=== PATIENT | male | born 1945 | race African-American/Black ===

== ENCOUNTER 2016-05-20 20:05 | Emergency (ER) | payer OTHER, MEDICARE ==
[~2016-05-20] VITALS: Ht 190.5 cm; Wt 57.0 kg
[~2016-05-20 20:05] MED LIST: AMMO12LO TOPICAL; ASCO500T PO; ASPI-110 PO; BACI500O2 TOPICAL; CARV25TA PO; D31000CA PO; ERYTOIN10 RIGHT EYE; FERR325T PO; GNP150TA PO; HYDR1CRE15 TOPICAL; METO5TAB3 PO; POTA-163 PO; PRAV40TA2 PO; SILD1POW4 PO; WARF-23 PO
[2016-05-20 20:07] VITALS: RESP 16
[2016-05-20 20:12] VITALS: BP 136/91; PULSE 80; RESP 18; O2SAT 99
--- NOTE | 2016-05-20 20:38 | PD ---
HPI Chief Complaint: Fall Time Seen by Provider: 20:15 Travel History International Travel<30 days: No Contact w/Intl Traveler<30days: No Traveled to known affect area: No History of Present Illness HPI Patient is a 70-year-old male who arrives via EMS for evaluation of back pain and leg pain after fall at home. Patient states that he is in place with a walker, he reports using a walker when he fell. He is not forthcoming with information and appears bothered by the interview. He states that all of his information is in the computer. He denied any shortness of breath or chest pain or dizziness prior to the fall. PFSH Past Medical History Hx Anticoagulant Therapy: Yes Arthritis: Yes Asthma: Yes Atrial Fibrillation: Yes Blood Disorders: No Depression: Yes Heart Rhythm Problems: No Cancer: No High Cholesterol: Yes Chest Pain: Yes Congestive Heart Failure: Yes COPD: No Cerebrovascular Accident: Yes (x3 tia) Coronary Artery Disease: Yes Diabetes: No Diminished Hearing: No Endocrine: No Gastrointestinal Disorders: Yes GERD: Yes Genitourinary: No Headaches: No Hepatitis: Yes (B) Hypertension: Yes (`) Immune Disorder: No Implanted Vascular Access Dvce: Yes Musculoskeletal: Yes Neurologic: No Psychiatric: Yes (PTSD) Reproductive: No Respiratory: Yes Migraines: No Myocardial Infarction: Yes (EARLY 80S) Pneumonia: Yes Radiation Therapy: No Seizures: No Sleep Apnea: No Ulcer: Yes (MIGHT HAVE HAD ON MORE THAN 10YEARS AGO, WAS IN [place]) Past Surgical History AICD: No Arteriovenous Shunt: No Cardiac Surgery: No Coronary Artery Bypass Graft: No Ear Surgery: No Endocrine Surgery: No Eye Surgery: No Genitourinary Surgery: Yes (vasectomy) Insulin Pump: No Oral Surgery: No Pacemaker: No Thoracic Surgery: No Other Surgery: Yes (L FEM POP BYPASS WITH REDO AT CHECK-UP, VASECTOMY) Social History Alcohol Use: No Tobacco Use: Yes Substance Use: No Allergies-Medications (Allergen,Severity, Reaction): Coded Allergies: Codeine (Verified Allergy, Severe, RASH, 06/11/14) Mirtazapine (Verified Allergy, Severe, 06/11/14) hallucinations Reported Meds & Prescriptions Reported Meds & Active Scripts Active Reported Warfarin 5 Mg Tab 5 Mg PO FRI, Warfarin 5 Mg Tab 7.5 Mg PO MO,E,WED,FRI Sildenafil Citrate (Sildenafil Citrate (Bulk)) 1 Pow Pow 50 Mg PO DIRECTED Gnp Acid Control 150 Maxi (Ranitidine HCl) 150 Mg Tab 150 Mg PO DAILY Pravastatin 40 Mg Tab 40 Mg PO DAILY Potassium Chloride ER (Potassium Chloride) 20 Meq Tab 20 Meq PO MO,FRI,FRI Metolazone 5 Mg Tab 5 Mg PO DAILY Hydrocortisone Maximum St (Hydrocortisone (Topical)) 1 % Cre TOPICAL BID Ferrous Sulfate 325 Mg Tab 324 Mg PO DAILY D3 (Cholecalciferol) 1,000 Unit Cap 1,000 Units PO DAILY Aspirin 81 (Aspirin) 81 Mg Tabdr 81 Mg PO DAILY Erythromycin Opth Oint 5 Mg/Gm Oint 1 Applic RIGHT EYE BID Carvedilol 25 Mg Tab 12.5 Mg PO BID Bacitracin Topical 500 Unit/Gm Oint 1 Applic TOPICAL DAILY Ascorbic Acid 500 Mg Tab 500 Mg PO BID Ammonium Lactate (Lactic Acid (Ammonium Lactate)) 12% Lotn 1 Applic TOPICAL BID Review of Systems Except as stated in HPI: all other systems reviewed are Neg Eyes: No: Visual changes HENT: No: Headaches, Neck Pain Cardiovascular: No: Chest Pain or Discomfort Respiratory: No: Shortness of Breath Gastrointestinal: No: Nausea, Abdominal Pain Musculoskeletal: Positive: Myalgias, Edema Neurologic: No: Weakness, Dizziness, Syncope, Focal Abnormalities Physical Exam Narrative GENERAL: Well-appearing, well-nourished, judgment. Resting comfortably in no acute distress. SKIN: Warm and dry. Superficial Abrasions noted to shins. HEAD: Atraumatic. Normocephalic. EYES: Pupils equal and round. No scleral icterus. No injection or drainage. ENT: No nasal bleeding or discharge. Mucous membranes pink and moist. NECK: Trachea midline. No JVD. Spinal tenderness noted in the cervical region CARDIOVASCULAR: Regular rate and rhythm. No murmur appreciated. RESPIRATORY: No accessory muscle use. Clear to auscultation. Breath sounds equal bilaterally. GASTROINTESTINAL: Abdomen soft, non-tender, nondistended. Hepatic and splenic margins not palpable. MUSCULOSKELETAL: No obvious deformities. No clubbing. No cyanosis. Mild edema noted in bilateral lower extremities. NEUROLOGICAL: Awake and alert. No obvious cranial nerve deficits. Motor grossly within normal limits. Normal speech. PSYCHIATRIC: Appropriate mood and affect; insight and judgment normal. Data Data Last Documented VS Vital Signs Date Time Temp Pulse Resp B/P Pulse Ox O2 Delivery O2 Flow Rate FiO2 05/20/16 22:00 97.2 05/20/16 20:12 80 18 136/[address] Brain W/O Iv Contrast(Rout) (05/20/16 ) Prothrombin Time / Inr (Pt) (05/20/16 20:21) Spine, Lumbar - Ltd (Ap & Lat) (05/20/16 ) Labs Laboratory Tests Test 05/20/16 20:29 Prothrombin Time 11.3 SEC Prothromb Time International 1.0 RATIO Ratio MDM Medical Decision Making Medical Screen Exam Complete: Yes Emergency Medical Condition: Yes Interpretation(s) Laboratory Tests Test 05/20/16 20:29 Prothrombin Time 11.3 SEC Prothromb Time International 1.0 RATIO Ratio Last Impressions Lumbar Spine X-Ray 05/20/16 0000 Signed Impressions: Service Date/Time: Friday, May 20, 2016 20:40 - CONCLUSION: 1. No acute fracture or malalignment. 2. Diffuse degenerative disc changes. 3. Osteopenia and moderate to severe scoliosis. Tristan Beaver MD Head CT 05/20/16 0000 Signed Impressions: Service Date/Time: Friday, May 20, 2016 20:55 - CONCLUSION: Stable appearance with no acute hemorrhage or mass effect. Tristan Beaver MD Vital Signs Date Time Temp Pulse Resp B/P Pulse Ox O2 Delivery O2 Flow Rate FiO2 05/20/16 20:12 80 18 136/91 99 Room Air 05/20/16 20:07 16 Differential Diagnosis Fracture versus sprain versus strain versus contusion versus hemorrhage versus other Narrative Course Patient is a 70-year-old male who presented to emergency department for evaluation after a fall that he sustained at home. Patient was bothered with the interview and being questioned about the fall. Patient is neurologically intact at this time. Patient is no longer taking Coumadin, according to medical records he does not want to be on it and stopped taking the medication. Patient had a physical therapy evaluation prior to his last discharge, at that time his balance was noted to be fair. Patient is supposed to be using a walker when he ambulates. CT of the brain is negative for acute abnormality. X -ray of the lumbar spine shows no acute fracture or malalignment, he does have degenerative changes. Patient had no other complaints on arrival other than musculoskeletal complaints. He denied any chest pain, shortness of breath, weakness, dizziness. Patient will be discharged home, he is encouraged to change positions slowly and only ambulate with his walker. Patient is stable for discharge Diagnosis Primary Impression: Fall Qualified Code: W19.XXXA - Fall, initial encounter Additional Impression: Back pain Qualified Code: M54.5 - Acute low back pain without sciatica, unspecified back pain laterality Referrals: Primary Care Physician 1 day Patient Instructions: Acute Low Back Pain (ED), Fall Prevention for Older Adults (ED), General Instructions Additional Instructions: Follow-up with your primary doctor at the [facility] Change positions slowly, always ambulate with your walker Return to emergency department for any new or worsening symptoms Med/Other Pt SpecificInfo: No Change to Meds Disposition: 01 DISCHARGE HOME Condition: Stable Diane Mayer May 20, 2016 20:38
[2016-05-20 20:54] LABS: PROTHROMBIN TIME - PATIENT 11.3 SEC (9.8-11.6)
--- NOTE | 2016-05-20 21:05 | RADRPT ---
EXAM DATE/TIME: 05/20/2016 20:55 [facility] COMPARISON: CT BRAIN W/O CONTRAST, June 02, 2014, 16:29. INDICATIONS : Fall today, cephalgia. RADIATION DOSE: 39.54 CTDIvol (mGy) MEDICAL HISTORY : Hepatitis B. Hypertension. SURGICAL HISTORY : None. ENCOUNTER: Initial ACUITY: 1 day PAIN SCALE: 5/10 LOCATION: Bilateral head TECHNIQUE: Multiple contiguous axial images were obtained of the head. Using automated exposure control and adj ustment of the mA and/or kV according to patient size, radiation dose was kept as low as reasonably a chievable to obtain optimal diagnostic quality images. FINDINGS: CEREBRUM: Diffuse moderate to severe atrophic changes are again noted with sulcal and ventricular prominence. T here is a stable area of encephalomalacia in the right frontal lobe. Periventricular white matter shalonda encies are again noted consistent with chronic small vessel ischemic change. There is mild streak and motion artifact. No evidence of midline shift, mass lesion, hemorrhage or acute infarction. No extr a-axial fluid collections are seen. POSTERIOR FOSSA: The cerebellum and brainstem are intact. The 4th ventricle is midline. The cerebellopontine angle i s unremarkable. EXTRACRANIAL: The visualized portion of the orbits is intact. SKULL: The calvaria is intact. No evidence of skull fracture. CONCLUSION: Stable appearance with no acute hemorrhage or mass effect. Tristan Beaver MD on May 20, 2016 at 21:03 Board Certified Radiologist. This report was verified electronically.
--- NOTE | 2016-05-20 21:08 | RADRPT ---
EXAM DATE/TIME: 05/20/2016 20:40 [facility] COMPARISON: No previous studies available for comparison. INDICATIONS : Lower back pain after fall. MEDICAL HISTORY : None. SURGICAL HISTORY : Stent. ENCOUNTER: Initial ACUITY: 1 day PAIN SCORE: 10/10 LOCATION: Bilateral Lower back. FINDINGS: AP and lateral views of the lumbar spine were obtained and demonstrate a moderate to severe rotatory scoliosis of lumbar spine with the apex to the right at approximately the L2 level. Diffuse degenerat kindra changes are noted with disc space narrowing and hypertrophic change. There is straightening of th e normal lumbar lordosis. There is diffuse osteopenia with no acute fracture or malalignment. The pat ient is status post abdominal aortic aneurysm repair with stent graft in place. The sacrum appears in tact. CONCLUSION: 1. No acute fracture or malalignment. 2. Diffuse degenerative disc changes. 3. Osteopenia and moderate to severe scoliosis. Tristan Beaver MD on May 20, 2016 at 21:06 Board Certified Radiologist. This report was verified electronically.
[2016-05-20 22:00] VITALS: TEMP 97.2
== END 2016-05-20 22:25 | disposition home or self-care (01) ==
LOC: NEPE 20:05
DX: M54.5 Low back pain (principal); I48.91 Unspecified atrial fibrillation; W19.XXXA Unspecified fall, initial encounter; Y92.009 Unspecified place in unspecified non-institutional (private) residence as the place of occurrence of the external cause
CPT/HCPCS: 70450; 72100; 85610

== ENCOUNTER 2016-06-03 09:17 | Emergency (ER) | payer OTHER, MEDICARE ==
[~2016-06-03] VITALS: Ht 190.5 cm; Wt 66.0 kg
[2016-06-03 09:20] VITALS: BP 102/65; PULSE 78; RESP 20; TEMP 97.3; O2SAT 96
--- NOTE | 2016-06-03 11:02 | PD ---
HPI Chief Complaint: Fall Time Seen by Provider: 11:01 Travel History International Travel<30 days: No Contact w/Intl Traveler<30days: No Traveled to known affect area: No History of Present Illness HPI 70-year-old male with history of CAD, COPD, hypertension, diabetes, presents to emergency department following a fall. Patient states that he had walked towards his front door this morning on his porch when a big wind came and "caught him." He is uncertain of the when pulled down or if he tripped on the way down but he struck his head. He states there was loss of consciousness. Patient is on Coumadin. Reports mild head pain, right hip, and right knee pain. Denies any chest pain or tightness. States he is chronically short of breath and is on 2 L nasal cannula at home. He has no focal deficits or weakness at this time. Has been nauseous. No other symptoms to report. PFSH Past Medical History Hx Anticoagulant Therapy: Yes Arthritis: Yes Asthma: Yes Atrial Fibrillation: Yes Blood Disorders: No Depression: Yes Heart Rhythm Problems: No Cancer: No Cardiovascular Problems: Yes (COPD) High Cholesterol: Yes Chest Pain: Yes Congestive Heart Failure: Yes COPD: No Cerebrovascular Accident: Yes (x3 tia) Coronary Artery Disease: Yes Diabetes: Yes Diminished Hearing: No Endocrine: No Gastrointestinal Disorders: Yes GERD: Yes Genitourinary: No Headaches: No Hepatitis: Yes (B) Hypertension: Yes (`) Immune Disorder: No Implanted Vascular Access Dvce: Yes Musculoskeletal: Yes Neurologic: No Psychiatric: Yes (PTSD) Reproductive: No Respiratory: Yes Migraines: No Myocardial Infarction: Yes (EARLY 80S) Pneumonia: Yes Radiation Therapy: No Seizures: No Sleep Apnea: No Ulcer: Yes (MIGHT HAVE HAD ON MORE THAN 10YEARS AGO, WAS IN [place]) Past Surgical History AICD: No Arteriovenous Shunt: No Cardiac Surgery: No Coronary Artery Bypass Graft: No Ear Surgery: No Endocrine Surgery: No Eye Surgery: No Genitourinary Surgery: Yes (vasectomy) Insulin Pump: No Oral Surgery: No Pacemaker: No Thoracic Surgery: No Other Surgery: Yes (L FEM POP BYPASS WITH REDO AT CHECK-UP, VASECTOMY) Social History Alcohol Use: No Tobacco Use: Yes Substance Use: No Allergies-Medications (Allergen,Severity, Reaction): Coded Allergies: Adhesives (Verified Allergy, Severe, Rash, 06/03/16) Codeine (Verified Allergy, Severe, RASH, 06/03/16) Mirtazapine (Verified Allergy, Severe, 06/03/16) hallucinations Reported Meds & Prescriptions Reported Meds & Active Scripts Active Reported Warfarin 5 Mg Tab 5 Mg PO FRI, Warfarin 5 Mg Tab 7.5 Mg PO ,FRI,FRI,FRI Sildenafil Citrate (Sildenafil Citrate (Bulk)) 1 Pow Pow 50 Mg PO DIRECTED Gnp Acid Control 150 Maxi (Ranitidine HCl) 150 Mg Tab 150 Mg PO DAILY Pravastatin 40 Mg Tab 40 Mg PO DAILY Potassium Chloride ER (Potassium Chloride) 20 Meq Tab 20 Meq PO ,FRI,FRI Metolazone 5 Mg Tab 5 Mg PO DAILY Hydrocortisone Maximum St (Hydrocortisone (Topical)) 1 % Cre TOPICAL BID Ferrous Sulfate 325 Mg Tab 324 Mg PO DAILY D3 (Cholecalciferol) 1,000 Unit Cap 1,000 Units PO DAILY Aspirin 81 (Aspirin) 81 Mg Tabdr 81 Mg PO DAILY Erythromycin Opth Oint 5 Mg/Gm Oint 1 Applic RIGHT EYE BID Carvedilol 25 Mg Tab 12.5 Mg PO BID Bacitracin Topical 500 Unit/Gm Oint 1 Applic TOPICAL DAILY Ascorbic Acid 500 Mg Tab 500 Mg PO BID Ammonium Lactate (Lactic Acid (Ammonium Lactate)) 12% Lotn 1 Applic TOPICAL BID Review of Systems Except as stated in HPI: all other systems reviewed are Neg Physical Exam Narrative GENERAL: Thin elderly male patient, sitting in a wheelchair, in no acute distress. Patient has been wheeling himself around the room, taking supply from the drawers. SKIN: Warm and dry. Small abrasion on the left frontal scalp. HEAD: Normocephalic. EYES: Pupils equal and round. No scleral icterus. No injection or drainage. ENT: No nasal bleeding or discharge. Mucous membranes pink and moist. NECK: Trachea midline. No JVD. No cervical spine tenderness to palpation. No limitations of range of motion of the cervical spine. CARDIOVASCULAR: Regular rate and rhythm. No murmur appreciated. RESPIRATORY: No accessory muscle use. Clear to auscultation. Breath sounds equal bilaterally. GASTROINTESTINAL: Abdomen soft, non-tender, nondistended. Hepatic and splenic margins not palpable. MUSCULOSKELETAL: No obvious deformities. No clubbing. No cyanosis. No edema. Tenderness elicited palpation of the right anterior lateral hip. No obvious deformity. No shortening or rotation of the lower extremity. NEUROLOGICAL: Awake and alert. No obvious cranial nerve deficits. Motor grossly within normal limits. Normal speech. Data Data Last Documented VS Vital Signs Date Time Temp Pulse Resp B/P Pulse Ox O2 Delivery O2 Flow Rate FiO2 06/03/16 09:20 97.3 78 20 102/65 96 Room Air Orders Complete Blood Count With Diff (06/03/16 10:59) Basic Metabolic Panel (Bmp) (06/03/16 10:59) Coag Profile (06/03/16 10:59) Electrocardiogram (06/03/16 ) Ct Brain W/O Iv Contrast(Rout) (06/03/16 ) Hip, Uni(Ap&Lat) W Ap Pelvis (06/03/16 11:14) Knee, Complete (4vws) (06/03/16 11:14) Labs Laboratory Tests Test 06/03/16 06/03/16 12:25 12:28 White Blood Count 7.3 TH/MM3 Red Blood Count 4.38 MIL/MM3 Hemoglobin 13.0 GM/DL Hematocrit 39.7 % Mean Corpuscular Volume 90.6 FL Mean Corpuscular Hemoglobin 29.8 PG Mean Corpuscular Hemoglobin 32.9 % Concent Red Cell Distribution Width 13.6 % Platelet Count 244 TH/MM3 Mean Platelet Volume 6.6 FL Neutrophils (%) (Auto) 62.1 % Lymphocytes (%) (Auto) 18.2 % Monocytes (%) (Auto) 17.1 % Eosinophils (%) (Auto) 1.5 % Basophils (%) (Auto) 1.1 % Neutrophils # (Auto) 4.5 TH/MM3 Lymphocytes # (Auto) 1.3 TH/MM3 Monocytes # (Auto) 1.3 TH/MM3 Eosinophils # (Auto) 0.1 TH/MM3 Basophils # (Auto) 0.1 TH/MM3 CBC Comment DIFF FINAL Differential Comment Sodium Level 138 MEQ/L Potassium Level 4.2 MEQ/L Chloride Level 100 MEQ/L Carbon Dioxide Level 32.1 MEQ/L Anion Gap 6 MEQ/L Blood Urea Nitrogen 46 MG/DL Creatinine 1.99 MG/DL Estimat Glomerular Filtration 40 ML/MIN Rate Random Glucose 87 MG/DL Calcium Level 9.1 MG/DL Prothrombin Time 11.4 SEC Prothromb Time International 1.0 RATIO Ratio Activated Partial 27.5 SEC Thromboplast Time MDM Medical Decision Making Medical Screen Exam Complete: Yes Emergency Medical Condition: Yes Medical Record Reviewed: Yes Differential Diagnosis Minor head injury versus intracranial hemorrhage versus scalp contusion versus fracture versus sprain versus dislocation Narrative Course 70-year-old male presents to emergency department by [facility] for evaluation following a fall. Patient appears overall well and without distress. Workup is initiated in triage. Once a medical bed becomes available , patient will be transferred to that pod and care assumed by that provider. Imaging studies are all without acute bony abnormality. No intracranial abnormality identified on CT imaging. CBC and BMP are without acute concern and consistent with most recent lab work. Patient does have renal insufficiency. Patient wants to go home. He is argumentative and triage and states that he is tired of waiting. After review of the images and lab work, there is no acute reason for admission. I discussed the patient my attending physician, patient will be discharged at this time Diagnosis Primary Impression: Minor head injury Qualified Code: S00.90XA - Minor head injury, initial encounter Additional Impressions: Right hip pain Right knee pain Qualified Code: M25.561 - Acute pain of right knee Referrals: Primary Care Physician Patient Instructions: General Instructions, Head Injury (ED), Hip Pain (ED) Additional Instructions: Ice and/or warm moist heat may help to alleviate symptoms Follow-up with a primary care provider Return immediately with any acute worsening of symptoms Med/Other Pt SpecificInfo: No Change to Meds Disposition: 01 DISCHARGE HOME Condition: Stable [facility] garcia PURVI Jun 03, 2016 11:02
--- NOTE | 2016-06-03 11:52 | RADRPT ---
EXAM DATE/TIME: 06/03/2016 11:33 [facility] COMPARISON: SPINE LUMBAR LTD (AP & LAT), May 20, 2016, 20:40. INDICATIONS : Right hip pain, fall. MEDICAL HISTORY : None. SURGICAL HISTORY : None. ENCOUNTER: Initial ACUITY: 2 days PAIN SCORE: 6/10 LOCATION: Right hip FINDINGS: The osseous structures of the pelvis are intact. There are advanced degenerative changes in the lumba r spine. The right femoral head is well situated within the acetabular fossa. No acute fracture the r ight hip is seen. The exam demonstrates an aortic endograft with the lateral limb extending down into the left iliac ci rculation. CONCLUSION: 1. The bony structures of the pelvis are intact. 2. No acute right hip fracture identified. Murtaza Drummond MD on June 03, 2016 at 11:48 Board Certified Radiologist. This report was verified electronically.
--- NOTE | 2016-06-03 11:52 | RADRPT ---
EXAM DATE/TIME: 06/03/2016 11:37 [facility] COMPARISON: HIP RIGHT (AP&LAT 2/3VWS) W AP PELVIS, June 03, 2016, 11:33. INDICATIONS : Right knee pain, fall. MEDICAL HISTORY : None. SURGICAL HISTORY : None. ENCOUNTER: Initial ACUITY: 2 days PAIN SCORE: 6/10 LOCATION: Right lateral knee FINDINGS: Four view examination of the right knee demonstrates no evidence of fracture or dislocation. Bony mi neralization is normal. The articular surfaces are intact. The suprapatellar soft tissues have a no rmal configuration. There is atherosclerotic calcification in the distal superficial femoral artery. CONCLUSION: 1. No acute fracture of the right knee identified. Murtaza Drummond MD on June 03, 2016 at 11:50 Board Certified Radiologist. This report was verified electronically.
--- NOTE | 2016-06-03 11:56 | RADRPT ---
EXAM DATE/TIME: 06/03/2016 11:36 [facility] COMPARISON: CT BRAIN W/O CONTRAST, May 20, 2016, 20:55. INDICATIONS : Trauma; fall. RADIATION DOSE: 56.35 CTDIvol (mGy) MEDICAL HISTORY : Hypertension. Cardiovascular disease Chronic obstructive pulmonary disease.Diabetic. SURGICAL HISTORY : None. ENCOUNTER: Initial ACUITY: 1 day PAIN SCALE: 5/10 LOCATION: cranial TECHNIQUE: Multiple contiguous axial images were obtained of the head. Using automated exposure control and adj ustment of the mA and/or kV according to patient size, radiation dose was kept as low as reasonably a chievable to obtain optimal diagnostic quality images. FINDINGS: CEREBRUM: The ventricles are normal for age. No evidence of midline shift, mass lesion, hemorrhage or acute in farction. No extra-axial fluid collections are seen. POSTERIOR FOSSA: The cerebellum and brainstem are intact. The 4th ventricle is midline. The cerebellopontine angle i s unremarkable. EXTRACRANIAL: The visualized portion of the orbits is intact. SKULL: The calvaria is intact. No evidence of skull fracture. CONCLUSION: 1. No acute intracranial abnormality. Murtaza Drummond MD on June 03, 2016 at 11:54 Board Certified Radiologist. This report was verified electronically.
[2016-06-03 12:41] LABS: AUTOMATED NEUTROPHIL # 4.5 TH/MM3 (1.8-7.7); BASOPHIL # 0.1 TH/MM3 (0-0.2); BASOPHIL % 1.1 % (0.0-2.0); EOSINOPHIL # 0.1 TH/MM3 (0-0.4); EOSINOPHIL % 1.5 % (0.0-4.0); HEMATOCRIT 39.7 % (39.0-51.0); HEMO FLAGS DIFF FINAL; LYMPH % 18.2 % (9.0-44.0); LYMPHOCYTE # 1.3 TH/MM3 (1.0-4.8); MEAN CELL VOLUME 90.6 FL (80.0-100.0); MEAN CORPUSCULAR HEMOGLOBIN 29.8 PG (27.0-34.0); MEAN CORPUSCULAR HGB CONC 32.9 % (32.0-36.0); MONO % 17.1 % (0.0-8.0); NEUT % 62.1 % (16.0-70.0); PLATELET COUNT 244 TH/MM3 (150-450); RED BLOOD COUNT 4.38 MIL/MM3 (4.50-5.90); RED CELL DISTRIBUTION WIDTH 13.6 % (11.6-17.2); WHITE BLOOD COUNT 7.3 TH/MM3 (4.0-11.0)
[2016-06-03 12:52] LABS: APTT (PATIENT) 27.5 SEC (24.3-30.1); PROTHROMBIN TIME - PATIENT 11.4 SEC (9.8-11.6)
[2016-06-03 13:00] LABS: BICARBONATE 32.1 MEQ/L (21.0-32.0); POTASSIUM 4.2 MEQ/L (3.5-5.1)
--- NOTE | 2016-06-04 17:58 | EKG ---
Date Performed: 06/03/2016 Time Performed: 12:23:15 PTAGE: 70 years EKG: Normal Sinus rhythm Lateral ST depression. Baseline artifact. Likely no significant change when compared to previous tra cing. ABNORMAL ECG PREVIOUS TRACING : 05/02/2016 15.06 DOCTOR: Ann Rios Interpretating Date/Time 06/04/2016 17:56:29
== END 2016-06-03 14:05 | disposition home or self-care (01) ==
LOC: NETRI 09:17
DX: S00.90XA Unspecified superficial injury of unspecified part of head, initial encounter (principal); M25.561 Pain in right knee; M25.551 Pain in right hip; R94.31 Abnormal electrocardiogram [ECG] [EKG]; J44.9 Chronic obstructive pulmonary disease, unspecified; I10 Essential (primary) hypertension; E11.9 Type 2 diabetes mellitus without complications; J45.909 Unspecified asthma, uncomplicated; I48.91 Unspecified atrial fibrillation; E78.00 Pure hypercholesterolemia, unspecified; I25.10 Atherosclerotic heart disease of native coronary artery without angina pectoris; Z79.01 Long term (current) use of anticoagulants; Z72.0 Tobacco use; W18.30XA Fall on same level, unspecified, initial encounter; Y92.007 Garden or yard of unspecified non-institutional (private) residence as the place of occurrence of the external cause; Y99.8 Other external cause status
CPT/HCPCS: 70450; 73502; 73564; 80048; 85025; 85610; 85730; 93005

== ENCOUNTER 2016-06-06 15:33 | Emergency (ER) | payer OTHER, MEDICARE ==
[~2016-06-06] VITALS: Ht 190.5 cm; Wt 66.5 kg
[2016-06-06 15:40] VITALS: BP 102/65; PULSE 79; RESP 14; TEMP 97.5; O2SAT 97
--- NOTE | 2016-06-06 17:13 | PD ---
HPI Chief Complaint: Fall Time Seen by Provider: 17:13 Travel History International Travel<30 days: No Contact w/Intl Traveler<30days: No Traveled to known affect area: No History of Present Illness HPI 70-year-old male came here because of his right index knuckle swelling and pain after a fall a few days ago. Patient has been extremely rude the staff from the moment he came in threatening to report them. He was seen in the emergency room on the day he fell and multiple CAT scans and x-rays were done which were within normal limit. [facility] Past Medical History Narrative Medical List of his past medical history as reviewed from the nursing note Hx Anticoagulant Therapy: Yes Arthritis: Yes Asthma: Yes Atrial Fibrillation: Yes Blood Disorders: No Depression: Yes Heart Rhythm Problems: No Cancer: No Cardiovascular Problems: Yes High Cholesterol: Yes Chest Pain: Yes Congestive Heart Failure: Yes COPD: No Cerebrovascular Accident: Yes (x3 tia) Coronary Artery Disease: Yes Diabetes: Yes Diminished Hearing: No Endocrine: No Gastrointestinal Disorders: Yes GERD: Yes Genitourinary: No Headaches: No Hepatitis: Yes (B) Hypertension: Yes (`) Immune Disorder: No Implanted Vascular Access Dvce: Yes Musculoskeletal: Yes Neurologic: No Psychiatric: Yes (PTSD) Reproductive: No Respiratory: Yes Migraines: No Myocardial Infarction: Yes (EARLY 80S) Pneumonia: Yes Radiation Therapy: No Seizures: No Sleep Apnea: No Ulcer: Yes (MIGHT HAVE HAD ON MORE THAN 10YEARS AGO, WAS IN [place]) Past Surgical History AICD: No Arteriovenous Shunt: No Cardiac Surgery: No Coronary Artery Bypass Graft: No Ear Surgery: No Endocrine Surgery: No Eye Surgery: No Genitourinary Surgery: Yes (vasectomy) Insulin Pump: No Oral Surgery: No Pacemaker: No Thoracic Surgery: No Other Surgery: Yes (L FEM POP BYPASS WITH REDO AT CHECK-UP, VASECTOMY) Social History Alcohol Use: No Tobacco Use: Yes Substance Use: No Allergies-Medications (Allergen,Severity, Reaction): Coded Allergies: Adhesives (Verified Allergy, Severe, Rash, 06/06/16) Codeine (Verified Allergy, Severe, RASH, 06/06/16) Mirtazapine (Verified Allergy, Severe, 06/06/16) hallucinations Comments List of his allergies reviewed from the nursing note. Reported Meds & Prescriptions Reported Meds & Active Scripts Active Reported Warfarin 5 Mg Tab 5 Mg PO LIANA CORONA Warfarin 5 Mg Tab 7.5 Mg PO ,FRI,FRI,FRI Sildenafil Citrate (Sildenafil Citrate (Bulk)) 1 Pow Pow 50 Mg PO DIRECTED Gnp Acid Control 150 Maxi (Ranitidine HCl) 150 Mg Tab 150 Mg PO DAILY Pravastatin 40 Mg Tab 40 Mg PO DAILY Potassium Chloride ER (Potassium Chloride) 20 Meq Tab 20 Meq PO ,FRI,FRI Metolazone 5 Mg Tab 5 Mg PO DAILY Hydrocortisone Maximum St (Hydrocortisone (Topical)) 1 % Cre TOPICAL BID Ferrous Sulfate 325 Mg Tab 324 Mg PO DAILY D3 (Cholecalciferol) 1,000 Unit Cap 1,000 Units PO DAILY Aspirin 81 (Aspirin) 81 Mg Tabdr 81 Mg PO DAILY Erythromycin Opth Oint 5 Mg/Gm Oint 1 Applic RIGHT EYE BID Carvedilol 25 Mg Tab 12.5 Mg PO BID Bacitracin Topical 500 Unit/Gm Oint 1 Applic TOPICAL DAILY Ascorbic Acid 500 Mg Tab 500 Mg PO BID Ammonium Lactate (Lactic Acid (Ammonium Lactate)) 12% Lotn 1 Applic TOPICAL BID Narrative Medication List of his home medications reviewed from the nursing note. Incidentally patient told me that he does not take warfarin anymore because when he was taking it he had noticed that rats were coming out of his body was decided to be off warfarin. Review of Systems Except as stated in HPI: all other systems reviewed are Neg Physical Exam Narrative GENERAL: Awake, alert, no obvious distress SKIN: Warm and dry. HEAD: Atraumatic. Normocephalic. EYES: Pupils equal and round. No scleral icterus. No injection or drainage. ENT: No nasal bleeding or discharge. Mucous membranes pink and moist. NECK: Trachea midline. No JVD. CARDIOVASCULAR: Regular rate and rhythm. No murmur appreciated. RESPIRATORY: No accessory muscle use. Clear to auscultation. Breath sounds equal bilaterally. GASTROINTESTINAL: Abdomen soft, non-tender, nondistended. Hepatic and splenic margins not palpable. MUSCULOSKELETAL: No obvious deformities. No clubbing. No cyanosis. No edema. Right knuckle of the index finger at the MCP joint is swollen but good range of motion. No redness or point tenderness. NEUROLOGICAL: Awake and alert. No obvious cranial nerve deficits. Motor grossly within normal limits. Normal speech. PSYCHIATRIC: Appropriate mood and affect; insight and judgment normal. Data Data Last Documented VS Vital Signs Date Time Temp Pulse Resp B/P Pulse Ox O2 Delivery O2 Flow Rate FiO2 06/06/16 18:49 88 18 107/50 97 06/06/16 17:45 Room Air 06/06/16 15:40 97.5 Orders Hand, Complete ([id number]) (06/06/16 ) MDM Medical Decision Making Medical Screen Exam Complete: Yes Emergency Medical Condition: Yes Medical Record Reviewed: Yes Differential Diagnosis Fracture, contusion Narrative Course 6:50 PM x-ray was within normal limit. I'll discharge the patient home. Procedures EKG Prior to Arrival: No Diagnosis Primary Impression: Hand contusion Qualified Code: S60.221A - Contusion of right hand, initial encounter Referrals: Primary Care Physician Additional Instructions: Please follow-up with your primary care physician. Disposition: 01 DISCHARGE HOME Condition: Stable Derek Finley MD Jun 06, 2016 17:13
--- NOTE | 2016-06-06 18:21 | RADRPT ---
EXAM DATE/TIME: 06/06/2016 17:51 [place] COMPARISON: No previous studies available for comparison. INDICATIONS : Right hand pain, unknown injury. MEDICAL HISTORY : Right hand nerve damage. SURGICAL HISTORY : None. ENCOUNTER: Initial ACUITY: 1 day PAIN SCORE: Non-responsive. LOCATION: Right hand. FINDINGS: There is mild fusiform deformity of the proximal aspect of the right fifth metacarpal which likely re flects remote injury. There is no evidence of acute fracture or dislocation. Mineralization is normal . Mild arthritic changes are present. CONCLUSION: No acute bony findings Job Friedman MD on June 06, 2016 at 18:18 Board Certified Radiologist. This report was verified electronically.
[2016-06-06 18:49] VITALS: BP 107/50
== END 2016-06-06 21:45 | disposition home or self-care (01) ==
LOC: NEPC 15:33
DX: S60.221D Contusion of right hand, subsequent encounter (principal); W19.XXXD Unspecified fall, subsequent encounter; I48.91 Unspecified atrial fibrillation; E78.00 Pure hypercholesterolemia, unspecified; I50.9 Heart failure, unspecified; E11.9 Type 2 diabetes mellitus without complications; I10 Essential (primary) hypertension; I25.2 Old myocardial infarction; F43.10 Post-traumatic stress disorder, unspecified; Z72.0 Tobacco use
CPT/HCPCS: 73130; 99284

== ENCOUNTER 2016-08-06 20:32 | Inpatient (IN) | payer OTHER, MEDICARE ==
[~2016-08-06] VITALS: Ht 190.5 cm; Wt 77.0 kg
[2016-08-06 20:55] VITALS: BP 141/101; PULSE 106; RESP 20; TEMP 98.2; O2SAT 95
[2016-08-06] MEDS ORDERED: SODIUM CHLOR 0.9% 1000 ML INJ 1,000 ML IV SCH (21:28)
[2016-08-06] MEDS ORDERED: ceFAZolin 2 GM PREMIX 50 ML IV ONE (21:30)
[2016-08-06] MEDS ORDERED: ONDANSETRON HCL 4 MG/2 ML VIAL IVP ONE (21:30)
[2016-08-06 21:39] VITALS: O2SAT 96
--- NOTE | 2016-08-06 21:48 | PD ---
HPI Chief Complaint: Fall Time Seen by Provider: 21:28 Travel History International Travel<30 days: No Contact w/Intl Traveler<30days: No Traveled to known affect area: No History of Present Illness HPI The patient is a 70 year old male who presents to the [facility] emergency department with a history of being brought in by ambulance services in full C- spine immobilization on a backboard after his sister went to check on him and found that he was on the floor. The patient reportedly fell 3-1/2 days ago. He reports that he has been scooting around on his back, however he was unable to stand up. The patient reports having a headache, neck pain, and back pain related to the fall. He denies having any numbness or tingling to his extremities. The patient does have a history of chronic back pain with degenerative changes. The patient reports that he was told that he needed surgery, however he refused as he was concerned about the possible side effect of paralysis. The patient normally uses a diaper due to urinary incontinence. The patient reports that he has not been able to change this for the last 3-1/2 days. He reports having nausea but no vomiting. He reports having increase shortness of breath compared to baseline. He does have a prior history of congestive heart failure and COPD. He reports that he has been on 2 L nasal cannula when necessary. The patient reports that he is followed through the [facility] for his primary care. The patient denies any recent fevers, cough, congestion, neck pain, chest pain, abdominal pain, vomiting, diarrhea, urinary symptoms, or new neurologic symptoms. Tetanus is reportedly up to date. [facility] Past Medical History Narrative Medical The patient's past medical history is significant for being anticoagulated on Coumadin up until 5 weeks ago when he discontinued it. He reports that he discontinued it as he was developing a rash. He reports that he was placed on it related to peripheral arterial disease. The patient's other past medical history is significant for congestive heart failure, hypertension, hyperlipidemia, coronary artery disease, history of acid reflux, peripheral arterial disease, COPD, atrial fibrillation, hepatitis B, posttraumatic stress disorder. Hx Anticoagulant Therapy: Yes Arthritis: Yes Asthma: Yes Atrial Fibrillation: Yes Blood Disorders: No Anxiety: Yes Depression: Yes Heart Rhythm Problems: No Cancer: No Cardiovascular Problems: Yes High Cholesterol: Yes Chest Pain: Yes Congestive Heart Failure: Yes COPD: No Cerebrovascular Accident: Yes (x3 tia) Coronary Artery Disease: Yes Diabetes: Yes Patient Takes Glucophage: No Diminished Hearing: No Endocrine: No Gastrointestinal Disorders: Yes GERD: Yes Genitourinary: No Headaches: No Hepatitis: Yes (B) Heparin Induced Thrombocytopen: No Hypertension: Yes (`) Immune Disorder: No Implanted Vascular Access Dvce: No Musculoskeletal: Yes Neurologic: No Psychiatric: Yes (PTSD) Reproductive: No Respiratory: Yes Migraines: No Myocardial Infarction: Yes (EARLY 80S) Pneumonia: Yes Radiation Therapy: No Seizures: No Sleep Apnea: No Ulcer: Yes (MIGHT HAVE HAD ON MORE THAN 10YEARS AGO, WAS IN [place]) Tetanus Vaccination: < 5 Years Influenza Vaccination: Yes Past Surgical History Narrative Surgical The patient's past surgical history is significant for left femoral popliteal bypass with redo, right carotid endarterectomy, abdominal aortic aneurysm repair , vasectomy, facial scar reconstructive surgery. AICD: No Arteriovenous Shunt: No Cardiac Surgery: No Coronary Artery Bypass Graft: No Ear Surgery: No Endocrine Surgery: No Eye Surgery: No Genitourinary Surgery: Yes (vasectomy) Insulin Pump: No Neurologic Surgery: No Oral Surgery: No Pacemaker: No Thoracic Surgery: No Other Surgery: Yes (L FEM POP BYPASS WITH REDO AT CHECK-UP, VASECTOMY) Social History Alcohol Use: No Tobacco Use: Yes (1-1/2 cigarettes per day) Substance Use: No Allergies-Medications (Allergen,Severity, Reaction): Coded Allergies: Adhesives (Verified Allergy, Severe, Rash, 08/06/16) Codeine (Verified Allergy, Severe, RASH, 08/06/16) Mirtazapine (Verified Allergy, Severe, 08/06/16) hallucinations Reported Meds & Prescriptions Reported Meds & Active Scripts Active Reported Sildenafil Citrate (Sildenafil Citrate (Bulk)) 1 Pow Pow 50 Mg PO DIRECTED Gnp Acid Control 150 Maxi (Ranitidine HCl) 150 Mg Tab 150 Mg PO DAILY Pravastatin 40 Mg Tab 40 Mg PO DAILY Potassium Chloride ER (Potassium Chloride) 20 Meq Tab 20 Meq PO MO,WED,FRI Metolazone 5 Mg Tab 5 Mg PO DAILY Ferrous Sulfate 325 Mg Tab 324 Mg PO DAILY D3 (Cholecalciferol) 1,000 Unit Cap 1,000 Units PO DAILY Aspirin 81 (Aspirin) 81 Mg Tabdr 81 Mg PO DAILY Erythromycin Opth Oint 5 Mg/Gm Oint 1 Applic RIGHT EYE BID Carvedilol 25 Mg Tab 12.5 Mg PO BID Ascorbic Acid 500 Mg Tab 500 Mg PO BID Review of Systems Except as stated in HPI: all other systems reviewed are Neg General / Constitutional: No: Fever Eyes: No: Visual changes HENT: No: Headaches Cardiovascular: Positive: Dyspnea on exertion, No: Chest Pain or Discomfort Respiratory: Positive: Shortness of Breath, No: Cough Gastrointestinal: Positive: Nausea, No: Vomiting, Diarrhea, Abdominal Pain, Changes in Bowel Habits, Indigestion, Loss of Appetite Genitourinary: No: Dysuria Musculoskeletal: Positive: Arthralgias, Pain Skin: No Rash Neurologic: No: Weakness Psychiatric: No: Depression Endocrine: No: Polydipsia Hematologic/Lymphatic: No: Easy Bruising Physical Exam Narrative General: The patient is a well-developed, cachectic appearing male, disheveled appearing on arrival, in no acute distress. The patient is brought in on a back board in full c-spine immobilization by emergency services. Head and Neck exam: Head is normocephalic atraumatic. No facial bone tenderness or increased facial bone mobility noted on palpation. Eyes: EOMI, pupils are equal round and reactive to light. Nose: Midline septum with pink mucous membranes Mouth: Dentition unremarkable. Tacky mucus membranes. Posterior oropharynx is not erythematous. No tonsillar hypertrophy. Uvula midline. Airway patent. Neck: The patient is immobilized in a cervical collar. No tracheal deviation. The trachea appears midline. Cardiovascular: Sinus tachycardia in the low 100s without murmurs, gallops, or rubs. No pulse deficit to the extremities and simultaneous auscultation and palpation of his radial artery. Lungs: Clear to auscultation bilaterally. No wheezes, rhonchi, or rales. No chest wall tenderness to palpation. No erythema or ecchymosis noted. No crepitus , step off, or flail segment noted. Abdomen: Soft, without tenderness to palpation in all 4 quadrants of the abdomen. No guarding, rebound, or rigidity. Normal bowel sounds are audible. No tenderness on palpation of McBurney's point. Extremities: No clubbing, cyanosis, or edema. 2+ pulses in bilateral upper extremities. He has venous stasis changes of bilateral lower extremities, 1+ pulses in bilateral lower extremities. No extremity tenderness or deformity noted on palpation or passive/ active range of motion, except an area of interest, the right hip, the patient reports having some discomfort in the right groin. The patient also reports having some pain in the left proximal humerus at the shoulder. There is no deformity or crepitus on palpation. The patient has discomfort with internal and external rotation of the right hip. The patient is able to flex his right hip to approximately 30 without pain. Back: The patient was log rolled off the backboard. No spinous process tenderness to palpation. The patient is noted to have abrasions and skin tears on his back and on his coccygeal, sacral area. This will be further documented by the nursing staff. The patient has no step-off or crepitus on palpation of the spinous processes. Genital exam: The patient had an old diaper brief in place. The patient was noted to have excoriation to the scrotum with tenderness and erythema noted. Neurologic Exam: Cranial nerves 2-12 were intact on exam. Strength is 5/5 in all 4 extremities. No sensory deficits noted. Skin Exam: No rash noted. Intact skin that is warm and dry. Data Data Last Documented VS Vital Signs Date Time Temp Pulse Resp B/P Pulse Ox O2 Delivery O2 Flow Rate FiO2 08/06/16 21:39 96 Nasal Cannula 2 08/06/16 21:06 106 08/06/16 20:55 98.2 20 141/101 Orders Electrocardiogram (08/06/16 21:28) Complete Blood Count With Diff (08/06/16 21:28) Comprehensive Metabolic Panel (08/06/16 21:28) Creatine Kinase (Cpk) (08/06/16 21:28) Ckmb (Isoenzyme) Profile (08/06/16 21:28) Troponin I (08/06/16 21:28) B-Type Natriuretic Peptide (08/06/16 21:28) Prothrombin Time / Inr (Pt) (08/06/16 21:28) Act Partial Throm Time (Ptt) (08/06/16 21:28) Lipase (08/06/16 21:28) Urinalysis - C+S If Indicated (08/06/16 21:28) Magnesium (Mg) (08/06/16 21:28) Chest, Single Ap (08/06/16 21:28) Ct Brain W/O Iv Contrast(Rout) (08/06/16 21:28) Iv Access Insert/Monitor (08/06/16 21:28) Ecg Monitoring (08/06/16 21:28) Oximetry (08/06/16 21:28) Ct Cerv Spine W/O Contrast (08/06/16 21:28) Ct Thor Spine W/O Contrast (08/06/16 21:28) Ct Lumb Spine W/O Contrast (08/06/16 21:28) Cefazolin 2 Gm Premix (Ancef 2 Gm Premix (08/06/16 21:30) Ondansetron Inj (Zofran Inj) (08/06/16 21:30) Sodium Chlor 0.9% 1000 Ml Inj (Ns 1000 M (08/06/16 21:28) Hip, Uni(Ap&Lat) W Ap Pelvis (08/06/16 21:28) Shoulder, Complete (>2vws) (08/06/16 21:28) Ice/Cold Pack (08/06/16 21:28) Collar [place] (08/06/16 ) CKMB (08/06/16 20:50) CKMB% (08/06/16 20:50) Urine Culture (08/06/16 22:54) Sodium Chlor 0.9% 1000 Ml Inj (Ns 1000 M (08/06/16 23:45) Admit Order (Ed Use Only) (08/06/16 23:44) Labs Laboratory Tests Test 08/06/16 08/06/16 20:50 22:54 White Blood Count 18.6 TH/MM3 Red Blood Count 4.66 MIL/MM3 Hemoglobin 13.5 GM/DL Hematocrit 40.8 % Mean Corpuscular Volume 87.6 FL Mean Corpuscular Hemoglobin 29.0 PG Mean Corpuscular Hemoglobin 33.2 % Concent Red Cell Distribution Width 12.9 % Platelet Count 246 TH/MM3 Mean Platelet Volume 7.4 FL Neutrophils (%) (Auto) 86.1 % Lymphocytes (%) (Auto) 2.9 % Monocytes (%) (Auto) 10.7 % Eosinophils (%) (Auto) 0.0 % Basophils (%) (Auto) 0.3 % Neutrophils # (Auto) 16.0 TH/MM3 Lymphocytes # (Auto) 0.5 TH/MM3 Monocytes # (Auto) 2.0 TH/MM3 Eosinophils # (Auto) 0.0 TH/MM3 Basophils # (Auto) 0.1 TH/MM3 CBC Comment DIFF FINAL Differential Comment Prothrombin Time 12.0 SEC Prothromb Time International 1.1 RATIO Ratio Activated Partial 27.3 SEC Thromboplast Time Sodium Level 143 MEQ/L Potassium Level 4.2 MEQ/L Chloride Level 105 MEQ/L Carbon Dioxide Level 23.6 MEQ/L Anion Gap 14 MEQ/L Blood Urea Nitrogen 48 MG/DL Creatinine 2.59 MG/DL Estimat Glomerular Filtration 30 ML/MIN Rate Random Glucose 122 MG/DL Calcium Level 9.0 MG/DL Magnesium Level 2.0 MG/DL Total Bilirubin 1.4 MG/DL Aspartate Amino Transf 292 U/L (AST/SGOT) Alanine Aminotransferase 64 U/L (ALT/SGPT) Alkaline Phosphatase 64 U/L Total Creatine Kinase 4260 U/L Creatine Kinase MB 23.4 NG/ML Creatine Kinase MB % 0.5 % Troponin I 0.83 NG/ML B-Type Natriuretic Peptide 253 PG/ML Total Protein 6.3 GM/DL Albumin 2.5 GM/DL Lipase 56 U/L Urine Color YELLOW Urine Turbidity HAZY Urine pH 5.5 Urine Specific [place] 1.019 Urine Protein 30 mg/dL Urine Glucose (UA) NEG mg/dL Urine Ketones NEG mg/dL Urine Occult Blood SMALL Urine Nitrite NEG Urine Bilirubin NEG Urine Urobilinogen 2.0 MG/DL Urine Leukocyte Esterase NEG Urine RBC 1 /hpf Urine WBC 4 /hpf Urine Squamous Epithelial 3 /hpf Cells Urine Renal Epithelial Cells 5 /hpf Urine Bacteria OCC /hpf Urine Hyaline Casts 6 /lpf Urine Mucus FEW /lpf Microscopic Urinalysis Comment CATH-CULTURE IND MDM Medical Decision Making Medical Screen Exam Complete: Yes Emergency Medical Condition: Yes Medical Record Reviewed: Yes Interpretation(s) Last Impressions Thoracic Spine CT 08/06/162127 Signed Impressions: Service Date/Time: Saturday, August 06, 2016 22:21 - CONCLUSION: 1. No acute fracture or subluxation of the thoracic spine. 2. Degenerative changes and scoliosis of the thoracolumbar spine. Harrison Méndez MD Shoulder X-Ray 08/06/[id number] Signed Impressions: Service Date/Time: Saturday, August 06, 2016 21:57 - CONCLUSION: No acute disease. Harrison Méndez MD Lumbar Spine CT 08/06/162127 Signed Impressions: Service Date/Time: Saturday, August 06, 2016 22:21 - CONCLUSION: 1. No acute fracture of the lumbar spine. 2. Severe spinal stenosis and bilateral foraminal narrowing at L4-L5. 3. Severe bilateral foraminal narrowing at L5-S1. 4. Severe left neural foraminal narrowing at L2-L3. 5. Degenerative changes and scoliosis of the lumbar spine. 6. Severe degenerative disc disease at all levels within the lumbar spine. Harrison Méndez MD Hip and Pelvis X-Ray 08/06/162127 Signed Impressions: Service Date/Time: Saturday, August 06, 2016 22:04 - CONCLUSION: No acute disease. Harrison Méndez MD Head CT 08/06/162127 Signed Impressions: Service Date/Time: Saturday, August 06, 2016 22:16 - CONCLUSION: 1. Moderate periventricular and subcortical white matter small-vessel ischemic changes bilaterally. 2. Diffuse cerebral atrophy. 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 4. No acute infarct, acute hemorrhage, mass effect or extra-axial fluid collections. Harrison Méndez MD Chest X-Ray 08/06/162127 Signed Impressions: Service Date/Time: Saturday, August 06, 2016 22:09 - CONCLUSION: 1. No acute cardiopulmonary disease. 2. Degenerative changes and scoliosis of the lumbar spine. Harrison Méndez MD Cervical Spine CT 08/06/162127 Signed Impressions: Service Date/Time: Saturday, August 06, 2016 22:16 - CONCLUSION: 1. No acute fracture or prevertebral soft-tissue swelling. 2. Cervical spondylosis from C3 through C6 with mild bilateral foraminal narrowing at these levels. 3. Reversal of the normal cervical lordosis. 4. Mild scoliosis of the cervical spine. 5. Biapical emphysematous changes. Harrison Méndez MD Differential Diagnosis Intracranial trauma, versus cervical spine trauma, versus thoracic trauma, versus T-spine trauma, versus lumbar spinal injury, versus rhabdomyolysis, versus dehydration, versus acute coronary syndrome, versus pneumothorax, versus rib fractures Narrative Course During the course of the patients emergency department visit, the patients history, examination, and differential diagnosis were reviewed with the patient. The patient had IV access obtained and blood work sent for analysis. The patient's placed on a dimmer board operator with oximetry and blood pressure monitoring. CT scan of the head, C-spine, T-spine, L-spine was ordered. A chest x-ray was ordered, pelvic x-ray was ordered including a right hip, left shoulder x-ray was ordered. The patient's EKG done on arrival shows a sinus rhythm heart rate of 91, no acute ST segment elevation is noted, some depression is noted in lead 2. There is a wavy baseline related to artifact The patient was provided Ancef 2 g IV, normal saline 1 L IV fluid bolus. The patient reports that his tetanus is up-to-date. The patients laboratory studies were reviewed and remarkable for rhabdomyolysis with a CPK of 4260, MB percent 0.5, troponin I 0.83, however the patient denies having any chest pain I suspect that this is related to the patient's acute on chronic renal failure. The patient has a BUN of 48, creatinine 2.59 which compared to previously was 46 and 1.99 respectively. The patient has a total bilirubin of 1.4, AST 292, ALT 64, alkaline phosphatase 64. Lipase is 56. The patient's white count of 16.6, hemoglobin 13.5, platelets 246 with 86.1 neutrophils, 10.7 monocytes. Due to the patient's rhabdomyolysis the patient was given a second liter of normal saline IV fluids. Radiology studies were reviewed and remarkable for imaging that showed no acute evidence of fracture, however degenerative disc disease is noted with severe spinal stenosis of the lumbar spine. The patients results were discussed with the patient, including the plan of care. I explained that further testing and/ or monitoring is indicated based on the patients history, examination, and/ or laboratory findings. Therefore, I recommended admission for additional evaluation. The patient expressed understanding and was agreeable with this plan. The patient was admitted to the hospital in stable condition and sent to a bed under the care of the [facility]. Physician Communication Physician Communication The patient's case is discussed with Dr. Vences who did agree to admit the patient for further evaluation and treatment at this time. Diagnosis Primary Impression: Fall Qualified Code: W19.XXXA - Fall, initial encounter Additional Impressions: Rhabdomyolysis Qualified Code: M62.82 - Non-traumatic rhabdomyolysis Acute on chronic renal failure Spinal stenosis Qualified Code: M48.06 - Spinal stenosis of lumbar region Admitting Information Admitting Physician Requests: Admit Shruthi Barrera MD Aug 06, 2016 21:48
[2016-08-06 22:10] LABS: BASOPHIL # 0.1 TH/MM3 (0-0.2); BASOPHIL % 0.3 % (0.0-2.0); HEMATOCRIT 40.8 % (39.0-51.0); HEMO FLAGS DIFF FINAL; LYMPH % 2.9 % (9.0-44.0); LYMPHOCYTE # 0.5 TH/MM3 (1.0-4.8); MEAN CELL VOLUME 87.6 FL (80.0-100.0); MEAN CORPUSCULAR HGB CONC 33.2 % (32.0-36.0); MONO % 10.7 % (0.0-8.0); NEUT % 86.1 % (16.0-70.0); PLATELET COUNT 246 TH/MM3 (150-450); RED BLOOD COUNT 4.66 MIL/MM3 (4.50-5.90); RED CELL DISTRIBUTION WIDTH 12.9 % (11.6-17.2); WHITE BLOOD COUNT 18.6 TH/MM3 (4.0-11.0)
[2016-08-06 22:28] LABS: ANION GAP 14 MEQ/L (5-15); AST (GOT) 292 U/L (15-37); BICARBONATE 23.6 MEQ/L (21.0-32.0); BLOOD UREA NITROGEN 48 MG/DL (7-18); CHLORIDE 105 MEQ/L (98-107); GLOMERULAR FILTRATION RATE 30 ML/MIN (>89); POTASSIUM 4.2 MEQ/L (3.5-5.1); SODIUM (NA) 143 MEQ/L (136-145)
--- NOTE | 2016-08-06 22:28 | RADRPT ---
EXAM DATE/TIME: 08/06/2016 22:16 [facility] COMPARISON: CT BRAIN W/O CONTRAST, June 03, 2016, 11:36. INDICATIONS : Frequent falls. RADIATION DOSE: 41.07 CTDIvol (mGy) MEDICAL HISTORY : Cardiovascular disease. Cerebrovascular disease. Hypertension. Diabetes GERD SURGICAL HISTORY : Abdominal aortic aneurysm repair. Stents ENCOUNTER: Initial ACUITY: 1 day PAIN SCALE: 5/10 LOCATION: Cranial TECHNIQUE: Multiple contiguous axial images were obtained of the head. Using automated exposure control and adj ustment of the mA and/or kV according to patient size, radiation dose was kept as low as reasonably a chievable to obtain optimal diagnostic quality images. FINDINGS: Diffuse cerebral atrophy is again noted. Moderate periventricular and subcortical white matter small -vessel ischemic changes are noted bilaterally. 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 There is no acute hemorrhage, acute infarct, mass effect or extra-axial fluid collections. The bone windows are unremarkable. CONCLUSION: 1. Moderate periventricular and subcortical white matter small-vessel ischemic changes bilaterally. 2. Diffuse cerebral atrophy. 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 4. No acute infarct, acute hemorrhage, mass effect or extra-axial fluid collections. Harrison Méndez MD on August 06, 2016 at 22:23 Board Certified Radiologist. This report was verified electronically.
--- NOTE | 2016-08-06 22:28 | RADRPT ---
EXAM DATE/TIME: 08/06/2016 21:57 [facility] COMPARISON: No previous studies available for comparison. INDICATIONS : Left shoulder pain after falling tonight. MEDICAL HISTORY : Hypertension. Cardiovascular disease Chronic obstructive pulmonary disease. Diabetic. SURGICAL HISTORY : None. ENCOUNTER: Initial ACUITY: 1 day PAIN SCORE: 10/10 LOCATION: Left shoulder. FINDINGS: Multiple view examination of the left shoulder demonstrates no evidence of fracture or dislocation. The glenohumeral and acromioclavicular joints are maintained. There is normal range of motion betwee n internal and external rotation. Bony mineralization is normal. CONCLUSION: No acute disease. Harrison Méndez MD on August 06, 2016 at 22:26 Board Certified Radiologist. This report was verified electronically.
--- NOTE | 2016-08-06 22:29 | RADRPT ---
EXAM DATE/TIME: 08/06/2016 22:09 [facility] COMPARISON: CHEST SINGLE AP, May 02, 2016, 2:51. INDICATIONS : Chest pain after falling tonight. MEDICAL HISTORY : Hypertension. Cardiovascular disease Chronic obstructive pulmonary disease. Diabetic. SURGICAL HISTORY : None. ENCOUNTER: Initial ACUITY: 1 day PAIN SCORE: 2/10 LOCATION: Bilateral chest FINDINGS: No acute cardiopulmonary disease. No pneumothorax is noted. The heart and mediastinal structures ar e normal. The pulmonary vascular pattern is normal. Degenerative changes and scoliosis of the thora columbar spine are noted. Aortic stent graft is noted. CONCLUSION: 1. No acute cardiopulmonary disease. 2. Degenerative changes and scoliosis of the lumbar spine. Harrison Méndez MD on August 06, 2016 at 22:24 Board Certified Radiologist. This report was verified electronically.
--- NOTE | 2016-08-06 22:31 | RADRPT ---
EXAM DATE/TIME: 08/06/2016 22:04 [facility] COMPARISON: HIP RIGHT (AP&LAT 2/3VWS) W AP PELVIS, June 03, 2016, 11:33. INDICATIONS : Right hip pain after falling tonight. MEDICAL HISTORY : Hypertension. Cardiovascular disease Chronic obstructive pulmonary disease. Diabetic. SURGICAL HISTORY : None. ENCOUNTER: Initial ACUITY: 1 day PAIN SCORE: 10/10 LOCATION: Right hip. FINDINGS: Examination of the right hip was performed with AP Pelvis. The primary and secondary trabecular ramses kurt of the femoral neck is intact. The hip joint is of normal width without significant sclerosis or bony hypertrophy. The acetabulum is grossly intact. CONCLUSION: No acute disease. Harrison Méndez MD on August 06, 2016 at 22:28 Board Certified Radiologist. This report was verified electronically.
--- NOTE | 2016-08-06 22:40 | RADRPT ---
EXAM DATE/TIME: 08/06/2016 22:16 [facility] COMPARISON: CT CERVICAL SPINE W/O CONTRAST, June 02, 2014, 16:29. INDICATIONS : Frequent falls. RADIATION DOSE: 13.83 CTDIvol (mGy) MEDICAL HISTORY : Cardiovascular disease. Cerebrovascular disease. Hypertension. Diabetes. GERD SURGICAL HISTORY : Abdominal aortic aneurysm repair. Stents ENCOUNTER: Initial ACUITY: 1 day PAIN SCALE: 5/10 LOCATION: neck TECHNIQUE: Volumetric scanning of the cervical spine was performed. Multiplanar reconstructions in the sagittal, coronal and oblique axial planes were performed. Using automated exposure control and adjustment o f the mA and/or kV according to patient size, radiation dose was kept as low as reasonably achievable to obtain optimal diagnostic quality images. FINDINGS: There is reversal of the normal cervical lordosis. Cervical spondylosis is noted from C3 through C6. Significant disc space narrowing is noted at C3-C4, C4-C5 and C5-C6 as well as anterior and posteri or osteophytic spurring at these levels. Mild bilateral foraminal narrowing is noted at C3-C4, C4-C5 and C5-C6. There is no acute fracture or prevertebral soft-tissue swelling. The bony relationship and alignment between C1 and C2 is well maintained. Mild scoliosis of the cervical spine is noted. Apical emphysematous changes are noted bilaterally. CONCLUSION: 1. No acute fracture or prevertebral soft-tissue swelling. 2. Cervical spondylosis from C3 through C6 with mild bilateral foraminal narrowing at these levels. 3. Reversal of the normal cervical lordosis. 4. Mild scoliosis of the cervical spine. 5. Biapical emphysematous changes. Harrison Méndez MD on August 06, 2016 at 22:30 Board Certified Radiologist. This report was verified electronically.
[2016-08-06 22:42] LABS: ALKALINE PHOSPHATASE 64 U/L (45-117); ALT (GPT) 64 U/L (12-78); CREATINE KINASE 4260 U/L (39-308); TOTAL BILIRUBIN ADULT 1.4 MG/DL (0.2-1.0)
[2016-08-06 22:52] LABS: APTT (PATIENT) 27.3 SEC (24.3-30.1); INTERNATIONAL NORMALIZED RATIO 1.1 RATIO
--- NOTE | 2016-08-06 22:56 | RADRPT ---
EXAM DATE/TIME: 08/06/2016 22:21 [facility] COMPARISON: No previous studies available for comparison. INDICATIONS : Frequent falls. RADIATION DOSE: 25.78 CTDIvol (mGy) ; Combined studies - Thoracic Spine/Lumbar Spine MEDICAL HISTORY : Cardiovascular disease. Cerebrovascular disease. Hypertension. Diabetes. GERD SURGICAL HISTORY : Abdominal aortic aneurysm repair. Stents ENCOUNTER: Initial ACUITY: 1 day PAIN SCALE: 5/10 LOCATION: Thoracic TECHNIQUE: Volumetric scanning of the thoracic spine was performed. Multiplanar reconstructions in the sagittal , coronal and oblique axial planes were performed. Using automated exposure control and adjustment o f the mA and/or kV according to patient size, radiation dose was kept as low as reasonably achievable to obtain optimal diagnostic quality images. FINDINGS: Degenerative changes and scoliosis of the thoracolumbar spine are noted. There is no acute compressi on fracture or subluxation of the thoracic spine. There is no bony spinal canal compromise. CONCLUSION: 1. No acute fracture or subluxation of the thoracic spine. 2. Degenerative changes and scoliosis of the thoracolumbar spine. Harrison Méndez MD on August 06, 2016 at 22:43 Board Certified Radiologist. This report was verified electronically.
[2016-08-06 22:58] LABS: CKMB 23.4 NG/ML (0.5-3.6)
--- NOTE | 2016-08-06 22:59 | RADRPT ---
EXAM DATE/TIME: 08/06/2016 22:21 [facility] COMPARISON: No previous studies available for comparison. INDICATIONS : Frequent falls. RADIATION DOSE: 25.78 CTDIvol (mGy) ; Combined studies - Thoracic Spine/Lumbar Spine MEDICAL HISTORY : Cardiovascular disease. Cerebrovascular disease. Hypertension. Diabetes GERD SURGICAL HISTORY : Abdominal aortic aneurysm repair. Stents ENCOUNTER: Initial ACUITY: 1 day PAIN SCALE: 10/10 LOCATION: Lumbar TECHNIQUE: Volumetric scanning of the lumbar spine was performed. Multiplanar reconstructions in the sagittal, coronal and oblique axial planes were performed. Using automated exposure control and adjustment of the mA and/or kV according to patient size, radiation dose was kept as low as reasonably achievable t o obtain optimal diagnostic quality images. FINDINGS: Degenerative changes and scoliosis of the lumbar spine are noted. Vacuum disc phenomenon is noted at L1-L2, L2-L3, L4-L5 and L5-S1. Severe degenerative disc disease is noted at all levels within the l umbar spine. There is no acute compression fracture of the lumbar spine. Multilevel spinal stenoses are noted. Most severe changes are noted at L4-L5 with severe circumferential spinal stenosis and b ilateral foraminal narrowing at this level secondary to diffuse disc osteophyte complex, facet joint hypertrophy and ligamentous laxity. Severe bilateral foraminal narrowing is noted at L5-S1. Severe left neural foraminal narrowing is noted at L2-L3. CONCLUSION: 1. No acute fracture of the lumbar spine. 2. Severe spinal stenosis and bilateral foraminal narrowing at L4-L5. 3. Severe bilateral foraminal narrowing at L5-S1. 4. Severe left neural foraminal narrowing at L2-L3. 5. Degenerative changes and scoliosis of the lumbar spine. 6. Severe degenerative disc disease at all levels within the lumbar spine. Harrison Méndez MD on August 06, 2016 at 22:48 Board Certified Radiologist. This report was verified electronically.
[2016-08-06 23:32] LABS: BACTERIA, URINE OCC /hpf; BLOOD, URINE SMALL (NEG); COMMENT (UR) CATH-CULTURE IND; CULTURE IF INDICATED CATH CULTURE IND; GLUCOSE,URINE NEG (NEG); HYALINE CAST, URINE 6 /lpf (RARE); KETONE, URINE NEG (NEG); MUCUS URINE FEW /lpf (OCC); NITRITE,URINE NEG (NEG); PH, URINE 5.5 (5.0-8.5); RENAL EPITHELIAL CELLS 5 /hpf; SQUAMOUS EPITHELIAL CELL URINE 3 /hpf (0-5); URINE COLOR YELLOW (YELLW/STRAW)
[2016-08-06] MEDS ORDERED: SODIUM CHLOR 0.9% 1000 ML INJ 1,000 ML IV ONE (23:45)
[2016-08-07] VITALS (13 sets, daily range): BP systolic 82–162; BP diastolic 56–90; PULSE 74–107; RESP 11–27; TEMP 97.5–98.6; O2SAT 95–99
[2016-08-07] MEDS ORDERED: SODIUM CHLORIDE 0.9% FLUSH 10 ML FLUSH IV FLUSH PRN
--- NOTE | 2016-08-07 01:42 | HHI.HP ---
[facility] Admission Diagnosis Rhabdomyolysis, acute on chronic renal failure Diagnoses: Chief Complaint: fall at home, weakness Travel History International Travel<30 Days: No Contact w/Intl Traveler <30 Da: No Traveled to Known Affected Are: No History of Present Illness 70 y/o male with a history of spinal stenosis, CAD and HTN was brought in by EMS after suffering a fall 3 days ago and was unable to get up. Patient states he was using his walker as he was going out the door, and the breaks did not work and he fell landing on his back, right hip and left shoulder. He describes his pain as sharp pain that is worse with movement with associated nausea, but no vomiting. Denies any LOC. He was unable to get up because of the pain and weakness for 3 days until his sister's grandson found him. Denies any chest pain, fever, chills, dysuria or constipation. He does have sob but nothing that is new. PCP: [facility] Review of Systems Constitutional: COMPLAINS OF: Weight loss, DENIES: Fever, Chills, Dizziness Respiratory: COMPLAINS OF: Shortness of breath, DENIES: Cough, Sputum production Cardiovascular: DENIES: Chest pain, Lower Extremity Edema Gastrointestinal: DENIES: Black stools, Bloody stools, Constipation, Diarrhea, Nausea, Vomiting Genitourinary: DENIES: Hematuria, Dysuria Musculoskeletal: COMPLAINS OF: Joint pain (RT hip and left shoulder), Back pain , DENIES: Neck pain Integumentary: DENIES: Rash Hematologic/lymphatic: DENIES: Lymphadenopathy Immunologic/allergic: DENIES: Urticaria Neurologic: COMPLAINS OF: Localized weakness, DENIES: Headache Past Family Social History Past Medical History CAD HTN Past Surgical History Vascular surgery to bilateral lower extremities Vasectomy Reported Medications Reported Meds & Active Scripts Active Reported Sildenafil Citrate (Sildenafil Citrate (Bulk)) 1 Pow Pow 50 Mg PO DIRECTED Gnp Acid Control 150 Maxi (Ranitidine HCl) 150 Mg Tab 150 Mg PO DAILY Pravastatin 40 Mg Tab 40 Mg PO DAILY Potassium Chloride ER (Potassium Chloride) 20 Meq Tab 20 Meq PO MO,WED,FRI Metolazone 5 Mg Tab 5 Mg PO DAILY Ferrous Sulfate 325 Mg Tab 324 Mg PO DAILY D3 (Cholecalciferol) 1,000 Unit Cap 1,000 Units PO DAILY Aspirin 81 (Aspirin) 81 Mg Tabdr 81 Mg PO DAILY Erythromycin Opth Oint 5 Mg/Gm Oint 1 Applic RIGHT EYE BID Carvedilol 25 Mg Tab 12.5 Mg PO BID Ascorbic Acid 500 Mg Tab 500 Mg PO BID Allergies: Coded Allergies: Adhesives (Verified Allergy, Severe, Rash, 08/06/16) Codeine (Verified Allergy, Severe, RASH, 08/06/16) Mirtazapine (Verified Allergy, Severe, 08/06/16) hallucinations Active Ordered Medications Current Medications Medications (Trade) Dose Ordered Sig/Zo Route Start Time Stop Time Status Last Admin (NS 1000 ml Inj) 1,000 ml @ 150 mls/hr [id number] IV 08/06/16 23:53 (NS Flush) 2 ml UNSCH PRN IV FLUSH 08/07/16 00:00 (NS Flush) 2 ml BID IV FLUSH 08/07/16 09:00 (Narcan Inj) 0.4 mg UNSCH PRN IV 08/07/16 00:00 Family History Mom: bob Dad: lung cancer Social History Tobacco use: 2-3 cigarettes a day for 50 years Alcohol use: denies Physical Exam Vital Signs Vital Signs Date Time Temp Pulse Resp B/P Pulse Ox O2 Delivery O2 Flow Rate FiO2 08/07/16 00:27 107 16 153/87 97 Nasal Cannula 3 08/06/16 21:39 96 Nasal Cannula 2 08/06/16 21:06 106 08/06/16 20:55 98.2 106 20 141/101 95 Physical Exam GENERAL: This is a thin, unkept patient, in no apparent distress. SKIN: No rashes, ecchymoses or lesions. Dry and scaly. Sacral and mid back wounds. HEAD: Atraumatic. Normocephalic. No temporal or scalp tenderness. EYES: Pupils equal round and reactive. Extraocular motions intact. No scleral icterus. No injection or drainage. ENT: Nose without bleeding, purulent drainage or septal hematoma. Throat without erythema, tonsillar hypertrophy or exudate. Uvula midline. Airway patent. NECK: Trachea midline. No JVD or lymphadenopathy. Supple, nontender, no meningeal signs. CARDIOVASCULAR: Regular rate and rhythm without murmurs, gallops, or rubs. RESPIRATORY: Clear to auscultation. Breath sounds equal bilaterally. No wheezes , rales, or rhonchi. GASTROINTESTINAL: Abdomen soft, non-tender, nondistended. No hepato-splenomegaly , or palpable masses. No guarding. MUSCULOSKELETAL: Extremities without clubbing, cyanosis, or edema. No joint tenderness, effusion, or edema noted. No calf tenderness. NEUROLOGICAL: Awake and alert. Motor and sensory grossly within normal limits. Five out of 5 muscle strength in all muscle groups. Normal speech. Laboratory Laboratory Tests Test 08/06/16 08/06/16 20:50 22:54 White Blood Count 18.6 Red Blood Count 4.66 Hemoglobin 13.5 Hematocrit 40.8 Mean Corpuscular Volume 87.6 Mean Corpuscular Hemoglobin 29.0 Mean Corpuscular Hemoglobin 33.2 Concent Red Cell Distribution Width 12.9 Platelet Count 246 Mean Platelet Volume 7.4 Neutrophils (%) (Auto) 86.1 Lymphocytes (%) (Auto) 2.9 Monocytes (%) (Auto) 10.7 Eosinophils (%) (Auto) 0.0 Basophils (%) (Auto) 0.3 Neutrophils # (Auto) 16.0 Lymphocytes # (Auto) 0.5 Monocytes # (Auto) 2.0 Eosinophils # (Auto) 0.0 Basophils # (Auto) 0.1 CBC Comment DIFF FINAL Differential Comment Prothrombin Time 12.0 Prothromb Time International 1.1 Ratio Activated Partial 27.3 Thromboplast Time Sodium Level 143 Potassium Level 4.2 Chloride Level 105 Carbon Dioxide Level 23.6 Anion Gap 14 Blood Urea Nitrogen 48 Creatinine 2.59 Estimat Glomerular Filtration 30 Rate Random Glucose 122 Calcium Level 9.0 Magnesium Level 2.0 Total Bilirubin 1.4 Aspartate Amino Transf 292 (AST/SGOT) Alanine Aminotransferase 64 (ALT/SGPT) Alkaline Phosphatase 64 Total Creatine Kinase 4260 Creatine Kinase MB 23.4 Creatine Kinase MB % 0.5 Troponin I 0.83 B-Type Natriuretic Peptide 253 Total Protein 6.3 Albumin 2.5 Lipase 56 Urine Color YELLOW Urine Turbidity HAZY Urine pH 5.5 Urine Specific [place] 1.019 Urine Protein 30 Urine Glucose (UA) NEG Urine Ketones NEG Urine Occult Blood SMALL Urine Nitrite NEG Urine Bilirubin NEG Urine Urobilinogen 2.0 Urine Leukocyte Esterase NEG Urine RBC 1 Urine WBC 4 Urine Squamous Epithelial 3 Cells Urine Renal Epithelial Cells 5 Urine Bacteria OCC Urine Hyaline Casts 6 Urine Mucus FEW Microscopic Urinalysis Comment CATH-CULTURE IND Date/Time Procedure Status Source Growth 08/06/16 22:54 Urine Culture Received Urine Catheterized Urine Pending Result Diagram: [id number]/06/[id number] Imaging Last Impressions Thoracic Spine CT 08/06/162127 Signed Impressions: Service Date/Time: Saturday, August 06, 2016 22:21 - CONCLUSION: 1. No acute fracture or subluxation of the thoracic spine. 2. Degenerative changes and scoliosis of the thoracolumbar spine. Harrison Méndez MD Shoulder X-Ray 08/06/162127 Signed Impressions: Service Date/Time: Saturday, August 06, 2016 21:57 - CONCLUSION: No acute disease. Harrison Méndez MD Lumbar Spine CT 08/06/162127 Signed Impressions: Service Date/Time: Saturday, August 06, 2016 22:21 - CONCLUSION: 1. No acute fracture of the lumbar spine. 2. Severe spinal stenosis and bilateral foraminal narrowing at L4-L5. 3. Severe bilateral foraminal narrowing at L5-S1. 4. Severe left neural foraminal narrowing at L2-L3. 5. Degenerative changes and scoliosis of the lumbar spine. 6. Severe degenerative disc disease at all levels within the lumbar spine. Harrison Méndez MD Hip and Pelvis X-Ray 08/06/162127 Signed Impressions: Service Date/Time: Saturday, August 06, 2016 22:04 - CONCLUSION: No acute disease. Harrison Méndez MD Head CT 08/06/162127 Signed Impressions: Service Date/Time: Saturday, August 06, 2016 22:16 - CONCLUSION: 1. Moderate periventricular and subcortical white matter small-vessel ischemic changes bilaterally. 2. Diffuse cerebral atrophy. 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 4. No acute infarct, acute hemorrhage, mass effect or extra-axial fluid collections. Harrison Méndez MD Chest X-Ray 08/06/162127 Signed Impressions: Service Date/Time: Saturday, August 06, 2016 22:09 - CONCLUSION: 1. No acute cardiopulmonary disease. 2. Degenerative changes and scoliosis of the lumbar spine. Harrison Méndez MD Cervical Spine CT 08/06/163 Signed Impressions: Service Date/Time: Saturday, August 06, 2016 22:16 - CONCLUSION: 1. No acute fracture or prevertebral soft-tissue swelling. 2. Cervical spondylosis from C3 through C6 with mild bilateral foraminal narrowing at these levels. 3. Reversal of the normal cervical lordosis. 4. Mild scoliosis of the cervical spine. 5. Biapical emphysematous changes. Harrison Méndez MD Assessment and Plan Problem List: (1) Rhabdomyolysis ICD Code: M62.82 Status: Acute (2) Acute on chronic renal failure ICD Code: N17.9 Status: Acute (3) Back pain ICD Code: M54.9 Status: Acute (4) Decubitus ulcers ICD Code: L89.90 Status: Acute (5) Leukocytosis ICD Code: D72.829 Status: Acute Assessment and Plan 70 y/o male with a history of spinal stenosis, CAD and HTN was brought in by EMS after suffering a fall 3 days ago and was unable to get up. Rhabdomyolysis, acute Labs: CPK 4260 -Supportive IVF NS @125ml/hr -Repeat CPK in AM Acute on chronic renal failure, likely due to dehydration Labs: creatine 2.5, baseline 2.14 -Cont IVF -CMP in AM, and trend Back pain/hip pain Images: Lumbar CT shows No acute fracture of the lumbar spine. 2. Severe spinal stenosis and bilateral foraminal narrowing at L4-L5. Severe bilateral foraminal narrowing at L5-S1. Severe left neural foraminal narrowing at L2-L3. Hip xray unremarkable. Cervical spine shows No acute fracture or prevertebral soft-tissue swelling. Cervical spondylosis from C3 through C6 with mild bilateral foraminal narrowing at these levels. -PT eval and treat -Will order pain meds when needed Decubitus ulcers to sacrum, and mid back -Consult wound care for recommendations. Leukocytosis, possibly stress related Labs: wbc 18.6, neutrophils 86 %, UA negative Images: chest xray unremarkable -Trend CBC DVT prophylaxis: SCDs Written by PURVI Yap acting as scribe for Dr. Vences on 08/07/16 at 0125 All or portions of this note were transcribed by scribe [PURVI Yap]. I , Dr. Shawn Vences personally performed the history, physical exam, and medical decision making; and confirmed the accuracy of the information in the transcribed note. Authenticated by Dr. Shawn Vences on 08/07/16 at 05:43. Discussed Condition With Patient, RN, and ED physician Physician Certification 2 Midnight Certification Type: Admission for Inpatient Services Order for Inpatient Services The services are ordered in accordance with Medicare regulations or non- Medicare payer requirements, as applicable. In the case of services not specified as inpatient-only, they are appropriately provided as inpatient services in accordance with the 2-midnight benchmark. Estimated LOS (days): 3 days is the estimated time the patient will need to remain in the hospital, assuming treatment plan goals are met and no additional complications. Post-Hospital Plan: Not yet determined Problem Qualifiers (1) Back pain: Alysha Noguera Aug 07, 2016 01:42 Shawn Vences MD Aug 07, 2016 05:44
[2016-08-07] MEDS: SODIUM CHLOR 0.9% 1000 ML INJ 1,000 ML IV SCH ×3 (03:45→19:53)
[2016-08-07 04:45] LABS: BASOPHIL # 0.1 TH/MM3 (0-0.2); BASOPHIL % 0.5 % (0.0-2.0); HEMATOCRIT 36.9 % (39.0-51.0); HEMO FLAGS DIFF FINAL; LYMPH % 5.1 % (9.0-44.0); LYMPHOCYTE # 0.8 TH/MM3 (1.0-4.8); MEAN CELL VOLUME 87.9 FL (80.0-100.0); MEAN CORPUSCULAR HEMOGLOBIN 29.4 PG (27.0-34.0); MEAN CORPUSCULAR HGB CONC 33.4 % (32.0-36.0); MONO % 10.8 % (0.0-8.0); NEUT % 83.6 % (16.0-70.0); PLATELET COUNT 210 TH/MM3 (150-450); RED CELL DISTRIBUTION WIDTH 13.3 % (11.6-17.2); WHITE BLOOD COUNT 16.7 TH/MM3 (4.0-11.0)
[2016-08-07 05:27] LABS: ALKALINE PHOSPHATASE 59 U/L (45-117); ALT (GPT) 52 U/L (12-78); ANION GAP 8 MEQ/L (5-15); AST (GOT) 224 U/L (15-37); BICARBONATE 27.2 MEQ/L (21.0-32.0); BLOOD UREA NITROGEN 51 MG/DL (7-18); CHLORIDE 110 MEQ/L (98-107); CREATINE KINASE 2918 U/L (39-308); GLOMERULAR FILTRATION RATE 35 ML/MIN (>89); POTASSIUM 4.4 MEQ/L (3.5-5.1); SODIUM (NA) 145 MEQ/L (136-145); TOTAL BILIRUBIN ADULT 0.5 MG/DL (0.2-1.0)
[2016-08-07 05:42] LABS: CKMB 17.8 NG/ML (0.5-3.6)
[2016-08-07] MEDS ORDERED: CHLORHEXIDINE GLUCONATE 2 % 1 PACK (2 CLOTHS)(extra cloths) TOPICAL PRN (06:15)
[2016-08-07] MEDS: SODIUM CHLORIDE 0.9% FLUSH 10 ML FLUSH IV FLUSH SCH ×2 (09:06→21:00)
[2016-08-07] MEDS: CARVEDILOL 12.5 MG TAB PO SCH ×2 (09:07→21:04)
[2016-08-07] MEDS: FERROUS SULFATE 325 MG (65 MG ELEMENTAL IRON) TAB PO SCH (09:07)
[2016-08-07] MEDS: ASPIRIN EC 81 MG TABEC PO SCH (09:07)
[2016-08-07] MEDS: FAMOTIDINE 20 MG TAB PO SCH ×2 (09:08→21:04)
[2016-08-07] MEDS: PRAVASTATIN SOD 40 MG TAB PO SCH (09:08)
[2016-08-07] MEDS: CHOLECALCIFEROL (VIT D3) 1000 UNIT TAB PO SCH (09:09)
--- NOTE | 2016-08-07 18:38 | HHI.PR ---
Addendum to Inpatient Note Addendum Reason: Additional Documentation Additional Information Patient denies cp/sob. denies fevers, chills, no nausea, vomiting. Patient is AAOX3 sitting in bed eating. Lungs are clear. Abdomen is soft, non tender. Patient has Miguel due to rhabdomyolisis which is improving, creatinine is slightly decreased as well as CK. Severe spinal stenosis and bilateral foraminal at L4-L5. Will consult neurosurgery. Quentin Smith MD Aug 07, 2016 18:37
[2016-08-07 20:05] LABS: CKMB 25.9 NG/ML (0.5-3.6)
--- NOTE | 2016-08-07 20:35 | EKG ---
Date Performed: 08/06/2016 Time Performed: 22:51:12 PTAGE: 70 years EKG: Sinus rhythm DIFFUSE T WAVE CHANGES ABNORMAL ECG PREVIOUS TRACING : 06/03/2016 12.23 Compared to prior tracing no significant change DOCTOR: Kareem Aldridge Interpretating Date/Time 08/07/2016 20:34:46
[2016-08-07] MEDS ORDERED: NALOXONE HCL 0.4 MG/ML AMP IV PRN ×2 (23:30)
[2016-08-07] MEDS ORDERED: traMADol HCL 50 MG TAB PO PRN ×2 (23:30)
[2016-08-08] VITALS (8 sets, daily range): BP systolic 119–141; BP diastolic 58–83; PULSE 69–88; RESP 12–14; TEMP 97.9–98.6; O2SAT 94–98
[2016-08-08] MEDS: ACETAMINOPHEN 325 MG TAB PO PRN ×2 (00:38→11:11)
[2016-08-08] MEDS: SODIUM CHLOR 0.9% 1000 ML INJ 1,000 ML IV SCH ×4 (00:38→22:33)
[2016-08-08 02:24] LABS: CKMB 20.7 NG/ML (0.5-3.6)
[2016-08-08] MEDS: CHLORHEXIDINE GLUCONATE 2 % 1 PACK (2 CLOTHS)(taper/protocol) TOPICAL SCH (04:00)
--- NOTE | 2016-08-08 08:58 | PD.CONS ---
(Luis Hedrick MD) HPI Consult Requested By Primary Care Physician [facility] (Luis Hedrick MD) Service NRS Consult Requested By Dr. Jones Reason for Consult severe lumbar stenosis, leg weakness History of Present Illness Mr. Ulloa is a 70 y/o male with a history of chronic lumbar pain. He reports of progressive low back and lower extremity pain and weakness. Recently he reports his legs became much weaker and he was having difficulty walking. He has had several falls. He reports lumbar pain radiating down his lower extremity all the way to the feet with associated paresthesias. A CT lumbar spine severe degenerative with severe stenosis at L4 5, no acute fractures. Neurosurgical evaluation was requested. (Nasrin Astorga) Review of Systems Constitutional: COMPLAINS OF: Fatigue Musculoskeletal: COMPLAINS OF: Back pain Neurologic: COMPLAINS OF: Abnormal gait, Localized weakness, Paresthesias (Nasrin Astorga) Past Family Social History Allergies: Coded Allergies: Adhesives (Verified Allergy, Severe, Rash, 08/06/16) Codeine (Verified Allergy, Severe, RASH, 08/06/16) Mirtazapine (Verified Allergy, Severe, 08/06/16) hallucinations Past Medical History Hypertension Coronary Artery Disease Past Surgical History Vasectomy Reported Medications reviewed in EMR Active Ordered Medications Current Medications Medications (Trade) Dose Ordered Sig/Zo Route PRN Reason Start Time Stop Time Status Last Admin Dose Admin Sodium Chloride (NS 1000 ml Inj) 1,000 ml @ 150 mls/hr Q6H40M IV 08/06/16 23:53 08/08/16 09:13 Sodium Chloride (NS Flush) 2 ml UNSCH PRN IV FLUSH FLUSH AFTER USING IV ACCESS 08/07/16 00:00 Sodium Chloride (NS Flush) 2 ml BID IV FLUSH 08/07/16 09:00 08/08/16 09:00 Naloxone HCl (Narcan Inj) 0.4 mg UNSCH PRN IV SEE LABEL COMMENTS 08/07/16 00:00 Aspirin (Ecotrin Ec) 81 mg DAILY PO 08/07/16 09:00 08/08/16 09:06 Carvedilol (Coreg) 12.5 mg BID PO 08/07/16 09:00 08/08/16 09:06 Ferrous Sulfate (Ferrous Sulfate) 325 mg DAILY PO 08/07/16 09:00 08/08/16 09:06 Pravastatin Sodium (Pravachol) 40 mg DAILY PO 08/07/16 09:00 08/08/16 09:06 Famotidine (Pepcid) 10 mg BID PO 08/07/16 09:00 08/08/16 09:06 Cholecalciferol (Vitamin D3) 1,000 units DAILY PO 08/07/16 09:00 08/08/16 09:06 Miscellaneous Information Patient in critical care unit? Ass... [id number] 08/07/16 06:15 Chlorhexidine Gluconate (Chlorhexidine 2% Cloth) 3 pack DAILY@04 TOPICAL 08/08/16 04:00 08/12/16 04:01 08/08/16 04:00 Chlorhexidine Gluconate (Chlorhexidine 2% Cloth) 3 pack UNSCH PRN TOPICAL HYGIENIC CARE 08/07/16 06:15 08/12/16 06:06 Acetaminophen (Tylenol) 650 mg Q6H PRN PO PAIN SCALE 1 TO 2 08/07/16 23:30 08/08/16 11:11 Tramadol HCl (Ultram) 50 mg Q4H PRN PO PAIN SCALE 3 TO 5 08/07/16 23:30 Tramadol HCl (Ultram) 100 mg Q4H PRN PO PAIN SCALE 6 TO 10 08/07/16 23:30 Naloxone HCl (Narcan Inj) 0.4 mg UNSCH PRN IV SEE LABEL COMMENTS 08/07/16 23:30 Family History reports father had lung cancer Social History smokes 2-3 cigarettes a day for the past 50 years, denies etoh or illicit drug use (Nasrin Astorga) Physical Exam Vital Signs Vital Signs Date Time Temp Pulse Resp B/P Pulse Ox O2 Delivery O2 Flow Rate FiO2 08/08/16 04:00 84 08/08/16 04:00 97.9 84 12 141/83 97 08/08/16 03:05 15 08/08/16 00:00 80 08/08/16 00:00 98.3 80 12 119/74 98 08/07/16 22:00 87 08/07/16 20:00 80 08/07/16 20:00 98.2 80 27 109/61 98 08/07/16 19:34 98 Nasal Cannula 2.00 08/07/16 18:00 76 08/07/16 16:00 79 08/07/16 16:00 98.6 79 11 105/56 99 08/07/16 14:00 80 08/07/16 12:00 97.5 74 20 82/65 97 08/07/16 12:00 74 08/07/16 10:00 79 Laboratory Laboratory Tests Test 08/07/16 08/08/16 19:00 00:55 Total Creatine Kinase 2304 1954 Creatine Kinase MB 25.9 20.7 Creatine Kinase MB % 1.1 1.1 Troponin I 0.71 0.70 Date/Time Procedure Status Source Growth 08/06/16 22:54 Urine Culture - Preliminary Resulted Urine Catheterized Urine NO GROWTH IN 24 HOURS. (Luis Hedrick MD) Result Diagram: 08/07/16 0419 08/07/169 Imaging Last Impressions Thoracic Spine CT 08/06/162127 Signed Impressions: Service Date/Time: Saturday, August 06, 2016 22:21 - CONCLUSION: 1. No acute fracture or subluxation of the thoracic spine. 2. Degenerative changes and scoliosis of the thoracolumbar spine. Harrison Méndez MD Shoulder X-Ray 08/06/162127 Signed Impressions: Service Date/Time: Saturday, August 06, 2016 21:57 - CONCLUSION: No acute disease. Harrison Méndez MD Lumbar Spine CT 08/06/162127 Signed Impressions: Service Date/Time: Saturday, August 06, 2016 22:21 - CONCLUSION: 1. No acute fracture of the lumbar spine. 2. Severe spinal stenosis and bilateral foraminal narrowing at L4-L5. 3. Severe bilateral foraminal narrowing at L5-S1. 4. Severe left neural foraminal narrowing at L2-L3. 5. Degenerative changes and scoliosis of the lumbar spine. 6. Severe degenerative disc disease at all levels within the lumbar spine. Harrison Méndez MD Hip and Pelvis X-Ray 08/06/162127 Signed Impressions: Service Date/Time: Saturday, August 06, 2016 22:04 - CONCLUSION: No acute disease. Harrison Méndez MD Head CT 08/06/162127 Signed Impressions: Service Date/Time: Saturday, August 06, 2016 22:16 - CONCLUSION: 1. Moderate periventricular and subcortical white matter small-vessel ischemic changes bilaterally. 2. Diffuse cerebral atrophy. 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 4. No acute infarct, acute hemorrhage, mass effect or extra-axial fluid collections. Harrison Méndez MD Chest X-Ray 08/06/162127 Signed Impressions: Service Date/Time: Saturday, August 06, 2016 22:09 - CONCLUSION: 1. No acute cardiopulmonary disease. 2. Degenerative changes and scoliosis of the lumbar spine. Harrison Méndez MD Cervical Spine CT 08/06/162127 Signed Impressions: Service Date/Time: Saturday, August 06, 2016 22:16 - CONCLUSION: 1. No acute fracture or prevertebral soft-tissue swelling. 2. Cervical spondylosis from C3 through C6 with mild bilateral foraminal narrowing at these levels. 3. Reversal of the normal cervical lordosis. 4. Mild scoliosis of the cervical spine. 5. Biapical emphysematous changes. Harrison Méndez MD (Nasrin Astorga) Attending Statement I have reviewed her clinical and further studies. neuro checks in a serial fashion. The patient is chronically debilitated,with severe atrophy on both lower extremities. I recommend an MRI of the lumbar spine for further evaluation. Respiratory. pulmonary toilette, nasotracheal suction, and breathing treatments with nebulizers. PT and OT eval Nutrition. NPO Rhabdomiolysis. IV hydration Monitor myoglobin and renal function Renal. monitor closely urine output, BUN and creatinine Endocrine. Monitor serial Acu checks and SSI for tight control ID monitor for signs of infection Protonix for stress ulcer prophylaxis [place] hose and SCD's for DVT prophylaxis The exam, history, and the medical decision-making described in the above note were completed with the assistance of the mid-level provider. I reviewed and agree with the findings presented. I attest that I had a [id number] encounter with the patient on the same day, and personally performed and documented my assessment and findings in the medical record. (Luis Hedrick MD) Luis Hedrick MD Aug 08, 2016 08:58 Nasrin Astorga Aug 08, 2016 17:19
[2016-08-08] MEDS: SODIUM CHLORIDE 0.9% FLUSH 10 ML FLUSH IV FLUSH SCH ×2 (09:00→20:50)
[2016-08-08] MEDS: CARVEDILOL 12.5 MG TAB PO SCH ×2 (09:06→20:50)
[2016-08-08] MEDS: ASPIRIN EC 81 MG TABEC PO SCH (09:06)
[2016-08-08] MEDS: CHOLECALCIFEROL (VIT D3) 1000 UNIT TAB PO SCH (09:06)
[2016-08-08] MEDS: FAMOTIDINE 20 MG TAB PO SCH ×2 (09:06→20:50)
[2016-08-08] MEDS: PRAVASTATIN SOD 40 MG TAB PO SCH (09:06)
[2016-08-08] MEDS: FERROUS SULFATE 325 MG (65 MG ELEMENTAL IRON) TAB PO SCH (09:06)
--- NOTE | 2016-08-08 13:27 | EKG ---
Date Performed: 08/07/2016 Time Performed: 19:28:10 PTAGE: 70 years EKG: Sinus rhythm WITH SINUS ARRHYTHMIA ST DEVIATION AND MODERATE T-WAVE ABNORMALITY, CONSIDER LATERAL ISCHEMIA ST DEV IATION AND MODERATE T-WAVE ABNORMALITY, CONSIDER INFERIOR ISCHEMIA ABNORMAL ECG PREVIOUS TRACING : 08/06/2016 22.51 Compared to prior tracing no significant change DOCTOR: Ronaldo Zarate Interpretating Date/Time 08/08/2016 13:27:26
--- NOTE | 2016-08-08 15:17 | HHI.PR ---
Subjective Remarks Follow-up for rhabdomyolysis No overnight events. Complaining of left shoulder pain which is new, chronic lower back pain. No chest pain at any point, mild shortness of breath which is chronic and at baseline. No fever or chills. No myalgia. Objective Vitals Vital Signs Date Time Temp Pulse Resp B/P Pulse Ox O2 Delivery O2 Flow Rate FiO2 08/08/16 10:00 84 08/08/16 08:00 86 08/08/16 04:00 84 08/08/16 04:00 97.9 84 12 141/83 97 08/08/16 03:05 15 08/08/16 00:00 80 08/08/16 00:00 98.3 80 12 119/74 98 08/07/16 22:00 87 08/07/16 20:00 80 08/07/16 20:00 98.2 80 27 109/61 98 08/07/16 19:34 98 Nasal Cannula 2.00 08/07/16 18:00 76 08/07/16 16:00 79 08/07/16 16:00 98.6 79 11 105/56 99 I/O 08/07/16 08/07/16 08/07/16 08/08/16 08/08/16 08/08/16 07:00 15:00 23:00 07:00 15:00 23:00 Intake Total 1601 ml 1487 ml 1387 ml Output Total 300 ml 350 ml 520 ml Balance 1301 ml 1137 ml 867 ml Intake Oral 780 ml 480 ml 240 ml IV Total 821 ml 1007 ml 1147 ml Output Urine Total 300 ml 350 ml 520 ml # Voids 1 # Bowel Movements 1 2 0 0 Result Diagram: 08/07/16 0419 08/07/16 0419 Objective Remarks Not in distress, well-nourished, looks stated age PERRL, pink conjunctiva without injection, anicteric Nose without bleeding, airway patent, oropharynx clear Supple neck, no masses or thyromegaly, trachea midline Normal rate and regular rhythm, no murmurs gallops or rubs appreciated. Clear to auscultation and symmetric bilaterally, normal respiratory effort. Normal bowel sounds, soft, non-tender, nondistended, no guarding. Extremities without clubbing, cyanosis, or edema. No rash of generalized distribution. Skin is warm and dry. Mild left shoulder pain, active range of motion is impaired because of pain to passive range of motion is full AAO x3, no cranial nerve deficits, moves all 4 extremities, no focal neurologic deficits Normal mood, appropriate affect A/P Problem List: (1) Rhabdomyolysis ICD Code: M62.82 Status: Acute (2) Acute on chronic renal failure ICD Code: N17.9 Status: Acute (3) Back pain ICD Code: M54.9 Status: Acute (4) Decubitus ulcers ICD Code: L89.90 Status: Acute (5) Leukocytosis ICD Code: D72.829 Status: Acute Assessment and Plan 70 y/o male with a history of spinal stenosis, CAD and HTN was brought in by EMS after suffering a fall 3 days ago and was unable to get up. Rhabdomyolysis, acute -CK improving, continue IVF, increased rate. Repeat CK in the morning. Acute on chronic renal failure, likely due to dehydration and rhabdomyolysis. A little bit better, recheck tomorrow, continue IVF, check ultrasound of the kidneys. Left shoulder pain-new onset, check x-ray, continue pain control. Doubt fracture. Patient had a fall. Back pain/hip pain - Lumbar CT shows No acute fracture of the lumbar spine. 2. Severe spinal stenosis and bilateral foraminal narrowing at L4-L5. Severe bilateral foraminal narrowing at L5-S1. Severe left neural foraminal narrowing at L2-L3. Hip xray unremarkable. Cervical spine shows No acute fracture or prevertebral soft-tissue swelling. Cervical spondylosis from C3 through C6 with mild bilateral foraminal narrowing at these levels. Neurosurgery consulted. Continue tramadol Decubitus ulcers to sacrum, and mid back -Consult wound care for recommendations. Leukocytosis, possibly stress related- urinalysis negative, afebrile. , Chest x-ray negative. Recheck CBC DVT prophylaxis: SCDs Problem Qualifiers (1) Rhabdomyolysis: Qualified Code: M62.82 - Non-traumatic rhabdomyolysis (2) Back pain: Amanda Reveles MD Aug 08, 2016 15:17
--- NOTE | 2016-08-08 17:38 | RADRPT ---
EXAM DATE/TIME: 08/08/2016 17:02 [facility] COMPARISON: US KIDNEY/RENAL/BLADDER, May 02, 2016, 14:43. INDICATIONS : Increased BUN/Creatinine. MEDICAL HISTORY : Hypercholesterolemia. Gastroesophageal reflux disease. Myocardial infarction. CVA. CHF. CAD. Hyperten jerardo. A-fib. Pneumonia. Ulcer. UTI. Arthritis. Hepatitis B. SURGICAL HISTORY : Vasectomy. Left lower extremity surgery, x5. ENCOUNTER: Subsequent ACUITY: 1 day PAIN SCORE: 8/10 LOCATION: Bilateral flank MEASUREMENTS: RIGHT KIDNEY: 9.2 x 4.9 x 3.5 cm LEFT KIDNEY: 8.0 x 4.2 x 5.5 cm FINDINGS: RIGHT KIDNEY: Mild diffuse cortical hyperechogenicity. No evidence of hydronephrosis. No evidence of mass or calcul i. Small amount of free fluid in the right upper quadrant. LEFT KIDNEY: Mild diffuse cortical hyperechogenicity. No evidence of hydronephrosis. No evidence of mass or calcul i. Small left pleural effusion. BLADDER: Bladder is mildly distended. Zar[place] catheter not visualized. CONCLUSION: 1. Mildly echogenic and small kidneys suggesting medical renal disease. No evidence of hydronephrosis . 2. Mildly distended urinary bladder. Zarco catheter not visualized. 3. Small amount of ascites and small left pleural effusion. Gildardo Elias MD on August 08, 2016 at 17:34 Board Certified Radiologist. This report was verified electronically.
[2016-08-09] VITALS (7 sets, daily range): BP systolic 133–152; BP diastolic 53–89; PULSE 68–79; RESP 11–20; TEMP 97.7–98.8; O2SAT 97–99
[2016-08-09] MEDS: CHLORHEXIDINE GLUCONATE 2 % 1 PACK (2 CLOTHS)(taper/protocol) TOPICAL SCH ×2 (04:00→20:34)
[2016-08-09] MEDS: SODIUM CHLOR 0.9% 1000 ML INJ 1,000 ML IV SCH ×2 (05:09→21:52)
[2016-08-09 05:31] LABS: AUTOMATED NEUTROPHIL # 5.6 TH/MM3 (1.8-7.7); BASOPHIL # 0.1 TH/MM3 (0-0.2); BASOPHIL % 0.6 % (0.0-2.0); EOSINOPHIL # 0.2 TH/MM3 (0-0.4); EOSINOPHIL % 2.1 % (0.0-4.0); HEMO FLAGS DIFF FINAL; LYMPH % 14.2 % (9.0-44.0); LYMPHOCYTE # 1.2 TH/MM3 (1.0-4.8); MEAN CELL VOLUME 88.6 FL (80.0-100.0); MEAN CORPUSCULAR HEMOGLOBIN 29.4 PG (27.0-34.0); MEAN CORPUSCULAR HGB CONC 33.2 % (32.0-36.0); MONO % 15.2 % (0.0-8.0); NEUT % 67.9 % (16.0-70.0); PLATELET COUNT 214 TH/MM3 (150-450); RED BLOOD COUNT 3.95 MIL/MM3 (4.50-5.90); RED CELL DISTRIBUTION WIDTH 13.3 % (11.6-17.2); WHITE BLOOD COUNT 8.2 TH/MM3 (4.0-11.0)
[2016-08-09 05:39] LABS: BICARBONATE 27.9 MEQ/L (21.0-32.0); POTASSIUM 4.6 MEQ/L (3.5-5.1)
[2016-08-09 06:08] LABS: CKMB 5.8 NG/ML (0.5-3.6)
[2016-08-09] MEDS: CARVEDILOL 12.5 MG TAB PO SCH ×2 (08:10→20:33)
[2016-08-09] MEDS: FAMOTIDINE 20 MG TAB PO SCH ×2 (08:10→20:34)
[2016-08-09] MEDS: FERROUS SULFATE 325 MG (65 MG ELEMENTAL IRON) TAB PO SCH (08:10)
[2016-08-09] MEDS: PRAVASTATIN SOD 40 MG TAB PO SCH (08:10)
[2016-08-09] MEDS: ASPIRIN EC 81 MG TABEC PO SCH (08:10)
[2016-08-09] MEDS: CHOLECALCIFEROL (VIT D3) 1000 UNIT TAB PO SCH (08:10)
[2016-08-09] MEDS: SODIUM CHLORIDE 0.9% FLUSH 10 ML FLUSH IV FLUSH SCH ×2 (08:11→20:33)
--- NOTE | 2016-08-09 14:08 | HHI.PR ---
Subjective Remarks f/u rhabdomyolysis still denying chest pain, no SOB, complains of back pain, not controlled, agreed to go to rehab, no fever. Objective Vitals Vital Signs Date Time Temp Pulse Resp B/P Pulse Ox O2 Delivery O2 Flow Rate FiO2 08/09/16 08:00 97.7 68 16 136/82 99 08/09/16 08:00 68 08/09/16 07:12 10 08/09/16 04:00 98.0 69 11 142/76 98 08/09/16 04:00 69 08/09/16 00:00 79 08/09/16 00:00 98.7 79 20 152/89 99 08/08/16 23:15 8 08/08/16 20:00 98.4 69 13 119/58 94 08/08/16 20:00 69 08/08/16 16:00 70 08/08/16 16:00 98.6 88 14 125/79 97 08/08/16 14:00 72 I/O 08/08/16 08/08/16 08/08/16 08/09/16 08/09/16 08/09/16 07:00 15:00 23:00 07:00 15:00 23:00 Intake Total 1387 ml 1530 ml 864 ml 1589 ml Output Total 520 ml 600 ml 905 ml 600 ml Balance 867 ml 930 ml -41 ml 989 ml Intake Oral 240 ml 480 ml 240 ml 480 ml IV Total 1147 ml 1050 ml 624 ml 1109 ml Output Urine Total 520 ml 600 ml 905 ml 600 ml # Bowel Movements 0 0 0 0 Result Diagram: 08/09/1642608/09/16426 Objective Remarks Not in distress, well-nourished, looks stated age PERRL, pink conjunctiva without injection, anicteric Nose without bleeding, airway patent, oropharynx clear Supple neck, no masses or thyromegaly, trachea midline Normal rate and regular rhythm, no murmurs gallops or rubs appreciated. Decreased breath sounds on the left. Normal bowel sounds, soft, non-tender, nondistended, no guarding. Extremities without clubbing, cyanosis, or edema. No rash of generalized distribution. Skin is warm and dry. Mild left shoulder pain, active range of motion is impaired because of pain to passive range of motion is full AAO x3, no cranial nerve deficits, moves all 4 extremities, no focal neurologic deficits Normal mood, appropriate affect A/P Problem List: (1) Rhabdomyolysis ICD Code: M62.82 Status: Acute (2) Acute on chronic renal failure ICD Code: N17.9 Status: Acute (3) Back pain ICD Code: M54.9 Status: Acute (4) Decubitus ulcers ICD Code: L89.90 Status: Acute (5) Leukocytosis ICD Code: D72.829 Status: Acute Assessment and Plan 70 y/o male with a history of spinal stenosis, CAD and HTN was brought in by EMS after suffering a fall 3 days ago and was unable to get up. Rhabdomyolysis, acute -CK improving, almost normal, continue IVF, decreased to 100 cc per hour. Repeat CK in the morning. Acute on chronic renal failure, likely due to dehydration and rhabdomyolysis-, better 2.28 down to 1.42, ultrasound of the kidneys revealed medical renal disease. Also showed left pleural effusion and mild ascites. No hydronephrosis , mildly distended bladder. Left shoulder pain-new onset, x-ray previously done did not show any fracture. Continue pain control. Troponin elevation-0.7, remained flat, EKG reviewed showed possible inferior and lateral ischemia, consult cardiology, continue aspirin, check lipid panel, continue Coreg Back pain/hip pain - Lumbar CT shows No acute fracture of the lumbar spine. 2. Severe spinal stenosis and bilateral foraminal narrowing at L4-L5. Severe bilateral foraminal narrowing at L5-S1. Severe left neural foraminal narrowing at L2-L3. Hip xray unremarkable. Cervical spine shows No acute fracture or prevertebral soft-tissue swelling. Cervical spondylosis from C3 through C6 with mild bilateral foraminal narrowing at these levels. Neurosurgery following, follow-up MRI. Patient chronically debilitated, continue tramadol, start [place]. Decubitus ulcers to sacrum, and mid back -Consult wound care for recommendations. Leukocytosis, possibly stress related- urinalysis negative, afebrile. , Chest x-ray negative. Resolved. DVT prophylaxis: SCDs Discharge Planning Consult case management, transfer to [facility], will need rehabilitation. Problem Qualifiers (1) Rhabdomyolysis: Qualified Code: M62.82 - Non-traumatic rhabdomyolysis (2) Back pain: Amanda Reveles MD Aug 09, 2016 14:07
[2016-08-09] MEDS ORDERED: HYDROmorphone HCL PF 1 MG/ML VIAL IV PUSH ONE (14:15)
--- NOTE | 2016-08-09 15:33 | HHI.NSPN ---
History Chief Complaint: severe low back pain and leg weakness. Interval History Mr. Ulloa is a 70 y/o male with a history of chronic lumbar pain. He reports of progressive low back and lower extremity pain and weakness. Recently he reports his legs became much weaker and he was having difficulty walking. He has had several falls. He reports lumbar pain radiating down his lower extremity all the way to the feet with associated paresthesias. A CT lumbar spine severe degenerative with severe stenosis at L4 5, no acute fractures. Neurosurgical evaluation was requested. 08/09/16: Pt awake and alert. Complains of severe low back pain. He went for a MRI of the lumbar spine but was too painful to lay down. He states when he is laying down he doesn't have pain in his legs. Review of Systems General: Negative for: fever, chills, insomnia Respiratory: Negative for: shortness of breath, cough, sputum Cardiovascular: Negative for: chest pain Gastrointestinal: Negative for: nausea, vomitting, diarrhea, constipation Exam Results Vital Signs Date Time Temp Pulse Resp B/P Pulse Ox O2 Delivery O2 Flow Rate FiO2 08/09/16 12:00 98.0 69 18 133/53 99 08/07/16 19:34 Nasal Cannula 2.00 Intake and Output 08/08/16 08/08/16 08/09/16 08:00 16:00 00:00 Intake Total 1387 ml 1530 ml 864 ml Output Total 520 ml 600 ml 905 ml Balance 867 ml 930 ml -41 ml Physical Examination Resp: CTA bilaterally Heart: NSR no murmurs Abd: Soft positive bs Skin: No cyanosis or erythema Muscle: Moves LEs distally with good strength 4+/5. Right iliopsoas is 3/5 left is 1/5, left knee extension is 1/5, 3+/5 Neuro: Pt awake and alert. Follows commands well. Speech clear and appropriate. Lab, Micro, Other Results Last Impressions Renal Ultrasound 08/08/16 0000 Signed Impressions: Service Date/Time: July 17:02 - CONCLUSION: 1. Mildly echogenic and small kidneys suggesting medical renal disease. No evidence of hydronephrosis. 2. Mildly distended urinary bladder. Zarco catheter not visualized. 3. Small amount of ascites and small left pleural effusion. Gildardo Elias MD Thoracic Spine CT 08/06/162127 Signed Impressions: Service Date/Time: Saturday, August 06, 2016 22:21 - CONCLUSION: 1. No acute fracture or subluxation of the thoracic spine. 2. Degenerative changes and scoliosis of the thoracolumbar spine. Harrison Méndez MD Shoulder X-Ray 08/06/162127 Signed Impressions: Service Date/Time: Saturday, August 06, 2016 21:57 - CONCLUSION: No acute disease. Harrison Méndez MD Lumbar Spine CT 08/06/162127 Signed Impressions: Service Date/Time: Saturday, August 06, 2016 22:21 - CONCLUSION: 1. No acute fracture of the lumbar spine. 2. Severe spinal stenosis and bilateral foraminal narrowing at L4-L5. 3. Severe bilateral foraminal narrowing at L5-S1. 4. Severe left neural foraminal narrowing at L2-L3. 5. Degenerative changes and scoliosis of the lumbar spine. 6. Severe degenerative disc disease at all levels within the lumbar spine. Harrison Méndez MD Hip and Pelvis X-Ray 08/06/162127 Signed Impressions: Service Date/Time: Saturday, August 06, 2016 22:04 - CONCLUSION: No acute disease. Harrison Méndez MD Head CT 08/06/162127 Signed Impressions: Service Date/Time: Saturday, August 06, 2016 22:16 - CONCLUSION: 1. Moderate periventricular and subcortical white matter small-vessel ischemic changes bilaterally. 2. Diffuse cerebral atrophy. 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 4. No acute infarct, acute hemorrhage, mass effect or extra-axial fluid collections. Harrison Méndez MD Chest X-Ray 08/06/162127 Signed Impressions: Service Date/Time: Saturday, August 06, 2016 22:09 - CONCLUSION: 1. No acute cardiopulmonary disease. 2. Degenerative changes and scoliosis of the lumbar spine. Harrison Méndez MD Cervical Spine CT 08/06/162127 Signed Impressions: Service Date/Time: Saturday, August 06, 2016 22:16 - CONCLUSION: 1. No acute fracture or prevertebral soft-tissue swelling. 2. Cervical spondylosis from C3 through C6 with mild bilateral foraminal narrowing at these levels. 3. Reversal of the normal cervical lordosis. 4. Mild scoliosis of the cervical spine. 5. Biapical emphysematous changes. Harrison Méndez MD Laboratory Tests Test 08/09/16 04:27 White Blood Count 8.2 TH/MM3 Red Blood Count 3.95 MIL/MM3 Hemoglobin 11.6 GM/DL Hematocrit 35.0 % Mean Corpuscular Volume 88.6 FL Mean Corpuscular Hemoglobin 29.4 PG Mean Corpuscular Hemoglobin 33.2 % Concent Red Cell Distribution Width 13.3 % Platelet Count 214 TH/MM3 Mean Platelet Volume 7.5 FL Neutrophils (%) (Auto) 67.9 % Lymphocytes (%) (Auto) 14.2 % Monocytes (%) (Auto) 15.2 % Eosinophils (%) (Auto) 2.1 % Basophils (%) (Auto) 0.6 % Neutrophils # (Auto) 5.6 TH/MM3 Lymphocytes # (Auto) 1.2 TH/MM3 Monocytes # (Auto) 1.2 TH/MM3 Eosinophils # (Auto) 0.2 TH/MM3 Basophils # (Auto) 0.1 TH/MM3 CBC Comment DIFF FINAL Differential Comment Sodium Level 146 MEQ/L Potassium Level 4.6 MEQ/L Chloride Level 113 MEQ/L Carbon Dioxide Level 27.9 MEQ/L Anion Gap 5 MEQ/L Blood Urea Nitrogen 31 MG/DL Creatinine 1.42 MG/DL Estimat Glomerular Filtration 60 ML/MIN Rate Random Glucose 95 MG/DL Calcium Level 8.2 MG/DL Total Creatine Kinase 715 U/L Creatine Kinase MB 5.8 NG/ML Creatine Kinase MB % 0.8 % 08/08/16 08/08/16 08/09/16 15:00 23:00 07:00 Intake Total 1530 ml 864 ml 1589 ml Output Total 600 ml 905 ml 600 ml Balance 930 ml -41 ml 989 ml Intake Oral 480 ml 240 ml 480 ml IV Total 1050 ml 624 ml 1109 ml Output Urine Total 600 ml 905 ml 600 ml # Bowel Movements 0 0 0 Medical Decision Making Impression and Plan A: 70 y/o M with intractable low back pain and weakness in his LEs. Lumbar CT shows No acute fracture of the lumbar spine. 2. Severe spinal stenosis and bilateral foraminal narrowing at L4-L5. Severe bilateral foraminal narrowing at L5-S1. Severe left neural foraminal narrowing at L2-L3. Hip xray unremarkable. Cervical spine shows No acute fracture or prevertebral soft-tissue swelling. Cervical spondylosis from C3 through C6 with mild bilateral foraminal narrowing at these levels. MRI of lumbar spine has been ordered but was unable to be done secondary to pts pain. P: Adjustments of pain medication made by hospitalist for MRI. We will review once available. Continue with PT Dr. Hedrick returns Friday. Tahir Sierra Aug 09, 2016 15:33
--- NOTE | 2016-08-09 16:28 | MB ---
cc: NOMI MELENDEZ DO DATE OF CONSULTATION: August 09, 2016 REASON FOR CONSULTATION Elevation of troponins, EKG changes. HISTORY PRESENT ILLNESS Conor Ulloa is a pleasant 70-year-old male who originally presented to [facility] Emergency Room on August 06, 2016 due to a fall. He was at his sister's house and was using his walker. While using it he noticed that the breaks were not working very well, he fell backwards a landed on his back, right hip and left shoulder. Pain was sharp in nature and was worse with movement. He denies chest pain or shortness of breath with the event. He was unable to get up because of the pain and weakness and laid there for 3 days until a sister's grandson found him. On arrival to the emergency room he was found to be in acute kidney injury and rhabdomyolysis with CK level of 4,260. He also had mild elevation of his troponins at 0.83 which is decreased to 0.7. In seeing him today he states that he has no chest pain or shortness of breath. PAST MEDICAL HISTORY 1. Coronary artery disease. 2. Peripheral artery disease. 3. Hypertension. 4. Questionable history of congestive heart failure. 5. Hyperlipidemia 6. Gastroesophageal reflux disease 7. Paroxysmal atrial fibrillation. 8. Chronic obstructive pulmonary disease. 9. Hepatitis B 10. Posttraumatic stress disorder. PAST SURGICAL HISTORY 1. Per the patient bilateral lower extremity vascular surgery with a believe left fem-pop bypass with redo. 2. Vasectomy. ALLERGIES ADHESIVES CODEINE MIRTAZAPINE MEDICATIONS 1. Coreg 12.5 mg b.i.d. 2. Ranitidine 150 mg daily 3. Pravastatin 40 mg daily 4. Iron 325 mg daily 5. Aspirin 81 mg daily 6. 50 mg as directed. 7. Potassium 20 mEq Friday, Friday and Friday. 8. Metolazone 5 mg daily 9. Erythromycin ointment right eye b.i.d. FAMILY HISTORY Father had lung cancer. Denies premature coronary artery disease as or sudden cardiac within the family. SOCIAL HISTORY Previously smoked two to three cigarettes a day for 50 years. Denies alcohol or drug abuse. REVIEW OF SYSTEMS 14-systems were reviewed including osteopathic pertinent positives and negatives above otherwise negative. PHYSICAL EXAMINATION VITAL SIGNS: Temperature 98.0, heart rate 69, blood pressure 133/53, respirations 18, pulse ox 99% on 2 liters. IN GENERAL: The patient appears well. No acute distress, alert awake and oriented x3. Extraocular muscles intact. Mucous membranes moist. NECK: Neck is supple. No JVD at 45 degrees. No carotid bruits heard bilaterally. Carotid upstroke is brisk in nature. HEART: The heart is regular rate and rhythm. Positive first and second heart sounds with a 1/6 holosystolic murmur noted at the apex. LUNGS: The lungs have decreased breath sounds at bilateral bases but no overt wheezes, rales or rhonchi. ABDOMEN: The abdomen is he soft, nontender, nondistended. No organomegaly noted. EXTREMITIES: Show no clubbing, cyanosis or edema. Distal extremities show chronic changes due to peripheral artery disease with skin sloughing. NEUROLOGICALLY: No focal deficits. SKIN: Skin is warm, dry and intact. LABORATORY FINDINGS Hemoglobin 11.6, hematocrit 35.0, platelets 214. Potassium 4.6, BUN 31, creatinine 1.42, CK 4260 decreasing to 715. Troponin 0.83 decreasing to 0.70. RADIOLOGIC: Electrocardiogram (August 07, 2016 at 1928) sinus rhythm at 78 beats per minute, ST-T wave changes inferior laterally in comparison to the patient's previous electrocardiograms overall the patient has had ST-T wave changes inferior laterally for sometime, although most recent EKG shows the T-waves laterally maybe a little more symmetrical than previous. IMPRESSION 1. N-STEMI type 2 most likely due to rhabdomyolysis. 2. Rhabdomyolysis due to laying on the ground for 3 days after a fall. 3. Fall which appeared mechanical in nature. 4. EKG changes with ST and T-wave changes inferior laterally which are similar to EKG is going back to 2013. 5. Peripheral artery disease with a history of left fem-pop bypass with a redo left fem pop bypass. 6. Noncompliance with medications. 7. Hypertension 8. Coronary artery disease by a history. 9. Acute kidney injury on chronic kidney disease. RECOMMENDATIONS 1. Mr. Ulloa appears to had an N-STEMI most likely a type 2 due to rhabdomyolysis. Troponins have decreased without a typical rise and fall as well as he had creatinine kinase is over 4000. 2. There is a concern for a EKG changes and although T-waves are somewhat more symmetrical then is most recent EKG he does have a history of similar EKG's going back to [address]-T wave changes inferior laterally with symmetrical proportion of the T-wave. 3. Will plan on getting an echocardiogram to look at his overall left ventricular function, cardiac structure and possible valvopathies. 4. As father as far as further ischemic workup this will be discussed with Mr. Ulloa for consideration of a pharmacologic nuclear stress test due to the EKG changes an elevation of troponin. 10. If he does not want further ischemic workup and we will continue with medical management. 11. The patient previously on Coumadin for atrial fibrillation and peripheral vascular fem-pop bypass but has since stopped this on his. We continue on aspirin from that standpoint. Thank you for allowing me to see Conor Martinez if there are any questions please do not hesitate to call. Nomi Melendez DO KADENP/ /2:35 PM /3:36 PM
--- NOTE | 2016-08-09 18:52 | RADRPT ---
EXAM DATE/TIME: 08/09/2016 17:20 [place] COMPARISON: CT LUMBAR SPINE W/O CONTRAST, August 06, 2016, 22:21. INDICATIONS : Pain. MEDICAL HISTORY : Hypertension. Hepatitis B. CAD. A-fib. SURGICAL HISTORY : Abdominal aorta stent. Vasectomy. Lower extremity vascular sx. ENCOUNTER: Subsequent ACUITY: One day PAIN SCORE: 5/10 LOCATION: Lower back. TECHNIQUE: Multiplanar multisequence MRI of the lumbar spine was performed without contrast. FINDINGS: The patient's aortic stent graft results in metallic artifact along the anterior aspect of the thorac ic spine. Diffuse degenerative changes and scoliosis of the lumbar spine are noted. Severe degenera tive disc space narrowing is noted at all levels within the lumbar spine. There is no acute compress ion fracture or spondylolisthesis of the lumbar spine. Severe circumferential spinal stenosis and bi lateral foraminal narrowing is noted at L4-5. Severe left neural foraminal narrowing is noted at L2- 3 and L3-4. Severe bilateral foraminal narrowing is noted at L5-S1. CONCLUSION: 1. Severe spinal stenosis and bilateral foraminal narrowing at L4-5. 2. Severe bilateral foraminal narrowing at L5-S1 and severe left neural foraminal narrowing at L2-3 a nd L3-4. 3. Degenerative changes and scoliosis of the lumbar spine. 4. No acute compression fracture or spondylolisthesis of the lumbar spine. Harrison Méndez MD on August 09, 2016 at 18:33 Board Certified Radiologist. This report was verified electronically.
--- NOTE | 2016-08-09 19:01 | EC ---
Study Study Date:08/09/2016 STUDY CONCLUSIONS SUMMARY - Procedure narrative: Image quality was poor. The study was technically limited due to poor acoustic window availability. Echo is extremely limited due to chest formation leading to limited windows. - Left ventricle: The cavity size was normal. In limited views, the systolic function was probably normal. The estimated ejection fraction was in the range of 55% to 60%. - Mitral valve: Mild regurgitation. - Tricuspid valve: Mild regurgitation. - Pulmonary arteries: PA peak pressure: 63mm Hg (S). If LV function is below 40, please consider prescribing an ACEI or ARB or document rationale for non-use. PROCEDURE DATA STUDY STATUS: Elective. Procedure: Transthoracic echocardiography. Image quality was poor. The study was technically limited due to poor acoustic window availability. Scanning was performed from the apical and subcostal acoustic windows. Study completion: The patient tolerated the procedure well. Transthoracic echocardiography. M-mode, complete 2D, complete spectral Doppler, and color Doppler. Height: Height: 75in. Weight: Weight: 179.6lb. Body mass index: BMI: 22.5kg/m^2. Body surface area: BSA: 2.1m^2. Patient status: Inpatient. CARDIAC ANATOMY LEFT VENTRICLE: The cavity size was normal. In limited views, the systolic function was probably normal. The estimated ejection fraction was in the range of 55% to 60%. AORTIC VALVE: The valve appears to be grossly normal. Doppler: There was no stenosis. No significant regurgitation. Valve area: 2.17cm^2 (Vmax). Indexed valve area: 1.03cm^2/m^2 (Vmax). MITRAL VALVE: The valve appears to be grossly normal. Doppler: There was no evidence for stenosis. Mild regurgitation. PULMONIC VALVE: Not well visualized. TRICUSPID VALVE: The valve appears to be grossly normal. Doppler: There was no evidence for stenosis. Mild regurgitation. PERICARDIUM: There was no pericardial effusion. Patient weight: 179.6lb _Ejection fraction:_ 65-75% _Fractional shortening:_ 32% up to 5Kg 5-11.5Kg 11.6-22.9Kg 23-45Kg 45-57Kg Aortic Root 7-13 <17 13-22 17-27 17-27 LA diam 6-13 <23 24-38 33-47 37-40 RVID 10-17 7-15 7-15 7-18 8-17 LVIDd 12-22 <32 24-38 33-47 37-40 LVPW 2-4 3-6 5-7 6-8 7-8 IVS 2-4 3-6 5-7 6-8 7-8 BASIC MEASUREMENTS ADULT NORMAL Left ventricle LV internal dimension, ED, chordal *41.3 mm 43-52 level, PLAX LV internal dimension, ES, chordal 32.6 mm 23-38 level, PLAX Fractional shortening, chordal level, *21 % >29 PLAX LV posterior wall thickness, ED 8.79 mm IVS/LVPW ratio, ED 1.05 <1.3 Ventricular septum Septal thickness, ED 9.25 mm Aortic valve Leaflet separation 19 mm 15-26 Right ventricle RV internal dimension, ED, PLAX 21.4 mm 19-38 BASIC MEASUREMENTS ADULT NORMAL Aortic valve Leaflet separation 19 mm 15-26 Aorta Root diameter, ED 26 mm 20-37 Left atrium Anterior-posterior dimension, ES *48 mm 19-40 Anterior-posterior dimension index, ES *2.29 cm/m^2 <2.2 LA/aortic root ratio 1.85 DOPPLER MEASUREMENTS ADULT NORMAL Main pulmonary artery Pressure, S *63 mm Hg =30 Pressure, ED 18 mm Hg Aortic valve Peak velocity, S 84.2 cm/s Valve area, Vmax 2.17 cm^2 Valve area index, Vmax 1.03 cm^2/m^2 Mitral valve Peak E-wave velocity 55.8 cm/s Peak A-wave velocity 37.5 cm/s Deceleration time 197 ms 150-230 Peak E/A ratio 1.5 Maximal regurgitant velocity 357 cm/s Tricuspid valve Regurgitant peak velocity 334 cm/s Peak RV-RA gradient, S 45 mm Hg Maximal regurgitant velocity 334 cm/s Systemic veins Estimated CVP 10 mm Hg Right ventricle RV pressure, S *66 mm Hg <30 Pulmonic valve Peak velocity, S 88.2 cm/s Regurgitant velocity, ED 141 cm/s LEGEND: Mean values are shown as u=mean value. Asterisk (*) richardson values outside specified normal range. Prepared and signed by Nomi Bird [id number]
[2016-08-09] MEDS: ACETAMINOPHEN/HYDROcodone 325 MG/10 MG TAB PO PRN (20:33)
[2016-08-10] VITALS (7 sets, daily range): BP systolic 105–136; BP diastolic 68–83; PULSE 59–80; RESP 17–20; TEMP 96.6–99.2; O2SAT 94–98
[2016-08-10] MEDS: SODIUM CHLOR 0.9% 1000 ML INJ 1,000 ML IV SCH (05:33)
[2016-08-10] MEDS: ACETAMINOPHEN/HYDROcodone 325 MG/10 MG TAB PO PRN ×3 (05:33→20:36)
[2016-08-10 06:21] LABS: BICARBONATE 28.6 MEQ/L (21.0-32.0); HDL CHOLESTEROL 33.8 MG/DL (40.0-60.0); POTASSIUM 4.7 MEQ/L (3.5-5.1)
[2016-08-10] MEDS: PRAVASTATIN SOD 40 MG TAB PO SCH (09:00)
[2016-08-10] MEDS: SODIUM CHLORIDE 0.9% FLUSH 10 ML FLUSH IV FLUSH SCH ×2 (09:00→20:26)
[2016-08-10] MEDS: CHOLECALCIFEROL (VIT D3) 1000 UNIT TAB PO SCH (10:09)
[2016-08-10] MEDS: FAMOTIDINE 20 MG TAB PO SCH ×2 (10:11→20:26)
[2016-08-10] MEDS: CARVEDILOL 12.5 MG TAB PO SCH ×2 (10:11→20:26)
[2016-08-10] MEDS: FERROUS SULFATE 325 MG (65 MG ELEMENTAL IRON) TAB PO SCH (10:11)
[2016-08-10] MEDS: ASPIRIN EC 81 MG TABEC PO SCH (10:11)
--- NOTE | 2016-08-10 10:34 | PD.CARD.PN ---
Subjective Subjective Remarks No chest pain, no shortness of breath Only back pain which is chronic Objective Medications Current Medications Medications (Trade) Dose Ordered Sig/Zo Route Start Time Stop Time Status Last Admin (NS 1000 ml Inj) 1,000 ml @ 100 mls/hr Q10H IV 08/06/16 23:53 08/10/16 05:33 (NS Flush) 2 ml UNSCH PRN IV FLUSH 08/07/16 00:00 (NS Flush) 2 ml BID IV FLUSH 08/07/16 09:00 08/10/16 09:00 (Ecotrin Ec) 81 mg DAILY PO 08/07/16 09:00 08/10/16 10:11 (Coreg) 12.5 mg BID PO 08/07/16 09:00 08/10/16 10:11 (Ferrous Sulfate) 325 mg DAILY PO 08/07/16 09:00 08/10/16 10:11 (Pravachol) 40 mg DAILY PO 08/07/16 09:00 08/10/16 09:00 (Pepcid) 10 mg BID PO 08/07/16 09:00 08/10/16 10:11 (Vitamin D3) 1,000 units DAILY PO 08/07/16 09:00 08/10/16 10:09 Miscellaneous Information Patient in critical care unit? Ass... [id number] XX 08/07/16 06:15 (Chlorhexidine 2% Cloth) 3 pack DAILY@04 TOPICAL 08/08/16 04:00 08/12/16 04:01 08/09/16 04:00 (Chlorhexidine 2% Cloth) 3 pack UNSCH PRN TOPICAL 08/07/16 06:15 08/12/16 06:06 (Tylenol) 650 mg Q6H PRN PO 08/07/16 23:30 08/08/16 11:11 (Narcan Inj) 0.4 mg UNSCH PRN IV 08/07/16 23:30 (Ultram) 100 mg Q4H PRN PO 08/09/16 15:30 ([place] 10-325 Mg) 1 tab Q6H PRN PO 08/09/16 14:15 08/10/16 10:11 Vital Signs / I&O Vital Signs Date Time Temp Pulse Resp B/P Pulse Ox O2 Delivery O2 Flow Rate FiO2 08/10/16 08:00 97.1 59 18 110/70 97 08/10/16 04:00 97.5 68 20 136/83 97 08/10/16 00:00 97.8 63 18 118/82 98 08/09/16 21:00 78 08/09/16 20:00 97.9 77 20 135/89 97 08/09/16 16:00 71 08/09/16 16:00 98.8 71 19 136/84 98 08/09/16 15:40 18 08/09/16 12:00 98.0 69 18 133/53 99 08/09/16 12:00 72 I/O 08/09/16 08/09/16 08/09/16 08/10/16 08/10/16 08/10/16 07:00 15:00 23:00 07:00 15:00 23:00 Intake Total 1589 ml 1219 ml 120 ml 563 ml 120 ml Output Total 600 ml 790 ml 300 ml 700 ml Balance 989 ml 429 ml -180 ml 563 ml -580 ml Intake Oral 480 ml 400 ml 120 ml 120 ml IV Total 1109 ml 819 ml 0 ml 563 ml Output Urine Total 600 ml 790 ml 300 ml 700 ml # Bowel Movements 0 0 0 Physical Exam GENERAL: NAD, AAOx3 SKIN: Warm and dry. HEAD: Atraumatic. Normocephalic. EYES: Pupils equal and round. No scleral icterus. No injection or drainage. ENT: No nasal bleeding or discharge. Mucous membranes pink and moist. NECK: Trachea midline. No JVD. CARDIOVASCULAR: Regular rate and rhythm. RESPIRATORY: No accessory muscle use. Decreased breath sounds bilaterally GASTROINTESTINAL: Abdomen soft, non-tender, nondistended. Hepatic and splenic margins not palpable. MUSCULOSKELETAL: Chronic changes of PAD NEUROLOGICAL: Awake and alert. No obvious cranial nerve deficits. Motor grossly within normal limits. Laboratory Laboratory Tests Test 08/10/16 04:58 Sodium Level 143 MEQ/L Potassium Level 4.7 MEQ/L Chloride Level 109 MEQ/L Carbon Dioxide Level 28.6 MEQ/L Anion Gap 5 MEQ/L Blood Urea Nitrogen 25 MG/DL Creatinine 1.26 MG/DL Estimat Glomerular Filtration 69 ML/MIN Rate Random Glucose 107 MG/DL Calcium Level 8.7 MG/DL Triglycerides Level 106 MG/DL Cholesterol Level 113 MG/DL LDL Cholesterol 58 MG/DL HDL Cholesterol 33.8 MG/DL Cholesterol/HDL Ratio 3.34 RATIO Assessment and Plan Problem List: (1) Rhabdomyolysis (2) Troponin level elevated (3) Back pain (4) Spinal stenosis (5) Fall (6) Atrial fibrillation (7) Heart failure (8) PAD (peripheral artery disease) Assessment and Plan 1) Elevation of troponin most likely Type 2 due to Rhabdomyolysis 2) EKG has had T wave changes going back to 2012, no significant change 3) EF probably 55-60%, technically difficult echo 4) Discussed with Karen Laila, will continue with medical management, at this time does not want further ischemic evaluation for elevated trop/EKG changes 5) ASA/Statin/BB 6) Stopped Coumadin on his own accord for his PAF and PAD, should continue on ASA 81mg daily Problem Qualifiers (1) Rhabdomyolysis: Qualified Code: M62.82 - Non-traumatic rhabdomyolysis (2) Back pain: (3) Spinal stenosis: Qualified Code: M48.06 - Spinal stenosis of lumbar region (4) Fall: Qualified Code: W19.XXXA - Fall, initial encounter Nomi Brid DO Aug 10, 2016 10:34
--- NOTE | 2016-08-10 11:33 | HHI.PR ---
Subjective Remarks Follow-up for rhabdomyolysis and troponin elevation Still complaining of back pain, no nausea or vomiting. No shortness of breath. Denies any chest pain. Objective Vitals Vital Signs Date Time Temp Pulse Resp B/P Pulse Ox O2 Delivery O2 Flow Rate FiO2 08/10/16 08:00 97.1 59 18 110/70 97 08/10/16 04:00 97.5 68 20 136/83 97 08/10/16 00:00 97.8 63 18 118/82 98 08/09/16 21:00 78 08/09/16 20:00 97.9 77 20 135/89 97 08/09/16 16:00 71 08/09/16 16:00 98.8 71 19 136/84 98 08/09/16 15:40 18 08/09/16 12:00 98.0 69 18 133/53 99 08/09/16 12:00 72 I/O 08/09/16 08/09/16 08/09/16 08/10/16 08/10/16 08/10/16 07:00 15:00 23:00 07:00 15:00 23:00 Intake Total 1589 ml 1219 ml 120 ml 563 ml 120 ml Output Total 600 ml 790 ml 300 ml 700 ml Balance 989 ml 429 ml -180 ml 563 ml -580 ml Intake Oral 480 ml 400 ml 120 ml 120 ml IV Total 1109 ml 819 ml 0 ml 563 ml Output Urine Total 600 ml 790 ml 300 ml 700 ml # Bowel Movements 0 0 0 Result Diagram: 08/09/16 0427 08/10/16 0458 Imaging Last Impressions Lumbar Spine MRI 08/09/16 0000 Signed Impressions: Service Date/Time: Tuesday, August 09, 2016 17:20 - CONCLUSION: 1. Severe spinal stenosis and bilateral foraminal narrowing at L4-5. 2. Severe bilateral foraminal narrowing at L5-S1 and severe left neural foraminal narrowing at L2- 3 and L3-4. 3. Degenerative changes and scoliosis of the lumbar spine. 4. No acute compression fracture or spondylolisthesis of the lumbar spine. Harrison Méndez MD Renal Ultrasound 08/08/16 0000 Signed Impressions: Service Date/Time: July 17:02 - CONCLUSION: 1. Mildly echogenic and small kidneys suggesting medical renal disease. No evidence of hydronephrosis. 2. Mildly distended urinary bladder. [place] catheter not visualized. 3. Small amount of ascites and small left pleural effusion. Gildardo Elias MD Thoracic Spine CT 08/06/162127 Signed Impressions: Service Date/Time: Saturday, August 06, 2016 22:21 - CONCLUSION: 1. No acute fracture or subluxation of the thoracic spine. 2. Degenerative changes and scoliosis of the thoracolumbar spine. Harrison Méndez MD Shoulder X-Ray [id number]/06/[id number] Signed Impressions: Service Date/Time: Saturday, August 06, 2016 21:57 - CONCLUSION: No acute disease. Harrison Méndez MD Lumbar Spine CT 08/06/162127 Signed Impressions: Service Date/Time: Saturday, August 06, 2016 22:21 - CONCLUSION: 1. No acute fracture of the lumbar spine. 2. Severe spinal stenosis and bilateral foraminal narrowing at L4-L5. 3. Severe bilateral foraminal narrowing at L5-S1. 4. Severe left neural foraminal narrowing at L2-L3. 5. Degenerative changes and scoliosis of the lumbar spine. 6. Severe degenerative disc disease at all levels within the lumbar spine. Harrison Méndez MD Hip and Pelvis X-Ray 08/06/162127 Signed Impressions: Service Date/Time: Saturday, August 06, 2016 22:04 - CONCLUSION: No acute disease. Harrison Méndez MD Head CT [id number]/06/162127 Signed Impressions: Service Date/Time: Saturday, August 06, 2016 22:16 - CONCLUSION: 1. Moderate periventricular and subcortical white matter small-vessel ischemic changes bilaterally. 2. Diffuse cerebral atrophy. 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 4. No acute infarct, acute hemorrhage, mass effect or extra-axial fluid collections. Harrison Méndez MD Chest X-Ray 08/06/162127 Signed Impressions: Service Date/Time: Saturday, August 06, 2016 22:09 - CONCLUSION: 1. No acute cardiopulmonary disease. 2. Degenerative changes and scoliosis of the lumbar spine. Harrison Méndez MD Cervical Spine CT [id number]/06/162127 Signed Impressions: Service Date/Time: Saturday, August 06, 2016 22:16 - CONCLUSION: 1. No acute fracture or prevertebral soft-tissue swelling. 2. Cervical spondylosis from C3 through C6 with mild bilateral foraminal narrowing at these levels. 3. Reversal of the normal cervical lordosis. 4. Mild scoliosis of the cervical spine. 5. Biapical emphysematous changes. Harrison Méndez MD Objective Remarks Not in distress, well-nourished, looks stated age PERRL, pink conjunctiva without injection, anicteric Nose without bleeding, airway patent, oropharynx clear Supple neck, no masses or thyromegaly, trachea midline Normal rate and regular rhythm, no murmurs gallops or rubs appreciated. Decreased breath sounds on the left. Normal bowel sounds, soft, non-tender, nondistended, no guarding. Extremities without clubbing, cyanosis, or edema. No rash of generalized distribution. Skin is warm and dry. Mild left shoulder pain, active range of motion is impaired because of pain to passive range of motion is full AAO x3, no cranial nerve deficits, moves all 4 extremities, no focal neurologic deficits Normal mood, appropriate affect A/P Problem List: (1) Rhabdomyolysis ICD Code: M62.82 Status: Acute (2) Acute on chronic renal failure ICD Code: N17.9 Status: Acute (3) Back pain ICD Code: M54.9 Status: Acute (4) Decubitus ulcers ICD Code: L89.90 Status: Acute (5) Leukocytosis ICD Code: D72.829 Status: Acute Assessment and Plan 70 y/o male with a history of spinal stenosis, CAD and HTN was brought in by EMS after suffering a fall 3 days ago and was unable to get up. Rhabdomyolysis, acute -CK improving, almost normal, stop IVF, repeat BMP and CK tomorrow. Almost resolved. Acute on chronic renal failure, likely due to dehydration and rhabdomyolysis-, creatinine now at 1.2, ultrasound of the kidneys revealed medical renal disease. Also showed left pleural effusion and mild ascites. No hydronephrosis , mildly distended bladder. Stop IVF today. Recheck BMP tomorrow. Left shoulder pain-new onset, x-ray previously done did not show any fracture. Continue pain control. Troponin elevation-0.7, remained flat, EKG reviewed showed possible inferior and lateral ischemia, cardiology consulted, LDL normal, continue aspirin and Coreg. Likely secondary to rhabdomyolysis. Echocardiogram showed an ejection fraction of 55-60%. Ischemic workup per cardiology. Back pain secondary to severe spinal stenosis- Lumbar CT shows No acute fracture of the lumbar spine. 2. Severe spinal stenosis and bilateral foraminal narrowing at L4-L5. Severe bilateral foraminal narrowing at L5-S1. Severe left neural foraminal narrowing at L2-L3. Hip xray unremarkable. Cervical spine shows No acute fracture or prevertebral soft-tissue swelling. Cervical spondylosis from C3 through C6 with mild bilateral foraminal narrowing at these levels. Neurosurgery consulted, MRI showed severe spinal stenosis and bilateral foraminal narrowing L4 to L5. There is also diffuse foraminal narrowing L2 to L4. No acute compression. Patient chronically debilitated, continue tramadol and [place]. Awaiting further input from neurosurgery. Decubitus ulcers to sacrum, and mid back -Consult wound care for recommendations. Leukocytosis, possibly stress related- urinalysis negative, afebrile. , Chest x-ray negative. Resolved. DVT prophylaxis: SCDs Discharge Planning Case management consulted, referral is made, discharge to SNF once cleared by neurosurgery and cardiology. Problem Qualifiers (1) Rhabdomyolysis: Qualified Code: M62.82 - Non-traumatic rhabdomyolysis (2) Back pain: Amanda Reveles MD Aug 10, 2016 11:33
--- NOTE | 2016-08-10 11:39 | HHI.NSPN ---
History Chief Complaint: severe low back pain and leg weakness. Interval History Mr. Ulloa is a 70 y/o male with a history of chronic lumbar pain. He reports of progressive low back and lower extremity pain and weakness. Recently he reports his legs became much weaker and he was having difficulty walking. He has had several falls. He reports lumbar pain radiating down his lower extremity all the way to the feet with associated paresthesias. A CT lumbar spine severe degenerative with severe stenosis at L4 5, no acute fractures. Neurosurgical evaluation was requested. 08/09/16: Pt awake and alert. Complains of severe low back pain. He went for a MRI of the lumbar spine but was too painful to lay down. He states when he is laying down he doesn't have pain in his legs. 08/10/16: Pt awake and alert. States low back pain better. Pt has weakness in left leg stable. MRI revealed scoliosis with severe spinal stenosis and foraminal stenosis at L4/L5, severe bilateral foraminal narrowing at L5/S1 and severe left neural foraminal narrowing at L2/L3 and L3/L4. Review of Systems General: Negative for: fever, chills, insomnia Respiratory: Negative for: shortness of breath, cough, sputum Cardiovascular: Negative for: chest pain Gastrointestinal: Negative for: nausea, vomitting, diarrhea, constipation Exam Results Vital Signs Date Time Temp Pulse Resp B/P Pulse Ox O2 Delivery O2 Flow Rate FiO2 08/10/16 08:00 97.1 59 18 110/70 97 08/07/16 19:34 Nasal Cannula 2.00 Intake and Output 08/09/16 08/09/16 08/10/16 08:00 16:00 00:00 Intake Total 1589 ml 1219 ml 120 ml Output Total 600 ml 790 ml 300 ml Balance 989 ml 429 ml -180 ml Physical Examination Resp: CTA bilaterally Heart: NSR no murmurs Abd: Soft positive bs Skin: No cyanosis or erythema Muscle: Moves LEs distally with good strength 4+/5. Right iliopsoas is 4/5 left is 1/5, left knee extension is 1/5, 3+/5 Neuro: Pt awake and alert. Follows commands well. Speech clear and appropriate. Lab, Micro, Other Results Laboratory Tests Test 08/10/16 04:58 Sodium Level 143 MEQ/L Potassium Level 4.7 MEQ/L Chloride Level 109 MEQ/L Carbon Dioxide Level 28.6 MEQ/L Anion Gap 5 MEQ/L Blood Urea Nitrogen 25 MG/DL Creatinine 1.26 MG/DL Estimat Glomerular Filtration 69 ML/MIN Rate Random Glucose 107 MG/DL Calcium Level 8.7 MG/DL Triglycerides Level 106 MG/DL Cholesterol Level 113 MG/DL LDL Cholesterol 58 MG/DL HDL Cholesterol 33.8 MG/DL Cholesterol/HDL Ratio 3.34 RATIO 08/09/16 08/09/16 08/10/16 15:00 23:00 07:00 Intake Total 1219 ml 120 ml 563 ml Output Total 790 ml 300 ml Balance 429 ml -180 ml 563 ml Intake Oral 400 ml 120 ml IV Total 819 ml 0 ml 563 ml Output Urine Total 790 ml 300 ml # Bowel Movements 0 Medical Decision Making Impression and Plan A: 70 y/o M with intractable low back pain and weakness in his LEs. Lumbar CT and MRI shows No acute fracture of the lumbar spine. 2. Severe spinal stenosis and bilateral foraminal narrowing at L4-L5. Severe bilateral foraminal narrowing at L5-S1. Severe left neural foraminal narrowing at L2-L3. Hip xray unremarkable. Cervical spine shows No acute fracture or prevertebral soft- tissue swelling. Cervical spondylosis from C3 through C6 with mild bilateral foraminal narrowing at these levels. P: Continue with pain control Continue with current care. PT Dr. Hedrick returns Friday. Tahir Sierra Aug 10, 2016 11:39
[2016-08-11] MEDS: ACETAMINOPHEN/HYDROcodone 325 MG/10 MG TAB PO PRN ×4 (02:50→21:31)
[2016-08-11] MEDS: CHLORHEXIDINE GLUCONATE 2 % 1 PACK (2 CLOTHS)(taper/protocol) TOPICAL SCH (03:08)
[2016-08-11 04:16] VITALS: BP 139/88; PULSE 84; RESP 17; TEMP 97.8; O2SAT 96
[2016-08-11 05:45] LABS: BICARBONATE 28.1 MEQ/L (21.0-32.0); POTASSIUM 4.6 MEQ/L (3.5-5.1)
[2016-08-11 06:59] LABS: CKMB 2.1 NG/ML (0.5-3.6)
[2016-08-11 08:00] VITALS: BP 123/76; PULSE 79; RESP 18; TEMP 97.7; O2SAT 97
[2016-08-11] MEDS: SODIUM CHLORIDE 0.9% FLUSH 10 ML FLUSH IV FLUSH SCH ×2 (09:00→19:59)
--- NOTE | 2016-08-11 09:15 | HHI.NSPN ---
History Chief Complaint: severe low back pain and leg weakness. Interval History Mr. Ulloa is a 70 y/o male with a history of chronic lumbar pain. He reports of progressive low back and lower extremity pain and weakness. Recently he reports his legs became much weaker and he was having difficulty walking. He has had several falls. He reports lumbar pain radiating down his lower extremity all the way to the feet with associated paresthesias. A CT lumbar spine severe degenerative with severe stenosis at L4 5, no acute fractures. Neurosurgical evaluation was requested. 08/09/16: Pt awake and alert. Complains of severe low back pain. He went for a MRI of the lumbar spine but was too painful to lay down. He states when he is laying down he doesn't have pain in his legs. 08/10/16: Pt awake and alert. States low back pain better. Pt has weakness in left leg stable. MRI revealed scoliosis with severe spinal stenosis and foraminal stenosis at L4/L5, severe bilateral foraminal narrowing at L5/S1 and severe left neural foraminal narrowing at L2/L3 and L3/L4. 08/11/16: Pt awake and alert. Complains of severe low back pain. Weakness in left iliopsoas persists. Review of Systems General: Negative for: fever, chills, insomnia Respiratory: Negative for: shortness of breath, cough, sputum Cardiovascular: Negative for: chest pain Gastrointestinal: Negative for: nausea, vomitting, diarrhea, constipation Exam Results Vital Signs Date Time Temp Pulse Resp B/P Pulse Ox O2 Delivery O2 Flow Rate FiO2 08/11/16 08:00 97.7 79 18 123/76 97 08/07/16 19:34 Nasal Cannula 2.00 Intake and Output 08/10/16 08/10/16 08/11/16 08:00 16:00 00:00 Intake Total 683 ml 480 ml Output Total 700 ml 500 ml Balance -17 ml -20 ml Physical Examination Resp: CTA bilaterally Heart: NSR no murmurs Abd: Soft positive bs Skin: No cyanosis or erythema. He has wounds on bilateral LEs with bandages in place. Muscle: Moves LEs distally with good strength 4+/5. Right iliopsoas is 4/5 left is 1/5, left knee extension is 1/5, right 3+/5 Neuro: Pt awake and alert. Follows commands well. Speech clear and appropriate. Sensation mildly decreased in LEs to light touch. Lab, Micro, Other Results Last Impressions Lumbar Spine MRI 08/09/16 0000 Signed Impressions: Service Date/Time: Tuesday, August 09, 2016 17:20 - CONCLUSION: 1. Severe spinal stenosis and bilateral foraminal narrowing at L4-5. 2. Severe bilateral foraminal narrowing at L5-S1 and severe left neural foraminal narrowing at L2- 3 and L3-4. 3. Degenerative changes and scoliosis of the lumbar spine. 4. No acute compression fracture or spondylolisthesis of the lumbar spine. Harrison Mnédez MD Renal Ultrasound 08/08/16 0000 Signed Impressions: Service Date/Time: July 17:02 - CONCLUSION: 1. Mildly echogenic and small kidneys suggesting medical renal disease. No evidence of hydronephrosis. 2. Mildly distended urinary bladder. Zarco catheter not visualized. 3. Small amount of ascites and small left pleural effusion. Gildardo Elias MD Thoracic Spine CT [id number]/06/[id number] Signed Impressions: Service Date/Time: Saturday, August 06, 2016 22:21 - CONCLUSION: 1. No acute fracture or subluxation of the thoracic spine. 2. Degenerative changes and scoliosis of the thoracolumbar spine. Harrison Méndez MD Shoulder X-Ray [id number] Signed Impressions: Service Date/Time: Saturday, August 06, 2016 21:57 - CONCLUSION: No acute disease. Harrison Méndez MD Lumbar Spine CT [id number]/[id number] Signed Impressions: Service Date/Time: Saturday, August 06, 2016 22:21 - CONCLUSION: 1. No acute fracture of the lumbar spine. 2. Severe spinal stenosis and bilateral foraminal narrowing at L4-L5. 3. Severe bilateral foraminal narrowing at L5-S1. 4. Severe left neural foraminal narrowing at L2-L3. 5. Degenerative changes and scoliosis of the lumbar spine. 6. Severe degenerative disc disease at all levels within the lumbar spine. Harrison Méndez MD Hip and Pelvis X-Ray [id number]/[id number] Signed Impressions: Service Date/Time: Saturday, August 06, 2016 22:04 - CONCLUSION: No acute disease. Harrison Méndez MD Head CT [id number]/[id number] Signed Impressions: Service Date/Time: Saturday, August 06, 2016 22:16 - CONCLUSION: 1. Moderate periventricular and subcortical white matter small-vessel ischemic changes bilaterally. 2. Diffuse cerebral atrophy. 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 4. No acute infarct, acute hemorrhage, mass effect or extra-axial fluid collections. Harrison Méndez MD Chest X-Ray [id number]/06/[id number] Signed Impressions: Service Date/Time: Saturday, August 06, 2016 22:09 - CONCLUSION: 1. No acute cardiopulmonary disease. 2. Degenerative changes and scoliosis of the lumbar spine. Harrison Méndez MD Cervical Spine CT [id number] Signed Impressions: Service Date/Time: Saturday, August 06, 2016 22:16 - CONCLUSION: 1. No acute fracture or prevertebral soft-tissue swelling. 2. Cervical spondylosis from C3 through C6 with mild bilateral foraminal narrowing at these levels. 3. Reversal of the normal cervical lordosis. 4. Mild scoliosis of the cervical spine. 5. Biapical emphysematous changes. Harrison Méndez MD Laboratory Tests Test 08/11/16 04:46 Sodium Level 143 MEQ/L Potassium Level 4.6 MEQ/L Chloride Level 109 MEQ/L Carbon Dioxide Level 28.1 MEQ/L Anion Gap 6 MEQ/L Blood Urea Nitrogen 22 MG/DL Creatinine 1.21 MG/DL Estimat Glomerular Filtration 72 ML/MIN Rate Random Glucose 96 MG/DL Calcium Level 8.5 MG/DL Total Creatine Kinase 364 U/L Creatine Kinase MB 2.1 NG/ML Creatine Kinase MB % 0.6 % 08/10/16 08/10/16 08/11/16 15:00 23:00 07:00 Intake Total 120 ml 480 ml 480 ml Output Total 700 ml 500 ml 700 ml Balance -580 ml -20 ml -220 ml Intake Oral 120 ml 480 ml 480 ml Output Urine Total 700 ml 500 ml 700 ml # Bowel Movements 0 Medical Decision Making Impression and Plan A: 70 y/o M with intractable low back pain and weakness in his LEs. Lumbar CT and MRI shows No acute fracture of the lumbar spine. 2. Severe spinal stenosis and bilateral foraminal narrowing at L4-L5. Severe bilateral foraminal narrowing at L5-S1. Severe left neural foraminal narrowing at L2-L3. Hip xray unremarkable. Cervical spine shows No acute fracture or prevertebral soft- tissue swelling. Cervical spondylosis from C3 through C6 with mild bilateral foraminal narrowing at these levels. P: Continue with pain control Continue with current care. PT Dr. Hedrick returns Friday. Tahir Sierra Aug 11, 2016 09:15
[2016-08-11] MEDS: CARVEDILOL 12.5 MG TAB PO SCH ×2 (09:50→19:59)
[2016-08-11] MEDS: FERROUS SULFATE 325 MG (65 MG ELEMENTAL IRON) TAB PO SCH (09:50)
[2016-08-11] MEDS: CHOLECALCIFEROL (VIT D3) 1000 UNIT TAB PO SCH (09:50)
[2016-08-11] MEDS: ASPIRIN EC 81 MG TABEC PO SCH (09:51)
[2016-08-11] MEDS: PRAVASTATIN SOD 40 MG TAB PO SCH (09:51)
[2016-08-11] MEDS: FAMOTIDINE 20 MG TAB PO SCH ×2 (09:51→19:59)
[2016-08-11] MEDS ORDERED: HYDR-3583 PO (10:15)
[2016-08-11 12:00] VITALS: BP 120/71; PULSE 63; RESP 18; TEMP 97.9; O2SAT 93
--- NOTE | 2016-08-11 13:22 | PD.CARD.PN ---
Subjective Subjective Remarks No chest pain, no shortness of breath Continual back pain Objective Medications Current Medications Medications (Trade) Dose Ordered Sig/Zo Route Start Time Stop Time Status Last Admin (NS Flush) 2 ml UNSCH PRN IV FLUSH 08/07/16 00:00 (NS Flush) 2 ml BID IV FLUSH 08/07/16 09:00 08/10/16 20:26 (Ecotrin Ec) 81 mg DAILY PO 08/07/16 09:00 08/11/16 09:51 (Coreg) 12.5 mg BID PO 08/07/16 09:00 08/11/16 09:50 (Ferrous Sulfate) 325 mg DAILY PO 08/07/16 09:00 08/11/16 09:50 (Pravachol) 40 mg DAILY PO 08/07/16 09:00 08/11/16 09:51 (Pepcid) 10 mg BID PO 08/07/16 09:00 08/11/16 09:51 (Vitamin D3) 1,000 units DAILY PO 08/07/16 09:00 08/11/16 09:50 Miscellaneous Information Patient in critical care unit? Ass... [id number] 08/07/16 06:15 (Chlorhexidine 2% Cloth) 3 pack DAILY@04 TOPICAL 08/08/16 04:00 08/12/16 04:01 08/09/16 04:00 (Chlorhexidine 2% Cloth) 3 pack UNSCH PRN TOPICAL 08/07/16 06:15 08/12/16 06:06 (Tylenol) 650 mg Q6H PRN PO 08/07/16 23:30 08/08/16 11:11 (Narcan Inj) 0.4 mg UNSCH PRN IV 08/07/16 23:30 (Ultram) 100 mg Q4H PRN PO 08/09/16 15:30 ([place] 10-325 Mg) 1 tab Q6H PRN PO 08/09/16 14:15 08/11/16 09:51 Vital Signs / I&O Vital Signs Date Time Temp Pulse Resp B/P Pulse Ox O2 Delivery O2 Flow Rate FiO2 08/11/16 12:00 97.9 63 18 120/71 93 08/11/16 08:00 97.7 79 18 123/76 97 08/11/16 04:16 97.8 84 17 139/88 96 08/10/16 23:54 98.0 80 18 122/76 94 08/10/16 20:18 99.2 75 17 131/74 97 08/10/16 16:00 96.6 77 18 108/69 97 I/O 08/10/16 08/10/16 08/10/16 08/11/16 08/11/16 08/11/16 07:00 15:00 23:00 07:00 15:00 23:00 Intake Total 563 ml 120 ml 480 ml 480 ml Output Total 700 ml 500 ml 700 ml 850 ml Balance 563 ml -580 ml -20 ml -220 ml -850 ml Intake Oral 120 ml 480 ml 480 ml IV Total 563 ml Output Urine Total 700 ml 500 ml 700 ml 850 ml # Bowel Movements 0 Physical Exam GENERAL: NAD, AAOx3 SKIN: Warm and dry. HEAD: Atraumatic. Normocephalic. EYES: Pupils equal and round. No scleral icterus. No injection or drainage. ENT: No nasal bleeding or discharge. Mucous membranes pink and moist. NECK: Trachea midline. No JVD. CARDIOVASCULAR: Regular rate and rhythm. RESPIRATORY: No accessory muscle use. Decreased breath sounds bilaterally GASTROINTESTINAL: Abdomen soft, non-tender, nondistended. Hepatic and splenic margins not palpable. MUSCULOSKELETAL: Chronic changes of PAD NEUROLOGICAL: Awake and alert. No obvious cranial nerve deficits. Motor grossly within normal limits. Laboratory Laboratory Tests Test 08/11/16 04:46 Sodium Level 143 MEQ/L Potassium Level 4.6 MEQ/L Chloride Level 109 MEQ/L Carbon Dioxide Level 28.1 MEQ/L Anion Gap 6 MEQ/L Blood Urea Nitrogen 22 MG/DL Creatinine 1.21 MG/DL Estimat Glomerular Filtration 72 ML/MIN Rate Random Glucose 96 MG/DL Calcium Level 8.5 MG/DL Total Creatine Kinase 364 U/L Creatine Kinase MB 2.1 NG/ML Creatine Kinase MB % 0.6 % Assessment and Plan Problem List: (1) Rhabdomyolysis (2) Troponin level elevated (3) Back pain (4) Spinal stenosis (5) Fall (6) Atrial fibrillation (7) Heart failure (8) PAD (peripheral artery disease) Assessment and Plan 1) Elevation of troponin most likely Type 2 due to Rhabdomyolysis 2) EKG has had T wave changes going back to 2012, no significant change 3) EF probably 55-60%, technically difficult echo 4) Discussed with Mr. Ulloa again, he wants to continue with medical management , at this time does not want further ischemic evaluation for elevated trop/EKG changes 5) ASA/Statin/BB 6) Stopped Coumadin on his own accord for his PAF and PAD, should continue on ASA 81mg daily 7) Will see PRN, call with questions Problem Qualifiers (1) Rhabdomyolysis: Qualified Code: M62.82 - Non-traumatic rhabdomyolysis (2) Back pain: (3) Spinal stenosis: Qualified Code: M48.06 - Spinal stenosis of lumbar region (4) Fall: Qualified Code: W19.XXXA - Fall, initial encounter Nomi Bird DO Aug 11, 2016 13:22
--- NOTE | 2016-08-11 15:00 | HHI.PR ---
Subjective Remarks Follow-up for back pain and rhabdomyolysis Patient still complaining of mild shoulder pain. No shortness of breath, no myalgia. Creatinine is stable, patient denies any chest pain or palpitations. 6 beats of nonsustained V. tach. Objective Vitals Vital Signs Date Time Temp Pulse Resp B/P Pulse Ox O2 Delivery O2 Flow Rate FiO2 08/11/16 12:00 97.9 63 18 120/71 93 08/11/16 08:00 97.7 79 18 123/76 97 08/11/16 04:16 97.8 84 17 139/88 96 08/10/16 23:54 98.0 80 18 122/76 94 08/10/16 20:18 99.2 75 17 131/74 97 08/10/16 16:00 96.6 77 18 108/69 97 I/O 08/10/16 08/10/16 08/10/16 08/11/16 08/11/16 08/11/16 07:00 15:00 23:00 07:00 15:00 23:00 Intake Total 563 ml 120 ml 480 ml 480 ml 240 ml Output Total 700 ml 500 ml 700 ml 1250 ml Balance 563 ml -580 ml -20 ml -220 ml -1010 ml Intake Oral 120 ml 480 ml 480 ml 240 ml IV Total 563 ml Output Urine Total 700 ml 500 ml 700 ml 1250 ml # Bowel Movements 0 0 Result Diagram: 08/09/16 0427 08/11/16 0446 Objective Remarks Not in distress, well-nourished, looks stated age PERRL, pink conjunctiva without injection, anicteric Nose without bleeding, airway patent, oropharynx clear Supple neck, no masses or thyromegaly, trachea midline Normal rate and regular rhythm, no murmurs gallops or rubs appreciated. Decreased breath sounds on the left. Normal bowel sounds, soft, non-tender, nondistended, no guarding. Extremities without clubbing, cyanosis, or edema. No rash of generalized distribution. Skin is warm and dry. Mild left shoulder pain, active range of motion is impaired because of pain to passive range of motion is full AAO x3, no cranial nerve deficits, moves all 4 extremities, no focal neurologic deficits Normal mood, appropriate affect A/P Problem List: (1) Rhabdomyolysis ICD Code: M62.82 Status: Acute (2) Acute on chronic renal failure ICD Code: N17.9 Status: Acute (3) Back pain ICD Code: M54.9 Status: Acute (4) Decubitus ulcers ICD Code: L89.90 Status: Acute (5) Leukocytosis ICD Code: D72.829 Status: Acute Assessment and Plan 70 y/o male with a history of spinal stenosis, CAD and HTN was brought in by EMS after suffering a fall 3 days ago and was unable to get up. Rhabdomyolysis, acute -CK almost normal, off IVF, resolved Acute on chronic renal failure, likely due to dehydration and rhabdomyolysis- resolved, ultrasound of the kidneys revealed medical renal disease. Also showed left pleural effusion and mild ascites. No hydronephrosis, mildly distended bladder. Off IVF. Left shoulder pain-new onset, x-ray previously done did not show any fracture. Continue pain control. Troponin elevation-0.7, remained flat, EKG reviewed showed possible inferior and lateral ischemia, cardiology consulted, LDL normal, continue aspirin , statin and Coreg. Likely secondary to rhabdomyolysis. Echocardiogram showed an ejection fraction of 55-60%. Patient had 6 beats of nonsustained V. tach, asymptomatic. No further Ischemic workup per cardiology. Check magnesium Back pain secondary to severe spinal stenosis- Lumbar CT shows No acute fracture of the lumbar spine. 2. Severe spinal stenosis and bilateral foraminal narrowing at L4-L5. Severe bilateral foraminal narrowing at L5-S1. Severe left neural foraminal narrowing at L2-L3. Hip xray unremarkable. Cervical spine shows No acute fracture or prevertebral soft-tissue swelling. Cervical spondylosis from C3 through C6 with mild bilateral foraminal narrowing at these levels. Neurosurgery consulted, MRI showed severe spinal stenosis and bilateral foraminal narrowing L4 to L5. There is also diffuse foraminal narrowing L2 to L4. No acute compression. Patient chronically debilitated, continue tramadol and [place]. Awaiting further input from neurosurgery. Decubitus ulcers to sacrum, and mid back -Consult wound care for recommendations. Leukocytosis, possibly stress related- urinalysis negative, afebrile. , Chest x-ray negative. Resolved. DVT prophylaxis: SCDs Remove Zarco catheter. Discharge Planning Case management consulted, referral is made, discharge to SNF once cleared by neurosurgery, likely tomorrow. Problem Qualifiers (1) Rhabdomyolysis: Qualified Code: M62.82 - Non-traumatic rhabdomyolysis (2) Back pain: Amanda Reveles MD Aug 11, 2016 15:00
[2016-08-11 16:00] VITALS: BP 123/67; PULSE 84; RESP 19; TEMP 97.7; O2SAT 94
[2016-08-11 20:30] VITALS: PULSE 63
[2016-08-11 20:36] VITALS: BP 132/79; PULSE 90; RESP 16; TEMP 98.9; O2SAT 97
[2016-08-12 00:12] VITALS: BP 124/79; PULSE 78; RESP 16; TEMP 97.6; O2SAT 95
[2016-08-12] MEDS: CHLORHEXIDINE GLUCONATE 2 % 1 PACK (2 CLOTHS)(taper/protocol) TOPICAL SCH (04:00)
[2016-08-12 04:10] VITALS: BP 143/86; PULSE 90; RESP 18; TEMP 98.3; O2SAT 96
[2016-08-12] MEDS: ACETAMINOPHEN/HYDROcodone 325 MG/10 MG TAB PO PRN ×3 (06:42→18:15)
[2016-08-12 08:00] VITALS: BP 152/90; PULSE 72; RESP 19; TEMP 97.2; O2SAT 95
[2016-08-12] MEDS: CARVEDILOL 12.5 MG TAB PO SCH ×2 (08:28→20:26)
[2016-08-12] MEDS: CHOLECALCIFEROL (VIT D3) 1000 UNIT TAB PO SCH (08:28)
[2016-08-12] MEDS: PRAVASTATIN SOD 40 MG TAB PO SCH (08:28)
[2016-08-12] MEDS: ASPIRIN EC 81 MG TABEC PO SCH (08:29)
[2016-08-12] MEDS: FAMOTIDINE 20 MG TAB PO SCH ×2 (08:29→20:25)
[2016-08-12] MEDS: FERROUS SULFATE 325 MG (65 MG ELEMENTAL IRON) TAB PO SCH (08:29)
[2016-08-12] MEDS: SODIUM CHLORIDE 0.9% FLUSH 10 ML FLUSH IV FLUSH SCH ×2 (09:00→20:25)
[2016-08-12 12:00] VITALS: BP 143/91; PULSE 63; RESP 19; TEMP 97.7; O2SAT 94
--- NOTE | 2016-08-12 13:30 | HHI.PR ---
Subjective Remarks back pain- work up now also complains of left shulder pain- limited range of motion on exam Objective Vitals Vital Signs Date Time Temp Pulse Resp B/P Pulse Ox O2 Delivery O2 Flow Rate FiO2 08/12/16 12:00 97.7 63 19 143/91 94 08/12/16 08:00 97.2 72 19 152/90 95 08/12/16 04:10 98.3 90 18 143/86 96 08/12/16 00:12 97.6 78 16 124/79 95 08/11/16 20:36 98.9 90 16 132/79 97 08/11/16 20:30 63 08/11/16 16:00 97.7 84 19 123/67 94 I/O 08/11/16 08/11/16 08/11/16 08/12/16 08/12/16 08/12/16 07:00 15:00 23:00 07:00 15:00 23:00 Intake Total 480 ml 240 ml 480 ml 380 ml Output Total 700 ml 1600 ml 1000 ml 1000 ml Balance -220 ml -1360 ml -520 ml -620 ml Intake Oral 480 ml 240 ml 480 ml 380 ml Output Urine Total 700 ml 1600 ml 1000 ml 1000 ml # Bowel Movements 0 Result Diagram: 08/09/16 0427 08/11/16 0446 Imaging Last Impressions Lumbar Spine MRI 08/09/16 0000 Signed Impressions: Service Date/Time: Tuesday, August 09, 2016 17:20 - CONCLUSION: 1. Severe spinal stenosis and bilateral foraminal narrowing at L4-5. 2. Severe bilateral foraminal narrowing at L5-S1 and severe left neural foraminal narrowing at L2- 3 and L3-4. 3. Degenerative changes and scoliosis of the lumbar spine. 4. No acute compression fracture or spondylolisthesis of the lumbar spine. Harrison Méndez MD Renal Ultrasound 08/08/16 0000 Signed Impressions: Service Date/Time: July 17:02 - CONCLUSION: 1. Mildly echogenic and small kidneys suggesting medical renal disease. No evidence of hydronephrosis. 2. Mildly distended urinary bladder. Zarco catheter not visualized. 3. Small amount of ascites and small left pleural effusion. Gildardo Elias MD Thoracic Spine CT 08/06/162127 Signed Impressions: Service Date/Time: Saturday, August 06, 2016 22:21 - CONCLUSION: 1. No acute fracture or subluxation of the thoracic spine. 2. Degenerative changes and scoliosis of the thoracolumbar spine. Harrison Méndez MD Shoulder X-Ray 08/06/162127 Signed Impressions: Service Date/Time: Saturday, August 06, 2016 21:57 - CONCLUSION: No acute disease. Harrison Méndez MD Lumbar Spine CT 08/06/162127 Signed Impressions: Service Date/Time: Saturday, August 06, 2016 22:21 - CONCLUSION: 1. No acute fracture of the lumbar spine. 2. Severe spinal stenosis and bilateral foraminal narrowing at L4-L5. 3. Severe bilateral foraminal narrowing at L5-S1. 4. Severe left neural foraminal narrowing at L2-L3. 5. Degenerative changes and scoliosis of the lumbar spine. 6. Severe degenerative disc disease at all levels within the lumbar spine. Harrison Méndez MD Hip and Pelvis X-Ray 08/06/162127 Signed Impressions: Service Date/Time: Saturday, August 06, 2016 22:04 - CONCLUSION: No acute disease. Harrison Méndez MD Head CT [id number]/06/162127 Signed Impressions: Service Date/Time: Saturday, August 06, 2016 22:16 - CONCLUSION: 1. Moderate periventricular and subcortical white matter small-vessel ischemic changes bilaterally. 2. Diffuse cerebral atrophy. 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 4. No acute infarct, acute hemorrhage, mass effect or extra-axial fluid collections. Harrison Méndez MD Chest X-Ray 08/06/162127 Signed Impressions: Service Date/Time: Saturday, August 06, 2016 22:09 - CONCLUSION: 1. No acute cardiopulmonary disease. 2. Degenerative changes and scoliosis of the lumbar spine. Harrison Méndez MD Cervical Spine CT 08/06/162127 Signed Impressions: Service Date/Time: Saturday, August 06, 2016 22:16 - CONCLUSION: 1. No acute fracture or prevertebral soft-tissue swelling. 2. Cervical spondylosis from C3 through C6 with mild bilateral foraminal narrowing at these levels. 3. Reversal of the normal cervical lordosis. 4. Mild scoliosis of the cervical spine. 5. Biapical emphysematous changes. Harrison Méndez MD Objective Remarks awake and alert anicteric left shoulder- limited range of motion lungs no rales regular rhythm abdomen soft, good bowel sounds condom in place extremities- no edema LE + coccyx wound stage 2 A/P Problem List: (1) Rhabdomyolysis ICD Code: M62.82 Status: Acute (2) Acute on chronic renal failure ICD Code: N17.9 Status: Acute (3) Back pain ICD Code: M54.9 Status: Acute (4) Decubitus ulcers ICD Code: L89.90 Status: Acute (5) Leukocytosis ICD Code: D72.829 Status: Acute Assessment and Plan 70 y/o male with a history of spinal stenosis, CAD and HTN was brought in by EMS after suffering a fall 3 days ago and was unable to get up. Rhabdomyolysis, acute -CK almost normal, off IVF, resolved Acute on chronic renal failure, likely due to dehydration and rhabdomyolysis- resolved, ultrasound of the kidneys revealed medical renal disease. Also showed left pleural effusion and mild ascites. No hydronephrosis, voiding spontaneously Left shoulder pain-new onset, x-ray previously done did not show any fracture. Continue pain control. Troponin elevation-0.7, remained flat, EKG reviewed showed possible inferior and lateral ischemia, cardiology consulted, LDL normal, continue aspirin , statin and Coreg. Likely secondary to rhabdomyolysis. Echocardiogram showed an ejection fraction of 55-60%. Patient had 6 beats of nonsustained V. tach, asymptomatic. No further Ischemic workup per cardiology. Check magnesium Back pain secondary to severe spinal stenosis- Lumbar CT shows No acute fracture of the lumbar spine. 2. Severe spinal stenosis and bilateral foraminal narrowing at L4-L5. Severe bilateral foraminal narrowing at L5-S1. Severe left neural foraminal narrowing at L2-L3. Hip xray unremarkable. Cervical spine shows No acute fracture or prevertebral soft-tissue swelling. Cervical spondylosis from C3 through C6 with mild bilateral foraminal narrowing at these levels. Neurosurgery consulted, MRI showed severe spinal stenosis and bilateral foraminal narrowing L4 to L5. There is also diffuse foraminal narrowing L2 to L4. No acute compression. Patient chronically debilitated, continue tramadol and [place]. - neurosurgery consulted Left shoulder pain- limited ROM -get an MRI Decubitus ulcers to sacrum, and mid back -Consult wound care team Leukocytosis, possibly stress related- urinalysis negative, afebrile. , Chest x-ray negative. Resolved. DVT prophylaxis: SCDs Condom catheter in place CM consulted- needs a rehab Problem Qualifiers (1) Rhabdomyolysis: Qualified Code: M62.82 - Non-traumatic rhabdomyolysis (2) Back pain: Aidee Bird MD Aug 12, 2016 13:30
[2016-08-12 16:00] VITALS: BP 134/82; PULSE 91; RESP 18; TEMP 97.7; O2SAT 96
[2016-08-12 20:00] VITALS: BP 156/83; PULSE 82; RESP 20; TEMP 98.4; O2SAT 92
[2016-08-13] VITALS (9 sets, daily range): BP systolic 91–187; BP diastolic 54–101; PULSE 67–104; RESP 16–21; TEMP 96.8–100.1; O2SAT 93–96
[2016-08-13] MEDS ORDERED: ENALAPRILAT 2.5 MG/2 ML VIAL IV PUSH PRN (06:15)
[2016-08-13] MEDS: ACETAMINOPHEN/HYDROcodone 325 MG/10 MG TAB PO PRN ×2 (06:56→16:06)
--- NOTE | 2016-08-13 08:25 | HHI.PR ---
Subjective Remarks appears comfortable, patient states baseline ambulates with a cane or walker continent of urine and stools back pain when moved and turned also with shoulder pain Objective Vitals Vital Signs Date Time Temp Pulse Resp B/P Pulse Ox O2 Delivery O2 Flow Rate FiO2 08/13/16 05:30 187/97 08/13/16 04:00 96.8 104 20 175/101 94 08/13/16 00:14 98.8 71 21 124/76 93 08/12/16 20:00 98.4 82 20 156/83 92 08/12/16 16:00 97.7 91 18 134/82 96 08/12/16 12:00 97.7 63 19 143/91 94 I/O 08/12/16 08/12/16 08/12/16 08/13/16 08/13/16 08/13/16 07:00 15:00 23:00 07:00 15:00 23:00 Intake Total 380 ml 240 ml 240 ml 120 ml Output Total 1000 ml 600 ml 350 ml Balance -620 ml -360 ml -110 ml 120 ml Intake Oral 380 ml 240 ml 240 ml 120 ml Output Urine Total 1000 ml 600 ml 350 ml # Voids 4 # Bowel Movements 0 0 0 Result Diagram: 08/09/16 0427 08/11/16 0446 Imaging Last Impressions Lumbar Spine MRI 08/09/16 0000 Signed Impressions: Service Date/Time: Tuesday, August 09, 2016 17:20 - CONCLUSION: 1. Severe spinal stenosis and bilateral foraminal narrowing at L4-5. 2. Severe bilateral foraminal narrowing at L5-S1 and severe left neural foraminal narrowing at L2- 3 and L3-4. 3. Degenerative changes and scoliosis of the lumbar spine. 4. No acute compression fracture or spondylolisthesis of the lumbar spine. Harrison Méndez MD Renal Ultrasound 08/08/16 0000 Signed Impressions: Service Date/Time: July 17:02 - CONCLUSION: 1. Mildly echogenic and small kidneys suggesting medical renal disease. No evidence of hydronephrosis. 2. Mildly distended urinary bladder. Zarco catheter not visualized. 3. Small amount of ascites and small left pleural effusion. Gildardo Elias MD Thoracic Spine CT [id number]/06/162127 Signed Impressions: Service Date/Time: Saturday, August 06, 2016 22:21 - CONCLUSION: 1. No acute fracture or subluxation of the thoracic spine. 2. Degenerative changes and scoliosis of the thoracolumbar spine. Harrison Méndez MD Shoulder X-Ray [id number]/06/162127 Signed Impressions: Service Date/Time: Saturday, August 06, 2016 21:57 - CONCLUSION: No acute disease. Harrison Méndez MD Lumbar Spine CT [id number]/06/162127 Signed Impressions: Service Date/Time: Saturday, August 06, 2016 22:21 - CONCLUSION: 1. No acute fracture of the lumbar spine. 2. Severe spinal stenosis and bilateral foraminal narrowing at L4-L5. 3. Severe bilateral foraminal narrowing at L5-S1. 4. Severe left neural foraminal narrowing at L2-L3. 5. Degenerative changes and scoliosis of the lumbar spine. 6. Severe degenerative disc disease at all levels within the lumbar spine. Harrison Méndez MD Hip and Pelvis X-Ray [id number]/06/162127 Signed Impressions: Service Date/Time: Saturday, August 06, 2016 22:04 - CONCLUSION: No acute disease. Harrison Méndez MD Head CT [id number]/06/162127 Signed Impressions: Service Date/Time: Saturday, August 06, 2016 22:16 - CONCLUSION: 1. Moderate periventricular and subcortical white matter small-vessel ischemic changes bilaterally. 2. Diffuse cerebral atrophy. 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 4. No acute infarct, acute hemorrhage, mass effect or extra-axial fluid collections. Harrison Méndez MD Chest X-Ray [id number]/06/162127 Signed Impressions: Service Date/Time: Saturday, August 06, 2016 22:09 - CONCLUSION: 1. No acute cardiopulmonary disease. 2. Degenerative changes and scoliosis of the lumbar spine. Harrison Méndez MD Cervical Spine CT [id number]/06/162127 Signed Impressions: Service Date/Time: Saturday, August 06, 2016 22:16 - CONCLUSION: 1. No acute fracture or prevertebral soft-tissue swelling. 2. Cervical spondylosis from C3 through C6 with mild bilateral foraminal narrowing at these levels. 3. Reversal of the normal cervical lordosis. 4. Mild scoliosis of the cervical spine. 5. Biapical emphysematous changes. Harrison Méndze MD Objective Remarks awake and alert anicteric left shoulder- limited range of motion lungs no rales regular rhythm abdomen soft, good bowel sounds extremities- no edema LE + coccyx wound stage 2, A/P Problem List: (1) Rhabdomyolysis ICD Code: M62.82 Status: Acute (2) Acute on chronic renal failure ICD Code: N17.9 Status: Acute (3) Back pain ICD Code: M54.9 Status: Acute (4) Decubitus ulcers ICD Code: L89.90 Status: Acute (5) Leukocytosis ICD Code: D72.829 Status: Acute Assessment and Plan 70 y/o male with a history of spinal stenosis, CAD and HTN was brought in by EMS after suffering a fall 3 days ago and was unable to get up. Rhabdomyolysis, acute -CK almost normal, off IVF, resolved Acute on chronic renal failure, likely due to dehydration and rhabdomyolysis- resolved, ultrasound of the kidneys revealed medical renal disease. Also showed left pleural effusion and mild ascites. No hydronephrosis, voiding spontaneously willplace condome Left shoulder pain-new onset, x-ray previously done did not show any fracture. Continue pain control. get MRI of shoulder Troponin elevation-0.7, remained flat, EKG reviewed showed possible inferior and lateral ischemia, cardiology consulted, LDL normal, continue aspirin , statin and Coreg. Likely secondary to rhabdomyolysis. Echocardiogram showed an ejection fraction of 55-60%. Patient had 6 beats of nonsustained V. tach, asymptomatic. No further Ischemic workup per cardiology. Some elevated BP readings- Increase coreg.- 25 mg po bid. monitor ADd CCB if needed Back pain secondary to severe spinal stenosis- Lumbar CT shows No acute fracture of the lumbar spine. 2. Severe spinal stenosis and bilateral foraminal narrowing at L4-L5. Severe bilateral foraminal narrowing at L5-S1. Severe left neural foraminal narrowing at L2-L3. Hip xray unremarkable. Cervical spine shows No acute fracture or prevertebral soft-tissue swelling. Cervical spondylosis from C3 through C6 with mild bilateral foraminal narrowing at these levels. Neurosurgery consulted, MRI showed severe spinal stenosis and bilateral foraminal narrowing L4 to L5. There is also diffuse foraminal narrowing L2 to L4. No acute compression. Patient chronically debilitated, continue tramadol and [place]. - neurosurgery - Dr. Floridalma weiss Left shoulder pain- limited ROM -get an MRI- pending Decubitus ulcers to sacrum, and mid back - Wound care team ff- Maxsorb dressing Leukocytosis, possibly stress related- urinalysis negative, afebrile. , Chest x-ray negative. Resolved. DVT prophylaxis: SCDs Condom catheter in place PT daily CM consulted- needs a rehab- Problem Qualifiers (1) Rhabdomyolysis: Qualified Code: M62.82 - Non-traumatic rhabdomyolysis (2) Back pain: Aidee Bird MD Aug 13, 2016 08:25
[2016-08-13] MEDS: CARVEDILOL 12.5 MG TAB PO SCH ×2 (08:34→20:40)
[2016-08-13] MEDS: ASPIRIN EC 81 MG TABEC PO SCH (08:35)
[2016-08-13] MEDS: FAMOTIDINE 20 MG TAB PO SCH ×2 (08:35→20:40)
[2016-08-13] MEDS: CHOLECALCIFEROL (VIT D3) 1000 UNIT TAB PO SCH (08:35)
[2016-08-13] MEDS: PRAVASTATIN SOD 40 MG TAB PO SCH (08:35)
[2016-08-13] MEDS: FERROUS SULFATE 325 MG (65 MG ELEMENTAL IRON) TAB PO SCH (08:35)
[2016-08-13] MEDS: SODIUM CHLORIDE 0.9% FLUSH 10 ML FLUSH IV FLUSH SCH ×2 (08:38→20:40)
[2016-08-13] MEDS ORDERED: cloNIDine HCL 0.1 MG TAB PO PRN (09:45)
--- NOTE | 2016-08-13 23:37 | HHI.PR ---
Addendum to Inpatient Note Addendum Reason: Additional Documentation Additional Information RN called to notify of an asymptomatic nonsustained six beat run of vtach on telemetry; patient with stable vital signs; asymptomatic; no chest pain, shortness of breath, dizziness, palpitations. Will check EKG, CBC, BMP, Mag level, Troponin I, and CK. Will follow results. Lab work was unremarkable except for Troponin I of 0.44. Was 0.7 on 08/08/16. EKG looked better than initial EKGs with no t-wave inversions noted. Still some non-specific ST-T changes in inferior and lateral leads. I have ordered a repeat Troponin I to trend - due at 0724. Further workup per daytime attending physician. Aislinn Recinos Aug 13, 2016 23:37
[2016-08-14] VITALS (7 sets, daily range): BP systolic 102–153; BP diastolic 58–87; PULSE 63–79; RESP 17–20; TEMP 96.7–99.6; O2SAT 93–100
[2016-08-14 01:39] LABS: AUTOMATED NEUTROPHIL # 4.2 TH/MM3 (1.8-7.7); BASOPHIL % 0.7 % (0.0-2.0); EOSINOPHIL # 0.1 TH/MM3 (0-0.4); EOSINOPHIL % 1.8 % (0.0-4.0); HEMATOCRIT 32.7 % (39.0-51.0); HEMO FLAGS DIFF FINAL; LYMPH % 11.8 % (9.0-44.0); LYMPHOCYTE # 0.7 TH/MM3 (1.0-4.8); MEAN CELL VOLUME 86.6 FL (80.0-100.0); MEAN CORPUSCULAR HEMOGLOBIN 29.2 PG (27.0-34.0); MEAN CORPUSCULAR HGB CONC 33.8 % (32.0-36.0); MONO % 19.9 % (0.0-8.0); NEUT % 65.8 % (16.0-70.0); PLATELET COUNT 286 TH/MM3 (150-450); RED BLOOD COUNT 3.78 MIL/MM3 (4.50-5.90); WHITE BLOOD COUNT 6.3 TH/MM3 (4.0-11.0)
[2016-08-14 02:08] LABS: BICARBONATE 31.7 MEQ/L (21.0-32.0); MAGNESIUM 1.6 MG/DL (1.5-2.5); POTASSIUM 4.2 MEQ/L (3.5-5.1)
[2016-08-14] MEDS: ACETAMINOPHEN/HYDROcodone 325 MG/10 MG TAB PO PRN ×3 (05:11→23:38)
--- NOTE | 2016-08-14 09:13 | EKG ---
Date Performed: 08/14/2016 Time Performed: 00:10:00 PTAGE: 70 years EKG: Sinus rhythm Possible septal infarct - age undetermined Inferior/lateral T wave changes are nonspecific Low QRS v oltages in limb leads Abnormal ECG PREVIOUS TRACING : 08/07/2016 19.28 DOCTOR: Tima Jean Interpretating Date/Time 08/14/2016 09:11:30
[2016-08-14] MEDS: PRAVASTATIN SOD 40 MG TAB PO SCH (09:44)
[2016-08-14] MEDS: CHOLECALCIFEROL (VIT D3) 1000 UNIT TAB PO SCH (09:44)
[2016-08-14] MEDS: FERROUS SULFATE 325 MG (65 MG ELEMENTAL IRON) TAB PO SCH (09:44)
[2016-08-14] MEDS: FAMOTIDINE 20 MG TAB PO SCH ×2 (09:45→21:07)
[2016-08-14] MEDS: CARVEDILOL 12.5 MG TAB PO SCH ×2 (09:45→21:07)
[2016-08-14] MEDS: ASPIRIN EC 81 MG TABEC PO SCH (09:45)
[2016-08-14] MEDS: SODIUM CHLORIDE 0.9% FLUSH 10 ML FLUSH IV FLUSH SCH ×2 (09:46→21:06)
--- NOTE | 2016-08-14 11:29 | HHI.PR ---
Subjective Remarks no complains episode of NSVT - asymptomatic- again Objective Vitals Vital Signs Date Time Temp Pulse Resp B/P Pulse Ox O2 Delivery O2 Flow Rate FiO2 08/14/16 08:00 96.7 63 17 131/80 93 08/14/16 04:42 98.9 70 18 153/87 94 08/14/16 00:10 99.6 70 20 102/60 96 08/13/16 20:20 98.8 69 18 117/67 94 08/13/16 19:30 79 08/13/16 16:00 100.1 81 17 112/70 93 08/13/16 15:54 72 08/13/16 12:00 98.4 74 16 91/54 96 I/O 08/13/16 08/13/16 08/13/16 08/14/16 08/14/16 08/14/16 07:00 15:00 23:00 07:00 15:00 23:00 Intake Total 120 ml 620 ml 360 ml Balance 120 ml 620 ml 360 ml Intake Oral 120 ml 620 ml 360 ml # Voids 4 5 3 # Bowel Movements 0 0 Result Diagram: 08/14/16 0124 08/14/16 0124 Imaging Last Impressions Lumbar Spine MRI 08/09/16 0000 Signed Impressions: Service Date/Time: Tuesday, August 09, 2016 17:20 - CONCLUSION: 1. Severe spinal stenosis and bilateral foraminal narrowing at L4-5. 2. Severe bilateral foraminal narrowing at L5-S1 and severe left neural foraminal narrowing at L2- 3 and L3-4. 3. Degenerative changes and scoliosis of the lumbar spine. 4. No acute compression fracture or spondylolisthesis of the lumbar spine. Harrison Méndez MD Renal Ultrasound 08/08/16 0000 Signed Impressions: Service Date/Time: July 17:02 - CONCLUSION: 1. Mildly echogenic and small kidneys suggesting medical renal disease. No evidence of hydronephrosis. 2. Mildly distended urinary bladder. Zarco catheter not visualized. 3. Small amount of ascites and small left pleural effusion. Gildardo Elias MD Thoracic Spine CT [id number]/06/162127 Signed Impressions: Service Date/Time: Saturday, August 06, 2016 22:21 - CONCLUSION: 1. No acute fracture or subluxation of the thoracic spine. 2. Degenerative changes and scoliosis of the thoracolumbar spine. Harrison Méndez MD Shoulder X-Ray [id number]/06/[id number] Signed Impressions: Service Date/Time: Saturday, August 06, 2016 21:57 - CONCLUSION: No acute disease. Harrison Méndez MD Lumbar Spine CT [id number]/06/162127 Signed Impressions: Service Date/Time: Saturday, August 06, 2016 22:21 - CONCLUSION: 1. No acute fracture of the lumbar spine. 2. Severe spinal stenosis and bilateral foraminal narrowing at L4-L5. 3. Severe bilateral foraminal narrowing at L5-S1. 4. Severe left neural foraminal narrowing at L2-L3. 5. Degenerative changes and scoliosis of the lumbar spine. 6. Severe degenerative disc disease at all levels within the lumbar spine. Harrison Méndez MD Hip and Pelvis X-Ray [id number]/06/[id number] Signed Impressions: Service Date/Time: Saturday, August 06, 2016 22:04 - CONCLUSION: No acute disease. Harrison Méndez MD Head CT [id number]/06/162127 Signed Impressions: Service Date/Time: Saturday, August 06, 2016 22:16 - CONCLUSION: 1. Moderate periventricular and subcortical white matter small-vessel ischemic changes bilaterally. 2. Diffuse cerebral atrophy. 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 4. No acute infarct, acute hemorrhage, mass effect or extra-axial fluid collections. Harrison Méndez MD Chest X-Ray [id number]/06/[id number] Signed Impressions: Service Date/Time: Saturday, August 06, 2016 22:09 - CONCLUSION: 1. No acute cardiopulmonary disease. 2. Degenerative changes and scoliosis of the lumbar spine. Harrison Méndez MD Cervical Spine CT [id number] Signed Impressions: Service Date/Time: Saturday, August 06, 2016 22:16 - CONCLUSION: 1. No acute fracture or prevertebral soft-tissue swelling. 2. Cervical spondylosis from C3 through C6 with mild bilateral foraminal narrowing at these levels. 3. Reversal of the normal cervical lordosis. 4. Mild scoliosis of the cervical spine. 5. Biapical emphysematous changes. Harrison Méndez MD Objective Remarks awake and alert anicteric left shoulder- limited range of motion- better on exam today lungs no rales regular rhythm abdomen soft, good bowel sounds extremities- no edema LE + coccyx wound stage 2, A/P Problem List: (1) Rhabdomyolysis ICD Code: M62.82 Status: Acute (2) Acute on chronic renal failure ICD Code: N17.9 Status: Acute (3) Back pain ICD Code: M54.9 Status: Acute (4) Decubitus ulcers ICD Code: L89.90 Status: Acute (5) Leukocytosis ICD Code: D72.829 Status: Acute Assessment and Plan 70 y/o male with a history of spinal stenosis, CAD and HTN was brought in by EMS after suffering a fall 3 days ago and was unable to get up. Rhabdomyolysis, resolved Acute on chronic renal failure, likely due to dehydration and rhabdomyolysis- resolved, ultrasound of the kidneys revealed medical renal disease. Also showed left pleural effusion and mild ascites. No hydronephrosis, voiding spontaneously Left shoulder pain-new onset, x-ray previously done did not show any fracture. Continue pain control. get MRI of shoulder Troponin elevation-0.7, remained flat, EKG reviewed showed possible inferior and lateral ischemia, LDL normal, continue aspirin , statin and Coreg. Likely secondary to rhabdomyolysis. Echocardiogram showed an ejection fraction of 55-60%. seen by Dr. Bird- no ischemic work up on notes Recurrent NSVT - 6 beats of nonsustained V. tach this am patient on BB/ASA. K good. Mg 1.6- replace and recheck Will reconsult Dr. Bird for recommendation Some elevated BP readings- Increase coreg.- 25 mg po bid. monitor ADd CCB if needed Back pain secondary to severe spinal stenosis- Lumbar CT shows No acute fracture of the lumbar spine. 2. Severe spinal stenosis and bilateral foraminal narrowing at L4-L5. Severe bilateral foraminal narrowing at L5-S1. Severe left neural foraminal narrowing at L2-L3. Hip xray unremarkable. Cervical spine shows No acute fracture or prevertebral soft-tissue swelling. Cervical spondylosis from C3 through C6 with mild bilateral foraminal narrowing at these levels. Neurosurgery consulted, MRI showed severe spinal stenosis and bilateral foraminal narrowing L4 to L5. There is also diffuse foraminal narrowing L2 to L4. No acute compression. Patient chronically debilitated, continue tramadol and [place]. - neurosurgery - Dr. Floridalma weiss Left shoulder pain- limited ROM -get an MRI- pending Decubitus ulcers to sacrum, and mid back - Wound care team ff- Maxsorb dressing Leukocytosis, possibly stress related- urinalysis negative, afebrile. , Chest x-ray negative. Resolved. DVT prophylaxis: SCDs Condom catheter in place PT daily CM consulted- needs a rehab- Problem Qualifiers (1) Rhabdomyolysis: Qualified Code: M62.82 - Non-traumatic rhabdomyolysis (2) Back pain: Aidee Bird MD Aug 14, 2016 11:29
[2016-08-14] MEDS: traMADol HCL 50 MG TAB PO PRN ×2 (12:00→16:11)
[2016-08-14] MEDS: MAGNESIUM SULFATE 1 GM PREMIX 100 ML IV SCH ×2 (12:08→13:26)
--- NOTE | 2016-08-14 21:37 | PD.CARD.PN ---
Subjective Subjective Remarks Reconsulted for NSVT No chest pain, no shortness of breath, asymptomatic from a NSVT standpoint Significant back pain Objective Medications Current Medications Medications (Trade) Dose Ordered Sig/Zo Route Start Time Stop Time Status Last Admin (NS Flush) 2 ml UNSCH PRN IV FLUSH 08/07/16 00:00 (NS Flush) 2 ml BID IV FLUSH 08/07/16 09:00 08/14/16 21:06 (Ecotrin Ec) 81 mg DAILY PO 08/07/16 09:00 08/14/16 09:45 (Ferrous Sulfate) 325 mg DAILY PO 08/07/16 09:00 08/14/16 09:44 (Pravachol) 40 mg DAILY PO 08/07/16 09:00 08/14/16 09:44 (Pepcid) 10 mg BID PO 08/07/16 09:00 08/14/16 21:07 (Vitamin D3) 1,000 units DAILY PO 08/07/16 09:00 08/14/16 09:44 Miscellaneous Information Patient in critical care unit? Ass... Q361D XX 08/07/16 06:15 (Tylenol) 650 mg Q6H PRN PO 08/07/16 23:30 08/08/16 11:11 (Narcan Inj) 0.4 mg UNSCH PRN IV 08/07/16 23:30 (Ultram) 100 mg Q4H PRN PO 08/09/16 15:30 08/14/16 16:11 ([place] 10-325 Mg) 1 tab Q6H PRN PO 08/09/16 14:15 08/14/16 12:01 (Coreg) 25 mg BID PO 08/13/16 09:00 08/14/16 21:07 (Catapres) 0.1 mg Q6H PRN PO 08/13/16 09:45 Vital Signs / I&O Vital Signs Date Time Temp Pulse Resp B/P Pulse Ox O2 Delivery O2 Flow Rate FiO2 08/14/16 20:00 96.9 71 20 151/83 94 08/14/16 16:00 97.2 71 17 132/83 96 08/14/16 12:00 97.0 69 17 106/58 100 08/14/16 08:00 96.7 63 17 131/80 93 08/14/16 04:42 98.9 70 18 153/87 94 08/14/16 00:10 99.6 70 20 102/60 96 I/O 08/13/16 08/13/16 08/13/16 08/14/16 08/14/16 08/14/16 07:00 15:00 23:00 07:00 15:00 23:00 Intake Total 120 ml 620 ml 360 ml 960 ml Output Total 1200 ml Balance 120 ml 620 ml 360 ml -240 ml Intake Oral 120 ml 620 ml 360 ml 960 ml Output Urine Total 1200 ml # Voids 4 5 3 3 # Bowel Movements 0 0 Physical Exam GENERAL: NAD, AAOx3 SKIN: Warm and dry. HEAD: Atraumatic. Normocephalic. EYES: Pupils equal and round. No scleral icterus. No injection or drainage. ENT: No nasal bleeding or discharge. Mucous membranes pink and moist. NECK: Trachea midline. No JVD. CARDIOVASCULAR: Regular rate and rhythm. RESPIRATORY: No accessory muscle use. Decreased breath sounds bilaterally GASTROINTESTINAL: Abdomen soft, non-tender, nondistended. Hepatic and splenic margins not palpable. MUSCULOSKELETAL: Chronic changes of PAD NEUROLOGICAL: Awake and alert. No obvious cranial nerve deficits. Motor grossly within normal limits. Laboratory Laboratory Tests Test 08/14/16 08/14/16 01:24 07:25 White Blood Count 6.3 TH/MM3 Red Blood Count 3.78 MIL/MM3 Hemoglobin 11.0 GM/DL Hematocrit 32.7 % Mean Corpuscular Volume 86.6 FL Mean Corpuscular Hemoglobin 29.2 PG Mean Corpuscular Hemoglobin 33.8 % Concent Red Cell Distribution Width 13.0 % Platelet Count 286 TH/MM3 Mean Platelet Volume 7.4 FL Neutrophils (%) (Auto) 65.8 % Lymphocytes (%) (Auto) 11.8 % Monocytes (%) (Auto) 19.9 % Eosinophils (%) (Auto) 1.8 % Basophils (%) (Auto) 0.7 % Neutrophils # (Auto) 4.2 TH/MM3 Lymphocytes # (Auto) 0.7 TH/MM3 Monocytes # (Auto) 1.3 TH/MM3 Eosinophils # (Auto) 0.1 TH/MM3 Basophils # (Auto) 0.0 TH/MM3 CBC Comment DIFF FINAL Differential Comment Sodium Level 141 MEQ/L Potassium Level 4.2 MEQ/L Chloride Level 103 MEQ/L Carbon Dioxide Level 31.7 MEQ/L Anion Gap 6 MEQ/L Blood Urea Nitrogen 25 MG/DL Creatinine 1.30 MG/DL Estimat Glomerular Filtration 66 ML/MIN Rate Random Glucose 106 MG/DL Calcium Level 8.5 MG/DL Magnesium Level 1.6 MG/DL Total Creatine Kinase 128 U/L Troponin I 0.44 NG/ML 0.49 NG/ML Assessment and Plan Problem List: (1) Rhabdomyolysis (2) Troponin level elevated (3) Back pain (4) Spinal stenosis (5) Fall (6) Atrial fibrillation (7) Heart failure (8) PAD (peripheral artery disease) (9) NSVT (nonsustained ventricular tachycardia) Assessment and Plan 1) Asymptomatic NSVT, discussed with him again about ischemic work up, does not want further work up 2) Elevation of troponin most likely Type 2 due to Rhabdomyolysis, current levels non-specific with recent elevation... although probably does have significant CAD with his history/comorbidities 3) EKG has had T wave changes going back to 2012, no significant change 4) EF probably 55-60%, technically difficult echo 5) ASA/Statin/BB, continue medical management 6) Stopped Coumadin on his own accord for his PAF and PAD, should continue on ASA 81mg daily Problem Qualifiers (1) Rhabdomyolysis: Qualified Code: M62.82 - Non-traumatic rhabdomyolysis (2) Back pain: (3) Spinal stenosis: Qualified Code: M48.06 - Spinal stenosis of lumbar region (4) Fall: Qualified Code: W19.XXXA - Fall, initial encounter Nomi Bird DO Aug 14, 2016 21:37
[2016-08-15 00:03] VITALS: BP 131/77; PULSE 68; RESP 16; TEMP 97; O2SAT 94
[2016-08-15 04:19] VITALS: BP 153/80; PULSE 68; RESP 18; TEMP 96.8; O2SAT 97
[2016-08-15 08:00] VITALS: BP 133/73; PULSE 58; RESP 19; TEMP 97.5; O2SAT 94
[2016-08-15] MEDS: FAMOTIDINE 20 MG TAB PO SCH (09:00)
--- NOTE | 2016-08-15 10:18 | HHI.PR ---
Subjective Remarks telemetry sinus- no episodes of arrhythmias overnight patient - feisty- no chest pains or shortness of breath- up out of bed Objective Vitals Vital Signs Date Time Temp Pulse Resp B/P Pulse Ox O2 Delivery O2 Flow Rate FiO2 08/15/16 08:00 97.5 58 19 133/73 94 08/15/16 04:19 96.8 68 18 153/80 97 08/15/16 00:03 97.0 68 16 131/77 94 08/14/16 20:00 96.9 71 20 151/83 94 08/14/16 19:30 79 08/14/16 19:30 63 08/14/16 16:00 97.2 71 17 132/83 96 08/14/16 12:00 97.0 69 17 106/58 100 I/O 08/14/16 08/14/16 08/14/16 08/15/16 08/15/16 08/15/16 07:00 15:00 23:00 07:00 15:00 23:00 Intake Total 360 ml 960 ml 280 ml 480 ml Output Total 1200 ml 400 ml 600 ml Balance 360 ml -240 ml -120 ml -120 ml Intake Oral 360 ml 960 ml 280 ml 480 ml IV Total 0 ml Output Urine Total 1200 ml 400 ml 600 ml # Voids 3 3 # Bowel Movements 0 Result Diagram: 08/14/16 0124 08/14/16 0124 Imaging Last Impressions Lumbar Spine MRI 08/09/16 0000 Signed Impressions: Service Date/Time: Tuesday, August 09, 2016 17:20 - CONCLUSION: 1. Severe spinal stenosis and bilateral foraminal narrowing at L4-5. 2. Severe bilateral foraminal narrowing at L5-S1 and severe left neural foraminal narrowing at L2- 3 and L3-4. 3. Degenerative changes and scoliosis of the lumbar spine. 4. No acute compression fracture or spondylolisthesis of the lumbar spine. Harrison Méndez MD Renal Ultrasound 08/08/16 0000 Signed Impressions: Service Date/Time: July 17:02 - CONCLUSION: 1. Mildly echogenic and small kidneys suggesting medical renal disease. No evidence of hydronephrosis. 2. Mildly distended urinary bladder. [place] catheter not visualized. 3. Small amount of ascites and small left pleural effusion. Gildardo Elias MD Thoracic Spine CT [id number]/06/162127 Signed Impressions: Service Date/Time: Saturday, August 06, 2016 22:21 - CONCLUSION: 1. No acute fracture or subluxation of the thoracic spine. 2. Degenerative changes and scoliosis of the thoracolumbar spine. Harrison Méndez MD Shoulder X-Ray [id number] Signed Impressions: Service Date/Time: Saturday, August 06, 2016 21:57 - CONCLUSION: No acute disease. Harrison Méndez MD Lumbar Spine CT [id number] Signed Impressions: Service Date/Time: Saturday, August 06, 2016 22:21 - CONCLUSION: 1. No acute fracture of the lumbar spine. 2. Severe spinal stenosis and bilateral foraminal narrowing at L4-L5. 3. Severe bilateral foraminal narrowing at L5-S1. 4. Severe left neural foraminal narrowing at L2-L3. 5. Degenerative changes and scoliosis of the lumbar spine. 6. Severe degenerative disc disease at all levels within the lumbar spine. Harrison Méndez MD Hip and Pelvis X-Ray [id number] Signed Impressions: Service Date/Time: Saturday, August 06, 2016 22:04 - CONCLUSION: No acute disease. Harrison Méndez MD Head CT [id number]/162127 Signed Impressions: Service Date/Time: Saturday, August 06, 2016 22:16 - CONCLUSION: 1. Moderate periventricular and subcortical white matter small-vessel ischemic changes bilaterally. 2. Diffuse cerebral atrophy. 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 4. No acute infarct, acute hemorrhage, mass effect or extra-axial fluid collections. Harrison Méndez MD Chest X-Ray [id number] Signed Impressions: Service Date/Time: Saturday, August 06, 2016 22:09 - CONCLUSION: 1. No acute cardiopulmonary disease. 2. Degenerative changes and scoliosis of the lumbar spine. Harrison Méndez MD Cervical Spine CT [id number] Signed Impressions: Service Date/Time: Saturday, August 06, 2016 22:16 - CONCLUSION: 1. No acute fracture or prevertebral soft-tissue swelling. 2. Cervical spondylosis from C3 through C6 with mild bilateral foraminal narrowing at these levels. 3. Reversal of the normal cervical lordosis. 4. Mild scoliosis of the cervical spine. 5. Biapical emphysematous changes. Harrison Méndez MD Objective Remarks awake and alert anicteric left shoulder- good range of motion lungs no rales regular rhythm- rate 69 abdomen soft, good bowel sounds extremities- no edema LE + coccyx wound stage 2, A/P Problem List: (1) Rhabdomyolysis ICD Code: M62.82 Status: Acute (2) Acute on chronic renal failure ICD Code: N17.9 Status: Acute (3) Back pain ICD Code: M54.9 Status: Acute (4) Decubitus ulcers ICD Code: L89.90 Status: Acute (5) Leukocytosis ICD Code: D72.829 Status: Acute Assessment and Plan 70 y/o male with a history of spinal stenosis, CAD and HTN was brought in by EMS after suffering a fall 3 days ago and was unable to get up. Rhabdomyolysis, resolved Acute on chronic renal failure, likely due to dehydration and rhabdomyolysis- resolved, ultrasound of the kidneys revealed medical renal disease. Also showed left pleural effusion and mild ascites. No hydronephrosis, voiding spontaneously Left shoulder pain-new onset, x-ray previously done did not show any fracture. Continue pain control. better range of motion Troponin elevation-0.7, remained flat, EKG reviewed showed possible inferior and lateral ischemia, LDL normal, continue aspirin , statin and Coreg. Likely secondary to rhabdomyolysis. Echocardiogram showed an ejection fraction of 55-60%. seen by Dr. Bird- no ischemic work up on notes Recurrent NSVT - 6 beats of nonsustained V. tach this am patient on BB/ASA. K good. continue current management- OP ff up with cardiology Some elevated BP readings- Increase coreg.- 25 mg po bid. monitor ADd CCB if needed Back pain secondary to severe spinal stenosis- Lumbar CT shows No acute fracture of the lumbar spine. 2. Severe spinal stenosis and bilateral foraminal narrowing at L4-L5. Severe bilateral foraminal narrowing at L5-S1. Severe left neural foraminal narrowing at L2-L3. Hip xray unremarkable. Cervical spine shows No acute fracture or prevertebral soft-tissue swelling. Cervical spondylosis from C3 through C6 with mild bilateral foraminal narrowing at these levels. Neurosurgery consulted, MRI showed severe spinal stenosis and bilateral foraminal narrowing L4 to L5. There is also diffuse foraminal narrowing L2 to L4. No acute compression. Patient chronically debilitated, continue tramadol and [place]. - neurosurgery - Dr. Floridalma weiss Left shoulder pain- improved. PT Decubitus ulcers to sacrum, and mid back - Wound care team ff- Maxsorb dressing Leukocytosis, possibly stress related- urinalysis negative, afebrile. , Chest x-ray negative. Resolved. DVT prophylaxis: SCDs Condom catheter in place PT daily CM consulted- needs a rehab- Problem Qualifiers (1) Rhabdomyolysis: Qualified Code: M62.82 - Non-traumatic rhabdomyolysis (2) Back pain: Aidee Bird MD Aug 15, 2016 10:18
[2016-08-15] MEDS ORDERED: CARV12.5 PO (10:26)
--- NOTE | 2016-08-15 10:32 | HHI.DS ---
Discharge Summary Admission Date Aug 06, 2016 at 23:46 Discharge Date: Aug 15, 2016 Admitting Diagnosis Rhabdomyolysis, acute on chronic renal failure (1) Rhabdomyolysis ICD Code: M62.82 Diagnosis: Principal (2) Acute on chronic renal failure ICD Code: N17.9 Diagnosis: Secondary (3) Back pain ICD Code: M54.9 Diagnosis: Secondary (4) Decubitus ulcers ICD Code: L89.90 Diagnosis: Secondary (5) Leukocytosis ICD Code: D72.829 Diagnosis: Secondary Procedures none Brief History - From Admission 70 y/o male with a history of spinal stenosis, CAD and HTN was brought in by EMS after suffering a fall 3 days ago and was unable to get up. Patient states he was using his walker as he was going out the door, and the breaks did not work and he fell landing on his back, right hip and left shoulder. He describes his pain as sharp pain that is worse with movement with associated nausea, but no vomiting. Denies any LOC. He was unable to get up because of the pain and weakness for 3 days until his sister's grandson found him. Denies any chest pain, fever, chills, dysuria or constipation. He does have sob but nothing that is new. PCP: ROBERT CBC/BMP: 08/14/16 0124 08/14/16 0124 Significant Findings Laboratory Tests Test 08/14/16 08/14/16 01:24 07:25 Red Blood Count 3.78 MIL/MM3 (4.50-5.90) Hemoglobin 11.0 GM/DL (13.0-17.0) Hematocrit 32.7 % (39.0-51.0) Monocytes (%) (Auto) 19.9 % (0.0-8.0) Lymphocytes # (Auto) 0.7 TH/MM3 (1.0-4.8) Monocytes # (Auto) 1.3 TH/MM3 (0-0.9) Blood Urea Nitrogen 25 MG/DL (7-18) Estimat Glomerular Filtration 66 ML/MIN (>89) Rate Troponin I 0.44 NG/ML 0.49 NG/ML (0.02-0.05) (0.02-0.05) PE at Discharge awake and alert anicteric left shoulder- good range of motion lungs no rales regular rhythm- rate 69 abdomen soft, good bowel sounds extremities- no edema LE + coccyx wound stage 2, Pt update on day of discharge awake and alert, in sinus rhythm no pain complains, very feisty no chest pains or shortness of breath, no leg pain or back pain complains aware he is going to a SNF voiding well Hospital Course 70 y/o male with a history of spinal stenosis, CAD and HTN was brought in by EMS after suffering a fall 3 days ago and was unable to get up. Rhabdomyolysis, resolved Acute on chronic renal failure, likely due to dehydration and rhabdomyolysis- resolved, ultrasound of the kidneys revealed medical renal disease. Also showed left pleural effusion and mild ascites. No hydronephrosis, voiding spontaneously Left shoulder pain-new onset, x-ray previously done did not show any fracture. Continue pain control. better range of motion Troponin elevation-0.7, remained flat, EKG reviewed showed possible inferior and lateral ischemia, LDL normal, continue aspirin , statin and Coreg. Likely secondary to rhabdomyolysis. Echocardiogram showed an ejection fraction of 55-60%. seen by Dr. Bird- no ischemic work up on notes Recurrent NSVT - 6 beats of nonsustained V. tach this am patient on BB/ASA. K good. continue current management- OP ff up with cardiology Some elevated BP readings- Increase coreg.- 25 mg po bid. monitor ADd CCB if needed Back pain secondary to severe spinal stenosis- Lumbar CT shows No acute fracture of the lumbar spine. 2. Severe spinal stenosis and bilateral foraminal narrowing at L4-L5. Severe bilateral foraminal narrowing at L5-S1. Severe left neural foraminal narrowing at L2-L3. Hip xray unremarkable. Cervical spine shows No acute fracture or prevertebral soft-tissue swelling. Cervical spondylosis from C3 through C6 with mild bilateral foraminal narrowing at these levels. Neurosurgery consulted, MRI showed severe spinal stenosis and bilateral foraminal narrowing L4 to L5. There is also diffuse foraminal narrowing L2 to L4. No acute compression. Patient chronically debilitated, continue tramadol and [place]. - neurosurgery - Dr. Hedrick ff Left shoulder pain- improved. PT Decubitus ulcers to sacrum, and mid back - Wound care team ff- Maxsorb dressing daily Leukocytosis, possibly stress related- urinalysis negative, afebrile. , Chest x-ray negative. Resolved. DVT prophylaxis: SCDs Pt Condition on Discharge: Stable Discharge Disposition: Discharge to SNF Discharge Time: <= 30 minutes Discharge Instructions DIET: Follow Instructions for: Heart Healthy Diet Speech Therapy-Diet Recommends: Regular Activities you can perform: Weight Bearing as [place] Activities to Avoid: Lifting/Bending, Strenuous Activity Other Activity Instructions: please get daily PT wound care team /staff to check back deubitus wounds daily with dressing change very nice kind gentleman Follow up Referrals: Cardiology - 08/21/16 with PAOLA Neurosurgery - 1 Week with LISA New Orders: BASIC METABOLIC PROF - 08/16/16 MAGNESIUM (MG) - 08/16/16 New Medications: Carvedilol (Coreg) 12.5 Mg Tab 25 MG PO BID ARRHY Days 30 TAB Hydrocodone-Acetaminophen (Hydrocodone-Acetaminophen) 10-325 mg Tab 1 TAB PO Q6H PRN pain 6-10 #10 TAB Continued Medications: Ascorbic Acid (Ascorbic Acid) 500 Mg Tab 500 MG PO BID TAB Aspirin DR (Aspirin 81) 81 Mg Tabdr 81 MG PO DAILY Ref 0 TAB Cholecalciferol (D3) 1,000 Unit Cap 1000 UNITS PO DAILY Erythromycin Opth Oint (Erythromycin Opth Oint) 5 Mg/Gm Oint 1 APPLIC RIGHT EYE BID Infection #1 Ref 0 TUBE Ferrous Sulfate (Ferrous Sulfate) 325 Mg Tab 324 MG PO DAILY Nutritional Supplement #30 Ref 0 TAB Pravastatin (Pravastatin) 40 Mg Tab 40 MG PO DAILY Cholesterol Management #30 Ref 0 TAB Ranitidine HCl (Gnp Acid Control 150 Maxi) 150 Mg Tab 150 MG PO DAILY Sildenafil Citrate (Bulk) (Sildenafil Citrate) 1 Pow Pow 50 MG PO DIRECTED erectile dysfunction Discontinued Medications: Carvedilol (Carvedilol) 25 Mg Tab 12.5 MG PO BID #60 Ref 0 TAB Metolazone (Metolazone) 5 Mg Tab 5 MG PO DAILY #30 Ref 0 TAB Potassium Chloride ER (Potassium Chloride ER) 20 Meq Tab 20 MEQ PO mo,wed,fri Electrolyte Replacement #30 Ref 0 TAB Aidee Bird MD Aug 15, 2016 10:32
[2016-08-15] MEDS: FERROUS SULFATE 325 MG (65 MG ELEMENTAL IRON) TAB PO SCH (10:45)
[2016-08-15] MEDS: ASPIRIN EC 81 MG TABEC PO SCH (10:45)
[2016-08-15] MEDS: CARVEDILOL 12.5 MG TAB PO SCH (10:45)
[2016-08-15] MEDS: PRAVASTATIN SOD 40 MG TAB PO SCH (10:45)
[2016-08-15] MEDS: CHOLECALCIFEROL (VIT D3) 1000 UNIT TAB PO SCH (10:46)
[2016-08-15] MEDS: ACETAMINOPHEN/HYDROcodone 325 MG/10 MG TAB PO PRN ×2 (10:46→15:48)
[2016-08-15] MEDS: SODIUM CHLORIDE 0.9% FLUSH 10 ML FLUSH IV FLUSH SCH (10:46)
--- NOTE | 2016-08-15 11:13 | PD.CARD.PN ---
Subjective Subjective Remarks No chest pain, no shortness of breath 4 beat run of NSVT this morning, asymptomatic Objective Medications Current Medications Medications (Trade) Dose Ordered Sig/Zo Route Start Time Stop Time Status Last Admin (NS Flush) 2 ml UNSCH PRN IV FLUSH 08/07/16 00:00 (NS Flush) 2 ml BID IV FLUSH 08/07/16 09:00 08/15/16 10:46 (Ecotrin Ec) 81 mg DAILY PO 08/07/16 09:00 08/15/16 10:45 (Ferrous Sulfate) 325 mg DAILY PO 08/07/16 09:00 08/15/16 10:45 (Pravachol) 40 mg DAILY PO 08/07/16 09:00 08/15/16 10:45 (Pepcid) 10 mg BID PO 08/07/16 09:00 08/14/16 21:07 (Vitamin D3) 1,000 units DAILY PO 08/07/16 09:00 08/15/16 10:46 Miscellaneous Information Patient in critical care unit? Ass... Q361D XX 08/07/16 06:15 (Tylenol) 650 mg Q6H PRN PO 08/07/16 23:30 08/08/16 11:11 (Narcan Inj) 0.4 mg UNSCH PRN IV 08/07/16 23:30 (Ultram) 100 mg Q4H PRN PO 08/09/16 15:30 08/14/16 16:11 ([place] 10-325 Mg) 1 tab Q6H PRN PO 08/09/16 14:15 08/15/16 10:46 (Coreg) 25 mg BID PO 08/13/16 09:00 08/15/16 10:45 (Catapres) 0.1 mg Q6H PRN PO 08/13/16 09:45 Vital Signs / I&O Vital Signs Date Time Temp Pulse Resp B/P Pulse Ox O2 Delivery O2 Flow Rate FiO2 08/15/16 08:00 97.5 58 19 133/73 94 08/15/16 04:19 96.8 68 18 153/80 97 08/15/16 00:03 97.0 68 16 131/77 94 08/14/16 20:00 96.9 71 20 151/83 94 08/14/16 19:30 79 08/14/16 19:30 63 08/14/16 16:00 97.2 71 17 132/83 96 08/14/16 12:00 97.0 69 17 106/58 100 I/O 08/14/16 08/14/16 08/14/16 08/15/16 08/15/16 08/15/16 07:00 15:00 23:00 07:00 15:00 23:00 Intake Total 360 ml 960 ml 280 ml 480 ml Output Total 1200 ml 400 ml 600 ml Balance 360 ml -240 ml -120 ml -120 ml Intake Oral 360 ml 960 ml 280 ml 480 ml IV Total 0 ml Output Urine Total 1200 ml 400 ml 600 ml # Voids 3 3 # Bowel Movements 0 Physical Exam GENERAL: NAD, AAOx3 SKIN: Warm and dry. HEAD: Atraumatic. Normocephalic. EYES: Pupils equal and round. No scleral icterus. No injection or drainage. ENT: No nasal bleeding or discharge. Mucous membranes pink and moist. NECK: Trachea midline. No JVD. CARDIOVASCULAR: Regular rate and rhythm. RESPIRATORY: No accessory muscle use. Decreased breath sounds bilaterally GASTROINTESTINAL: Abdomen soft, non-tender, nondistended. Hepatic and splenic margins not palpable. MUSCULOSKELETAL: Chronic changes of PAD NEUROLOGICAL: Awake and alert. No obvious cranial nerve deficits. Motor grossly within normal limits. Assessment and Plan Problem List: (1) Rhabdomyolysis (2) Troponin level elevated (3) Back pain (4) Spinal stenosis (5) Fall (6) Atrial fibrillation (7) Heart failure (8) PAD (peripheral artery disease) (9) NSVT (nonsustained ventricular tachycardia) Assessment and Plan 1) Asymptomatic NSVT, discussed with him again about ischemic work up, does not want further work up... NSVT may be due to hypomagnesium 2) Elevation of troponin most likely Type 2 due to Rhabdomyolysis, current levels non-specific with recent elevation... although probably does have significant CAD with his history/comorbidities 3) EKG has had T wave changes going back to 2012, no significant change 4) EF probably 55-60%, technically difficult echo 5) ASA/Statin/BB, continue medical management 6) Stopped Coumadin on his own accord for his PAF and PAD, should continue on ASA 81mg daily 7) Discussed with Dr. Bird, plan discharge to rehab today Problem Qualifiers (1) Rhabdomyolysis: Qualified Code: M62.82 - Non-traumatic rhabdomyolysis (2) Back pain: (3) Spinal stenosis: Qualified Code: M48.06 - Spinal stenosis of lumbar region (4) Fall: Qualified Code: W19.XXXA - Fall, initial encounter Nomi Bird DO Aug 15, 2016 11:13
[2016-08-15 12:00] VITALS: BP 135/78; PULSE 59; RESP 18; TEMP 98.4; O2SAT 95
== END 2016-08-15 16:14 | DRG 558 ==
LOC: NEDAMB 20:32 → NEDA 23:46 → HIMW 08-07 05:10 → N07B 08-09 19:04
PROVIDERS: ADMIT Internal Medicine; ATTEND Internal Medicine
DX: M62.82 Rhabdomyolysis (principal); N17.9 Acute kidney failure, unspecified; I47.2 Ventricular tachycardia; L89.109 Pressure ulcer of unspecified part of back, unspecified stage; L89.159 Pressure ulcer of sacral region, unspecified stage; E86.0 Dehydration; I12.9 Hypertensive chronic kidney disease with stage 1 through stage 4 chronic kidney disease, or unspecified chronic kidney disease; N18.9 Chronic kidney disease, unspecified; R74.8 Abnormal levels of other serum enzymes; D72.829 Elevated white blood cell count, unspecified; M48.06 Spinal stenosis, lumbar region; M25.512 Pain in left shoulder; I25.10 Atherosclerotic heart disease of native coronary artery without angina pectoris; I73.9 Peripheral vascular disease, unspecified; Z86.73 Personal history of transient ischemic attack (TIA), and cerebral infarction without residual deficits; F17.210 Nicotine dependence, cigarettes, uncomplicated; Z79.82 Long term (current) use of aspirin; E78.00 Pure hypercholesterolemia, unspecified; Z91.14 Patient's other noncompliance with medication regimen
CPT/HCPCS: 70450; 71010; 72125; 72128; 72131; 72148; 73030; 73502; 76775; 80048; 80053; 80061; 81001; 82550; 82552; 83690; 83735; 83880; 84484; 85025; 85610; 85730; 87086; 87641; 93005; 93306; 96361; 96365; 96375; J0690; J1170; J2405; J3475; J7030; L0150

== ENCOUNTER 2017-07-18 12:14 | Inpatient (IN) | payer MEDICARE, OTHER ==
[~2017-07-18] VITALS: Ht 188 cm; Wt 67.8 kg
[~2017-07-18 12:14] MED LIST changes: -AMMO12LO TOPICAL; -ASPI-110 PO; +ASPI1TAB57 PO; -BACI500O2 TOPICAL; +CARV12.5 PO; -CARV25TA PO; -D31000CA PO; +HYDR-3583 PO; -HYDR1CRE15 TOPICAL; -METO5TAB3 PO; -POTA-163 PO; -WARF-23 PO; +[UNRECOGNIZED DRUG - CODE] PO
[2017-07-18 12:23] VITALS: BP 121/85; PULSE 74; RESP 18; TEMP 97.5; O2SAT 96
--- NOTE | 2017-07-18 12:58 | PD ---
HPI Chief Complaint: General Weakness Time Seen by Provider: 12:26 Travel History International Travel<30 days: No Contact w/Intl Traveler<30days: No Traveled to known affect area: No History of Present Illness HPI This patient complains of generalized weakness and difficulty walking. He's been bedbound for some time. He is a very difficult historian. His sister called paramedics who brought him in. Severity is moderate. No alleviating factors. No exacerbating factors. He denies fever. He has a black and necrotic left foot with maggots crawling on it. PFSH Past Medical History Hx Anticoagulant Therapy: Yes Arthritis: Yes Asthma: Yes Atrial Fibrillation: Yes Blood Disorders: No Anxiety: Yes Depression: Yes Heart Rhythm Problems: No Cancer: No Cardiovascular Problems: Yes High Cholesterol: Yes Chest Pain: Yes Congestive Heart Failure: Yes COPD: No Cerebrovascular Accident: Yes (x3 tia) Coronary Artery Disease: Yes Diabetes: Yes Diminished Hearing: No Endocrine: No Gastrointestinal Disorders: Yes GERD: Yes Genitourinary: No Headaches: No Hepatitis: Yes (B) Heparin Induced Thrombocytopen: No Hypertension: Yes (`) Immune Disorder: No Implanted Vascular Access Dvce: No Musculoskeletal: Yes Neurologic: No Psychiatric: Yes (PTSD) Reproductive: No Respiratory: Yes Migraines: No Myocardial Infarction: Yes (EARLY 80S) Pneumonia: Yes Radiation Therapy: No Seizures: No Sleep Apnea: No Ulcer: Yes (MIGHT HAVE HAD ON MORE THAN 10YEARS AGO, WAS IN [place]) Influenza Vaccination: No Past Surgical History AICD: No Arteriovenous Shunt: No Cardiac Surgery: No Coronary Artery Bypass Graft: No Ear Surgery: No Endocrine Surgery: No Eye Surgery: No Genitourinary Surgery: Yes (vasectomy) Insulin Pump: No Neurologic Surgery: No Oral Surgery: No Pacemaker: No Thoracic Surgery: No Other Surgery: Yes (L FEM POP BYPASS WITH REDO AT CHECK-UP, VASECTOMY) Social History Alcohol Use: No Tobacco Use: Yes (1-1/2 cigarettes per day) Substance Use: No Allergies-Medications (Allergen,Severity, Reaction): Coded Allergies: adhesive (Unverified Allergy, Severe, Rash, 12/24/16) codeine (Unverified Allergy, Severe, RASH, 12/24/16) mirtazapine (Unverified Allergy, Severe, 12/24/16) hallucinations Reported Meds & Prescriptions Reported Meds & Active Scripts Active Coreg (Carvedilol) 12.5 Mg Tab 25 Mg PO BID 30 Days Hydrocodone-Acetaminophen 10-325 mg Tab 1 Tab PO Q6H PRN Reported Sildenafil Citrate (Sildenafil Citrate (Bulk)) 1 Pow Pow 50 Mg PO DIRECTED Gnp Acid Control 150 Maxi (Ranitidine HCl) 150 Mg Tab 150 Mg PO DAILY Pravastatin 40 Mg Tab 40 Mg PO DAILY Ferrous Sulfate 325 Mg Tab 324 Mg PO DAILY D3 (Cholecalciferol) 1,000 Unit Cap 1,000 Units PO DAILY Aspirin 81 (Aspirin) 81 Mg Tabdr 81 Mg PO DAILY Erythromycin Opth Oint 5 Mg/Gm Oint 1 Applic RIGHT EYE BID Ascorbic Acid 500 Mg Tab 500 Mg PO BID Review of Systems General / Constitutional: No: Fever Eyes: No: Visual changes HENT: No: Headaches Cardiovascular: No: Chest Pain or Discomfort Respiratory: No: Shortness of Breath Gastrointestinal: No: Abdominal Pain Genitourinary: No: Dysuria Musculoskeletal: Positive: Weakness, No: Pain Skin: No Rash Neurologic: Positive: Weakness Psychiatric: No: Depression Endocrine: No: Polydipsia Hematologic/Lymphatic: No: Easy Bruising Physical Exam Narrative GENERAL: Thin cachectic patient in no apparent distress. SKIN: Focused skin assessment reveals no rash and nodules. Skin is Warm and dry. HEAD: Atraumatic. Normocephalic. EYES: Pupils equal and round. No scleral icterus. No injection or drainage. ENT: No nasal bleeding or discharge. Mucous membranes pink and moist. NECK: Trachea midline. No JVD. CARDIOVASCULAR: Regular rate and rhythm. No murmur appreciated. RESPIRATORY: No accessory muscle use. Clear to auscultation. Breath sounds equal bilaterally. GASTROINTESTINAL: Abdomen soft, non-tender, nondistended. Hepatic and splenic margins not palpable. MUSCULOSKELETAL: Very thin, muscular atrophy is diffuse. No obvious deformities. No clubbing. Patient has a blackened and necrotic distal left foot. Pulses are not palpable. Skin is blackened sloughing off the toes. There are maggots crawling on the distal left foot. He has a decubitus, stage II over the lower thoracic spine. Has palpable pedal pulses in the right foot. Has a palpable pulse in the left femoral region. NEUROLOGICAL: Awake and alert. No obvious cranial nerve deficits. Motor exam shows generalized weakness. Normal speech. PSYCHIATRIC: Flat mood and flat affect; insight and judgment reduced . Data Data Last Documented VS Vital Signs Date Time Temp Pulse Resp B/P (MAP) Pulse Ox O2 Delivery O2 Flow Rate FiO2 07/18/17 18:37 99 16 134/80 (98) 95 07/18/17 16:07 Room Air 07/18/17 12:23 97.5 Orders Orders Iv Access Insert/Monitor (07/18/17 12:40) Complete Blood Count With Diff (07/18/17 12:40) Comprehensive Metabolic Panel (07/18/17 12:40) Prothrombin Time / Inr (Pt) (07/18/17 12:40) Act Partial Throm Time (Ptt) (07/18/17 12:40) Electrocardiogram (07/18/17 ) Chest, Single Ap (07/18/17 ) Urinalysis - C+S If Indicated (07/18/17 14:17) Cta Runoff W Iv Contrast W 3d (07/18/17 ) Piperacil-Tazo 3.375 Gm Premix (Zosyn 3. (07/18/17 19:15) Labs Laboratory Tests Test 07/18/17 13:00 White Blood Count 18.0 TH/MM3 Red Blood Count 4.51 MIL/MM3 Hemoglobin 13.4 GM/DL Hematocrit 39.5 % Mean Corpuscular Volume 87.5 FL Mean Corpuscular Hemoglobin 29.7 PG Mean Corpuscular Hemoglobin Concent 34.0 % Red Cell Distribution Width 13.0 % Platelet Count 447 TH/MM3 Mean Platelet Volume 6.5 FL Neutrophils (%) (Auto) 79.1 % Lymphocytes (%) (Auto) 7.3 % Monocytes (%) (Auto) 12.6 % Eosinophils (%) (Auto) 0.3 % Basophils (%) (Auto) 0.7 % Neutrophils # (Auto) 14.2 TH/MM3 Lymphocytes # (Auto) 1.3 TH/MM3 Monocytes # (Auto) 2.3 TH/MM3 Eosinophils # (Auto) 0.1 TH/MM3 Basophils # (Auto) 0.1 TH/MM3 CBC Comment AUTO DIFF Differential Comment AUTO DIFF CONFIRMED Platelet Estimate HIGH Platelet Morphology Comment NORMAL Ovalocytes 1+ Acanthocytes OCC Prothrombin Time 11.4 SEC Prothromb Time International Ratio 1.1 RATIO Activated Partial Thromboplast Time 29.4 SEC Blood Urea Nitrogen 38 MG/DL Creatinine 1.34 MG/DL Random Glucose 123 MG/DL Total Protein 7.1 GM/DL Albumin 2.6 GM/DL Calcium Level 9.0 MG/DL Alkaline Phosphatase 70 U/L Aspartate Amino Transf (AST/SGOT) 56 U/L Alanine Aminotransferase (ALT/SGPT) 17 U/L Total Bilirubin 0.5 MG/DL Sodium Level 137 MEQ/L Potassium Level 4.1 MEQ/L Chloride Level 100 MEQ/L Carbon Dioxide Level 31.6 MEQ/L Anion Gap 5 MEQ/L Estimat Glomerular Filtration Rate 64 ML/MIN MDM Medical Decision Making Medical Screen Exam Complete: Yes Emergency Medical Condition: Yes Medical Record Reviewed: Yes Differential Diagnosis Arterial ischemia, necrotic foot, failure to thrive, malnutrition Narrative Course I have reviewed the patient's electronic medical record. This patient presents with apparent malnutrition and failure to thrive and really has necrotic changes of the left foot IV placed and workup ordered I reviewed the labs. He's had leukocytosis. Zosyn given Awaiting CTA of the aorta with runoff Case checked out tonight physician who will assist with disposition. Patient will require admission and vascular evaluation Bladimir Reis MD Jul 18, 2017 12:58
[2017-07-18 13:26] LABS: BASOPHIL % 0.7 % (0.0-2.0); EOSINOPHIL % 0.3 % (0.0-4.0); HEMATOCRIT 39.5 % (39.0-51.0); HEMOGLOBIN 13.4 GM/DL (13.0-17.0); LYMPH % 7.3 % (9.0-44.0); MEAN CELL VOLUME 87.5 FL (80.0-100.0); MEAN CORPUSCULAR HEMOGLOBIN 29.7 PG (27.0-34.0); MEAN PLATELET VOLUME 6.5 FL (7.0-11.0); MONO % 12.6 % (0.0-8.0); NEUT % 79.1 % (16.0-70.0); PLATELET COUNT 447 TH/MM3 (150-450); RED BLOOD COUNT 4.51 MIL/MM3 (4.50-5.90)
[2017-07-18 13:27] LABS: AUTOMATED NEUTROPHIL # 14.2 TH/MM3 (1.8-7.7); BASOPHIL # 0.1 TH/MM3 (0-0.2); EOSINOPHIL # 0.1 TH/MM3 (0-0.4); LYMPHOCYTE # 1.3 TH/MM3 (1.0-4.8); MONOCYTE # 2.3 TH/MM3 (0-0.9)
--- NOTE | 2017-07-18 13:28 | RADRPT ---
EXAM DATE/TIME: 07/18/2017 12:57 [facility] COMPARISON: CHEST SINGLE AP, August 06, 2016, 22:09. INDICATIONS : Shortness of breath. MEDICAL HISTORY : Hypercholesterolemia. Gastroesophageal reflux disease. Myocardial infarction. CVA. CHF. CAD. Hyperten jerardo. A-fib. Pneumonia. Ulcer. UTI. Arthritis. Hepatitis B. SURGICAL HISTORY : Vasectomy. Left lower extremity surgery, x5. ENCOUNTER: Initial ACUITY: 1 day PAIN SCORE: 0/10 LOCATION: Bilateral chest FINDINGS: 2 portable frontal views of the chest demonstrate the lungs to be symmetrically aerated without evide nce of mass, infiltrate or effusion. The cardiomediastinal contours are unremarkable. Osseous struc tures are intact. CONCLUSION: No acute disease. Giles Garza Jr., MD on July 18, 2017 at 13:26 Board Certified Radiologist. This report was verified electronically.
[2017-07-18 13:43] LABS: INTERNATIONAL NORMALIZED RATIO 1.1 RATIO; PROTHROMBIN TIME - PATIENT 11.4 SEC (9.8-11.6)
[2017-07-18 13:59] LABS: ALBUMIN 2.6 GM/DL (3.4-5.0); ALT (GPT) 17 U/L (12-78); AST (GOT) 56 U/L (15-37); BICARBONATE 31.6 MEQ/L (21.0-32.0); BLOOD UREA NITROGEN 38 MG/DL (7-18); CHLORIDE 100 MEQ/L (98-107); CREATININE 1.34 MG/DL (0.60-1.30); GLOMERULAR FILTRATION RATE 64 ML/MIN (>89); GLUCOSE,RANDOM 123 MG/DL (74-106); SODIUM (NA) 137 MEQ/L (136-145)
[2017-07-18 14:00] LABS: ACANTHOCYTES OCC (NORMAL); OVALOCYTES 1+ (NORMAL)
[2017-07-18 14:01] LABS: ALKALINE PHOSPHATASE 70 U/L (45-117); TOTAL BILIRUBIN ADULT 0.5 MG/DL (0.2-1.0); TOTAL PROTEIN 7.1 GM/DL (6.4-8.2)
[2017-07-18 16:07] VITALS: BP 116/76; PULSE 73; RESP 20; O2SAT 96
[2017-07-18 18:37] VITALS: BP 134/80; PULSE 99; RESP 16; O2SAT 95
[2017-07-18] MEDS ORDERED: PIPERACIL-TAZO 3.375 GM PREMIX 50 ML IV ONE (19:15)
[2017-07-18] MEDS ORDERED: IOHEXOL 350 MG/ML 10 ML VIAL (for RAD DIAG) IVCONTRAST ONE (19:51)
--- NOTE | 2017-07-18 20:51 | RADRPT ---
EXAM DATE/TIME: 07/18/2017 19:45 [facility] COMPARISON: No previous studies available for comparison. INDICATIONS : Necrotic left foot. IV CONTRAST: 100 cc Omnipaque 350 (iohexol) IV RADIATION DOSE: 2.64 CTDIvol (mGy) MEDICAL HISTORY : Cardiovascular disease. Hypertension. Gastroesophageal reflux disease. SURGICAL HISTORY : None. ENCOUNTER: Initial ACUITY: 1 week PAIN SCALE: 5/10 LOCATION: Left foot TECHNIQUE: Volumetric scanning was performed using a multi-row detector CT scanner. The data was post processed with a variety of visualization algorithms including full volume maximum intensity projection, multi -planar sliding thin slab reformation, curved planar reformation, and surface rendering techniques. Using automated exposure control and adjustment of the mA and/or kV according to patient size, radiat ion dose was kept as low as reasonably achievable to obtain optimal diagnostic quality images. DICO M format image data is available electronically for review and comparison. FINDINGS: ABDOMINAL AORTA: Stent is present in the mid abdominal aorta extending into the left iliac artery. No evidence of end oleak. No thrombus within the lumen of mid patella. The proximal limbs of the stent are close to th e origin of the left renal artery, but flow is seen within the left renal artery. The superior margaret n of the aortic aneurysm extends to the level of the right renal artery and the radial artery is drap ed over the aneurysm with intact luminal opacification.. The celiac and SMA is normal in configurati on. RIGHT PELVIS: Absent flow in the right iliac artery. There is a bifemoral graft in place with reconstitution of fl ow in the right body. LEFT PELVIS: Iliac endostent with intact luminal opacification. No filling defect seen at the junction with the b ifemoral graft. RIGHT THIGH: Diffuse atherosclerotic calcification and mild irregular luminal narrowing throughout the superficial and profunda vessels. Flow is intact and the popliteal. LEFT THIGH: Diffuse arteriosclerotic calcification. Flow in the left femoral artery tapers to a threadlike diame ter in the mid thigh and there is no flow in the distal femoral artery or popliteal region. A few th readlike collateral vessels are present. RIGHT LEG: The trifurcation is intact; in vessels with contrast is seen in the calf.. LEFT LEG: Very minimal threadlike flow is seen in small arterial vessels of the calf. CONCLUSION: 1. Patent aortic, left iliac, and bifemoral grafts. 2. Very poor flow to the left lower extremity with tapering of the femoral artery in the mid thigh an d a few threadlike collateral vessels providing some minimal flow into the calf. 3. Moderate severity arteriosclerotic disease with narrowing of the popliteal and calf vessels on the right side, but patent flow. Giles Paetl MD on July 18, 2017 at 20:40 Board Certified Radiologist. This report was verified electronically.
--- NOTE | 2017-07-18 21:21 | HHI.HP ---
[facility] Primary Care Physician Admission Diagnosis Left foot necrosis/severe peripheral vascular disease/sepsis Diagnoses: (1) Sepsis Diagnosis: Principal (2) Gangrene of left foot Diagnosis: Principal (3) PAD (peripheral artery disease) Diagnosis: Principal (4) ANTHONY (acute kidney injury) Diagnosis: Principal (5) Tobacco abuse Diagnosis: Principal Travel History International Travel<30 Days: No Contact w/Intl Traveler <30 Da: No Traveled to Known Affected Are: No History of Present Illness This is a 71-year-old male with a PMH of Anxiety, Depression, HTN, A. fib, CVA, CAD, CHF (Echo w/ EF 55-60%), Severe PAD s/p Left Fem-Pop Bypass and Tobacco Abuse who presented to the ER with complaints of generalized weakness and severe left foot pain. Reports pain is constant, 10/10, sharp, no alleviating factors. Per EMS left foot wound noted to have maggots. Pt cannot tell me how long this has been going on for. Denies fever or chills. On arrival, BP 116/76 , HR 73, O2 sat 96% on RA, Afebrile. WBC 18. Creatinine 1.34, previously 1.30 on 08/14/16. INR 1.1. CXR with no acute findings. CTA with Runoff patent aorta , left iliac and bifemoral grafts, very poor flow to left lower extremity with tapering of femoral artery and threadlike collaterals. Dr. Ledbetter consulted , findings chronic, no emergent intervention required, will see patient in consultation. S/p Zosyn in ER. Review of Systems Except as stated in HPI: all other systems reviewed are Neg ROS: 14 point review of systems otherwise negative. Past Family Social History Past Medical History PMH: Anxiety, Depression, HTN, A. fib, CVA, CAD, CHF (Echo w/ EF 55-60%), Severe PAD s/p Left Fem-Pop Bypass and Tobacco Abuse Past Surgical History PAST SURGICAL HISTORY: Vasectomy, Left Femoropopliteal Bypass Allergies: Coded Allergies: adhesive (Unverified Allergy, Severe, Rash, 12/24/16) codeine (Unverified Allergy, Severe, RASH, 12/24/16) mirtazapine (Unverified Allergy, Severe, 12/24/16) hallucinations Family History PAST FAMILY HISTORY: Reviewed. No h/o DM or CAD Social History PAST SOCIAL HISTORY: Negative for alcohol or drugs. Positive for tobacco. Physical Exam Vital Signs Vital Signs Date Time Temp Pulse Resp B/P (MAP) Pulse Ox O2 Delivery O2 Flow Rate FiO2 07/18/17 18:37 99 16 134/80 (98) 95 07/18/17 16:07 73 20 116/76 (89) 96 Room Air 07/18/17 12:23 97.5 74 18 121/85 (97) 96 Physical Exam PE: GENERAL: Thin, elderly black male in no acute distress. HEENT: PERRLA, EOMI. No scleral icterus or conjunctival pallor. No lid lag or facial droop. CARDIOVASCULAR: Regular rate and rhythm. No obvious murmurs to auscultation. No chest tenderness to palpation. RESPIRATORY: No obvious rhonchi or wheezing. Clear to auscultation. Breath sounds equal bilaterally. GASTROINTESTINAL: Abdomen soft, non-tender, nondistended. BS normal. MUSCULOSKELETAL: Extremities without clubbing, cyanosis, or edema. No obvious deformities. Left foot with significant necrosis, sloughing, +maggots NEUROLOGICAL: Awake, alert and oriented x4. No focal neurologic deficits. Moving both upper and lower extremities spontaneously. Laboratory Laboratory Tests Test 07/18/17 13:00 White Blood Count 18.0 Red Blood Count 4.51 Hemoglobin 13.4 Hematocrit 39.5 Mean Corpuscular Volume 87.5 Mean Corpuscular Hemoglobin 29.7 Mean Corpuscular Hemoglobin Concent 34.0 Red Cell Distribution Width 13.0 Platelet Count 447 Mean Platelet Volume 6.5 Neutrophils (%) (Auto) 79.1 Lymphocytes (%) (Auto) 7.3 Monocytes (%) (Auto) 12.6 Eosinophils (%) (Auto) 0.3 Basophils (%) (Auto) 0.7 Neutrophils # (Auto) 14.2 Lymphocytes # (Auto) 1.3 Monocytes # (Auto) 2.3 Eosinophils # (Auto) 0.1 Basophils # (Auto) 0.1 CBC Comment AUTO DIFF Differential Comment AUTO DIFF CONFIRMED Platelet Estimate HIGH Platelet Morphology Comment NORMAL Ovalocytes 1+ Acanthocytes OCC Prothrombin Time 11.4 Prothromb Time International Ratio 1.1 Activated Partial Thromboplast Time 29.4 Blood Urea Nitrogen 38 Creatinine 1.34 Random Glucose 123 Total Protein 7.1 Albumin 2.6 Calcium Level 9.0 Alkaline Phosphatase 70 Aspartate Amino Transf (AST/SGOT) 56 Alanine Aminotransferase (ALT/SGPT) 17 Total Bilirubin 0.5 Sodium Level 137 Potassium Level 4.1 Chloride Level 100 Carbon Dioxide Level 31.6 Anion Gap 5 Estimat Glomerular Filtration Rate 64 Result Diagram: 07/18/17 1300 07/18/17 1300 Caprin VTE Risk Assessment Caprini VTE Risk Assessment: Mod/High Risk (score >= 2) Caprini Risk Assessment Model Point Value = 1 Point Value = 2 Point Value = 3 Point Value = 5 Age 41-60 Minor surgery BMI > 25 kg/m2 Swollen legs Varicose veins or History of unexplained or recurrent spontaneous Oral contraceptives or hormone replacement Sepsis (< 1 month) Serious lung disease, including pneumonia (< 1 month) Abnormal pulmonary function Acute myocardial infarction Congestive heart failure (< 1 month) History of inflammatory bowel disease Medical patient at bed rest Age 61-74 Arthroscopic surgery Major open surgery (> 45 min) Laparoscopic surgery (> 45 min) Malignancy Confined to bed (> 72 hours) Immobilizing plaster cast Central venous access Age >= 75 History of VTE Family history of VTE Factor V Leiden Prothrombin [id number] Lupus anticoagulant Anticardiolipin antibodies Elevated serum homocysteine Heparin-induced thrombocytopenia Other congenital or acquired thrombophilia Stroke (< 1 month) Elective arthroplasty Hip, pelvis, or leg fracture Acute spinal cord injury (< 1 month) Prophylaxis Regimen Total Risk Factor Score Risk Level Prophylaxis Regimen 0-1 Low Early ambulation 2 Moderate Order ONE of the following: *Sequential Compression Device (SCD) *Heparin 5000 units SQ BID 3-4 Higher Order ONE of the following medications: *Heparin 5000 units SQ TID *Enoxaparin/Lovenox 40 mg SQ daily (WT < 150 kg, CrCl > 30 mL/min) *Enoxaparin/Lovenox 30 mg SQ daily (WT < 150 kg, CrCl > 10-29 mL/min) *Enoxaparin/Lovenox 30 mg SQ BID (WT < 150 kg, CrCl > 30 mL/min) AND/OR *Sequential Compression Device (SCD) 5 or more Highest Order ONE of the following medications: *Heparin 5000 units SQ TID (Preferred with Epidurals) *Enoxaparin/Lovenox 40 mg SQ daily (WT < 150 kg, CrCl > 30 mL/min) *Enoxaparin/Lovenox 30 mg SQ daily (WT < 150 kg, CrCl > 10-29 mL/min) *Enoxaparin/Lovenox 30 mg SQ BID (WT < 150 kg, CrCl > 30 mL/min) AND *Sequential Compression Device (SCD) Assessment and Plan Problem List: (1) Sepsis ICD Code: A41.9 - Sepsis, unspecified organism Status: Acute (2) Gangrene of left foot ICD Code: I96 - Gangrene, not elsewhere classified Status: Acute (3) PAD (peripheral artery disease) ICD Code: I73.9 - Peripheral vascular disease, unspecified Status: Acute (4) ANTHONY (acute kidney injury) ICD Code: N17.9 - Acute kidney failure, unspecified Status: Acute (5) Tobacco abuse ICD Code: Z72.0 - Tobacco use Status: Acute Assessment and Plan A/P: 1. Sepsis: HR 99, and WBC 18, Source-left foot gangrene. S/p Zosyn in ER, continue w/ IV Abx, follow up cultures, IVF for hydration. 2. Left Foot Gangrene: Left foot w/ extensive necrosis/sloughing, +maggots. Will likely require amputation. S/p Zosyn in ER, continue w/ Vanc/Cefepime. Consult Wound Management for further evaluation/intervention. 3. PAD: H/o PAD s/p Left Fem-Pop Bypass, CTA w/ Runoff showing threadlike collateral vessels w/ minimal flow into calf, images reviewed by me. Dr. Ledbetter consulted, no emergent intervention at this time as findings chronic. Heparin sq, resume ASA. 4. ANTHONY: Creatinine 1.34, previously 1.30 on 08/14/16. IVF for hydration, repeat labs in a.m. 5. Tobacco Abuse: Patient counseled on the need to quit. Ativan prn. No NicoDerm to avoid vasoconstriction. 6. DVT Prophylaxis: Heparin sq 7. Social work for d/c planning as needed. 8. Case discussed w/ ER physician at length, labs/records/imaging reviewed by me. Physician Certification 2 Midnight Certification Type: Admission for Inpatient Services Order for Inpatient Services The services are ordered in accordance with Medicare regulations or non- Medicare payer requirements, as applicable. In the case of services not specified as inpatient-only, they are appropriately provided as inpatient services in accordance with the 2-midnight benchmark. Estimated LOS (days): 2 days is the estimated time the patient will need to remain in the hospital, assuming treatment plan goals are met and no additional complications. Post-Hospital Plan: Not yet determined Iris Fitzgerald MD Jul 18, 2017 21:21
--- NOTE | 2017-07-18 21:22 | PD ---
Physical Exam Date Seen by Provider: Jul 18, 2017 Time Seen by Provider: 19:00 Narrative Patient initially seen and evaluated by Dr. Anthony, please see his notes for further details. He has a necrotic left foot, and CTA has been ordered for him. He had leukocytosis and previous physician had started the patient on IV antibiotics after cultures have been drawn. Planning to admit for further treatment of the necrotic left foot. Laboratory Tests Test 07/18/17 13:00 White Blood Count 18.0 TH/MM3 (4.0-11.0) Mean Platelet Volume 6.5 FL (7.0-11.0) Neutrophils (%) (Auto) 79.1 % (16.0-70.0) Lymphocytes (%) (Auto) 7.3 % (9.0-44.0) Monocytes (%) (Auto) 12.6 % (0.0-8.0) Neutrophils # (Auto) 14.2 TH/MM3 (1.8-7.7) Monocytes # (Auto) 2.3 TH/MM3 (0-0.9) Platelet Estimate HIGH (NORMAL) Ovalocytes 1+ (NORMAL) Blood Urea Nitrogen 38 MG/DL (7-18) Creatinine 1.34 MG/DL (0.60-1.30) Random Glucose 123 MG/DL (74-106) Albumin 2.6 GM/DL (3.4-5.0) Aspartate Amino Transf (AST/SGOT) 56 U/L (15-37) Estimat Glomerular Filtration Rate 64 ML/MIN (>89) Last 24 hours Impressions Chest X-Ray 07/18/17 0000 Signed Impressions: Service Date/Time: Tuesday, July 18, 2017 12:57 - CONCLUSION: No acute disease. Giles Garza Jr., MD Aorta w/Runoff CTA 07/18/17 0000 Signed Impressions: Service Date/Time: Tuesday, July 18, 2017 19:45 - CONCLUSION: 1. Patent aortic , left iliac, and bifemoral grafts. 2. Very poor flow to the left lower extremity with tapering of the femoral artery in the mid thigh and a few threadlike collateral vessels providing some minimal flow into the calf. 3. Moderate severity arteriosclerotic disease with narrowing of the popliteal and calf vessels on the right side, but patent flow. Giles Patel MD CTA shows patent aortic left iliac and femoral grafts, but he has very poor flow through collaterals in the left leg especially at the calf level. There is some severe atherosclerotic disease in the right side as well although flow is patent. Case was discussed with Dr. clarke who states that he will see the patient in consultation, but does not recommend heparin at this time considering the chronic nature of the etiology. Case was discussed with Dr. Paulson for admission for further therapy. Data Data Last Documented VS Vital Signs Date Time Temp Pulse Resp B/P (MAP) Pulse Ox O2 Delivery O2 Flow Rate FiO2 07/18/17 18:37 99 16 134/80 (98) 95 07/18/17 16:07 Room Air 07/18/17 12:23 97.5 Orders Orders Iv Access Insert/Monitor (07/18/17 12:40) Complete Blood Count With Diff (07/18/17 12:40) Comprehensive Metabolic Panel (07/18/17 12:40) Prothrombin Time / Inr (Pt) (07/18/17 12:40) Act Partial Throm Time (Ptt) (07/18/17 12:40) Electrocardiogram (07/18/17 ) Chest, Single Ap (07/18/17 ) Urinalysis - C+S If Indicated (07/18/17 14:17) Cta Runoff W Iv Contrast W 3d (07/18/17 ) Piperacil-Tazo 3.375 Gm Premix (Zosyn 3. (07/18/17 19:15) Iohexol 350 Inj (Omnipaque 350 Inj) (07/18/17 19:51) Admit Order (Ed Use Only) (07/18/17 21:14) Labs Laboratory Tests Test 07/18/17 13:00 White Blood Count 18.0 TH/MM3 Red Blood Count 4.51 MIL/MM3 Hemoglobin 13.4 GM/DL Hematocrit 39.5 % Mean Corpuscular Volume 87.5 FL Mean Corpuscular Hemoglobin 29.7 PG Mean Corpuscular Hemoglobin Concent 34.0 % Red Cell Distribution Width 13.0 % Platelet Count 447 TH/MM3 Mean Platelet Volume 6.5 FL Neutrophils (%) (Auto) 79.1 % Lymphocytes (%) (Auto) 7.3 % Monocytes (%) (Auto) 12.6 % Eosinophils (%) (Auto) 0.3 % Basophils (%) (Auto) 0.7 % Neutrophils # (Auto) 14.2 TH/MM3 Lymphocytes # (Auto) 1.3 TH/MM3 Monocytes # (Auto) 2.3 TH/MM3 Eosinophils # (Auto) 0.1 TH/MM3 Basophils # (Auto) 0.1 TH/MM3 CBC Comment AUTO DIFF Differential Comment AUTO DIFF CONFIRMED Platelet Estimate HIGH Platelet Morphology Comment NORMAL Ovalocytes 1+ Acanthocytes OCC Prothrombin Time 11.4 SEC Prothromb Time International Ratio 1.1 RATIO Activated Partial Thromboplast Time 29.4 SEC Blood Urea Nitrogen 38 MG/DL Creatinine 1.34 MG/DL Random Glucose 123 MG/DL Total Protein 7.1 GM/DL Albumin 2.6 GM/DL Calcium Level 9.0 MG/DL Alkaline Phosphatase 70 U/L Aspartate Amino Transf (AST/SGOT) 56 U/L Alanine Aminotransferase (ALT/SGPT) 17 U/L Total Bilirubin 0.5 MG/DL Sodium Level 137 MEQ/L Potassium Level 4.1 MEQ/L Chloride Level 100 MEQ/L Carbon Dioxide Level 31.6 MEQ/L Anion Gap 5 MEQ/L Estimat Glomerular Filtration Rate 64 ML/MIN [facility] Medical Record Reviewed: Yes Supervised Visit with JERONIMO: No Diagnosis Primary Impression: Gangrene of left foot Additional Impression: Sepsis Admitting Information Admitting Physician Requests: Admit Bettina Andrade MD Jul 18, 2017 21:22
[2017-07-18] MEDS ORDERED: MAGNESIUM HYDROXIDE SUSP 30 ML CUP PO PRN (21:30)
[2017-07-18] MEDS ORDERED: BISACODYL 10 MG SUPP RECTAL PRN (21:30)
[2017-07-18] MEDS ORDERED: ACETAMINOPHEN 325 MG TAB PO PRN (21:30)
[2017-07-18] MEDS ORDERED: LACTULOSE SYRUP 20 GM/30 ML CUP PO PRN (21:30)
[2017-07-18] MEDS ORDERED: ONDANSETRON HCL 4 MG/2 ML VIAL IVP PRN (21:30)
[2017-07-18] MEDS ORDERED: SODIUM CHLORIDE 0.9% FLUSH 10 ML FLUSH IV FLUSH PRN (21:30)
[2017-07-18] MEDS: HEPARIN SODIUM - SQ 10,000 UNITS/ML VIAL SQ SCH (22:00)
[2017-07-18] MEDS: SODIUM CHLOR 0.9% 1000 ML INJ 1,000 ML IV SCH (22:57)
[2017-07-18] MEDS: MORPHINE SULFATE 2 MG/ML INJ IV PUSH PRN (23:12)
[2017-07-19] VITALS (7 sets, daily range): BP systolic 92–123; BP diastolic 53–73; PULSE 66–83; RESP 16–20; TEMP 96.4–98.5; O2SAT 95–97
[2017-07-19] MEDS ORDERED: Vancomycin Consult Pharmacy 1 EA OTHER SCH (01:00)
[2017-07-19] MEDS ORDERED: VANCOMYCIN 1,500 MG/NS 500 ML IV ONE ×2 (01:30)
[2017-07-19 05:03] LABS: AUTOMATED NEUTROPHIL # 13.8 TH/MM3 (1.8-7.7); BASOPHIL # 0.1 TH/MM3 (0-0.2); BASOPHIL % 0.7 % (0.0-2.0); EOSINOPHIL # 0.1 TH/MM3 (0-0.4); EOSINOPHIL % 0.6 % (0.0-4.0); HEMATOCRIT 39.5 % (39.0-51.0); HEMOGLOBIN 13.2 GM/DL (13.0-17.0); LYMPH % 11.7 % (9.0-44.0); LYMPHOCYTE # 2.2 TH/MM3 (1.0-4.8); MEAN CELL VOLUME 87.7 FL (80.0-100.0); MEAN CORPUSCULAR HEMOGLOBIN 29.2 PG (27.0-34.0); MEAN CORPUSCULAR HGB CONC 33.3 % (32.0-36.0); MONO % 11.9 % (0.0-8.0); MONOCYTE # 2.2 TH/MM3 (0-0.9); NEUT % 75.1 % (16.0-70.0); PLATELET COUNT 393 TH/MM3 (150-450); RED CELL DISTRIBUTION WIDTH 13.1 % (11.6-17.2); WHITE BLOOD COUNT 18.4 TH/MM3 (4.0-11.0)
[2017-07-19 05:08] LABS: ALBUMIN 2.6 GM/DL (3.4-5.0); ALT (GPT) 17 U/L (12-78); AST (GOT) 59 U/L (15-37); BICARBONATE 27.9 MEQ/L (21.0-32.0); BLOOD UREA NITROGEN 32 MG/DL (7-18); CALCIUM 9.2 MG/DL (8.5-10.1); CHLORIDE 100 MEQ/L (98-107); CREATININE 1.23 MG/DL (0.60-1.30); GLOMERULAR FILTRATION RATE 70 ML/MIN (>89); GLUCOSE,RANDOM 102 MG/DL (74-106); SODIUM (NA) 136 MEQ/L (136-145)
[2017-07-19 05:11] LABS: ALKALINE PHOSPHATASE 70 U/L (45-117); TOTAL BILIRUBIN ADULT 0.7 MG/DL (0.2-1.0); TOTAL PROTEIN 6.8 GM/DL (6.4-8.2)
[2017-07-19] MEDS: MORPHINE SULFATE 2 MG/ML INJ IV PUSH PRN ×3 (05:44→23:43)
[2017-07-19 06:46] LABS: BANDS 1 % (0-6); LYMPHOCYTES 8 % (9-44); MONOCYTES 9 % (0-8); NEUTROPHIL # MANUAL DIFF 15.1 TH/MM3 (1.8-7.7); POLYS (SEG NEUTROPHILS) 81 % (16-70); TOXIC VACUOLATION PRESENT (NONE SEEN)
[2017-07-19 06:47] LABS: ACANTHOCYTES OCC (NORMAL)
--- NOTE | 2017-07-19 08:20 | HHI.PR ---
Subjective Remarks Patient in bed, appears in nad. Says pain is controlled by current meds. No n/v/ d/c. Denies chest pain or sob. No fever ro chills. Objective Vitals Vital Signs Date Time Temp Pulse Resp B/P (MAP) Pulse Ox O2 Delivery O2 Flow Rate FiO2 07/19/17 04:00 96.4 74 18 115/64 (81) 97 07/19/17 00:00 97.1 80 18 101/59 (73) 97 07/18/17 22:57 07/18/17 18:37 99 16 134/80 (98) 95 07/18/17 16:07 73 20 116/76 (89) 96 Room Air 07/18/17 12:23 97.5 74 18 121/85 (97) 96 I/O 07/18/17 07/18/17 07/18/17 07/19/17 07/19/17 07/19/17 06:59 14:59 22:59 06:59 14:59 22:59 Intake Total 50 ml 1412 ml Balance 50 ml 1412 ml Intake Oral 580 ml IV Total 50 ml 832 ml # Voids 5 # Bowel Movements 2 Result Diagram: 07/19/17 0405 07/19/17 0405 Imaging Last Impressions Chest X-Ray 07/18/17 0000 Signed Impressions: Service Date/Time: Tuesday, July 18, 2017 12:57 - CONCLUSION: No acute disease. Giles Garza Jr., MD Aorta w/Runoff CTA 07/18/17 0000 Signed Impressions: Service Date/Time: Tuesday, July 18, 2017 19:45 - CONCLUSION: 1. Patent aortic , left iliac, and bifemoral grafts. 2. Very poor flow to the left lower extremity with tapering of the femoral artery in the mid thigh and a few threadlike collateral vessels providing some minimal flow into the calf. 3. Moderate severity arteriosclerotic disease with narrowing of the popliteal and calf vessels on the right side, but patent flow. Giles Patel MD Objective Remarks GENERAL: Thin, elderly black male in no acute distress. HEENT: PERRLA, EOMI. No scleral icterus or conjunctival pallor. No lid lag or facial droop. CARDIOVASCULAR: Regular rate and rhythm. No obvious murmurs to auscultation. No chest tenderness to palpation. RESPIRATORY: No obvious rhonchi or wheezing. Clear to auscultation. Breath sounds equal bilaterally. GASTROINTESTINAL: Abdomen soft, non-tender, nondistended. BS normal. MUSCULOSKELETAL: Extremities without clubbing, cyanosis, or edema. No obvious deformities. Left foot with significant necrosis, sloughing, +maggots NEUROLOGICAL: Awake, alert and oriented x4. No focal neurologic deficits. Moving both upper and lower extremities spontaneously. A/P Problem List: (1) Sepsis ICD Code: A41.9 - Sepsis, unspecified organism Status: Acute (2) Gangrene of left foot ICD Code: I96 - Gangrene, not elsewhere classified Status: Acute (3) PAD (peripheral artery disease) ICD Code: I73.9 - Peripheral vascular disease, unspecified Status: Acute (4) ANTHONY (acute kidney injury) ICD Code: N17.9 - Acute kidney failure, unspecified Status: Acute (5) Tobacco abuse ICD Code: Z72.0 - Tobacco use Status: Acute Assessment and Plan Sepsis: HR 99, and WBC 18, Source-left foot gangrene on admission. Blood cultures NTD Received Zosyn in ER Continue w/ IV Abx, follow up cultures, IVF for hydration. Left Foot Gangrene: Left foot w/ extensive necrosis/sloughing, +maggots. Will likely require amputation. S/p Zosyn in ER, continue w/ Vanc/Cefepime. Consult Wound Management for further evaluation/intervention. PAD: H/o PAD s/p Left Fem-Pop Bypass, CTA w/ Runoff reviewed showing threadlike collateral vessels w/ minimal flow into calf. Dr. Ledbetter consulted, no emergent intervention at this time as findings chronic. Heparin sq, resume ASA. ANTHONY: Creatinine 1.34, on admission previously 1.30 on 08/14/16. IVF for hydration. Monitor kidney indices, avoid nephrotoxins Tobacco Abuse: Patient counseled on the need to quit. Ativan prn. No NicoDerm to avoid vasoconstriction. DVT Prophylaxis: Heparin sq CM consulted for DC planning as needed. Discussed with the patient, nurse Brenda Murillo MD Jul 19, 2017 08:20
[2017-07-19] MEDS ORDERED: CEFEPIME INJ 1,000 MG in SODIUM CHLORIDE 0.9% INJ 100 ML IV SCH (09:00)
[2017-07-19] MEDS: SODIUM CHLORIDE 0.9% FLUSH 10 ML FLUSH IV FLUSH SCH ×2 (09:00→21:42)
[2017-07-19] MEDS: PRAVASTATIN SOD 40 MG TAB PO SCH (09:20)
[2017-07-19] MEDS: DOCUSATE SODIUM 50 MG/SENNA 8.6 MG TAB PO SCH ×2 (09:20→21:43)
[2017-07-19] MEDS: ASPIRIN EC 81 MG TABEC PO SCH (09:21)
[2017-07-19] MEDS: CARVEDILOL 12.5 MG TAB PO SCH ×2 (09:21→21:42)
[2017-07-19] MEDS: HEPARIN SODIUM - SQ 10,000 UNITS/ML VIAL SQ SCH ×2 (09:22→21:43)
[2017-07-19] MEDS: CEFEPIME 2000 MG/NS 100 ML IV SCH ×2 (10:30)
[2017-07-19] MEDS ORDERED: HEPARIN SODIUM - IV 10,000 UNITS/10 ML VIAL IV ONE (12:00)
[2017-07-19 13:36] LABS: HEMATOCRIT 34.9 % (39.0-51.0); HEMOGLOBIN 11.9 GM/DL (13.0-17.0); MEAN CORPUSCULAR HEMOGLOBIN 29.6 PG (27.0-34.0); MEAN PLATELET VOLUME 6.5 FL (7.0-11.0); PLATELET COUNT 416 TH/MM3 (150-450); RED BLOOD COUNT 4.01 MIL/MM3 (4.50-5.90); RED CELL DISTRIBUTION WIDTH 12.9 % (11.6-17.2); WHITE BLOOD COUNT 14.9 TH/MM3 (4.0-11.0)
[2017-07-19 13:44] LABS: INTERNATIONAL NORMALIZED RATIO 1.1 RATIO; PROTHROMBIN TIME - PATIENT 11.4 SEC (9.8-11.6)
[2017-07-19] MEDS: HEPARIN-D5W 25,000 U/250 ML 250 ML IV PRN (14:22)
--- NOTE | 2017-07-19 14:47 | EKG ---
Date Performed: 07/19/2017 Time Performed: 14:09:35 PTAGE: 71 years EKG: Sinus rhythm WITH OCCASIONAL SUPRAVENTRICULAR PREMATURE COMPLEXES SEPTAL MYOCARDIAL INFARCTION , PROBABLY OLD Non specific T wave changes No significant change from prior electrocardiogram. PREVIOUS TRACING : 07/18/2017 15.24 DOCTOR: Leoncio Miranda Interpretating Date/Time 07/19/2017 14:45:42
--- NOTE | 2017-07-19 19:33 | MB ---
cc: Ej Ledbetter MD, Slobodan MD DATE OF CONSULT: 07/19/2017 REASON FOR CONSULTATION: Gangrene of the left foot, ischemia of the left leg, peripheral vascular disease. Critical care time 38 minutes. HISTORY OF PRESENT ILLNESS: This 71-year-old male who appears older than his actual age is very poorly kept, apparently was bedridden for a while and finally his sister called EMS to bring him to hospital. The patient is found in the emergency room to have a left forefoot gangrene. The patient does not know how long this has been going on, is a very poor historian with some degree of cognitive deficit. I am asked to see patient for the vascular disease. PAST MEDICAL HISTORY: Hypertension; atrial fibrillation; stroke; coronary artery disease; CHF, recurrent episodes; abdominal aortic aneurysm. PAST SURGICAL HISTORY: Endovascular abdominal aortic aneurysm repair followed by the aortofemoral bypass and then fem-fem bypass apparently in early . I would assume that fem-fem bypass was done to bring some blood to the right leg because right iliac artery is completely out. SOCIAL HISTORY: The patient is smoking about a pack a day of cigarettes. He does not drink. PHYSICAL EXAMINATION: GENERAL: A 71-year-old gentleman appearing older than his actual age. 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 HEENT: Normocephalic. No trauma to the head. Pupils are equal, reactive. Extraocular muscles intact. NECK: Supple bilateral carotid pulses and bilateral carotid faint bruits. CHEST: Decreased over both lung foss consistent with moderate to severe COPD. HEART: Irregular rhythm. The patient is probably sinus with PVCs, but it is hard to tell without a monitor. ABDOMEN: Soft. No rebound, no guarding, no masses. Scars from previous surgery. GROINS: The patient actually has palpable bilateral femoral pulses and his fem-fem graft is patent. He has good flow to the right leg with dopplerable popliteal pulse and right foot dopplerable dorsalis pedis. On the left side, the patient has a palpable groin pulse and that is it. Distally I cannot detect pulse either in popliteal artery or distal to that. The leg, however, is warm and coolness starts at the level of the ankle and then goes down to the foot. The forefoot is gangrenous, mainly dry gangrene. At this point, as far as the motoric function is concerned this patient has apparent been walking but has been bedridden maybe for a week or two. He does not have a contracture of the knee yet on the left side, but when I tried to completely extend the leg he had some pain. IMPRESSION AND RECOMMENDATIONS: At this point, this gentleman has a patent left aortofemoral graft and patent femorofemoral graft. The problem is the left leg where there is occlusion of the left common femoral artery with no reconstitution of the popliteal, rather patient has small barely detectable branches in the collaterals going toward the foot and then there is nothing from detention of the calf down. Comparing this to the right leg, while patient does have atherosclerotic disease this looks more like probably recurrent embolism superimposed on chronic vascular occlusive disease. I believe it is not worth going down there and trying to clean this out with a combined approach for this is old and chronic and patient already has a partial knee contracture. Unfortunately, the patient will definitely end up with a high below-knee amputation and possibly even above-knee amputation. I have also consulted podiatry to see him for forefoot amputation because we have to control the infection at this point regardless of what we are going to do later. Thank you much for referral. We will continue to follow patient. MD MARI Mcpherson//oswald , 12:09 PM , 06:26 PM CARLOS
[2017-07-19] MEDS: SODIUM CHLOR 0.9% 1000 ML INJ 1,000 ML IV SCH ×2 (20:01→21:43)
[2017-07-19] MEDS: VANCOMYCIN 1,000 MG/NS 250 ML IV SCH ×2 (21:42)
[2017-07-20] VITALS (8 sets, daily range): BP systolic 102–115; BP diastolic 60–73; PULSE 63–72; RESP 16–20; TEMP 96.9–98.6; O2SAT 92–100
--- NOTE | 2017-07-20 00:23 | EKG ---
Date Performed: 07/18/2017 Time Performed: 15:24:05 PTAGE: 71 years EKG: PROBABLE Sinus rhythm SEPTAL MYOCARDIAL INFARCTION MODERATE T-WAVE ABNORMALITY, CONSIDER LATERAL ISCHEMIA ABNORMAL ECG PREVIOUS TRACING : 08/14/2016 00.10 Since the prior tracing, there has been no significant timmnos DOCTOR: Nomi Bird Interpretating Date/Time 07/20/2017 00:22:09
[2017-07-20] MEDS: MORPHINE SULFATE 2 MG/ML INJ IV PUSH PRN ×3 (04:17→18:52)
[2017-07-20] MEDS: SODIUM CHLOR 0.9% 1000 ML INJ 1,000 ML IV SCH ×3 (04:21→22:39)
[2017-07-20] MEDS: PRAVASTATIN SOD 40 MG TAB PO SCH (09:00)
[2017-07-20] MEDS: CEFEPIME 2000 MG/NS 100 ML IV SCH ×2 (09:00)
[2017-07-20] MEDS: SODIUM CHLORIDE 0.9% FLUSH 10 ML FLUSH IV FLUSH SCH ×2 (09:00→22:29)
[2017-07-20] MEDS: DOCUSATE SODIUM 50 MG/SENNA 8.6 MG TAB PO SCH ×2 (09:00→22:33)
[2017-07-20] MEDS: CARVEDILOL 12.5 MG TAB PO SCH ×2 (09:01→22:33)
[2017-07-20] MEDS: ASPIRIN EC 81 MG TABEC PO SCH (09:01)
[2017-07-20] MEDS: HEPARIN SODIUM - SQ 10,000 UNITS/ML VIAL SQ SCH ×2 (09:01→22:00)
--- NOTE | 2017-07-20 09:29 | PD.CONS ---
History of Present Illness Service Podiatry Consult Requested By Anatoly Reason for Consult Left foot gangrene Primary Care Physician No Primary Care Physician Diagnoses: History of Present Illness 71-year-old male with left foot pain. He cannot say how long the foot has been in its current state. EMS stated maggots were noted, but none visualized by me today. He realizes his foot has gangrene and is in need of some form of amputation and is anxious about it. Past Family Social History Allergies: Coded Allergies: adhesive (Unverified Allergy, Severe, Rash, 12/24/16) codeine (Unverified Allergy, Severe, RASH, 12/24/16) mirtazapine (Unverified Allergy, Severe, 12/24/16) hallucinations Past Medical History Anxiety, Depression, HTN, A. fib, CVA, CAD, CHF (Echo w/ EF 55-60%), Severe PAD s/p Left Fem-Pop Bypass and Tobacco Abuse Past Surgical History Vasectomy, Left Femoropopliteal Bypass Active Ordered Medications Current Medications Medications (Trade) Dose Ordered Sig/Zo Route Start Time Stop Time Status Last Admin Sodium Chloride 1,000 ml @ 100 mls/hr Q10H IV 07/18/17 21:19 07/20/17 04:21 (NS Flush) 2 ml UNSCH PRN IV FLUSH 07/18/17 21:30 (NS Flush) 2 ml BID IV FLUSH 07/19/17 09:00 07/19/17 21:42 (Zofran Inj) 4 mg Q6H PRN IVP 07/18/17 21:30 (Heparin Inj) 5,000 units Q12H SQ 07/18/17 22:00 (Tylenol) 650 mg Q6H PRN PO 07/18/17 21:30 (Morphine Inj) 1 mg Q3H PRN IV PUSH 07/18/17 21:30 07/19/17 18:47 (Morphine Inj) 2 mg Q3H PRN IV PUSH 07/18/17 21:30 07/20/17 04:17 (Maria Alejandra-Colace) 1 tab BID PO 07/19/17 09:00 07/20/17 09:00 (Milk Of Magnesia Liq) 30 ml Q12H PRN PO 07/18/17 21:30 (Senokot) 17.2 mg Q12H PRN PO 07/18/17 21:30 (Dulcolax Supp) 10 mg DAILY PRN RECTAL 07/18/17 21:30 (Lactulose Liq) 30 ml DAILY PRN PO 07/18/17 21:30 (Ecotrin Ec) 81 mg DAILY PO 07/19/17 09:00 07/20/17 09:01 (Coreg) 25 mg BID PO 07/19/17 09:00 07/20/17 09:01 (Pravachol) 40 mg DAILY PO 07/19/17 09:00 07/20/17 09:00 Pharmacy Profile Note 0 ml @ 0 mls/hr UNSCH OTHER 07/19/17 01:00 Cefepime HCl 2000 mg/Sodium Chloride 100 ml @ 200 mls/hr Q24H IV 07/19/17 09:00 07/20/17 09:00 Vancomycin HCl 1000 mg/Sodium Chloride 250 ml @ 250 mls/hr Q18H IV 07/19/17 20:00 07/19/17 21:42 Miscellaneous Information SPECIFIC LAB TO BE DRAWN:VANCO TROUGH DATE TO... ONCE ONCE .XX 07/21/17 07:45 07/21/17 07:46 Heparin Sodium/ Dextrose 250 ml @ 13 mls/hr TITRATE PRN IV 07/19/17 12:00 07/19/17 14:22 Social History Negative for alcohol or drugs. Positive for tobacco. Physical Exam Vital Signs Vital Signs Date Time Temp Pulse Resp B/P (MAP) Pulse Ox O2 Delivery O2 Flow Rate FiO2 07/20/17 08:00 96.9 70 17 111/67 (82) 100 07/20/17 06:17 69 07/20/17 04:20 97.6 72 16 102/60 (74) 92 07/20/17 00:31 98.6 69 16 115/73 (87) 95 07/20/17 00:00 63 07/19/17 20:28 96.4 70 16 123/70 (87) 95 07/19/17 19:59 73 07/19/17 16:00 96.9 68 19 121/73 (89) 97 07/19/17 12:00 98.5 66 20 92/53 (66) 97 Physical Exam Left foot with necrotic toes 1-5 and necrotic tissue to dorsal foot diffusely, extending up to anterior ankle. Cold to touch. Dry and stable appearance. No maggots noted. Margins appear without purulence. Distinct malodor noted. Laboratory Laboratory Tests Test 07/19/17 12:47 07/19/17 20:34 07/20/17 03:24 White Blood Count 14.9 Red Blood Count 4.01 Hemoglobin 11.9 Hematocrit 34.9 Mean Corpuscular Volume 87.0 Mean Corpuscular Hemoglobin 29.6 Mean Corpuscular Hemoglobin Concent 34.0 Red Cell Distribution Width 12.9 Platelet Count 416 Mean Platelet Volume 6.5 Prothrombin Time 11.4 Prothromb Time International Ratio 1.1 Activated Partial Thromboplast Time 30.5 32.2 44.8 Result Diagram: 07/19/17 1247 07/19/17 0405 Imaging Last 72 hours Impressions Chest X-Ray 07/18/17 0000 Signed Impressions: Service Date/Time: Tuesday, July 18, 2017 12:57 - CONCLUSION: No acute disease. Giles Garza Jr., MD Aorta w/Runoff CTA 07/18/17 0000 Signed Impressions: Service Date/Time: Tuesday, July 18, 2017 19:45 - CONCLUSION: 1. Patent aortic , left iliac, and bifemoral grafts. 2. Very poor flow to the left lower extremity with tapering of the femoral artery in the mid thigh and a few threadlike collateral vessels providing some minimal flow into the calf. 3. Moderate severity arteriosclerotic disease with narrowing of the popliteal and calf vessels on the right side, but patent flow. Giles Patel MD Assessment and Plan Assessment and Plan Dry gangrene left foot Continue to monitor for acute infection, appears stable at this time. Will eventually need BKA due to lack of viable tissue at level of the foot. I do not feel amputation at level of the foot will be successful. Lion Roldan DPM Jul 20, 2017 09:29
[2017-07-20 12:12] LABS: AUTOMATED NEUTROPHIL # 9.2 TH/MM3 (1.8-7.7); BASOPHIL # 0.1 TH/MM3 (0-0.2); BASOPHIL % 0.8 % (0.0-2.0); EOSINOPHIL # 0.1 TH/MM3 (0-0.4); EOSINOPHIL % 0.5 % (0.0-4.0); HEMATOCRIT 34.9 % (39.0-51.0); HEMOGLOBIN 11.8 GM/DL (13.0-17.0); LYMPHOCYTE # 1.3 TH/MM3 (1.0-4.8); MEAN CORPUSCULAR HEMOGLOBIN 29.7 PG (27.0-34.0); MEAN CORPUSCULAR HGB CONC 33.8 % (32.0-36.0); MEAN PLATELET VOLUME 6.4 FL (7.0-11.0); MONO % 15.5 % (0.0-8.0); MONOCYTE # 1.9 TH/MM3 (0-0.9); NEUT % 73.2 % (16.0-70.0); PLATELET COUNT 345 TH/MM3 (150-450); RED BLOOD COUNT 3.97 MIL/MM3 (4.50-5.90); RED CELL DISTRIBUTION WIDTH 12.8 % (11.6-17.2); WHITE BLOOD COUNT 12.6 TH/MM3 (4.0-11.0)
--- NOTE | 2017-07-20 14:21 | HHI.PR ---
Subjective Remarks Continue to complain of back pain and leg pain Afebrile overnight Objective Vitals Vital Signs Date Time Temp Pulse Resp B/P (MAP) Pulse Ox O2 Delivery O2 Flow Rate FiO2 07/20/17 12:00 97.2 71 20 111/64 (80) 96 07/20/17 08:00 96.9 70 17 111/67 (82) 100 07/20/17 06:17 69 07/20/17 04:20 97.6 72 16 102/60 (74) 92 07/20/17 00:31 98.6 69 16 115/73 (87) 95 07/20/17 00:00 63 07/19/17 20:28 96.4 70 16 123/70 (87) 95 07/19/17 19:59 73 07/19/17 16:00 96.9 68 19 121/73 (89) 97 I/O 07/19/17 07/19/17 07/19/17 07/20/17 07/20/17 07/20/17 07:00 15:00 23:00 07:00 15:00 23:00 Intake Total 1412 ml 120 ml 480 ml 1250 ml 120 ml Output Total 800 ml 500 ml Balance 1412 ml 120 ml -320 ml 750 ml 120 ml Intake Oral 580 ml 120 ml 480 ml 120 ml IV Total 832 ml 1250 ml Output Urine Total 800 ml 500 ml # Voids 5 # Bowel Movements 2 1 Result Diagram: 07/20/17 1153 07/19/17 0405 Objective Remarks GENERAL: This is a well-nourished, well-developed patient, in no apparent distress. SKIN: No rashes, warm and dry CARDIOVASCULAR: Regular rate and rhythm without murmurs, gallops, or rubs. RESPIRATORY: Fair air entry bilaterally. No wheezes, rales, or rhonchi. GASTROINTESTINAL: Abdomen soft, non-tender, nondistended. Positive bowel sounds MUSCULOSKELETAL: Extensive gangrenous skin lesion on the left foot dorsal and plantar NEUROLOGICAL: Awake and alert. Moves all extremity. Normal speech.no focal neurological deficit A/P Problem List: (1) Sepsis ICD Code: A41.9 - Sepsis, unspecified organism Status: Acute (2) Gangrene of left foot ICD Code: I96 - Gangrene, not elsewhere classified Status: Acute (3) PAD (peripheral artery disease) ICD Code: I73.9 - Peripheral vascular disease, unspecified Status: Acute (4) ANTHONY (acute kidney injury) ICD Code: N17.9 - Acute kidney failure, unspecified Status: Acute (5) Tobacco abuse ICD Code: Z72.0 - Tobacco use Status: Acute Assessment and Plan 07/20: WBC dropped from 18-14, creatinine dropped from 1.3-1.2, continue anticoagulation with antibiotic, surgery following, monitor PTT, WBC A/P: Sepsis: HR 99, and WBC 18, Source-left foot gangrene on admission. Left Foot Gangrene: Left foot w/ extensive necrosis/sloughing, +maggots. Will likely require amputation. S/p Zosyn in ER, continue w/ Vanc/Cefepime. Consult Wound Management for further evaluation/intervention. PAD: H/o PAD s/p Left Fem-Pop Bypass, CTA w/ Runoff reviewed showing threadlike collateral vessels w/ minimal flow into calf. Dr. Ledbetter consulted, no emergent intervention at this time as findings chronic. Heparin sq, resume ASA. ANTHONY: Creatinine 1.34, on admission previously 1.30 on 08/14/16. IVF for hydration. Monitor kidney indices, avoid nephrotoxins Tobacco Abuse: Patient counseled on the need to quit. Ativan prn. No NicoDerm to avoid vasoconstriction. DVT Prophylaxis: Heparin sq CM consulted for DC planning as needed. Patricia López MD Jul 20, 2017 14:21
[2017-07-20] MEDS: VANCOMYCIN 1,000 MG/NS 250 ML IV SCH ×2 (14:41)
[2017-07-20] MEDS: HEPARIN-D5W 25,000 U/250 ML 250 ML IV PRN (14:59)
--- NOTE | 2017-07-20 16:59 | ECHRPT ---
Indication: PVD CAD CONCLUSIONS Normal left ventricular size. Wall thickness is normal. The left ventricular systolic function is severely reduced with an estimated ejection fraction in th e range of 30-35%. Global hypokinesis Aortic valve sclerosis is present. The estimated pulmonary arterial pressure is 37 mmHg. TDS due to poor patient compliance BP: 111 / 67 HR: 82 Rhythm: MEASUREMENTS (Male / Female) Normal Values Technical Quality:Technically difficult study 2D ECHO LV Diastolic Diameter PLAX 4.6 cm 4.2 - 5.9 / 3.9 - 5.3 cm LV Systolic Diameter PLAX 4.1 cm IVS Diastolic Thickness 1.2 cm 0.6 - 1.0 / 0.6 - 0.9 cm LVPW Diastolic Thickness 0.8 cm 0.6 - 1.0 / 0.6 - 0.9 cm LV Relative Wall Thickness 0.4 DOPPLER Mitral E Point Velocity 46.9 cm/s Mitral A Point Velocity 43.9 cm/s Mitral E to A Ratio 1.1 TR Peak Velocity 284.0 cm/s TR Peak Gradient 32.3 mmHg FINDINGS LEFT VENTRICLE Normal left ventricular size. Wall thickness is normal. The left ventricular systolic function is severely reduced with an estimated ejection fraction in th e range of 30-35%. Global hypokinesis RIGHT VENTRICLE Normal right ventricular size and systolic function. LEFT ATRIUM The left atrial size is normal. RIGHT ATRIUM The right atrial size is normal. ATRIAL SEPTUM Normal atrial septal thickness without atrial level shunting by limited color doppler interrogation. AORTA The aortic root and proximal ascending aorta are normal in size on limited imaging. MITRAL VALVE Structurally normal mitral valve. No mitral valve stenosis or regurgitation. AORTIC VALVE Aortic valve sclerosis is present. TRICUSPID VALVE The estimated pulmonary arterial pressure is 37 mmHg. PULMONARY VALVE The pulmonary valve is not well visualized. VESSELS The inferior vena cava is normal in size. PERICARDIUM No pericardial effusion. Donte Newell MD (Electronically Signed) Final Date:20 July 2017 16:58
[2017-07-20] MEDS ORDERED: IOHEXOL 350 MG/ML 10 ML VIAL (for RAD DIAG) IVCONTRAST ONE (19:53)
--- NOTE | 2017-07-20 20:24 | RADRPT ---
EXAM DATE/TIME: 07/20/2017 19:50 [place] COMPARISON: No previous studies available for comparison. INDICATIONS : Bilateral carotid bruits. IV CONTRAST: 82 cc Omnipaque 350 (iohexol) IV RADIATION DOSE: 27.95 CTDIvol (mGy) MEDICAL HISTORY : Stroke. Congestive heart failure. Hepatitis B.diabetes SURGICAL HISTORY : None. ENCOUNTER: Initial ACUITY: 1 day PAIN SCALE: 0/10 LOCATION: Bilateral neck Elevated flow velocities and ICA/CCA ratios have been found to correlate with increased degrees of vessel stenosis, calculated as percentage of diameter relative to a normal segment of distal ICA/CCA. TECHNIQUE: Volumetric scanning was performed using a multirow detector CT scanner. The data was post processed with a variety of visualization algorithms including full-volume maximum intensity projection, multip lanar sliding thin-slab reformation, curved-planar reformation, and surface-rendering techniques. Us ing automated exposure control and adjustment of the mA and/or kV according to patient size, radiatio n dose was kept as low as reasonably achievable to obtain optimal diagnostic quality images. DICOM f ormat image data is available electronically for review and comparison. FINDINGS: AORTIC ARCH: Not included in the [id number] and the exam. RIGHT CAROTID: The carotid bulb is enlarged with mild irregularity, but no definite plaque formation. There is scat tered wall calcifications about the carotid bulb. The distal common carotid artery is normal in dime nsion. There is an ulcerative plaque in the proximal internal carotid artery which causes significan t luminal narrowing, but visualized in the, 70% stenosis. The plaque measures 5 mm in length and the ulceration is located posterior. LEFT CAROTID: There is mild narrowing of the common carotid artery just distal to the carotid flow without signific ant luminal narrowing. The common and internal carotid artery are normal diameter. There is some mi ld calcified plaque in the proximal internal carotid artery causing less than 30% stenosis. VERTEBRALS: The vertebral arteries have a symmetric diameter. No stenotic lesions are seen. CONCLUSION: 1. Ulcerative plaque in the proximal right internal carotid artery measuring 5 mm delayed in closing approximately 70% narrowing of the lumen. 2. Minimal plaque in the distal common carotid artery the left side without significant luminal narro wing. Giles Patel MD on July 20, 2017 at 20:16 Board Certified Radiologist. This report was verified electronically.
[2017-07-21] VITALS (8 sets, daily range): BP systolic 99–116; BP diastolic 60–71; PULSE 62–78; RESP 16–18; TEMP 97.3–99.4; O2SAT 91–97
[2017-07-21 07:17] LABS: AUTOMATED NEUTROPHIL # 7.6 TH/MM3 (1.8-7.7); BASOPHIL # 0.1 TH/MM3 (0-0.2); BASOPHIL % 0.5 % (0.0-2.0); EOSINOPHIL # 0.1 TH/MM3 (0-0.4); EOSINOPHIL % 0.9 % (0.0-4.0); HEMATOCRIT 35.1 % (39.0-51.0); HEMOGLOBIN 12.1 GM/DL (13.0-17.0); LYMPHOCYTE # 1.4 TH/MM3 (1.0-4.8); MEAN CELL VOLUME 87.2 FL (80.0-100.0); MEAN CORPUSCULAR HEMOGLOBIN 30.2 PG (27.0-34.0); MEAN CORPUSCULAR HGB CONC 34.6 % (32.0-36.0); MEAN PLATELET VOLUME 6.5 FL (7.0-11.0); MONO % 16.1 % (0.0-8.0); MONOCYTE # 1.8 TH/MM3 (0-0.9); NEUT % 69.5 % (16.0-70.0); PLATELET COUNT 367 TH/MM3 (150-450); RED BLOOD COUNT 4.03 MIL/MM3 (4.50-5.90); RED CELL DISTRIBUTION WIDTH 13.1 % (11.6-17.2)
[2017-07-21] MEDS ORDERED: PHARMACY ORDERED LAB ONE (07:45)
[2017-07-21] MEDS: PRAVASTATIN SOD 40 MG TAB PO SCH (09:00)
[2017-07-21] MEDS: SODIUM CHLORIDE 0.9% FLUSH 10 ML FLUSH IV FLUSH SCH ×2 (09:00→21:00)
[2017-07-21] MEDS: CARVEDILOL 12.5 MG TAB PO SCH ×2 (09:00→21:54)
[2017-07-21] MEDS: HEPARIN SODIUM - SQ 10,000 UNITS/ML VIAL SQ SCH ×2 (09:20→19:40)
[2017-07-21] MEDS: SODIUM CHLOR 0.9% 1000 ML INJ 1,000 ML IV SCH ×2 (09:21→18:35)
[2017-07-21] MEDS: ASPIRIN EC 81 MG TABEC PO SCH (09:22)
[2017-07-21] MEDS: DOCUSATE SODIUM 50 MG/SENNA 8.6 MG TAB PO SCH ×2 (09:22→21:55)
[2017-07-21] MEDS: VANCOMYCIN 1,000 MG/NS 250 ML IV SCH ×2 (09:23)
[2017-07-21] MEDS: CEFEPIME 2000 MG/NS 100 ML IV SCH ×2 (09:28)
--- NOTE | 2017-07-21 10:48 | PD.WCN.NOT ---
Wound Consult Description: Wound consult ordered by for left foot/thoracic Communicated with: Jessica TRACEY , Recommendation: 1) [place] Left lower extremity with skin prep BID 2) Reconsult wound care if needed Additional Information: Patient was seen today by health technical writer on for Left foot/Thoracic.Patient alert in bed to self.No current complaints at this time.Patient refused for health technical writer to assess Thoracic area states there is nothing back there.Left lower extremity presents with Stable necrosis extending from base of digits to distal talus area.Cool to touch absent pedal pulse ,weak popiteal pulse.Patient has history of PVD Vascular surgeon recommended for Avascular Necrosis.Left lower extremity skin prep applied left open to air. Markus Hussein [facility] Jul 21, 2017 10:48
--- NOTE | 2017-07-21 11:34 | PD.CAR.PN ---
CVT Progress Note Subjective/Hospital Course: 07/21/2017 Patient with a left foot gangrene and severe inflow disease post multiple bypass procedures At this point there is no way to save this and patient will need below-knee amputation Appreciate consult and second opinion from Dr. Roldan. In addition patient has a carotid bruit and CTA of the neck reveals about 70% right internal carotid artery stenosis with an ulcerated plaque This is a serious situation and barring any other issues patient will need right carotid endarterectomy in the near future. Plan to go ahead with a left below-knee amputation tomorrow Objective: Vital Signs Date Time Temp Pulse Resp B/P (MAP) Pulse Ox O2 Delivery O2 Flow Rate FiO2 07/21/17 08:00 97.8 78 18 99/60 (73) 92 07/21/17 05:41 97.8 62 18 104/60 (75) 96 07/21/17 04:00 62 07/21/17 00:00 97.8 77 16 100/63 (75) 91 07/20/17 20:00 97.1 65 16 108/66 (80) 93 07/20/17 16:00 97.1 68 19 107/63 (78) 96 07/20/17 12:00 97.2 71 20 111/64 (80) 96 Labs: Laboratory Tests Test 07/21/17 06:49 07/21/17 08:30 White Blood Count 11.0 TH/MM3 (4.0-11.0) Red Blood Count 4.03 MIL/MM3 (4.50-5.90) Hemoglobin 12.1 GM/DL (13.0-17.0) Hematocrit 35.1 % (39.0-51.0) Mean Corpuscular Volume 87.2 FL (80.0-100.0) Mean Corpuscular Hemoglobin 30.2 PG (27.0-34.0) Mean Corpuscular Hemoglobin Concent 34.6 % (32.0-36.0) Red Cell Distribution Width 13.1 % (11.6-17.2) Platelet Count 367 TH/MM3 (150-450) Mean Platelet Volume 6.5 FL (7.0-11.0) Neutrophils (%) (Auto) 69.5 % (16.0-70.0) Lymphocytes (%) (Auto) 13.0 % (9.0-44.0) Monocytes (%) (Auto) 16.1 % (0.0-8.0) Eosinophils (%) (Auto) 0.9 % (0.0-4.0) Basophils (%) (Auto) 0.5 % (0.0-2.0) Neutrophils # (Auto) 7.6 TH/MM3 (1.8-7.7) Lymphocytes # (Auto) 1.4 TH/MM3 (1.0-4.8) Monocytes # (Auto) 1.8 TH/MM3 (0-0.9) Eosinophils # (Auto) 0.1 TH/MM3 (0-0.4) Basophils # (Auto) 0.1 TH/MM3 (0-0.2) CBC Comment DIFF FINAL Differential Comment Activated Partial Thromboplast Time 60.8 SEC (24.3-30.1) Result Diagram: 07/21/17 0649 07/19/17 0405 Ej Ledbetter MD Jul 21, 2017 11:34
[2017-07-21] MEDS: HEPARIN-D5W 25,000 U/250 ML 250 ML IV PRN (12:16)
--- NOTE | 2017-07-21 15:57 | HHI.PR ---
Subjective Remarks Resting in bed, sister at the bedside No acute complain I informed patient about discussion with Dr. Garcia and the plan for surgery tomorrow Objective Vitals Vital Signs Date Time Temp Pulse Resp B/P (MAP) Pulse Ox O2 Delivery O2 Flow Rate FiO2 07/21/17 12:00 98.4 65 18 108/61 (77) 97 07/21/17 08:00 97.8 78 18 99/60 (73) 92 07/21/17 05:41 97.8 62 18 104/60 (75) 96 07/21/17 04:00 62 07/21/17 00:00 97.8 77 16 100/63 (75) 91 07/20/17 20:00 97.1 65 16 108/66 (80) 93 07/20/17 16:00 97.1 68 19 107/63 (78) 96 I/O 07/20/17 07/20/17 07/20/17 07/21/17 07/21/17 07/21/17 07:00 15:00 23:00 07:00 15:00 23:00 Intake Total 1250 ml 120 ml 760 ml 240 ml 350 ml Output Total 500 ml 1200 ml 200 ml Balance 750 ml 120 ml -440 ml 40 ml 350 ml Intake Oral 120 ml 760 ml 240 ml IV Total 1250 ml 350 ml Output Urine Total 500 ml 1200 ml 200 ml # Voids 3 # Bowel Movements 1 1 Result Diagram: 07/21/17 0649 07/19/17 0405 Objective Remarks GENERAL: This is a well-nourished, well-developed patient, in no apparent distress. SKIN: No rashes, warm and dry CARDIOVASCULAR: Regular rate and rhythm without murmurs, gallops, or rubs. RESPIRATORY: Fair air entry bilaterally. No wheezes, rales, or rhonchi. GASTROINTESTINAL: Abdomen soft, non-tender, nondistended. Positive bowel sounds MUSCULOSKELETAL: Extensive gangrenous skin lesion on the left foot dorsal and plantar NEUROLOGICAL: Awake and alert. Moves all extremity. Normal speech.no focal neurological deficit A/P Problem List: (1) Sepsis ICD Code: A41.9 - Sepsis, unspecified organism Status: Acute (2) Gangrene of left foot ICD Code: I96 - Gangrene, not elsewhere classified Status: Acute (3) PAD (peripheral artery disease) ICD Code: I73.9 - Peripheral vascular disease, unspecified Status: Acute (4) ANTHONY (acute kidney injury) ICD Code: N17.9 - Acute kidney failure, unspecified Status: Acute (5) Tobacco abuse ICD Code: Z72.0 - Tobacco use Status: Acute Assessment and Plan 07/20: WBC dropped from 18-14, creatinine dropped from 1.3-1.2, continue anticoagulation with antibiotic, surgery following, monitor PTT, WBC 07/21: WBC within normal limits now, discussed with Dr. Margie HERNANDEZ he informed me his plan on proceeding with surgery tomorrow, and later on possible management of carotid stenosis as a second phase Monitor clinically, monitor vitals A/P: Sepsis: HR 99, and WBC 18, Source-left foot gangrene on admission. Left Foot Gangrene: Left foot w/ extensive necrosis/sloughing, +maggots. Will likely require amputation. S/p Zosyn in ER, continue w/ Vanc/Cefepime. Consult Wound Management for further evaluation/intervention. PAD: H/o PAD s/p Left Fem-Pop Bypass, CTA w/ Runoff reviewed showing threadlike collateral vessels w/ minimal flow into calf. Dr. Ledbetter consulted, no emergent intervention at this time as findings chronic. Heparin sq, resume ASA. ANTHONY: Creatinine 1.34, on admission previously 1.30 on 08/14/16. IVF for hydration. Monitor kidney indices, avoid nephrotoxins Tobacco Abuse: Patient counseled on the need to quit. Ativan prn. No NicoDerm to avoid vasoconstriction. DVT Prophylaxis: Heparin sq CM consulted for DC planning as needed. Patricia López MD Jul 21, 2017 15:57
[2017-07-21] MEDS: SENNOSIDES 8.6 MG TAB PO PRN (22:02)
[2017-07-22] VITALS (7 sets, daily range): BP systolic 95–132; BP diastolic 60–81; PULSE 62–89; RESP 16–19; TEMP 96.6–98.9; O2SAT 92–98
[2017-07-22] MEDS: VANCOMYCIN 1,000 MG/NS 250 ML IV SCH ×4 (01:58→21:10)
[2017-07-22] MEDS: SODIUM CHLOR 0.9% 1000 ML INJ 1,000 ML IV SCH ×2 (08:31→17:10)
[2017-07-22] MEDS: CEFEPIME 2000 MG/NS 100 ML IV SCH ×2 (08:31)
[2017-07-22] MEDS: SODIUM CHLORIDE 0.9% FLUSH 10 ML FLUSH IV FLUSH SCH ×2 (08:32→21:00)
[2017-07-22] MEDS: CARVEDILOL 12.5 MG TAB PO SCH ×2 (08:33→21:00)
[2017-07-22] MEDS: ASPIRIN EC 81 MG TABEC PO SCH (08:34)
[2017-07-22] MEDS: PRAVASTATIN SOD 40 MG TAB PO SCH (08:34)
[2017-07-22] MEDS: DOCUSATE SODIUM 50 MG/SENNA 8.6 MG TAB PO SCH ×2 (08:34→21:07)
[2017-07-22] MEDS: HEPARIN SODIUM - SQ 10,000 UNITS/ML VIAL SQ SCH (08:34)
[2017-07-22 09:20] LABS: HEMOGLOBIN 12.8 GM/DL (13.0-17.0); MEAN CELL VOLUME 88.4 FL (80.0-100.0); MEAN CORPUSCULAR HEMOGLOBIN 30.5 PG (27.0-34.0); MEAN CORPUSCULAR HGB CONC 34.5 % (32.0-36.0); MEAN PLATELET VOLUME 7.1 FL (7.0-11.0); PLATELET COUNT 355 TH/MM3 (150-450); RED BLOOD COUNT 4.18 MIL/MM3 (4.50-5.90); RED CELL DISTRIBUTION WIDTH 12.9 % (11.6-17.2); WHITE BLOOD COUNT 14.1 TH/MM3 (4.0-11.0)
[2017-07-22 09:41] LABS: CREATININE 1.06 MG/DL (0.60-1.30)
[2017-07-22] MEDS: HEPARIN-D5W 25,000 U/250 ML 250 ML IV PRN ×2 (09:41→21:01)
[2017-07-22] MEDS ORDERED: PHENYLEPH/NS 1000 MCG/10 ML SYR IV ONE (12:00)
[2017-07-22] MEDS ORDERED: PROPOFOL 200 MG/20 ML AMP IV ONE (12:00)
[2017-07-22] MEDS ORDERED: ePHEDrine/NS 25 MG/5 ML SYRINGE IV ONE (12:00)
[2017-07-22] MEDS ORDERED: LIDOCAINE HCL 1% PF 5 ML SYRINGE OTHER ONE (12:00)
[2017-07-22] MEDS ORDERED: FAMOTIDINE 20 MG/2 ML VIAL ONE (12:27)
[2017-07-22] MEDS ORDERED: ACETAMINOPHEN 1000 MG/100 ML 100 ML IV ONE (12:27)
--- NOTE | 2017-07-22 12:41 | HHI.PR ---
Subjective Remarks Resting comfortably in bed No event overnight Denied chest and or short of breath No fever or chills Plan for foot surgery possible BKA today Objective Vitals Vital Signs Date Time Temp Pulse Resp B/P (MAP) Pulse Ox O2 Delivery O2 Flow Rate FiO2 07/22/17 12:00 97.4 81 19 132/81 (98) 94 07/22/17 08:00 97.2 76 19 111/65 (80) 96 07/22/17 04:00 98.9 64 17 122/61 (81) 92 07/22/17 00:11 69 07/22/17 00:00 98.9 62 17 120/62 (81) 94 07/21/17 20:02 66 07/21/17 20:00 99.4 64 17 116/68 (84) 93 07/21/17 16:00 97.3 69 18 116/71 (86) 96 I/O 07/21/17 07/21/17 07/21/17 07/22/17 07/22/17 07/22/17 07:00 15:00 23:00 07:00 15:00 23:00 Intake Total 240 ml 350 ml 840 ml 0 ml Output Total 200 ml 300 ml Balance 40 ml 350 ml 540 ml 0 ml Intake Oral 240 ml 840 ml 0 ml IV Total 350 ml Output Urine Total 200 ml 300 ml # Voids 3 2 1 2 # Bowel Movements 1 2 0 1 Result Diagram: 07/22/17 0836 07/22/17 0836 Objective Remarks GENERAL: This is a well-nourished, well-developed patient, in no apparent distress. SKIN: No rashes, warm and dry CARDIOVASCULAR: Regular rate and rhythm without murmurs, gallops, or rubs. RESPIRATORY: Fair air entry bilaterally. No wheezes, rales, or rhonchi. GASTROINTESTINAL: Abdomen soft, non-tender, nondistended. Positive bowel sounds MUSCULOSKELETAL: Extensive gangrenous skin lesion on the left foot dorsal and plantar NEUROLOGICAL: Awake and alert. Moves all extremity. Normal speech.no focal neurological deficit A/P Problem List: (1) Sepsis ICD Code: A41.9 - Sepsis, unspecified organism Status: Acute (2) Gangrene of left foot ICD Code: I96 - Gangrene, not elsewhere classified Status: Acute (3) PAD (peripheral artery disease) ICD Code: I73.9 - Peripheral vascular disease, unspecified Status: Acute (4) ANTHONY (acute kidney injury) ICD Code: N17.9 - Acute kidney failure, unspecified Status: Acute (5) Tobacco abuse ICD Code: Z72.0 - Tobacco use Status: Acute Assessment and Plan 07/20: WBC dropped from 18-14, creatinine dropped from 1.3-1.2, continue anticoagulation with antibiotic, surgery following, monitor PTT, WBC 07/21: WBC within normal limits now, discussed with Dr. Hanson [facility] he informed me his plan on proceeding with surgery tomorrow, and later on possible management of carotid stenosis as a second phase Monitor clinically, monitor vitals 07/22: Plan for BKA today by Dr. Hanson, Repeat CBC BMP in a.m., monitor temperature, blood pressure A/P: Sepsis: HR 99, and WBC 18, Source-left foot gangrene on admission. Left Foot Gangrene: Left foot w/ extensive necrosis/sloughing, +maggots. Will likely require amputation. S/p Zosyn in ER, continue w/ Vanc/Cefepime. Consult Wound Management for further evaluation/intervention. PAD: H/o PAD s/p Left Fem-Pop Bypass, CTA w/ Runoff reviewed showing threadlike collateral vessels w/ minimal flow into calf. Dr. Ledbetter consulted, no emergent intervention at this time as findings chronic. Heparin sq, resume ASA. ANTHONY: Creatinine 1.34, on admission previously 1.30 on 08/14/16. IVF for hydration. Monitor kidney indices, avoid nephrotoxins Tobacco Abuse: Patient counseled on the need to quit. Ativan prn. No NicoDerm to avoid vasoconstriction. DVT Prophylaxis: Heparin sq CM consulted for DC planning as needed. Patricia López MD Jul 22, 2017 12:41
[2017-07-22] MEDS ORDERED: CHLORHEXIDINE GLUCONATE 2 % 1 PACK (2 CLOTHS) TOPICAL PRN (13:45)
[2017-07-22] MEDS ORDERED: METOPROLOL TARTRATE 25 MG TAB PO PRN (13:45)
[2017-07-22] MEDS ORDERED: LACTATED RINGER'S 1000 ML IV PRN (13:45)
[2017-07-22] MEDS ORDERED: POVIDONE IODINE 5% (ANTISEPSIS KIT) 4 APPLICATIONS EACH NARE PRN (13:45)
[2017-07-22] MEDS ORDERED: SODIUM CHLORID 0.9% 500 ML IV PRN (13:45)
[2017-07-22] MEDS ORDERED: INSULIN HUMAN REGULAR 1,000 UNITS/10 ML VIAL SQ PRN (13:45)
[2017-07-22] MEDS ORDERED: DO NOT ADM ANY ANTICOAGULANT DRUGS PRN (14:45)
[2017-07-22] MEDS ORDERED: *morphine SULFATE 10 MG/ML PERIprocedure ONLY ONE (14:59)
--- NOTE | 2017-07-22 19:32 | MP ---
cc: Ej Ledbetter MD, Slobodan MD DATE OF OPERATION: 07/22/2017 PREOPERATIVE DIAGNOSIS: Gangrene of the left foot, peripheral vascular disease. POSTOPERATIVE DIAGNOSIS: Gangrene of the left foot, peripheral vascular disease. PROCEDURE: Left below-knee amputation. SURGEON Ej Ledbetter MD ANESTHESIA: General. ESTIMATED BLOOD LOSS: 50 mL. PROCEDURE IN DETAIL: The patient prepped and draped in usual fashion. The skin is marked with silk indentation and then incision made anteriorly with a 10 blade, carried down laterally and down creating the posterior flap through the skin. The incision is now deepened proximally with cautery. Anterior tibial artery and veins are clamped, divided and ligated with 0 silk. Medially the muscle is carried down to below the level of the tibia and laterally to the level of the fibula which is then freed up with the periosteal elevator. With periosteal elevation, periosteum is lifted to about 2 inches above the level of the original incision on tibia and fibula and then oscillating saw is used to transect tibia and fibula and a long amputation knife to create posterior flap. The specimen is removed. The area is irrigated with copious amounts of saline and meticulous hemostasis is obtained of the branch of trifurcation vessel using 0 Vicryl stick ties. Meticulous hemostasis is assured and then the posterior flap turned anteriorly and the stump closed in layers using 0 Vicryl and then skin is closed with 2-0 Prolene inoperative stitches, dressing applied. The patient tolerated the procedure well. MD MARI Mcpherson//oswald , 06:52 PM , 07:26 PM
[2017-07-23] VITALS (7 sets, daily range): BP systolic 107–137; BP diastolic 57–80; PULSE 66–77; RESP 15–18; TEMP 95.5–97; O2SAT 92–96
[2017-07-23] MEDS: MORPHINE SULFATE 2 MG/ML INJ IV PUSH PRN ×2 (01:01→11:44)
[2017-07-23] MEDS: SODIUM CHLOR 0.9% 1000 ML INJ 1,000 ML IV SCH ×2 (01:25→11:19)
[2017-07-23] MEDS: CEFEPIME 2000 MG/NS 100 ML IV SCH ×2 (09:06)
[2017-07-23] MEDS: PRAVASTATIN SOD 40 MG TAB PO SCH (09:07)
[2017-07-23] MEDS: DOCUSATE SODIUM 50 MG/SENNA 8.6 MG TAB PO SCH (09:07)
[2017-07-23] MEDS: CARVEDILOL 12.5 MG TAB PO SCH (09:07)
[2017-07-23] MEDS: ASPIRIN EC 81 MG TABEC PO SCH (09:07)
[2017-07-23] MEDS: SODIUM CHLORIDE 0.9% FLUSH 10 ML FLUSH IV FLUSH SCH (09:07)
[2017-07-23] MEDS ORDERED: VANCOMYCIN 1,000 MG/NS 250 ML IV SCH ×2 (10:00)
[2017-07-23] MEDS: HEPARIN-D5W 25,000 U/250 ML 250 ML IV PRN (11:41)
--- NOTE | 2017-07-23 11:56 | HHI.PR ---
Subjective Remarks Seen and examined resting in bed Status post right BKA Pain is tolerable We will DC antibiotics and monitor of a ABX Objective Vitals Vital Signs Date Time Temp Pulse Resp B/P (MAP) Pulse Ox O2 Delivery O2 Flow Rate FiO2 07/23/17 08:00 96.4 73 15 137/80 (99) 96 07/23/17 04:16 96.4 66 18 114/75 (88) 94 07/23/17 00:14 67 07/23/17 00:00 97.0 70 17 121/78 (92) 96 07/22/17 20:00 96.8 89 16 98/64 (75) 98 07/22/17 17:27 96.6 63 18 95/60 (72) 95 07/22/17 16:15 98.5 59 16 120/75 (90) 94 07/22/17 16:00 98.0 65 16 111/66 (81) 97 07/22/17 15:45 64 14 106/65 (79) 97 Blow By 07/22/17 15:30 62 14 95/60 (72) 96 Blow By 07/22/17 15:15 62 14 96/57 (70) 94 Blow By 07/22/17 15:00 70 14 125/73 (90) 96 Blow By 07/22/17 14:45 70 14 106/66 (79) 96 Blow By 07/22/17 14:30 66 14 116/67 (83) 99 Nasal Cannula 3 07/22/17 14:21 71 16 98/59 (72) 99 Nasal Cannula 3 07/22/17 14:17 97.7 80 16 128/78 (95) 99 07/22/17 12:00 97.4 81 19 132/81 (98) 94 I/O 07/22/17 07/22/17 07/22/17 07/23/17 07/23/17 07/23/17 07:00 15:00 23:00 07:00 15:00 23:00 Intake Total 0 ml 850 ml 480 ml 1580 ml Output Total 400 ml 600 ml 1400 ml Balance 0 ml 450 ml -120 ml 180 ml Intake Oral 0 ml 480 ml 480 ml IV Total 100 ml 1100 ml Other 750 ml Output Urine Total 300 ml 600 ml 1400 ml Estimated Blood Loss 100 ml # Voids 1 2 3 # Bowel Movements 0 1 1 1 Result Diagram: 07/22/17 0836 07/22/17 0836 Objective Remarks GENERAL: This is a well-nourished, well-developed patient, in no apparent distress. SKIN: No rashes, warm and dry CARDIOVASCULAR: Regular rate and rhythm without murmurs, gallops, or rubs. RESPIRATORY: Fair air entry bilaterally. No wheezes, rales, or rhonchi. GASTROINTESTINAL: Abdomen soft, non-tender, nondistended. Positive bowel sounds MUSCULOSKELETAL: Right BKA, stump and gauze NEUROLOGICAL: Awake and alert. Moves all extremity. Normal speech.no focal neurological deficit A/P Problem List: (1) Sepsis ICD Code: A41.9 - Sepsis, unspecified organism Status: Acute (2) Gangrene of left foot ICD Code: I96 - Gangrene, not elsewhere classified Status: Acute (3) PAD (peripheral artery disease) ICD Code: I73.9 - Peripheral vascular disease, unspecified Status: Acute (4) ANTHONY (acute kidney injury) ICD Code: N17.9 - Acute kidney failure, unspecified Status: Acute (5) Tobacco abuse ICD Code: Z72.0 - Tobacco use Status: Acute Assessment and Plan 07/20: WBC dropped from 18-14, creatinine dropped from 1.3-1.2, continue anticoagulation with antibiotic, surgery following, monitor PTT, WBC 07/21: WBC within normal limits now, discussed with Dr. Hanson [facility] he informed me his plan on proceeding with surgery tomorrow, and later on possible management of carotid stenosis as a second phase Monitor clinically, monitor vitals 07/22: Plan for BKA today by Dr. Hanson, Repeat CBC BMP in a.m., monitor temperature, blood pressure 07/23: Status post right BKA on 07/22, continue pain management, DC antibiotic, follow-up antibiotic, patient with A. fib high risk for thrombosis, will DC heparin and start on Eliquis A/P: Sepsis: HR 99, and WBC 18, Source-left foot gangrene on admission. Left Foot Gangrene: Left foot w/ extensive necrosis/sloughing, +maggots. Will likely require amputation. S/p Zosyn in ER, continue w/ Vanc/Cefepime. Consult Wound Management for further evaluation/intervention. PAD: H/o PAD s/p Left Fem-Pop Bypass, CTA w/ Runoff reviewed showing threadlike collateral vessels w/ minimal flow into calf. Dr. Ledbetter consulted, no emergent intervention at this time as findings chronic. Heparin sq, resume ASA. ANTHONY: Improved, creatinine at baseline. IVF for hydration. Monitor kidney indices, avoid nephrotoxins Tobacco Abuse: Patient counseled on the need to quit. Ativan prn. No NicoDerm to avoid vasoconstriction. DVT Prophylaxis: Heparin sq CM consulted for DC planning as needed. Patricia López MD Jul 23, 2017 11:56
--- NOTE | 2017-07-23 12:00 | PD.CAR.PN ---
CVT Progress Note Subjective/Hospital Course: 07/21/2017 Patient with a left foot gangrene and severe inflow disease post multiple bypass procedures At this point there is no way to save this and patient will need below-knee amputation Appreciate consult and second opinion from Dr. Roldan. In addition patient has a carotid bruit and CTA of the neck reveals about 70% right internal carotid artery stenosis with an ulcerated plaque This is a serious situation and barring any other issues patient will need right carotid endarterectomy in the near future. Plan to go ahead with a left below-knee amputation tomorrow 07/23/2017 Patient is status post left below-knee amputation Incision is clean and dry dressing is intact We will leave the original dressing on and remove it tomorrow Nothing to add to care right now Objective: Vital Signs Date Time Temp Pulse Resp B/P (MAP) Pulse Ox O2 Delivery O2 Flow Rate FiO2 07/23/17 08:00 96.4 73 15 137/80 (99) 96 07/23/17 04:16 96.4 66 18 114/75 (88) 94 07/23/17 00:14 67 07/23/17 00:00 97.0 70 17 121/78 (92) 96 07/22/17 20:00 96.8 89 16 98/64 (75) 98 07/22/17 17:27 96.6 63 18 95/60 (72) 95 07/22/17 16:15 98.5 59 16 120/75 (90) 94 07/22/17 16:00 98.0 65 16 111/66 (81) 97 07/22/17 15:45 64 14 106/65 (79) 97 Blow By 07/22/17 15:30 62 14 95/60 (72) 96 Blow By 07/22/17 15:15 62 14 96/57 (70) 94 Blow By 07/22/17 15:00 70 14 125/73 (90) 96 Blow By 07/22/17 14:45 70 14 106/66 (79) 96 Blow By 07/22/17 14:30 66 14 116/67 (83) 99 Nasal Cannula 3 07/22/17 14:21 71 16 98/59 (72) 99 Nasal Cannula 3 07/22/17 14:17 97.7 80 16 128/78 (95) 99 07/22/17 12:00 97.4 81 19 132/81 (98) 94 Labs: Laboratory Tests Test 07/23/17 03:22 07/23/17 06:53 Activated Partial Thromboplast Time 66.2 SEC (24.3-30.1) 66.7 SEC (24.3-30.1) Result Diagram: 07/22/17 0836 07/22/17 0836 Ej Ledbetter MD Jul 23, 2017 12:00
[2017-07-23 19:49] LABS: AUTOMATED NEUTROPHIL # 12.7 TH/MM3 (1.8-7.7); BASOPHIL # 0.1 TH/MM3 (0-0.2); BASOPHIL % 0.6 % (0.0-2.0); EOSINOPHIL % 0.1 % (0.0-4.0); HEMATOCRIT 31.5 % (39.0-51.0); HEMOGLOBIN 10.7 GM/DL (13.0-17.0); LYMPH % 6.6 % (9.0-44.0); MEAN CELL VOLUME 87.8 FL (80.0-100.0); MEAN CORPUSCULAR HEMOGLOBIN 29.7 PG (27.0-34.0); MEAN CORPUSCULAR HGB CONC 33.8 % (32.0-36.0); MEAN PLATELET VOLUME 6.8 FL (7.0-11.0); MONO % 12.9 % (0.0-8.0); NEUT % 79.8 % (16.0-70.0); PLATELET COUNT 326 TH/MM3 (150-450); RED BLOOD COUNT 3.59 MIL/MM3 (4.50-5.90); RED CELL DISTRIBUTION WIDTH 12.9 % (11.6-17.2); WHITE BLOOD COUNT 15.9 TH/MM3 (4.0-11.0)
[2017-07-24] VITALS: BP 110/62; PULSE 77; RESP 18; TEMP 100.5; O2SAT 94
[2017-07-24] MEDS: DOCUSATE SODIUM 50 MG/SENNA 8.6 MG TAB PO SCH ×3 (00:18→20:20)
[2017-07-24] MEDS: CARVEDILOL 12.5 MG TAB PO SCH ×3 (00:18→20:21)
[2017-07-24] MEDS: SODIUM CHLOR 0.9% 1000 ML INJ 1,000 ML IV SCH ×2 (00:19→20:22)
[2017-07-24] MEDS: APIXABAN 5 MG TABLET PO SCH ×3 (00:19→20:21)
[2017-07-24] MEDS: SODIUM CHLORIDE 0.9% FLUSH 10 ML FLUSH IV FLUSH SCH ×3 (00:19→20:21)
[2017-07-24 04:00] VITALS: BP 121/75; PULSE 83; RESP 18; TEMP 97.6; O2SAT 92
[2017-07-24 07:26] LABS: AUTOMATED NEUTROPHIL # 11.9 TH/MM3 (1.8-7.7); BASOPHIL # 0.1 TH/MM3 (0-0.2); BASOPHIL % 0.4 % (0.0-2.0); EOSINOPHIL # 0.1 TH/MM3 (0-0.4); EOSINOPHIL % 0.3 % (0.0-4.0); HEMATOCRIT 32.3 % (39.0-51.0); HEMOGLOBIN 10.9 GM/DL (13.0-17.0); LYMPH % 7.5 % (9.0-44.0); LYMPHOCYTE # 1.2 TH/MM3 (1.0-4.8); MEAN CELL VOLUME 88.3 FL (80.0-100.0); MEAN CORPUSCULAR HEMOGLOBIN 29.8 PG (27.0-34.0); MEAN CORPUSCULAR HGB CONC 33.7 % (32.0-36.0); MEAN PLATELET VOLUME 7.1 FL (7.0-11.0); MONO % 16.1 % (0.0-8.0); MONOCYTE # 2.5 TH/MM3 (0-0.9); NEUT % 75.7 % (16.0-70.0); PLATELET COUNT 329 TH/MM3 (150-450); RED BLOOD COUNT 3.66 MIL/MM3 (4.50-5.90); WHITE BLOOD COUNT 15.7 TH/MM3 (4.0-11.0)
[2017-07-24 08:00] VITALS: BP 124/72; PULSE 63; RESP 18; TEMP 97.4; O2SAT 96
[2017-07-24] MEDS: PRAVASTATIN SOD 40 MG TAB PO SCH (09:00)
[2017-07-24] MEDS: ASPIRIN EC 81 MG TABEC PO SCH (09:24)
[2017-07-24 09:36] LABS: BANDS 5 % (0-6); LYMPHOCYTES 12 % (9-44); MONOCYTES 16 % (0-8); NEUTROPHIL # MANUAL DIFF 11.3 TH/MM3 (1.8-7.7); POLYS (SEG NEUTROPHILS) 67 % (16-70); TOXIC VACUOLATION PRESENT (NONE SEEN)
[2017-07-24 09:37] LABS: ACANTHOCYTES OCC (NORMAL); OVALOCYTES 1+ (NORMAL)
[2017-07-24] MEDS: MORPHINE SULFATE 2 MG/ML INJ IV PUSH PRN ×5 (11:05→21:28)
[2017-07-24 12:00] VITALS: BP 98/58; PULSE 59; RESP 18; TEMP 97.3; O2SAT 94
[2017-07-24 16:00] VITALS: BP 138/82; PULSE 71; RESP 18; TEMP 97.1; O2SAT 95
--- NOTE | 2017-07-24 17:35 | HHI.PR ---
Subjective Remarks Patient resting in bed He was sleeping woke up to voice Complaining of pain in his stump plan continue dressing today by surgery Objective Vitals Vital Signs Date Time Temp Pulse Resp B/P (MAP) Pulse Ox O2 Delivery O2 Flow Rate FiO2 07/24/17 16:00 97.1 71 18 138/82 (100) 95 07/24/17 12:00 97.3 59 18 98/58 (71) 94 07/24/17 08:00 97.4 63 18 124/72 (89) 96 07/24/17 04:00 97.6 83 18 121/75 (90) 92 07/24/17 00:00 100.5 77 18 110/62 (78) 94 07/23/17 20:00 96.7 77 16 107/67 (80) 92 I/O 07/23/17 07/23/17 07/23/17 07/24/17 07/24/17 07/24/17 07:00 15:00 23:00 07:00 15:00 23:00 Intake Total 1580 ml 350 ml 480 ml Output Total 1400 ml 350 ml 950 ml Balance 180 ml 0 ml -470 ml Intake Oral 480 ml 480 ml IV Total 1100 ml 350 ml Output Urine Total 1400 ml 350 ml 950 ml # Voids 2 # Bowel Movements 1 0 Result Diagram: 07/24/17 0552 07/22/17 0836 Objective Remarks GENERAL: This is a well-nourished, well-developed patient, in no apparent distress. SKIN: No rashes, warm and dry CARDIOVASCULAR: Regular rate and rhythm without murmurs, gallops, or rubs. RESPIRATORY: Fair air entry bilaterally. No wheezes, rales, or rhonchi. GASTROINTESTINAL: Abdomen soft, non-tender, nondistended. Positive bowel sounds MUSCULOSKELETAL: L BKA, stump and gauze NEUROLOGICAL: Awake and alert. Moves all extremity. Normal speech.no focal neurological deficit A/P Problem List: (1) Sepsis ICD Code: A41.9 - Sepsis, unspecified organism Status: Acute (2) Gangrene of left foot ICD Code: I96 - Gangrene, not elsewhere classified Status: Acute (3) PAD (peripheral artery disease) ICD Code: I73.9 - Peripheral vascular disease, unspecified Status: Acute (4) ATNHONY (acute kidney injury) ICD Code: N17.9 - Acute kidney failure, unspecified Status: Acute (5) Tobacco abuse ICD Code: Z72.0 - Tobacco use Status: Acute Assessment and Plan 07/20: WBC dropped from 18-14, creatinine dropped from 1.3-1.2, continue anticoagulation with antibiotic, surgery following, monitor PTT, WBC 07/21: WBC within normal limits now, discussed with Dr. Hanson [facility] he informed me his plan on proceeding with surgery tomorrow, and later on possible management of carotid stenosis as a second phase Monitor clinically, monitor vitals 07/22: Plan for BKA today by Dr. Hanson, Repeat CBC BMP in a.m., monitor temperature, blood pressure 07/23: Status post l BKA on 07/22, continue pain management, DC antibiotic, follow-up antibiotic, patient with A. fib high risk for thrombosis, will DC heparin and start on Eliquis 07/25: Left BKA dressing changes today by surgery, monitor temperature, awaiting pathology, monitor WBC and temperature, repeat CBC in a A/P: Sepsis: HR 99, and WBC 18, Source-left foot gangrene on admission. Left Foot Gangrene: Left foot w/ extensive necrosis/sloughing, +maggots. Will likely require amputation. S/p Zosyn in ER, continue w/ Vanc/Cefepime. Consult Wound Management for further evaluation/intervention. PAD: H/o PAD s/p Left Fem-Pop Bypass, CTA w/ Runoff reviewed showing threadlike collateral vessels w/ minimal flow into calf. Dr. Ledbetter consulted, no emergent intervention at this time as findings chronic. Heparin sq, resume ASA. ANTHONY: Improved, creatinine at baseline. IVF for hydration. Monitor kidney indices, avoid nephrotoxins Tobacco Abuse: Patient counseled on the need to quit. Ativan prn. No NicoDerm to avoid vasoconstriction. DVT Prophylaxis: Heparin sq CM consulted for DC planning as needed. Patricia López MD Jul 24, 2017 17:35
[2017-07-24 20:00] VITALS: BP 98/57; PULSE 64; RESP 18; TEMP 97.3; O2SAT 93
[2017-07-24] MEDS ORDERED: PHARMACY ORDERED LAB ONE (21:45)
[2017-07-25 00:19] VITALS: BP 128/70; PULSE 73; RESP 18; TEMP 97.5; O2SAT 92
[2017-07-25] MEDS ORDERED: PHARMACY ORDERED LAB ONE (01:45)
[2017-07-25] MEDS: SODIUM CHLOR 0.9% 1000 ML INJ 1,000 ML IV SCH ×3 (03:19→23:12)
[2017-07-25 04:12] VITALS: BP 116/75; PULSE 87; RESP 16; TEMP 96.7; O2SAT 95
[2017-07-25] MEDS: MORPHINE SULFATE 2 MG/ML INJ IV PUSH PRN ×2 (04:25→10:54)
[2017-07-25 06:59] LABS: AUTOMATED NEUTROPHIL # 11.7 TH/MM3 (1.8-7.7); BASOPHIL # 0.1 TH/MM3 (0-0.2); BASOPHIL % 0.4 % (0.0-2.0); EOSINOPHIL % 0.1 % (0.0-4.0); HEMATOCRIT 31.8 % (39.0-51.0); HEMOGLOBIN 10.7 GM/DL (13.0-17.0); LYMPH % 7.8 % (9.0-44.0); LYMPHOCYTE # 1.2 TH/MM3 (1.0-4.8); MEAN CELL VOLUME 87.8 FL (80.0-100.0); MEAN CORPUSCULAR HEMOGLOBIN 29.6 PG (27.0-34.0); MEAN CORPUSCULAR HGB CONC 33.7 % (32.0-36.0); MEAN PLATELET VOLUME 7.2 FL (7.0-11.0); MONO % 16.4 % (0.0-8.0); MONOCYTE # 2.6 TH/MM3 (0-0.9); NEUT % 75.3 % (16.0-70.0); PLATELET COUNT 339 TH/MM3 (150-450); RED BLOOD COUNT 3.62 MIL/MM3 (4.50-5.90); RED CELL DISTRIBUTION WIDTH 12.8 % (11.6-17.2); WHITE BLOOD COUNT 15.6 TH/MM3 (4.0-11.0)
[2017-07-25 08:00] VITALS: BP 105/67; PULSE 74; RESP 18; TEMP 97.5; O2SAT 93
[2017-07-25 08:48] LABS: OVALOCYTES 1+ (NORMAL); TOXIC VACUOLATION PRESENT (NONE SEEN)
[2017-07-25] MEDS: SODIUM CHLORIDE 0.9% FLUSH 10 ML FLUSH IV FLUSH SCH ×2 (09:00→20:42)
[2017-07-25] MEDS: PRAVASTATIN SOD 40 MG TAB PO SCH (10:51)
[2017-07-25] MEDS: ASPIRIN EC 81 MG TABEC PO SCH (10:51)
[2017-07-25] MEDS: DOCUSATE SODIUM 50 MG/SENNA 8.6 MG TAB PO SCH ×2 (10:51→20:42)
[2017-07-25] MEDS: APIXABAN 5 MG TABLET PO SCH ×2 (10:52→20:42)
[2017-07-25] MEDS: CARVEDILOL 12.5 MG TAB PO SCH ×2 (10:52→20:42)
--- NOTE | 2017-07-25 11:15 | HHI.PR ---
Subjective Remarks Patient resting in bed Stated his to feel pain in his stump Afebrile no nausea or vomiting Objective Vitals Vital Signs Date Time Temp Pulse Resp B/P (MAP) Pulse Ox O2 Delivery O2 Flow Rate FiO2 07/25/17 08:00 97.5 74 18 105/67 (80) 93 07/25/17 04:12 96.7 87 16 116/75 (89) 95 07/25/17 00:19 97.5 73 18 128/70 (89) 92 07/24/17 20:00 97.3 64 18 98/57 (71) 93 07/24/17 16:00 97.1 71 18 138/82 (100) 95 07/24/17 12:00 97.3 59 18 98/58 (71) 94 I/O 07/24/17 07/24/17 07/24/17 07/25/17 07/25/17 07/25/17 07:00 15:00 23:00 07:00 15:00 23:00 Intake Total 1000 ml 850 ml Balance 1000 ml 850 ml IV Total 1000 ml 850 ml # Voids 2 5 3 # Bowel Movements 1 Result Diagram: 07/25/17 0605 07/22/17 0836 Objective Remarks GENERAL: This is a well-nourished, well-developed patient, in no apparent distress. SKIN: No rashes, warm and dry CARDIOVASCULAR: Regular rate and rhythm without murmurs, gallops, or rubs. RESPIRATORY: Fair air entry bilaterally. No wheezes, rales, or rhonchi. GASTROINTESTINAL: Abdomen soft, non-tender, nondistended. Positive bowel sounds MUSCULOSKELETAL: L BKA, stump and gauze NEUROLOGICAL: Awake and alert. Moves all extremity. Normal speech.no focal neurological deficit A/P Problem List: (1) Sepsis ICD Code: A41.9 - Sepsis, unspecified organism Status: Acute (2) Gangrene of left foot ICD Code: I96 - Gangrene, not elsewhere classified Status: Acute (3) PAD (peripheral artery disease) ICD Code: I73.9 - Peripheral vascular disease, unspecified Status: Acute (4) ANTHONY (acute kidney injury) ICD Code: N17.9 - Acute kidney failure, unspecified Status: Acute (5) Tobacco abuse ICD Code: Z72.0 - Tobacco use Status: Acute Assessment and Plan 07/25: Left BKA dressing changes today by surgery, monitor temperature, awaiting pathology, monitor WBC and temperature, repeat CBC in am A/P: Sepsis: HR 99, and WBC 18, Source-left foot gangrene on admission. Left Foot Gangrene: Left foot w/ extensive necrosis/sloughing, +maggots. Will likely require amputation. S/p Zosyn in ER, continue w/ Vanc/Cefepime. Consult Wound Management for further evaluation/intervention. Status post l BKA on 07/22, continue pain management, DC antibiotic, follow-up antibiotic, patient with A. fib high risk for thrombosis, will DC heparin and start on Eliquis PAD: H/o PAD s/p Left Fem-Pop Bypass, CTA w/ Runoff reviewed showing threadlike collateral vessels w/ minimal flow into calf. Dr. Ledbetter consulted, no emergent intervention at this time as findings chronic. Heparin sq, resume ASA. ANTHONY: Improved, creatinine at baseline. IVF for hydration. Monitor kidney indices, avoid nephrotoxins Tobacco Abuse: Patient counseled on the need to quit. Ativan prn. No NicoDerm to avoid vasoconstriction. DVT Prophylaxis: Heparin sq CM consulted for DC planning as needed. Patricia López MD Jul 25, 2017 11:15
[2017-07-25 12:00] VITALS: BP_SYST 86; BP_SYST 87; BP_DIAS 52; BP_DIAS 53; PULSE 78; RESP 14; TEMP 96.9
--- NOTE | 2017-07-25 15:10 | PD.CAR.PN ---
CVT Progress Note Subjective/Hospital Course: 07/21/2017 Patient with a left foot gangrene and severe inflow disease post multiple bypass procedures At this point there is no way to save this and patient will need below-knee amputation Appreciate consult and second opinion from Dr. Roldan. In addition patient has a carotid bruit and CTA of the neck reveals about 70% right internal carotid artery stenosis with an ulcerated plaque This is a serious situation and barring any other issues patient will need right carotid endarterectomy in the near future. Plan to go ahead with a left below-knee amputation tomorrow 07/23/2017 Patient is status post left below-knee amputation Incision is clean and dry dressing is intact We will leave the original dressing on and remove it tomorrow Nothing to add to care right now 07/25/2017 BKA dressing removed Incision is clean and dry healing really nicely Stump looks well-perfused and warm It can be left open to air and patient can be discharged from my point any time Patient has a 70-75% right internal carotid artery stenosis which is hemodynamically significant At this point patient is not in a great shape. He is weak and emaciated, but alert and oriented Ejection fraction is in 30-35% range. All these comorbidities make this gentleman poor candidate for any major surgery so the carotid stenosis should be watched carefully and surgery will be an option if patient has symptoms. If he remains neurologically asymptomatic I would keep him on aspirin and observe Objective: Vital Signs Date Time Temp Pulse Resp B/P (MAP) Pulse Ox O2 Delivery O2 Flow Rate FiO2 07/25/17 12:00 96.9 78 14 87/53 (64) 86/52 (63) 07/25/17 08:00 97.5 74 18 105/67 (80) 93 07/25/17 04:12 96.7 87 16 116/75 (89) 95 07/25/17 00:19 97.5 73 18 128/70 (89) 92 07/24/17 20:00 97.3 64 18 98/57 (71) 93 07/24/17 16:00 97.1 71 18 138/82 (100) 95 Labs: Laboratory Tests Test 07/25/17 06:05 White Blood Count 15.6 TH/MM3 (4.0-11.0) Red Blood Count 3.62 MIL/MM3 (4.50-5.90) Hemoglobin 10.7 GM/DL (13.0-17.0) Hematocrit 31.8 % (39.0-51.0) Mean Corpuscular Volume 87.8 FL (80.0-100.0) Mean Corpuscular Hemoglobin 29.6 PG (27.0-34.0) Mean Corpuscular Hemoglobin Concent 33.7 % (32.0-36.0) Red Cell Distribution Width 12.8 % (11.6-17.2) Platelet Count 339 TH/MM3 (150-450) Mean Platelet Volume 7.2 FL (7.0-11.0) Neutrophils (%) (Auto) 75.3 % (16.0-70.0) Lymphocytes (%) (Auto) 7.8 % (9.0-44.0) Monocytes (%) (Auto) 16.4 % (0.0-8.0) Eosinophils (%) (Auto) 0.1 % (0.0-4.0) Basophils (%) (Auto) 0.4 % (0.0-2.0) Neutrophils # (Auto) 11.7 TH/MM3 (1.8-7.7) Lymphocytes # (Auto) 1.2 TH/MM3 (1.0-4.8) Monocytes # (Auto) 2.6 TH/MM3 (0-0.9) Eosinophils # (Auto) 0.0 TH/MM3 (0-0.4) Basophils # (Auto) 0.1 TH/MM3 (0-0.2) CBC Comment AUTO DIFF Differential Comment AUTO DIFF CONFIRMED Toxic Vacuolation PRESENT (NONE SEEN) Platelet Estimate NORMAL (NORMAL) Platelet Morphology Comment NORMAL (NORMAL) Ovalocytes 1+ (NORMAL) Activated Partial Thromboplast Time 36.3 SEC (24.3-30.1) Result Diagram: 07/25/17 0605 07/22/17 0836 Ej Ledbetter MD Jul 25, 2017 15:10
[2017-07-25 16:00] VITALS: BP 105/58; PULSE 89; RESP 16; TEMP 100; O2SAT 92
[2017-07-25] MEDS ORDERED: oxyCODONE/ACETAMINOPHEN 5 MG/325 MG TAB PO PRN (19:30)
[2017-07-25 20:00] VITALS: BP 122/68; PULSE 77; RESP 18; TEMP 98.5; O2SAT 94
[2017-07-25] MEDS: oxyCODONE/ACETAMINOPHEN 10 MG/325 MG TAB PO PRN (20:41)
[2017-07-25] MEDS ORDERED: APIX5TAB PO (23:12)
--- NOTE | 2017-07-25 23:17 | HHI.DS ---
Discharge Summary Admission Date Jul 18, 2017 at 21:16 Discharge Date: Jul 26, 2017 Admitting Diagnosis Left foot necrosis/severe peripheral vascular disease/sepsis (1) Sepsis ICD Code: A41.9 - Sepsis, unspecified organism Status: Acute (2) Gangrene of left foot ICD Code: I96 - Gangrene, not elsewhere classified Status: Acute (3) PAD (peripheral artery disease) ICD Code: I73.9 - Peripheral vascular disease, unspecified Status: Acute (4) ANTHONY (acute kidney injury) ICD Code: N17.9 - Acute kidney failure, unspecified Status: Acute (5) Tobacco abuse ICD Code: Z72.0 - Tobacco use Status: Acute Procedures bka left Brief History - From Admission This is a 71-year-old male with a PMH of Anxiety, Depression, HTN, A. fib, CVA, CAD, CHF (Echo w/ EF 55-60%), Severe PAD s/p Left Fem-Pop Bypass and Tobacco Abuse who presented to the ER with complaints of generalized weakness and severe left foot pain. Reports pain is constant, 10/10, sharp, no alleviating factors. Per EMS left foot wound noted to have maggots. Pt cannot tell me how long this has been going on for. Denies fever or chills. On arrival, BP 116/76 , HR 73, O2 sat 96% on RA, Afebrile. WBC 18. Creatinine 1.34, previously 1.30 on 08/14/16. INR 1.1. CXR with no acute findings. CTA with Runoff patent aorta , left iliac and bifemoral grafts, very poor flow to left lower extremity with tapering of femoral artery and threadlike collaterals. Dr. Ledbetter consulted , findings chronic, no emergent intervention required, will see patient in consultation. S/p Zosyn in ER. CBC/BMP: 07/25/17 0605 07/22/17 0836 Significant Findings Laboratory Tests Test 07/23/17 03:22 07/23/17 06:53 07/23/17 11:33 07/23/17 19:20 Activated Partial Thromboplast Time 66.2 SEC (24.3-30.1) 66.7 SEC (24.3-30.1) 62.6 SEC (24.3-30.1) White Blood Count 15.9 TH/MM3 (4.0-11.0) Red Blood Count 3.59 MIL/MM3 (4.50-5.90) Hemoglobin 10.7 GM/DL (13.0-17.0) Hematocrit 31.5 % (39.0-51.0) Mean Platelet Volume 6.8 FL (7.0-11.0) Neutrophils (%) (Auto) 79.8 % (16.0-70.0) Lymphocytes (%) (Auto) 6.6 % (9.0-44.0) Monocytes (%) (Auto) 12.9 % (0.0-8.0) Neutrophils # (Auto) 12.7 TH/MM3 (1.8-7.7) Monocytes # (Auto) 2.0 TH/MM3 (0-0.9) Test 07/24/17 00:52 07/24/17 05:52 07/25/17 06:05 Activated Partial Thromboplast Time 35.3 SEC (24.3-30.1) 36.3 SEC (24.3-30.1) White Blood Count 15.7 TH/MM3 (4.0-11.0) 15.6 TH/MM3 (4.0-11.0) Red Blood Count 3.66 MIL/MM3 (4.50-5.90) 3.62 MIL/MM3 (4.50-5.90) Hemoglobin 10.9 GM/DL (13.0-17.0) 10.7 GM/DL (13.0-17.0) Hematocrit 32.3 % (39.0-51.0) 31.8 % (39.0-51.0) Neutrophils (%) (Auto) 75.7 % (16.0-70.0) 75.3 % (16.0-70.0) Lymphocytes (%) (Auto) 7.5 % (9.0-44.0) 7.8 % (9.0-44.0) Monocytes (%) (Auto) 16.1 % (0.0-8.0) 16.4 % (0.0-8.0) Neutrophils # (Auto) 11.9 TH/MM3 (1.8-7.7) 11.7 TH/MM3 (1.8-7.7) Monocytes # (Auto) 2.5 TH/MM3 (0-0.9) 2.6 TH/MM3 (0-0.9) Monocytes % 16 % (0-8) Neutrophils # (Manual) 11.3 TH/MM3 (1.8-7.7) Toxic Vacuolation PRESENT (NONE SEEN) PRESENT (NONE SEEN) Ovalocytes 1+ (NORMAL) 1+ (NORMAL) PE at Discharge GENERAL: This is a well-nourished, well-developed patient, in no apparent distress. SKIN: No rashes, warm and dry CARDIOVASCULAR: Regular rate and rhythm without murmurs, gallops, or rubs. RESPIRATORY: Fair air entry bilaterally. No wheezes, rales, or rhonchi. GASTROINTESTINAL: Abdomen soft, non-tender, nondistended. Positive bowel sounds MUSCULOSKELETAL: L BKA, stump and gauze NEUROLOGICAL: Awake and alert. Moves all extremity. Normal speech.no focal neurological deficit Hospital Course 07/25: Left BKA dressing changes today by surgery, monitor temperature, awaiting pathology, monitor WBC and temperature, repeat CBC in a A/P: Sepsis: HR 99, and WBC 18, Source-left foot gangrene on admission. Left Foot Gangrene: Left foot w/ extensive necrosis/sloughing, +maggots. Will likely require amputation. S/p Zosyn in ER, continue w/ Vanc/Cefepime. Consult Wound Management for further evaluation/intervention. Status post l BKA on 07/22, continue pain management, DC antibiotic, follow-up antibiotic, patient with A. fib high risk for thrombosis, will DC heparin and start on Eliquis, cleared by Dr. Hanson to [facility] to be discharged to [facility] PAD: H/o PAD s/p Left Fem-Pop Bypass, CTA w/ Runoff reviewed showing threadlike collateral vessels w/ minimal flow into calf. Dr. Ledbetter consulted, no emergent intervention at this time as findings chronic. Heparin sq, resume ASA. ANTHONY: Improved, creatinine at baseline. IVF for hydration. Monitor kidney indices, avoid nephrotoxins [id number] encounter performed with the patient on 07/25, as well as physical exam, summary of hospitalization course and postdischarge plan has been D/W the patient. D/W nurse D/W director of casework department. Discharge medications reviewed and printed and signed, post discharge follow up visit with PCP and other specialist as well as Brief hospital course and discharge summary has been placed. Pt Condition on Discharge: Fair Discharge Disposition: Discharge to SNF Discharge Time: > 30 minutes Discharge Instructions DIET: Follow Instructions for: Heart Healthy Diet Activities you can perform: See Additionl Instruction Other Activity Instructions: per PT Follow up Referrals: Vascular Surgery - 1 Week with Ej Ledbetter MD New Medications: Apixaban (Eliquis) 5 Mg Tab 5 MG PO BID for afib, #30 TAB Continued Medications: Ascorbic Acid (Ascorbic Acid) 500 Mg Tab 500 MG PO BID, TAB Aspirin DR (Aspirin 81) 81 Mg Tabdr 81 MG PO DAILY, TAB 0 Refills Carvedilol (Coreg) 12.5 Mg Tab 25 MG PO BID for ARRHY for 30 Days, TAB Cholecalciferol (D3) 1,000 Unit Cap 1000 UNITS PO DAILY Erythromycin Opth Oint (Erythromycin Opth Oint) 5 Mg/Gm Oint 1 APPLIC RIGHT EYE BID for Infection, #1 TUBE 0 Refills Ferrous Sulfate (Ferrous Sulfate) 325 Mg Tab 324 MG PO DAILY for Nutritional Supplement, #30 TAB 0 Refills Pravastatin (Pravastatin) 40 Mg Tab 40 MG PO DAILY for Cholesterol Management, #30 TAB 0 Refills Ranitidine HCl (Gnp Acid Control 150 Maxi) 150 Mg Tab 150 MG PO DAILY Patricia López MD Jul 25, 2017 23:17
[2017-07-26] VITALS: BP 100/59; PULSE 70; RESP 18; TEMP 98.9; O2SAT 90
[2017-07-26 04:00] VITALS: BP_SYST 129; BP_SYST 98; BP_DIAS 53; BP_DIAS 66; PULSE 69; RESP 16; TEMP 97.5; TEMP 98; O2SAT 94; O2SAT 98
[2017-07-26] MEDS ORDERED: OXYC1TAB36 PO (07:05)
[2017-07-26 08:29] VITALS: BP 122/73; PULSE 74; RESP 18; TEMP 97.9; O2SAT 97
[2017-07-26] MEDS: CARVEDILOL 12.5 MG TAB PO SCH ×2 (09:00→19:43)
[2017-07-26] MEDS: SODIUM CHLORIDE 0.9% FLUSH 10 ML FLUSH IV FLUSH SCH ×2 (09:36→19:42)
[2017-07-26] MEDS: ASPIRIN EC 81 MG TABEC PO SCH (09:37)
[2017-07-26] MEDS: PRAVASTATIN SOD 40 MG TAB PO SCH (09:37)
[2017-07-26] MEDS: APIXABAN 5 MG TABLET PO SCH ×2 (09:37→19:43)
[2017-07-26] MEDS: DOCUSATE SODIUM 50 MG/SENNA 8.6 MG TAB PO SCH ×2 (09:37→19:43)
[2017-07-26] MEDS: oxyCODONE/ACETAMINOPHEN 10 MG/325 MG TAB PO PRN ×4 (09:38→21:52)
[2017-07-26] MEDS ORDERED: LISINOPRIL 5 MG TAB PO SCH (12:00)
--- NOTE | 2017-07-26 12:01 | HHI.PR ---
Subjective Remarks Follow-up cardiomyopathy and A. fib. Patient complains of left BKA pain but denies chest pain. States he has shortness of breath from COPD. Patient's sister made aware of cardiac workup with depressed ejection fraction. CHF education provided, agrees with RAFAEL inhibitor and continue Coreg. May need AICD in 3 months if no improvement. Also recommended to undergo ischemic workup which was negative in 2012 at that time EF was 35%. Objective Vitals Vital Signs Date Time Temp Pulse Resp B/P (MAP) Pulse Ox O2 Delivery O2 Flow Rate FiO2 07/26/17 08:29 97.9 74 18 122/73 (89) 97 07/26/17 04:00 98.0 69 16 129/66 (87) 94 07/26/17 00:00 98.9 70 18 100/59 (73) 90 07/25/17 20:00 98.5 77 18 122/68 (86) 94 07/25/17 16:00 100.0 89 16 105/58 (74) 92 07/25/17 12:00 96.9 78 14 87/53 (64) 86/52 (63) I/O 07/25/17 07/25/17 07/25/17 07/26/17 07/26/17 07/26/17 07:00 15:00 23:00 07:00 15:00 23:00 Intake Total 850 ml 800 ml 2080 ml Output Total 200 ml Balance 850 ml 800 ml 1880 ml Intake Oral 800 ml 480 ml IV Total 850 ml 1600 ml Output Urine Total 200 ml # Voids 3 2 2 Result Diagram: 07/25/17 0605 07/22/17 0836 Imaging Last Impressions Neck CTA 07/19/17 0000 Signed Impressions: Service Date/Time: Thursday, July 20, 2017 19:50 - CONCLUSION: 1. Ulcerative plaque in the proximal right internal carotid artery measuring 5 mm delayed in closing approximately 70%% narrowing of the lumen. 2. Minimal plaque in the distal common carotid artery the left side without significant luminal narrowing. Giles Patel MD Chest X-Ray 07/18/17 0000 Signed Impressions: Service Date/Time: Tuesday, July 18, 2017 12:57 - CONCLUSION: No acute disease. Giles Garza Jr., MD Aorta w/Runoff CTA 07/18/17 0000 Signed Impressions: Service Date/Time: Tuesday, July 18, 2017 19:45 - CONCLUSION: 1. Patent aortic , left iliac, and bifemoral grafts. 2. Very poor flow to the left lower extremity with tapering of the femoral artery in the mid thigh and a few threadlike collateral vessels providing some minimal flow into the calf. 3. Moderate severity arteriosclerotic disease with narrowing of the popliteal and calf vessels on the right side, but patent flow. Giles Patel MD Objective Remarks GENERAL: This is a well-nourished, well-developed patient, in no apparent distress. SKIN: No rashes, warm and dry CARDIOVASCULAR: Regular rate and rhythm without murmurs, gallops, or rubs. RESPIRATORY: Fair air entry bilaterally. No wheezes, rales, or rhonchi. GASTROINTESTINAL: Abdomen soft, non-tender, nondistended. Positive bowel sounds MUSCULOSKELETAL: L BKA with dry dressing NEUROLOGICAL: Awake and alert. Moves all extremity. Normal speech.no focal neurological deficit Procedures bka left A/P Problem List: (1) Sepsis ICD Code: A41.9 - Sepsis, unspecified organism Status: Acute (2) Gangrene of left foot ICD Code: I96 - Gangrene, not elsewhere classified Status: Acute (3) PAD (peripheral artery disease) ICD Code: I73.9 - Peripheral vascular disease, unspecified Status: Acute (4) ANTHONY (acute kidney injury) ICD Code: N17.9 - Acute kidney failure, unspecified Status: Acute (5) Tobacco abuse ICD Code: Z72.0 - Tobacco use Status: Acute Assessment and Plan Sepsis: HR 99, and WBC 18, Source-left foot gangrene on admission. Left Foot Gangrene: Left foot w/ extensive necrosis/sloughing, +maggots. Resolved status post left BKA and debility. Continue pain management with oxycodone. Counseled regarding narcotics History of A. fib with high [id number] score. Continue Eliquis patient and sister educated with anticoagulation and agree with management PAD: H/o PAD s/p Left Fem-Pop Bypass, CTA w/ Runoff reviewed showing threadlike collateral vessels w/ minimal flow into calf. Dr. Ledbetter consulted, no emergent intervention at this time as findings chronic. Continue ASA. Left ICA stenosis. Vascular surgery recommended outpatient follow-up, medical management for now unless patient is symptomatic Cardiomyopathy EF 30% (EF of 50% in 2017). CHF education provided, agrees with RAFAEL inhibitor and continue Coreg. May need AICD in 3 months if no improvement. Also recommended to undergo ischemic workup which was negative in 2013 at that time EF was 35%. ANTHONY: Improved, creatinine at baseline. IVF for hydration. Monitor kidney indices, avoid nephrotoxins Tobacco Abuse: Patient counseled on the need to quit. Ativan prn. No NicoDerm to avoid vasoconstriction. Leukocytosis likely secondary to gangrene. Monitor DVT Prophylaxis: Rudy Stable for discharge awaiting insurance authorization for [facility] facility Jose Antonio Li MD Jul 26, 2017 12:01
[2017-07-26] MEDS ORDERED: LISI-519 PO (12:03)
[2017-07-26 12:22] VITALS: BP 105/67; PULSE 88; RESP 18; TEMP 98.5; O2SAT 92
[2017-07-26] MEDS: SENNOSIDES 8.6 MG TAB PO PRN (16:02)
[2017-07-26 16:09] VITALS: BP 89/56; PULSE 75; RESP 18; TEMP 97.3; O2SAT 96
[2017-07-26 18:00] LABS: AUTOMATED NEUTROPHIL # 13.2 TH/MM3 (1.8-7.7); BASOPHIL # 0.1 TH/MM3 (0-0.2); BASOPHIL % 0.4 % (0.0-2.0); EOSINOPHIL # 0.1 TH/MM3 (0-0.4); EOSINOPHIL % 0.3 % (0.0-4.0); HEMATOCRIT 30.6 % (39.0-51.0); HEMOGLOBIN 10.3 GM/DL (13.0-17.0); LYMPH % 8.1 % (9.0-44.0); LYMPHOCYTE # 1.4 TH/MM3 (1.0-4.8); MEAN CELL VOLUME 88.9 FL (80.0-100.0); MEAN CORPUSCULAR HGB CONC 33.7 % (32.0-36.0); MEAN PLATELET VOLUME 7.4 FL (7.0-11.0); MONO % 14.8 % (0.0-8.0); MONOCYTE # 2.6 TH/MM3 (0-0.9); NEUT % 76.4 % (16.0-70.0); PLATELET COUNT 340 TH/MM3 (150-450); RED BLOOD COUNT 3.45 MIL/MM3 (4.50-5.90); RED CELL DISTRIBUTION WIDTH 13.4 % (11.6-17.2); WHITE BLOOD COUNT 17.3 TH/MM3 (4.0-11.0)
[2017-07-26 18:41] LABS: OVALOCYTES 1+ (NORMAL); TOXIC VACUOLATION PRESENT (NONE SEEN)
--- NOTE | 2017-07-26 19:13 | PD.CAR.PN ---
CVT Progress Note Subjective/Hospital Course: 07/21/2017 Patient with a left foot gangrene and severe inflow disease post multiple bypass procedures At this point there is no way to save this and patient will need below-knee amputation Appreciate consult and second opinion from Dr. Roldan. In addition patient has a carotid bruit and CTA of the neck reveals about 70% right internal carotid artery stenosis with an ulcerated plaque This is a serious situation and barring any other issues patient will need right carotid endarterectomy in the near future. Plan to go ahead with a left below-knee amputation tomorrow 07/23/2017 Patient is status post left below-knee amputation Incision is clean and dry dressing is intact We will leave the original dressing on and remove it tomorrow Nothing to add to care right now 07/25/2017 BKA dressing removed Incision is clean and dry healing really nicely Stump looks well-perfused and warm It can be left open to air and patient can be discharged from my point any time Patient has a 70-75% right internal carotid artery stenosis which is hemodynamically significant At this point patient is not in a great shape. He is weak and emaciated, but alert and oriented Ejection fraction is in 30-35% range. All these comorbidities make this gentleman poor candidate for any major surgery so the carotid stenosis should be watched carefully and surgery will be an option if patient has symptoms. If he remains neurologically asymptomatic I would keep him on aspirin and observe 07/26/2017 No change in current status Stump is clean and dry From vascular point patient can be discharged any time Objective: Vital Signs Date Time Temp Pulse Resp B/P (MAP) Pulse Ox O2 Delivery O2 Flow Rate FiO2 07/26/17 16:09 97.3 75 18 89/56 (67) 96 07/26/17 12:22 98.5 88 18 105/67 (80) 92 07/26/17 08:29 97.9 74 18 122/73 (89) 97 07/26/17 04:00 98.0 69 16 129/66 (87) 94 07/26/17 00:00 98.9 70 18 100/59 (73) 90 07/25/17 20:00 98.5 77 18 122/68 (86) 94 Labs: Laboratory Tests Test 07/26/17 16:50 White Blood Count 17.3 TH/MM3 (4.0-11.0) Red Blood Count 3.45 MIL/MM3 (4.50-5.90) Hemoglobin 10.3 GM/DL (13.0-17.0) Hematocrit 30.6 % (39.0-51.0) Mean Corpuscular Volume 88.9 FL (80.0-100.0) Mean Corpuscular Hemoglobin 30.0 PG (27.0-34.0) Mean Corpuscular Hemoglobin Concent 33.7 % (32.0-36.0) Red Cell Distribution Width 13.4 % (11.6-17.2) Platelet Count 340 TH/MM3 (150-450) Mean Platelet Volume 7.4 FL (7.0-11.0) Neutrophils (%) (Auto) 76.4 % (16.0-70.0) Lymphocytes (%) (Auto) 8.1 % (9.0-44.0) Monocytes (%) (Auto) 14.8 % (0.0-8.0) Eosinophils (%) (Auto) 0.3 % (0.0-4.0) Basophils (%) (Auto) 0.4 % (0.0-2.0) Neutrophils # (Auto) 13.2 TH/MM3 (1.8-7.7) Lymphocytes # (Auto) 1.4 TH/MM3 (1.0-4.8) Monocytes # (Auto) 2.6 TH/MM3 (0-0.9) Eosinophils # (Auto) 0.1 TH/MM3 (0-0.4) Basophils # (Auto) 0.1 TH/MM3 (0-0.2) CBC Comment AUTO DIFF Differential Comment AUTO DIFF CONFIRMED Toxic Vacuolation PRESENT (NONE SEEN) Platelet Estimate NORMAL (NORMAL) Platelet Morphology Comment NORMAL (NORMAL) Ovalocytes 1+ (NORMAL) Result Diagram: 07/26/17 1650 07/22/17 0836 Ej Ledbetter MD Jul 26, 2017 19:13
[2017-07-26 20:00] VITALS: BP 110/57; PULSE 56; PULSE 69; RESP 24; TEMP 96.2; O2SAT 93
[2017-07-27] VITALS (8 sets, daily range): BP systolic 91–120; BP diastolic 54–73; PULSE 50–78; RESP 17–22; TEMP 97.5–99.1; O2SAT 93–96
[2017-07-27] MEDS: oxyCODONE/ACETAMINOPHEN 10 MG/325 MG TAB PO PRN ×5 (05:55→22:45)
[2017-07-27] MEDS: CARVEDILOL 12.5 MG TAB PO SCH ×2 (07:57→20:52)
[2017-07-27] MEDS: SODIUM CHLORIDE 0.9% FLUSH 10 ML FLUSH IV FLUSH SCH ×2 (07:57→20:54)
[2017-07-27] MEDS: ASPIRIN EC 81 MG TABEC PO SCH (07:57)
[2017-07-27] MEDS: DOCUSATE SODIUM 50 MG/SENNA 8.6 MG TAB PO SCH ×2 (07:58→20:53)
[2017-07-27] MEDS: PRAVASTATIN SOD 40 MG TAB PO SCH (07:58)
[2017-07-27] MEDS: LISINOPRIL 5 MG TAB PO SCH (07:58)
[2017-07-27] MEDS: APIXABAN 5 MG TABLET PO SCH ×2 (07:58→20:53)
[2017-07-27 08:38] LABS: AUTOMATED NEUTROPHIL # 12.4 TH/MM3 (1.8-7.7); BASOPHIL # 0.1 TH/MM3 (0-0.2); BASOPHIL % 0.3 % (0.0-2.0); EOSINOPHIL # 0.1 TH/MM3 (0-0.4); EOSINOPHIL % 0.4 % (0.0-4.0); HEMOGLOBIN 9.7 GM/DL (13.0-17.0); LYMPH % 7.5 % (9.0-44.0); LYMPHOCYTE # 1.1 TH/MM3 (1.0-4.8); MEAN CELL VOLUME 87.6 FL (80.0-100.0); MEAN CORPUSCULAR HEMOGLOBIN 29.3 PG (27.0-34.0); MEAN CORPUSCULAR HGB CONC 33.5 % (32.0-36.0); MEAN PLATELET VOLUME 7.1 FL (7.0-11.0); MONO % 11.2 % (0.0-8.0); MONOCYTE # 1.7 TH/MM3 (0-0.9); NEUT % 80.6 % (16.0-70.0); PLATELET COUNT 374 TH/MM3 (150-450); RED BLOOD COUNT 3.31 MIL/MM3 (4.50-5.90); RED CELL DISTRIBUTION WIDTH 13.2 % (11.6-17.2); WHITE BLOOD COUNT 15.4 TH/MM3 (4.0-11.0)
[2017-07-27 08:55] LABS: BICARBONATE 27.1 MEQ/L (21.0-32.0); CALCIUM 8.6 MG/DL (8.5-10.1); CREATININE 1.02 MG/DL (0.60-1.30); MAGNESIUM 1.4 MG/DL (1.5-2.5)
[2017-07-27] MEDS ORDERED: POTASSIUM CHLORIDE 10 MEQ CONTROLLED RELEASE TAB PO ONE (10:30)
[2017-07-27] MEDS: MAGNESIUM OXIDE 400 MG TAB PO SCH ×2 (10:56→20:53)
[2017-07-27 11:12] LABS: BILIRUBIN, URINE NEG (NEG); BLOOD, URINE NEG (NEG); GLUCOSE,URINE NEG (NEG); KETONE, URINE NEG (NEG); MUCUS URINE FEW /lpf (OCC); NITRITE,URINE NEG (NEG); PH, URINE 5.5 (5.0-8.5); URINE COLOR YELLOW (YELLW/STRAW); URINE LEUKOCYTE ESTERASE NEG (NEG)
[2017-07-27] MEDS ORDERED: GABA100C4 PO (11:53)
--- NOTE | 2017-07-27 11:53 | HHI.PR ---
Subjective Remarks F/u Left BKA. left foot pain groggy from pain meds. Poor appetite dw sister and Vascular sz re leukocytosis Objective Vitals Vital Signs Date Time Temp Pulse Resp B/P (MAP) Pulse Ox O2 Delivery O2 Flow Rate FiO2 07/27/17 08:00 97.5 66 17 93/54 (67) 95 07/27/17 04:00 70 07/27/17 03:41 98.2 78 22 120/67 (84) 94 07/27/17 00:00 67 07/27/17 00:00 98.0 61 22 105/60 (75) 93 07/26/17 20:00 96.2 69 24 110/57 (74) 93 07/26/17 20:00 56 07/26/17 16:09 97.3 75 18 89/56 (67) 96 07/26/17 12:22 98.5 88 18 105/67 (80) 92 I/O 07/26/17 07/26/17 07/26/17 07/27/17 07/27/17 07/27/17 07:00 15:00 23:00 07:00 15:00 23:00 Intake Total 2080 ml 240 ml 480 ml Output Total 200 ml 400 ml 600 ml Balance 1880 ml -160 ml -120 ml Intake Oral 480 ml 240 ml 480 ml IV Total 1600 ml 0 ml Output Urine Total 200 ml 400 ml 600 ml # Voids 2 # Bowel Movements 0 Result Diagram: 07/27/17 0747 07/27/17 0747 Imaging Last Impressions Neck CTA 07/19/17 0000 Signed Impressions: Service Date/Time: Thursday, July 20, 2017 19:50 - CONCLUSION: 1. Ulcerative plaque in the proximal right internal carotid artery measuring 5 mm delayed in closing approximately 70%% narrowing of the lumen. 2. Minimal plaque in the distal common carotid artery the left side without significant luminal narrowing. Giles Patel MD Chest X-Ray 07/18/17 0000 Signed Impressions: Service Date/Time: Tuesday, July 18, 2017 12:57 - CONCLUSION: No acute disease. Giles Garza Jr., MD Aorta w/Runoff CTA 07/18/17 0000 Signed Impressions: Service Date/Time: Tuesday, July 18, 2017 19:45 - CONCLUSION: 1. Patent aortic , left iliac, and bifemoral grafts. 2. Very poor flow to the left lower extremity with tapering of the femoral artery in the mid thigh and a few threadlike collateral vessels providing some minimal flow into the calf. 3. Moderate severity arteriosclerotic disease with narrowing of the popliteal and calf vessels on the right side, but patent flow. Giles Patel MD Objective Remarks GENERAL: This is a well-nourished, well-developed patient, in no apparent distress. SKIN: No rashes, warm and dry CARDIOVASCULAR: Regular rate and rhythm without murmurs, gallops, or rubs. RESPIRATORY: Fair air entry bilaterally. No wheezes, rales, or rhonchi. GASTROINTESTINAL: Abdomen soft, non-tender, nondistended. Positive bowel sounds MUSCULOSKELETAL: L BKA with dry dressing NEUROLOGICAL: Drowsy but easily arousable oriented and following commands. Moves all extremity. Normal speech.no focal neurological deficit Procedures bka left A/P Problem List: (1) Sepsis ICD Code: A41.9 - Sepsis, unspecified organism Status: Acute (2) Gangrene of left foot ICD Code: I96 - Gangrene, not elsewhere classified Status: Acute (3) PAD (peripheral artery disease) ICD Code: I73.9 - Peripheral vascular disease, unspecified Status: Acute (4) ANTHONY (acute kidney injury) ICD Code: N17.9 - Acute kidney failure, unspecified Status: Acute (5) Tobacco abuse ICD Code: Z72.0 - Tobacco use Status: Acute Assessment and Plan Sepsis: HR 99, and WBC 18, Source-left foot gangrene on admission. Left Foot Gangrene: Left foot w/ extensive necrosis/sloughing, +maggots. Resolved status post left BKA and antibiotic. Continue pain management with oxycodone. Add Neurontin counseled regarding narcotics History of A. fib with high [id number] score. Continue Eliquis patient and sister educated with anticoagulation and agree with management PAD: H/o PAD s/p Left Fem-Pop Bypass, CTA w/ Runoff reviewed showing threadlike collateral vessels w/ minimal flow into calf. Dr. Ledbetter consulted, no emergent intervention at this time as findings chronic. Continue ASA. Left ICA stenosis. Vascular surgery recommended outpatient follow-up, medical management for now unless patient is symptomatic Cardiomyopathy EF 30% (EF of 50% in 2017). CHF education provided, RAFAEL inhibitor and Coreg if tolerated. May need AICD in 3 months if no improvement. Also recommended to undergo ischemic workup which was negative in 2013 at that time EF was 35%. ANTHONY: Improved, creatinine at baseline. IVF for hydration. Monitor kidney indices, avoid nephrotoxins Tobacco Abuse: Patient counseled on the need to quit. Ativan prn. No NicoDerm to avoid vasoconstriction. Leukocytosis. Improving but complaining of cough and dysuria. UA and CXR. Monitor DVT Prophylaxis: Rudy Stable for discharge awaiting insurance authorization for group home facility Jose Antonio Li MD Jul 27, 2017 11:53
--- NOTE | 2017-07-27 12:33 | RADRPT ---
EXAM DATE/TIME: 07/27/2017 11:52 [facility] COMPARISON: CHEST SINGLE AP, July 18, 2017, 12:57. INDICATIONS : Evaluate for pneumonia MEDICAL HISTORY : Stroke. Congestive heart failure. Hepatitis B.diabetes Hypercholesterolemia. Gastroesophageal reflux disease. Myocardial infarction. CVA. CHF. CAD. Hypertension. A-fib. Pneumonia. Ulcer. UTI. Arthritis. Hepatitis B SURGICAL HISTORY : None. Vasectomy. Left lower extremity surgery, x5. ENCOUNTER: Subsequent ACUITY: 1 week PAIN SCORE: 0/10 LOCATION: Bilateral chest FINDINGS: The heart is normal in size. There is dilation of the aortic root and ascending aorta. The lungs demo nstrate chronic interstitial changes but are otherwise clear. The overall appearance of the chest is similar to the prior study dated 07/18/17. CONCLUSION: 1. Dilation of the ascending aorta and proximal arch. 2. No focal or segmental pneumonia identified. 3. Exam is similar in appearance to previous dated 07/18/17. Murtaza Drummond MD on July 27, 2017 at 12:29 Board Certified Radiologist. This report was verified electronically.
[2017-07-27] MEDS: POLYETHYLENE GLYCOL 17 GM PKG PO SCH (12:49)
[2017-07-27] MEDS: GABAPENTIN 100 MG CAP PO SCH ×2 (12:50→17:03)
[2017-07-28] VITALS: BP 103/61; PULSE 63; PULSE 66; RESP 20; TEMP 98.8; O2SAT 94
[2017-07-28 04:00] VITALS: BP 120/65; PULSE 68; PULSE 70; RESP 20; TEMP 97.7; O2SAT 93
[2017-07-28 05:53] LABS: AUTOMATED NEUTROPHIL # 10.2 TH/MM3 (1.8-7.7); BASOPHIL # 0.1 TH/MM3 (0-0.2); BASOPHIL % 0.7 % (0.0-2.0); EOSINOPHIL # 0.1 TH/MM3 (0-0.4); EOSINOPHIL % 0.6 % (0.0-4.0); HEMATOCRIT 32.1 % (39.0-51.0); HEMOGLOBIN 10.6 GM/DL (13.0-17.0); LYMPH % 8.7 % (9.0-44.0); LYMPHOCYTE # 1.1 TH/MM3 (1.0-4.8); MEAN CELL VOLUME 88.6 FL (80.0-100.0); MEAN CORPUSCULAR HEMOGLOBIN 29.2 PG (27.0-34.0); MEAN PLATELET VOLUME 7.2 FL (7.0-11.0); MONOCYTE # 1.6 TH/MM3 (0-0.9); PLATELET COUNT 409 TH/MM3 (150-450); RED BLOOD COUNT 3.62 MIL/MM3 (4.50-5.90); RED CELL DISTRIBUTION WIDTH 13.3 % (11.6-17.2); WHITE BLOOD COUNT 13.1 TH/MM3 (4.0-11.0)
[2017-07-28] MEDS: oxyCODONE/ACETAMINOPHEN 10 MG/325 MG TAB PO PRN ×2 (05:57→13:30)
[2017-07-28 06:31] LABS: BICARBONATE 27.8 MEQ/L (21.0-32.0); CALCIUM 8.8 MG/DL (8.5-10.1); CREATININE 0.99 MG/DL (0.60-1.30); MAGNESIUM 1.6 MG/DL (1.5-2.5)
[2017-07-28 08:00] VITALS: BP 102/62; PULSE 68; RESP 18; TEMP 98.3; O2SAT 93
[2017-07-28] MEDS: LISINOPRIL 5 MG TAB PO SCH (09:00)
[2017-07-28] MEDS: APIXABAN 5 MG TABLET PO SCH (09:52)
[2017-07-28] MEDS: GABAPENTIN 100 MG CAP PO SCH ×2 (09:53→13:30)
[2017-07-28] MEDS: POLYETHYLENE GLYCOL 17 GM PKG PO SCH (09:53)
[2017-07-28] MEDS: PRAVASTATIN SOD 40 MG TAB PO SCH (09:53)
[2017-07-28] MEDS: DOCUSATE SODIUM 50 MG/SENNA 8.6 MG TAB PO SCH (09:53)
[2017-07-28] MEDS: ASPIRIN EC 81 MG TABEC PO SCH (09:53)
[2017-07-28] MEDS: MAGNESIUM OXIDE 400 MG TAB PO SCH (09:53)
[2017-07-28] MEDS: SODIUM CHLORIDE 0.9% FLUSH 10 ML FLUSH IV FLUSH SCH (09:55)
[2017-07-28] MEDS: CARVEDILOL 12.5 MG TAB PO SCH (09:58)
--- NOTE | 2017-07-28 11:21 | HHI.PR ---
Subjective Remarks Follow-up leukocytosis. Patient with no new complaints no fever. Regarding abnormal chest x-ray showing dilated ascending aorta and proximal arch, this was discussed with vascular surgery recommended observation at this time considering patient asymptomatic and not a surgical candidate i Objective Vitals Vital Signs Date Time Temp Pulse Resp B/P (MAP) Pulse Ox O2 Delivery O2 Flow Rate FiO2 07/28/17 08:00 98.3 68 18 102/62 (75) 93 07/28/17 04:00 97.7 70 20 120/65 (83) 93 07/28/17 04:00 68 07/28/17 00:00 98.8 66 20 103/61 (75) 94 07/28/17 00:00 63 07/27/17 23:45 18 07/27/17 20:49 69 18 119/73 (88) 95 07/27/17 20:00 50 07/27/17 20:00 97.9 62 18 92/59 (70) 94 07/27/17 16:00 98.6 65 17 91/54 (66) 93 07/27/17 12:00 99.1 66 17 104/63 (77) 96 I/O 07/27/17 07/27/17 07/27/17 07/28/17 07/28/17 07/28/17 07:00 15:00 23:00 07:00 15:00 23:00 Intake Total 480 ml 720 ml 360 ml Output Total 600 ml 250 ml 650 ml Balance -120 ml 470 ml -290 ml Intake Oral 480 ml 720 ml 360 ml IV Total 0 ml Output Urine Total 600 ml 250 ml 650 ml # Bowel Movements 0 0 0 Result Diagram: 07/28/17 0430 07/28/17 0430 Imaging Last Impressions Chest X-Ray 07/27/17 0000 Signed Impressions: Service Date/Time: Thursday, July 27, 2017 11:52 - CONCLUSION: 1. Dilation of the ascending aorta and proximal arch. 2. No focal or segmental pneumonia identified. 3. Exam is similar in appearance to previous dated 07/18/17. Murtaza Drummond MD Neck CTA 07/19/17 0000 Signed Impressions: Service Date/Time: Thursday, July 20, 2017 19:50 - CONCLUSION: 1. Ulcerative plaque in the proximal right internal carotid artery measuring 5 mm delayed in closing approximately 70%% narrowing of the lumen. 2. Minimal plaque in the distal common carotid artery the left side without significant luminal narrowing. Giles Patel MD Aorta w/Runoff CTA 07/18/17 0000 Signed Impressions: Service Date/Time: Tuesday, July 18, 2017 19:45 - CONCLUSION: 1. Patent aortic , left iliac, and bifemoral grafts. 2. Very poor flow to the left lower extremity with tapering of the femoral artery in the mid thigh and a few threadlike collateral vessels providing some minimal flow into the calf. 3. Moderate severity arteriosclerotic disease with narrowing of the popliteal and calf vessels on the right side, but patent flow. Giles Patel MD Objective Remarks GENERAL: This is a well-nourished, well-developed patient, in no apparent distress. SKIN: No rashes, warm and dry CARDIOVASCULAR: Regular rate and rhythm without murmurs, gallops, or rubs. RESPIRATORY: Fair air entry bilaterally. No wheezes, rales, or rhonchi. GASTROINTESTINAL: Abdomen soft, non-tender, nondistended. Positive bowel sounds MUSCULOSKELETAL: L BKA with dry dressing NEUROLOGICAL: Drowsy but easily arousable oriented and following commands. Moves all extremity. Normal speech.no focal neurological deficit Procedures bka left A/P Problem List: (1) Sepsis ICD Code: A41.9 - Sepsis, unspecified organism Status: Acute (2) Gangrene of left foot ICD Code: I96 - Gangrene, not elsewhere classified Status: Acute (3) PAD (peripheral artery disease) ICD Code: I73.9 - Peripheral vascular disease, unspecified Status: Acute (4) ANTHONY (acute kidney injury) ICD Code: N17.9 - Acute kidney failure, unspecified Status: Acute (5) Tobacco abuse ICD Code: Z72.0 - Tobacco use Status: Acute Assessment and Plan Sepsis: HR 99, and WBC 18, Source-left foot gangrene on admission. Left Foot Gangrene: Left foot w/ extensive necrosis/sloughing, +maggots. Resolved status post left BKA and antibiotic. Continue pain management with oxycodone. Add Neurontin counseled regarding narcotics History of A. fib with high [id number] score. Continue Eliquis patient and sister educated with anticoagulation and agree with management PAD: H/o PAD s/p Left Fem-Pop Bypass, CTA w/ Runoff reviewed showing threadlike collateral vessels w/ minimal flow into calf. Dr. Ledbetter consulted, no emergent intervention at this time as findings chronic. Continue ASA. Left ICA stenosis. Vascular surgery recommended outpatient follow-up, medical management for now unless patient is symptomatic Cardiomyopathy EF 30% (EF of 50% in 2017). CHF education provided, RAFAEL inhibitor and Coreg if tolerated. May need AICD in 3 months if no improvement. Also recommended to undergo ischemic workup which was negative in 2012 at that time EF was 35%. ANTHONY: Improved, creatinine at baseline. IVF for hydration. Monitor kidney indices, avoid nephrotoxins Tobacco Abuse: Patient counseled on the need to quit. Ativan prn. No NicoDerm to avoid vasoconstriction. Leukocytosis. Improving unremarkable urinalysis and chest x-ray Dilated ascending aorta and proximal arch on CXR, this was discussed with vascular surgery who recommended observation at this time considering patient asymptomatic and not a surgical candidate DVT Prophylaxis: Rudy Stable for discharge awaiting insurance authorization for group home facility Jose Antonio Li MD Jul 28, 2017 11:21
[2017-07-28 12:00] VITALS: BP 113/67; PULSE 74; RESP 18; TEMP 96.8; O2SAT 95
[2017-07-28 16:00] VITALS: BP 97/64; PULSE 66; RESP 18; TEMP 98.4; O2SAT 93
--- NOTE | 2017-08-07 11:30 | HHI.DS ---
Discharge Summary Admission Date Jul 18, 2017 at 21:16 Discharge Date: Jul 28, 2017 Admitting Diagnosis Left foot necrosis/severe peripheral vascular disease/sepsis (1) Sepsis ICD Code: A41.9 - Sepsis, unspecified organism Diagnosis: Principal Status: Acute (2) Gangrene of left foot ICD Code: I96 - Gangrene, not elsewhere classified Diagnosis: Principal Status: Acute (3) PAD (peripheral artery disease) ICD Code: I73.9 - Peripheral vascular disease, unspecified Diagnosis: Principal Status: Acute (4) ANTHONY (acute kidney injury) ICD Code: N17.9 - Acute kidney failure, unspecified Status: Acute (5) Tobacco abuse ICD Code: Z72.0 - Tobacco use Diagnosis: Principal Status: Acute Procedures bka left Brief History - From Admission This is a 71-year-old male with a PMH of Anxiety, Depression, HTN, A. fib, CVA, CAD, CHF (Echo w/ EF 55-60%), Severe PAD s/p Left Fem-Pop Bypass and Tobacco Abuse who presented to the ER with complaints of generalized weakness and severe left foot pain. Reports pain is constant, 10/10, sharp, no alleviating factors. Per EMS left foot wound noted to have maggots. Pt cannot tell me how long this has been going on for. Denies fever or chills. On arrival, BP 116/76 , HR 73, O2 sat 96% on RA, Afebrile. WBC 18. Creatinine 1.34, previously 1.30 on 08/14/16. INR 1.1. CXR with no acute findings. CTA with Runoff patent aorta , left iliac and bifemoral grafts, very poor flow to left lower extremity with tapering of femoral artery and threadlike collaterals. Dr. Ledbetter consulted , findings chronic, no emergent intervention required, will see patient in consultation. S/p Zosyn in ER. Imaging Last Impressions Chest X-Ray 07/27/17 0000 Signed Impressions: Service Date/Time: Thursday, July 27, 2017 11:52 - CONCLUSION: 1. Dilation of the ascending aorta and proximal arch. 2. No focal or segmental pneumonia identified. 3. Exam is similar in appearance to previous dated 07/18/17. Murtaza Drummond MD Neck CTA 07/19/17 0000 Signed Impressions: Service Date/Time: Thursday, July 20, 2017 19:50 - CONCLUSION: 1. Ulcerative plaque in the proximal right internal carotid artery measuring 5 mm delayed in closing approximately 70%% narrowing of the lumen. 2. Minimal plaque in the distal common carotid artery the left side without significant luminal narrowing. Giles Patel MD Aorta w/Runoff CTA 07/18/17 0000 Signed Impressions: Service Date/Time: Tuesday, July 18, 2017 19:45 - CONCLUSION: 1. Patent aortic , left iliac, and bifemoral grafts. 2. Very poor flow to the left lower extremity with tapering of the femoral artery in the mid thigh and a few threadlike collateral vessels providing some minimal flow into the calf. 3. Moderate severity arteriosclerotic disease with narrowing of the popliteal and calf vessels on the right side, but patent flow. Giles Patel MD PE at Discharge GENERAL: This is a well-nourished, well-developed patient, in no apparent distress. SKIN: No rashes, warm and dry CARDIOVASCULAR: Regular rate and rhythm without murmurs, gallops, or rubs. RESPIRATORY: Fair air entry bilaterally. No wheezes, rales, or rhonchi. GASTROINTESTINAL: Abdomen soft, non-tender, nondistended. Positive bowel sounds MUSCULOSKELETAL: L BKA with dry dressing NEUROLOGICAL: Drowsy but easily arousable oriented and following commands. Moves all extremity. Normal speech.no focal neurological deficit Hospital Course Sepsis: HR 99, and WBC 18, Source-left foot gangrene on admission. Left Foot Gangrene: Left foot w/ extensive necrosis/sloughing, +maggots. Resolved status post left BKA and antibiotic. Continue pain management with oxycodone. Add Neurontin counseled regarding narcotics History of A. fib with high [id number] score. Continue Eliquis patient and sister educated with anticoagulation and agree with management PAD: H/o PAD s/p Left Fem-Pop Bypass, CTA w/ Runoff reviewed showing threadlike collateral vessels w/ minimal flow into calf. Dr. Ledbetter consulted, no emergent intervention at this time as findings chronic. Continue ASA. Left ICA stenosis. Vascular surgery recommended outpatient follow-up, medical management for now unless patient is symptomatic Cardiomyopathy EF 30% (EF of 50% in 2017). CHF education provided, RAFAEL inhibitor and Coreg if tolerated. May need AICD in 3 months if no improvement. Also recommended to undergo ischemic workup which was negative in 2013 at that time EF was 35%. ANTHONY: Improved, creatinine at baseline. IVF for hydration. Monitor kidney indices, avoid nephrotoxins Tobacco Abuse: Patient counseled on the need to quit. Ativan prn. No NicoDerm to avoid vasoconstriction. Leukocytosis. Improving unremarkable urinalysis and chest x-ray Dilated ascending aorta and proximal arch on CXR, this was discussed with vascular surgery who recommended observation at this time considering patient asymptomatic and not a surgical candidate DVT Prophylaxis: Eliquis Pt Condition on Discharge: Fair Discharge Disposition: Discharge to SNF Discharge Time: > 30 minutes Discharge Instructions DIET: Follow Instructions for: Heart Healthy Diet Activities you can perform: See Additionl Instruction Other Activity Instructions: per PT Follow up Referrals: PCP Follow-up - 1 Week Vascular Surgery - 1 Week with Ej Ledbetter MD New Medications: Apixaban (Eliquis) 5 Mg Tab 5 MG PO BID for afib, #30 TAB Gabapentin (Gabapentin) 100 Mg Cap 100 MG PO TID for Pain Management, #90 CAP Lisinopril (Lisinopril) 5 Mg Tab 5 MG PO DAILY for Prevent Heart Failure, #30 TAB Oxycodone HCl/Acetaminophen (Oxycodone-Acetaminophen 10-325) 10 Mg-325 Mg Tablet 1 TAB PO Q6H PRN for pain 6-10, #12 TAB Continued Medications: Ascorbic Acid (Ascorbic Acid) 500 Mg Tab 500 MG PO BID, TAB Aspirin DR (Aspirin 81) 81 Mg Tabdr 81 MG PO DAILY, TAB 0 Refills Carvedilol (Coreg) 12.5 Mg Tab 25 MG PO BID for ARRHY for 30 Days, TAB Cholecalciferol (D3) 1,000 Unit Cap 1000 UNITS PO DAILY Erythromycin Opth Oint (Erythromycin Opth Oint) 5 Mg/Gm Oint 1 APPLIC RIGHT EYE BID for Infection, #1 TUBE 0 Refills Ferrous Sulfate (Ferrous Sulfate) 325 Mg Tab 324 MG PO DAILY for Nutritional Supplement, #30 TAB 0 Refills Pravastatin (Pravastatin) 40 Mg Tab 40 MG PO DAILY for Cholesterol Management, #30 TAB 0 Refills Ranitidine HCl (Gnp Acid Control 150 Maxi) 150 Mg Tab 150 MG PO DAILY Discontinued Medications: Hydrocodone-Acetaminophen (Hydrocodone-Acetaminophen) 10-325 mg Tab 1 TAB PO Q6H PRN for pain 6-10, #10 TAB Sildenafil Citrate (Bulk) (Sildenafil Citrate) 1 Pow Pow 50 MG PO DIRECTED for erectile dysfunction Jose Antonio Li MD Aug 07, 2017 11:30
--- NOTE | 2017-08-07 11:35 | PQ ---
Physician Query Response Document PATIENT: DIANE HARRISON : 1945 ADMIT DATE: 07/18/2017 9:16 PM DISCH DATE: 07/28/2017 6:02 PM RESPONDING PROVIDER #: Haris QUERY TEXT: CHF Acuity and Type Congestive Heart Failure is documented in the Medical Record. Please document the type and acuity (in cludes probable or suspected) Such as: Type: -- Systolic -- Diastolic -- Combined -- Other, please specify Acuity: -- Acute -- Chronic -- Acute on chronic -- Other, please specify Also please document the underlying cause of the CHF (includes probable or suspected) The patient's Clinical Indicators include: Progress Note 07/26/17 Dr. Li: Cardiomyopathy EF 30% (EF of 50% in 2017). CHF education provided, agrees with RAFAEL inhibitor and continue Coreg. May need AICD in 3 months if no improvement. Also recom mended to undergo ischemic workup which was negative in 2012 at that time EF was 35%. Echocardiogram performed during this admit on 07/20/17: CONCLUSIONS Normal left ventricular size. Wall thickness is normal. The left ventricular systolic function is severely reduced with an estimated ejection fraction in the range of 30-35%. Global hypokinesis Aortic valve sclerosis is present. The estimated pulmonary arterial pressure is 37 mmHg. TDS due to poor patient compliance Query created by: Adri Recinos on 08/04/2017 1:16 PM RESPONSE TEXT: Chronic systolic Electronically signed by: Jose Antonio Li MD 08/07/2017 11:31 AM
== END 2017-07-28 18:02 | DRG 854 ==
LOC: NEPE 12:14 → NEDA 21:16 → N07B 22:51
PROVIDERS: ADMIT Internal Medicine; ATTEND Internal Medicine
PROC: 0Y6J0Z1 Detachment at Left Lower Leg, High, Open Approach (ICD-10-PCS; principal; 2017-07-22 12:38)
DX: A41.9 Sepsis, unspecified organism (principal); N17.9 Acute kidney failure, unspecified; R64 Cachexia; I70.262 Atherosclerosis of native arteries of extremities with gangrene, left leg; I48.91 Unspecified atrial fibrillation; I42.9 Cardiomyopathy, unspecified; I11.0 Hypertensive heart disease with heart failure; I50.22 Chronic systolic (congestive) heart failure; Z68.1 Body mass index [BMI] 19.9 or less, adult; I65.21 Occlusion and stenosis of right carotid artery; F17.210 Nicotine dependence, cigarettes, uncomplicated; I25.10 Atherosclerotic heart disease of native coronary artery without angina pectoris; I25.2 Old myocardial infarction; M24.562 Contracture, left knee; E78.00 Pure hypercholesterolemia, unspecified; Z86.73 Personal history of transient ischemic attack (TIA), and cerebral infarction without residual deficits
CPT/HCPCS: 70498; 71045; 75635; 80048; 80053; 80202; 81001; 82565; 83735; 85007; 85025; 85027; 85610; 85730; 88307; 88311; 93005; 93306; J0131; J0692; J1644; J2270; J2370; J2543; J3010; J3370; J7030; J7040; J7050; L3260; Q9967

== ENCOUNTER 2017-08-12 14:31 | Inpatient (IN) | payer OTHER, MEDICARE ==
[~2017-08-12] VITALS: Ht 190.5 cm; Wt 65.4 kg
[~2017-08-12 14:31] MED LIST changes: +APIX5TAB PO; +DEXAMETHASONE SOD PHOS 4 MG/ML VIAL IV ONE; +GABA100C4 PO; +GLYCOPYRROLATE 1 MG/5 ML SYRINGE IV PUSH ONE; -HYDR-3583 PO; +LIDOCAINE HCL 1% PF 5 ML SYRINGE OTHER ONE; +LISI-519 PO; +NEOSTIGMINE 5 MG/5 ML SYRINGE IV PUSH ONE; +ONDANSETRON HCL 4 MG/2 ML VIAL IV ONE; +OXYC1TAB36 PO; +PHENYLEPH/NS 1000 MCG/10 ML SYR IV ONE; +PROPOFOL 200 MG/20 ML AMP IV ONE; +ROCURONIUM INJ 50 MG/5 ML SYRINGE IV PUSH ONE; -SILD1POW4 PO; +ePHEDrine/NS 25 MG/5 ML SYRINGE IV ONE
[2017-08-12 16:00] VITALS: BP 126/82; PULSE 64; RESP 18; TEMP 98.6; O2SAT 96
[2017-08-12] MEDS: LACTATED RINGER'S 1000 ML INJ 1,000 ML IV SCH (16:03)
[2017-08-12] MEDS ORDERED: NALOXONE HCL 0.4 MG/ML AMP IV PUSH PRN (16:15)
[2017-08-12] MEDS ORDERED: ONDANSETRON HCL 4 MG/2 ML VIAL IV PUSH PRN (16:15)
[2017-08-12] MEDS ORDERED: Post-op Orders (for Pharmacy) XX ONE (16:15)
[2017-08-12] MEDS ORDERED: SODIUM CHLORIDE 0.9% FLUSH 10 ML FLUSH IV FLUSH PRN (16:15)
[2017-08-12] MEDS ORDERED: CEFAZOLIN INJ 2,000 MG in SODIUM CHLORIDE 0.9% INJ 100 ML IV SCH (17:00)
--- NOTE | 2017-08-12 17:12 | RADRPT ---
EXAM DATE/TIME: 08/12/2017 16:45 [facility] COMPARISON: CHEST SINGLE AP, July 27, 2017, 11:52. CHEST SINGLE AP, July 18, 2017, 12:57. INDICATIONS : Evaluate for pneumothorax, pneumonia or communicable diseases. Pre-op for left above knee amputation. MEDICAL HISTORY : Hypertension. Stroke. Congestive heart failure. Hepatitis B.diabetes.Myocardial infarction.Hype rcholesterolemia. Gastroesophageal reflux disease. SURGICAL HISTORY : Left lower extremity surgery. ENCOUNTER: Initial ACUITY: 1 day PAIN SCORE: 0/10 LOCATION: Bilateral chest FINDINGS: No infiltrate, effusion or pneumothorax. Heart size within normal limits. No significant change tortuosity and prominent caliber thoracic aorta. CONCLUSION: No acute cardiopulmonary disease demonstrated. Tortuous and mildly aneurysmal thoracic aorta, stable. Job Ramires MD on August 12, 2017 at 17:09 Board Certified Radiologist. This report was verified electronically.
[2017-08-12] MEDS ORDERED: PANTOPRAZOLE SOD 40 MG DELAYED RELEASE TAB PO SCH (18:00)
[2017-08-12] MEDS: ENOXAPARIN SODIUM 40 MG/0.4 ML SYRINGE SQ SCH (18:25)
[2017-08-12] MEDS: GABAPENTIN 100 MG CAP PO SCH (18:26)
[2017-08-12 20:00] VITALS: BP 117/72; PULSE 72; RESP 18; TEMP 98.3; O2SAT 96
[2017-08-12] MEDS: DOCUSATE SODIUM 100 MG CAP PO SCH (20:33)
[2017-08-12] MEDS: SODIUM CHLORIDE 0.9% FLUSH 10 ML FLUSH IV FLUSH SCH (20:34)
[2017-08-12] MEDS: ASCORBIC ACID 500 MG TAB PO SCH (20:34)
[2017-08-12] MEDS: ERYTHROMYCIN 0.5% OPTH OINT 3.5 GM TUBO RIGHT EYE SCH (20:39)
[2017-08-12] MEDS: CARVEDILOL 12.5 MG TAB PO SCH (20:40)
[2017-08-12] MEDS: oxyCODONE/ACETAMINOPHEN 10 MG/325 MG TAB PO PRN (20:46)
[2017-08-13] VITALS: BP 127/80; PULSE 81; RESP 18; TEMP 98.7; O2SAT 97
[2017-08-13] MEDS: LACTATED RINGER'S 1000 ML INJ 1,000 ML IV SCH ×3 (02:40→23:51)
[2017-08-13] MEDS ORDERED: LACTATED RINGER'S 1000 ML IV PRN (03:00)
[2017-08-13] MEDS ORDERED: SODIUM CHLORID 0.9% 500 ML IV PRN (03:00)
[2017-08-13 08:00] VITALS: BP 109/66; PULSE 59; RESP 18; TEMP 97.6; O2SAT 94
--- NOTE | 2017-08-13 08:04 | EKG ---
Date Performed: 08/12/2017 Time Performed: 18:32:44 PTAGE: 71 years EKG: Sinus rhythm WITH SINUS ARRHYTHMIA WITH FIRST DEGREE AV BLOCK SEPTAL MYOCARDIAL INFARCTION , PROBABLY OLD ABNORMA L ECG PREVIOUS TRACING : 07/19/2017 14.09 DOCTOR: Tima Jean Interpretating Date/Time 08/13/2017 08:03:09
[2017-08-13] MEDS: FAMOTIDINE 20 MG TAB PO SCH (08:08)
[2017-08-13] MEDS: CHOLECALCIFEROL (VIT D3) 1000 UNIT TAB PO SCH (08:08)
[2017-08-13] MEDS: ASCORBIC ACID 500 MG TAB PO SCH ×2 (08:08→20:14)
[2017-08-13] MEDS: FERROUS SULFATE 325 MG (65 MG ELEMENTAL IRON) TAB PO SCH (08:08)
[2017-08-13] MEDS: DOCUSATE SODIUM 100 MG CAP PO SCH ×2 (08:08→20:14)
[2017-08-13] MEDS: GABAPENTIN 100 MG CAP PO SCH ×3 (08:08→17:23)
[2017-08-13] MEDS: PRAVASTATIN SOD 40 MG TAB PO SCH (08:08)
[2017-08-13] MEDS: CARVEDILOL 12.5 MG TAB PO SCH ×2 (08:09→20:15)
[2017-08-13] MEDS: PSYLLIUM FIBER SF/GF 6 GM POWD PKT PO SCH (08:09)
[2017-08-13] MEDS: ERYTHROMYCIN 0.5% OPTH OINT 3.5 GM TUBO RIGHT EYE SCH ×2 (08:09→20:15)
[2017-08-13] MEDS: SODIUM CHLORIDE 0.9% FLUSH 10 ML FLUSH IV FLUSH SCH ×2 (08:09→20:15)
[2017-08-13] MEDS: LISINOPRIL 5 MG TAB PO SCH (08:09)
[2017-08-13] MEDS: ASPIRIN EC 81 MG TABEC PO SCH (08:09)
[2017-08-13] MEDS: oxyCODONE/ACETAMINOPHEN 10 MG/325 MG TAB PO PRN (08:19)
--- NOTE | 2017-08-13 08:26 | PD.CONS ---
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 at the time of my evaluation he was resting comfortably with no acute distress. pain was mild in intensity. there's no report of fever. otherwise he denies any chest pain, sob, nausea or dizziness. patient was seen with the RN at the bedside. Review of Systems Constitutional: DENIES: Fever, Weight loss, Chills, Night Sweats Eyes: DENIES: Blurred vision, Diplopia, Vision loss, Double Vision Ears, nose, mouth, throat: DENIES: Tinnitus, Vertigo, Throat pain, Epistaxis Respiratory: DENIES: Apneas, Cough, Snoring, Wheezing, Hemoptysis, Sputum production, Shortness of breath Cardiovascular: DENIES: Chest pain, Palpitations, Syncope, Dyspnea on Exertion , PND, Lower Extremity Edema, Orthopnea, Claudication Gastrointestinal: DENIES: Abdominal pain, Black stools, Bloody stools, Constipation, Diarrhea, Nausea, Vomiting, Difficulty Swallowing, Anorexia Genitourinary: DENIES: Urinary frequency, Urgency, Hematuria, Dysuria Musculoskeletal: COMPLAINS OF: Joint pain, DENIES: Muscle aches, Stiffness, Joint Swelling Integumentary: DENIES: Rash Neurologic: DENIES: Abnormal gait, Headache, Localized weakness, Paresthesias, Seizures, Speech Problems, Tremor, Poor Balance Psychiatric: DENIES: Anxiety, Confusion, Mood changes, Depression, Hallucinations, Agitation, Suicidal Ideation, Homicidal Ideation, Delusions Past Family Social History Allergies: Coded Allergies: adhesive (Unverified Allergy, Severe, Rash, 12/24/16) codeine (Unverified Allergy, Severe, RASH, 12/24/16) mirtazapine (Unverified Allergy, Severe, 12/24/16) hallucinations Past Medical History PAD/ cardiomyopathy/ a-fib Past Surgical History recent left BKA/left femoropopliteal bypass Reported Medications aspirin/ eliquis/ lisinopril/coreg/pravastatin Active Ordered Medications Inpatient Medications Ascorbic Acid (Vitamin C) 500 mg BID PO Last administered on 08/13/17at 08:08; Start 08/12/17 at 21:00 Aspirin (Ecotrin Ec) 81 mg DAILY PO ; Start 08/13/17 at 09:00 Carvedilol (Coreg) 25 mg BID PO ; Start 08/12/17 at 21:00 Cefazolin Sodium 2000 mg/Sodium Chloride 120 ml @ 240 mls/hr GAMING CAGE CASHIER IV ; Start 08/12/17 at 17:00; Stop 08/15/17 at 16:59 Cholecalciferol (Vitamin D3) 1,000 units DAILY PO Last administered on at 08:08; Start 08/13/17 at 09:00 Docusate Sodium (Colace) 100 mg BID PO Last administered on 08/13/17 08:08; Start 08/12/17 at 21:00 Enoxaparin Sodium (Lovenox Inj) 40 mg Q24H SQ Last administered on 08/12/17at 18: 25; Start 08/12/17 at 18:00 Erythromycin (Ilotycin 0.5% Opth Oint) 1 applic BID RIGHT EYE ; Start 08/12/17 at 21:00 Famotidine (Pepcid) 20 mg DAILY PO Last administered on 08/13/17at 08:08; Start 08/13/17 at 09:00 Ferrous Sulfate (Ferrous Sulfate) 324 mg DAILY PO Last administered on at 08:08; Start 08/13/17 at 09:00 Gabapentin (Neurontin) 100 mg TID PO Last administered on 08/13/17at 08:08; Start 08/12/17 at 18:00 Lactated Ringer's 1,000 ml @ 30 mls/hr Q24H PRN IV SEE LABEL COMMENTS; Start at 03:00; Stop 08/16/17 at 02:59 Lisinopril (Prinivil) 5 mg DAILY PO ; Start 08/13/17 at 09:00 Miscellaneous Information (Post-op Orders (for Pharmacy)) STAT ONCE XX ; Start 08/12/17 at 16:15; Stop 08/12/17 at 17:34; Status DC Naloxone HCl (Narcan Inj) 0.4 mg UNSCH PRN IV PUSH SEE LABEL COMMENTS; Start at 16:15 Ondansetron HCl (Zofran Inj) 4 mg Q6H PRN IV PUSH NAUSEA OR VOMITING; Start 08/12/17 at 16:15 Oxycodone/ Acetaminophen (Percocet 10-325 Mg) 1 tab Q6H PRN PO pain 6-10 Last administered on 08/12/17at 20:46; Start 08/12/17 at 16:15 Pantoprazole Sodium (Protonix) 40 mg Q24H PO Last administered on 08/12/17at 18: 25; Start 08/12/17 at 18:00 Pravastatin Sodium (Pravachol) 40 mg DAILY PO Last administered on 08/13/17at 08: 08; Start 08/13/17 at 09:00 Psyllium Hydrophilic Mucilloid (Metamucil Smooth Texture Sf/ Gf Pkt) 1 pkt DAILY PO ; Start 08/13/17 at 09:00 Sennosides (Senokot) 8.6 mg BID PRN PO CONSTIPATION; Start 08/12/17 at 16:15 Sodium Chloride 500 ml @ 30 mls/hr [id number] PRN IV SEE LABEL COMMENTS; Start 08/13/17 at 03:00; Stop 08/16/17 at 02:59 Sodium Chloride (NS Flush) 2 ml BID IV FLUSH ; Start 08/12/17 at 21:00 Social History no smoking or drinking. Physical Exam Vital Signs Vital Signs Date Time Temp Pulse Resp B/P (MAP) Pulse Ox O2 Delivery O2 Flow Rate FiO2 08/13/17 00:00 98.7 81 18 127/80 (96) 97 08/12/17 20:00 98.3 72 18 117/72 (87) 96 08/12/17 16:00 98.6 64 18 126/82 (97) 96 Physical Exam GENERAL: This is a well-nourished, well-developed patient, in no apparent distress. SKIN: No rashes, ecchymoses or lesions. Cool and dry. HEAD: Atraumatic. Normocephalic. No temporal or scalp tenderness. EYES: Pupils equal round and reactive. Extraocular motions intact. No scleral icterus. No injection or drainage. ENT: Nose without bleeding, purulent drainage or septal hematoma. Throat without erythema, tonsillar hypertrophy or exudate. Uvula midline. Airway patent. NECK: Trachea midline. No JVD or lymphadenopathy. Supple, nontender, no meningeal signs. CARDIOVASCULAR: Regular rate and rhythm without murmurs, gallops, or rubs. RESPIRATORY: Clear to auscultation. Breath sounds equal bilaterally. No wheezes , rales, or rhonchi. GASTROINTESTINAL: Abdomen soft, non-tender, nondistended. No hepato-splenomegaly , or palpable masses. No guarding. MUSCULOSKELETAL:s/p left BKA NEUROLOGICAL: Awake and alert. Cranial nerves II through XII intact. Motor and sensory grossly within normal limits. Five out of 5 muscle strength in all muscle groups. Normal speech. Imaging Last Impressions Chest X-Ray 08/12/17 0000 Signed Impressions: Service Date/Time: Saturday, August 12, 2017 16:45 - CONCLUSION: No acute cardiopulmonary disease demonstrated. Tortuous and mildly aneurysmal thoracic aorta, stable. Job Ramires MD Assessment and Plan Assessment and Plan A/P - PAD- s/p left BKA last month- now admitted for the revision of the left BKA continue with pain control- management per vascular surgery. -cardiomyopathy; continue lisinopril and coreg with holding parameters -atrial fibrillation- HR controlled- continue coreg- eliquis on hold for planned surgery. -sacral wound; consult wound care -DVT prophylaxis; on subq Lovenox; will resume oypovoc-scoh-by when ok with vascular surgery. Discussed Condition With the patient and RN. Abilio Hudson MD Aug 13, 2017 08:25
[2017-08-13] MEDS ORDERED: CHOLECALCIFEROL 1000 UNIT PO SCH (09:00)
[2017-08-13] MEDS ORDERED: RANITIDINE HCL 150 MG PO SCH (09:00)
[2017-08-13 09:12] LABS: AUTOMATED NEUTROPHIL # 7.9 TH/MM3 (1.8-7.7); BASOPHIL # 0.1 TH/MM3 (0-0.2); BASOPHIL % 0.8 % (0.0-2.0); EOSINOPHIL # 0.1 TH/MM3 (0-0.4); EOSINOPHIL % 0.9 % (0.0-4.0); HEMATOCRIT 31.1 % (39.0-51.0); HEMOGLOBIN 10.5 GM/DL (13.0-17.0); LYMPH % 12.7 % (9.0-44.0); LYMPHOCYTE # 1.4 TH/MM3 (1.0-4.8); MEAN CELL VOLUME 87.2 FL (80.0-100.0); MEAN CORPUSCULAR HEMOGLOBIN 29.4 PG (27.0-34.0); MEAN CORPUSCULAR HGB CONC 33.7 % (32.0-36.0); MEAN PLATELET VOLUME 6.3 FL (7.0-11.0); MONO % 13.6 % (0.0-8.0); MONOCYTE # 1.5 TH/MM3 (0-0.9); PLATELET COUNT 516 TH/MM3 (150-450); RED BLOOD COUNT 3.57 MIL/MM3 (4.50-5.90); RED CELL DISTRIBUTION WIDTH 13.4 % (11.6-17.2)
[2017-08-13 09:17] LABS: INTERNATIONAL NORMALIZED RATIO 1.2 RATIO; PROTHROMBIN TIME - PATIENT 11.8 SEC (9.8-11.6)
--- NOTE | 2017-08-13 09:33 | MH ---
cc: Ej Ledbetter MD DATE OF ADMISSION: 08/12/2017 ADMITTING PHYSICIAN: Dr. Ledbetter, Vascular Surgery. REASON FOR ADMISSION: Gangrene of the left BKA stump, ischemia of the left leg. HISTORY OF PRESENT ILLNESS: This 71-year-old male in very poor physical shape underwent left ywqxq-twme-miqhekxmkn about a month ago. Since then, the patient has been transferred to a rehab facility and SNF. He fell several times on the stump and now he comes to my office with gangrene of the left hoyjp-axdf-cwkkmklrcm stump and opened wound. The patient is now being admitted for wwmvy-bzeg-dfiawdxzac. PAST MEDICAL HISTORY: Is complex, includes hypertension, atrial fibrillation, coronary artery disease, previous stroke, CHF, abdominal aortic aneurysm. PAST SURGICAL HISTORY: Endovascular abdominal aortic aneurysm repair, followed by aortofemoral bypass, then fem-fem bypass in early , various revisions of the same and then finally a left hpxjw-rhsa-rcmttszjwj as above noted. SOCIAL HISTORY: The patient smokes about a pack a day. Does not drink. MEDICATIONS: Can be found in the chart. PHYSICAL EXAMINATION: GENERAL: Reveals a 71-year-old gentleman appearing much older than his actual age. He is an [employer] and served in [employer] and [employer]. HEENT: Normocephalic. No trauma to the head. Pupils are equal and reactive. Extraocular muscles intact. NECK: Supple. Bilateral carotid pulses, faint bruits, which has been worked up, found to be nonsignificant as far as hemodynamics is concerned. CHEST: Bilateral breath sounds consistent with moderate to severe COPD. HEART: Irregular rhythm. The patient may have a sinus arrhythmia or may be going in and out of atrial fibrillation. ABDOMEN: Soft. No rebound, guarding, masses. EXTREMITIES: The patient has bilateral palpable femoral pulses fem-fem pop graft is patent. His right leg seems to be fairly well perfused. He has Dopplerable popliteal pulse in the right dorsalis pedis and posterior tibial is absent. On the left side, the patient has ltwbl-fpa-rlnn-amputation, which is gangrenous over the anterior surface and the wound is open partially where he fell. NEUROLOGIC: Grossly patient is intact. IMPRESSION AND PLAN: Patient with left hvrnf-srzz-uwjqnyjzfd about a month ago and several falls onto the stump. At this point for a left above-knee amputation for there is no way we can reconstruct this, there is simply no skin available for it is all gangrenous anteriorly. MD MARI Mcpherson/DANGELO , 04:57 PM , 05:16 PM
[2017-08-13] MEDS ORDERED: DEXMEDETOMIDINE HCL 200 MCG/2 ML VIAL ONE (10:31)
[2017-08-13] MEDS ORDERED: ACETAMINOPHEN 1000 MG/100 ML 100 ML IV ONE (10:31)
[2017-08-13 11:26] LABS: BICARBONATE 30.1 MEQ/L (21.0-32.0); CALCIUM 9.2 MG/DL (8.5-10.1); CREATININE 1.23 MG/DL (0.60-1.30)
[2017-08-13] MEDS ORDERED: DO NOT ADM ANY ANTICOAGULANT DRUGS PRN (13:15)
[2017-08-13] MEDS ORDERED: MIDAZOLAM HCL 2 MG/2 ML VIAL ONE (13:23)
--- NOTE | 2017-08-13 13:49 | PD.WCN.NOT ---
Wound Consult Description: Wound consult ordered by for sacral wound Communicated with: Mary TRACEY Additional Information: Patient was not seen today.Partner attempted to seen patient @[id number] and @0930 patient is off floor. Markus Hussein [facility] Aug 13, 2017 13:49
[2017-08-13] MEDS ORDERED: oxyCODONE/ACETAMINOPHEN 5 MG/325 MG TAB PO PRN (14:30)
--- NOTE | 2017-08-13 14:52 | MP ---
cc: Ej Ledbetter MD DATE OF OPERATION: 08/13/2017 PREOPERATIVE DIAGNOSIS: Gangrenous left below-knee amputation, status post fall and dehiscence of the left amputation. POSTOPERATIVE DIAGNOSIS: Gangrenous left below-knee amputation, status post fall and dehiscence of the left amputation. PROCEDURE: Left above-knee amputation. SURGEON: Ej Ledbetter MD ANESTHESIA: General. ESTIMATED BLOOD LOSS: 100 mL INDICATION FOR PROCEDURE: This 71-year-old male with severe peripheral vascular disease, underwent left below-knee amputation about a month ago. He was then sent to a long-term and home. The patient apparently fell a few times when going out to smoke and hit stump straight on the pavement. He comes to my office with dehisced stump and gangrene of the anterior portion of the skin all the way up to the knee. There is no way to salvage this, and bone is actually visible. The patient was prepped and draped in usual fashion, and an incision is made in a fish mouth fashion, first anteriorly and marked only posteriorly. The incision was deepened with the cautery all the way to the femur. Small collaterals cauterized. Periosteum is elevated to about 2 inches above the level of the original incision, and then the femur was transected with the oscillating saw, and then quickly the posterior flap was created with the amputation knife. and amputation knife and specimen removed. Hemostasis obtained by placing several hemostats on the bleeding collaterals. His SFA, of course, is occluded from before and so is the fem-pop graft that used to be there. The collateral is clamped and then controlled with 2-0 Vicryl stick ties [id number]. The graft is pulled out somewhat and then transected and allowed to retract. The sciatic nerve is equally pulled out, transected and allowed to retract. Same is done with the femoral nerve. Area irrigated with copious amounts of saline and the incision closed deep layer to deep layer with 0 Vicryl and muscle to muscle and then superficial fascia to fascia with 0 Vicryl. Skin is approximated with 2-0 Prolene. Dressing applied. The patient tolerated the procedure well. MD MARI Mcpherson/LK , 02:37 PM , 02:52 PM
[2017-08-13 15:46] VITALS: O2SAT 100
[2017-08-13 16:00] VITALS: BP 109/67; PULSE 56; RESP 17; TEMP 97.4; O2SAT 96
[2017-08-13] MEDS: ENOXAPARIN SODIUM 40 MG/0.4 ML SYRINGE SQ SCH (17:23)
[2017-08-13] MEDS: SENNOSIDES 8.6 MG TAB PO PRN (17:28)
[2017-08-13 20:00] VITALS: BP 99/65; PULSE 92; RESP 20; TEMP 97.9; O2SAT 97
[2017-08-13] MEDS: MORPHINE SULFATE 4 MG/ML INJ IV PUSH PRN (23:48)
[2017-08-14 00:21] VITALS: BP 120/71; PULSE 76; RESP 18; TEMP 98.4; O2SAT 96
[2017-08-14 04:00] VITALS: BP 130/80; PULSE 82; RESP 20; TEMP 98.1; O2SAT 96
[2017-08-14] MEDS: SENNOSIDES 8.6 MG TAB PO PRN (04:44)
[2017-08-14] MEDS: MORPHINE SULFATE 4 MG/ML INJ IV PUSH PRN (04:44)
[2017-08-14 08:00] VITALS: BP 119/73; PULSE 82; RESP 16; TEMP 98.2; O2SAT 95
[2017-08-14] MEDS: SODIUM CHLORIDE 0.9% FLUSH 10 ML FLUSH IV FLUSH SCH ×2 (09:00→22:22)
[2017-08-14] MEDS: ERYTHROMYCIN 0.5% OPTH OINT 3.5 GM TUBO RIGHT EYE SCH ×2 (09:00→21:00)
[2017-08-14] MEDS: PSYLLIUM FIBER SF/GF 6 GM POWD PKT PO SCH (09:00)
[2017-08-14] MEDS: CHOLECALCIFEROL (VIT D3) 1000 UNIT TAB PO SCH (10:07)
[2017-08-14] MEDS: GABAPENTIN 100 MG CAP PO SCH ×3 (10:07→19:05)
[2017-08-14] MEDS: FERROUS SULFATE 325 MG (65 MG ELEMENTAL IRON) TAB PO SCH (10:07)
[2017-08-14] MEDS: FAMOTIDINE 20 MG TAB PO SCH (10:07)
[2017-08-14] MEDS: ASPIRIN EC 81 MG TABEC PO SCH (10:07)
[2017-08-14] MEDS: CARVEDILOL 12.5 MG TAB PO SCH ×2 (10:08→22:21)
[2017-08-14] MEDS: DOCUSATE SODIUM 100 MG CAP PO SCH ×2 (10:08→22:22)
[2017-08-14] MEDS: ASCORBIC ACID 500 MG TAB PO SCH ×2 (10:08→22:22)
[2017-08-14] MEDS: LISINOPRIL 5 MG TAB PO SCH (10:08)
[2017-08-14] MEDS: PRAVASTATIN SOD 40 MG TAB PO SCH (10:08)
--- NOTE | 2017-08-14 10:36 | HHI.PR ---
Subjective Remarks in no acute distress. pain seems to be controlled. no new complaints. Objective Vitals Vital Signs Date Time Temp Pulse Resp B/P (MAP) Pulse Ox O2 Delivery O2 Flow Rate FiO2 08/14/17 08:00 98.2 82 16 119/73 (88) 95 08/14/17 04:00 98.1 82 20 130/80 (97) 96 08/14/17 00:21 98.4 76 18 120/71 (87) 96 08/13/17 20:00 97.9 92 20 99/65 (76) 97 08/13/17 16:00 97.4 56 17 109/67 (81) 96 08/13/17 15:46 100 Nasal Cannula 2.00 08/13/17 14:30 57 14 112/60 (77) 100 Nasal Cannula 2 08/13/17 14:15 58 14 113/66 (82) 100 Nasal Cannula 2 08/13/17 14:00 63 14 111/69 (83) 100 Nasal Cannula 2 08/13/17 13:45 56 14 86/54 (65) 100 Nasal Cannula 2 08/13/17 13:30 64 14 86/55 (65) 100 Nasal Cannula 2 08/13/17 13:15 97.6 64 14 88/55 (66) 100 Nasal Cannula 2 I/O 08/13/17 08/13/17 08/13/17 08/14/17 08/14/17 08/14/17 07:00 15:00 23:00 07:00 15:00 23:00 Intake Total 1120 ml 1000 ml 841 ml 659 ml Output Total 100 ml 250 ml 800 ml Balance 1120 ml 900 ml 591 ml -141 ml Intake Oral 120 ml 300 ml IV Total 1000 ml 541 ml 659 ml Other 1000 ml Output Urine Total 250 ml 800 ml Estimated Blood Loss 100 ml # Voids 4 # Bowel Movements 1 0 Result Diagram: 08/13/17 0832 08/13/17 1045 Imaging Last Impressions Chest X-Ray 08/12/17 0000 Signed Impressions: Service Date/Time: Saturday, August 12, 2017 16:45 - CONCLUSION: No acute cardiopulmonary disease demonstrated. Tortuous and mildly aneurysmal thoracic aorta, stable. Job Ramires MD Objective Remarks GENERAL: This is a well-nourished, well-developed patient, in no apparent distress. CARDIOVASCULAR: Regular rate and regular rhythm without murmurs, gallops, or rubs. RESPIRATORY: Clear to auscultation. Breath sounds equal bilaterally. No wheezes , rales, or rhonchi. GASTROINTESTINAL: Abdomen soft, non-tender, nondistended. Normal, active bowel sounds MUSCULOSKELETAL: s/p left AKA NEURO: Alert & Oriented x4 to person, place, time, situation. Moves all ext x4 Procedures left AKA Medications and IVs Inpatient Medications Ascorbic Acid (Vitamin C) 500 mg BID PO Last administered on 08/14/17 10:08; Start 08/12/17 at 21:00 Aspirin (Ecotrin Ec) 81 mg DAILY PO Last administered on 08/14/17 10:07; Start 08/13/17 at 09:00 Carvedilol (Coreg) 25 mg BID PO Last administered on 08/14/17 10:08; Start 08/12 at 21:00 Cefazolin Sodium 1000 mg/Sodium Chloride 100 ml @ 200 mls/hr Q8H IV Last administered on 08/14/17 04:19; Start 08/13/17 at 20:00; Stop 08/14/17 at 19:59 Cefazolin Sodium 2000 mg/Sodium Chloride 120 ml @ 240 mls/hr TAPPER SHANK IV Last administered on 08/13/17 12:02; Start 08/12/17 at 17:00; Stop 08/15/17 at 16:59 Cholecalciferol (Vitamin D3) 1,000 units DAILY PO Last administered on 10:07; Start 08/13/17 at 09:00 Docusate Sodium (Colace) 100 mg BID PO Last administered on 08/14/17 10:08; Start 08/12/17 at 21:00 Enoxaparin Sodium (Lovenox Inj) 40 mg Q24H SQ Last administered on 08/12/17 18: 25; Start 08/12/17 at 18:00 Erythromycin (Ilotycin 0.5% Opth Oint) 1 applic BID RIGHT EYE ; Start 08/12/17 at 21:00 Famotidine (Pepcid) 20 mg DAILY PO Last administered on 08/14/17 10:07; Start 08/13/17 at 09:00 Ferrous Sulfate (Ferrous Sulfate) 324 mg DAILY PO Last administered on 10:07; Start 08/13/17 at 09:00 Gabapentin (Neurontin) 100 mg TID PO Last administered on 08/14/17 10:07; Start 08/12/17 at 18:00 Lactated Ringer's 1,000 ml @ 30 mls/hr Q24H PRN IV SEE LABEL COMMENTS; Start at 03:00; Stop 08/16/17 at 02:59 Lisinopril (Prinivil) 5 mg DAILY PO Last administered on 08/14/17at 10:08; Start 08/13/17 at 09:00 Miscellaneous Information ALL NURSING DEPARTME... UNSCH PRN .XX SEE LABEL COMMENTS; Start 08/13/17 at 13:15; Stop 08/14/17 at 13:14 Miscellaneous Information (Post-op Orders (for Pharmacy)) STAT ONCE XX ; Start 08/12/17 at 16:15; Stop 08/12/17 at 17:34; Status DC Morphine Sulfate (Morphine Inj) 4 mg Q3H PRN IV PUSH PAIN 6-10 Last administered on 08/14/17at 04:44; Start 08/13/17 at 14:30 Naloxone HCl (Narcan Inj) 0.4 mg UNSCH PRN IV PUSH SEE LABEL COMMENTS; Start at 16:15 Ondansetron HCl (Zofran Inj) 4 mg Q6H PRN IV PUSH NAUSEA OR VOMITING; Start 08/12/17 at 16:15 Oxycodone/ Acetaminophen (Percocet 5-325 Mg) 1 tab Q4H PRN PO PAIN 3-5; Start 08/13/17 at 14:30 Oxycodone/ Acetaminophen (Percocet 10-325 Mg) 1 tab Q6H PRN PO pain 6-10 Last administered on 08/13/17at 08:19; Start 08/12/17 at 16:15; Stop 08/13/17 at 14:30; Status DC Pantoprazole Sodium (Protonix) 40 mg Q24H PO Last administered on 08/12/17at 18: 25; Start 08/12/17 at 18:00; Stop 08/13/17 at 14:30; Status DC Pravastatin Sodium (Pravachol) 40 mg DAILY PO Last administered on 4/5/18at 10: 08; Start 08/13/17 at 09:00 Psyllium Hydrophilic Mucilloid (Metamucil Smooth Texture Sf/ Gf Pkt) 1 pkt DAILY PO Last administered on 08/14/17at 09:00; Start 08/13/17 at 09:00 Sennosides (Senokot) 8.6 mg BID PRN PO CONSTIPATION Last administered on at 04:44; Start 08/12/17 at 16:15 Sodium Chloride 500 ml @ 30 mls/hr [id number] PRN IV SEE LABEL COMMENTS; Start 08/13/17 at 03:00; Stop 08/16/17 at 02:59 Sodium Chloride (NS Flush) 2 ml BID IV FLUSH Last administered on 08/13/17at 20: 15; Start 08/12/17 at 21:00 A/P Assessment and Plan A/P - PAD- s/p left BKA last month- with gangrene of the stump- s/p left AKA- continue with pain control- management per vascular surgery. -cardiomyopathy; continue lisinopril and coreg with holding parameters -atrial fibrillation- HR controlled- continue coreg- resume eliquis when ok with vascular surgery. -sacral wound; consulted wound care -DVT prophylaxis; on subq Lovenox; will resume eliquis- when ok with vascular surgery. Discharge Planning dc planning per vascular surgery. Abilio Hudson MD Aug 14, 2017 10:35
[2017-08-14] MEDS ORDERED: OXYC1TAB63 PO (10:37)
--- NOTE | 2017-08-14 10:49 | PD.WCN.NOT ---
Wound Consult Description: Wound consult ordered by for sacral wound Communicated with: Zuri TRACEY, Recommendation: 1. Reposition patient every 2 hours for comfort and offloading. 2. Apply Remedy Calazime cream to sacral wound BID or as needed for loose stool 3. Avoid placing patient on cotton underpad.Only use UltraSorb underpad. 4. Reconsult wound care if wound worsens. Additional Information: Patient was seen today on 7 by newswriter and Zuri TRACEY.Patient alert in bed only to self at this time.Patient stated newswriter and nurse needed to be quiet there was a going on in his room,In which he also stated he was at the tenriism.Flakeboard Line Tender reoriented patient with no success.Patient required one person assist to reposition to right side.Boarder dressing removed from sacral area ( adhesive allergy noted).Sacral cleansed with normal saline to present a partial thick ness pressure injury measuring 3.9cm x5.0cm x0.1cm wound edges are well defined and even with wound base irregular in shape.Wound base is ~75% red non granular tissue ~25% light pink/white tissue.Moderate serosanguineous drainage noted with mild odor present.Periwound intact multiple areas of scar tissue noted to thoracic and sacral/coccyx area suspicion of old healed pressure injuries.Patient was removed off of cotton underpad and UltraSorb was placed under patient.Calazime cream applied in thick layer to sacral wound and patient was repositioned with 2 pillows to right side for comfort and offloading .Left lower extremity stump dressing dry and intact. Markus Hussein [facility] Aug 14, 2017 10:49
[2017-08-14 12:00] VITALS: BP 102/69; PULSE 70; RESP 17; TEMP 99.1; O2SAT 94
--- NOTE | 2017-08-14 13:12 | PD.CAR.PN ---
CVT Progress Note Subjective/Hospital Course: 08/14/2017 Status post left above-knee amputation Dressing dry clean Will leave the dressing on until Friday at which point we will remove the dressing and patient can be discharged Case management to make arrangements for patient's discharge if he is going to nursing facility Objective: Vital Signs Date Time Temp Pulse Resp B/P (MAP) Pulse Ox O2 Delivery O2 Flow Rate FiO2 08/14/17 12:00 99.1 70 17 102/69 (80) 94 08/14/17 08:00 98.2 82 16 119/73 (88) 95 08/14/17 04:00 98.1 82 20 130/80 (97) 96 08/14/17 00:21 98.4 76 18 120/71 (87) 96 08/13/17 20:00 97.9 92 20 99/65 (76) 97 08/13/17 16:00 97.4 56 17 109/67 (81) 96 08/13/17 15:46 100 Nasal Cannula 2.00 08/13/17 14:30 57 14 112/60 (77) 100 Nasal Cannula 2 08/13/17 14:15 58 14 113/66 (82) 100 Nasal Cannula 2 08/13/17 14:00 63 14 111/69 (83) 100 Nasal Cannula 2 08/13/17 13:45 56 14 86/54 (65) 100 Nasal Cannula 2 08/13/17 13:30 64 14 86/55 (65) 100 Nasal Cannula 2 08/13/17 13:15 97.6 64 14 88/55 (66) 100 Nasal Cannula 2 Result Diagram: 08/13/17 0832 08/13/17 1045 Ej Ledbetter MD Aug 14, 2017 13:12
[2017-08-14 16:00] VITALS: BP 102/60; PULSE 67; RESP 18; TEMP 98.4; O2SAT 95
[2017-08-14] MEDS: ENOXAPARIN SODIUM 40 MG/0.4 ML SYRINGE SQ SCH (19:06)
[2017-08-14 20:00] VITALS: BP 108/63; PULSE 69; RESP 20; TEMP 98.1; O2SAT 97
[2017-08-15] VITALS (7 sets, daily range): BP systolic 77–125; BP diastolic 47–69; PULSE 57–76; RESP 16–20; TEMP 97.9–98.4; O2SAT 92–98
[2017-08-15 06:30] LABS: HEMATOCRIT 26.6 % (39.0-51.0); HEMOGLOBIN 8.8 GM/DL (13.0-17.0); MEAN CELL VOLUME 86.9 FL (80.0-100.0); MEAN CORPUSCULAR HEMOGLOBIN 28.9 PG (27.0-34.0); MEAN CORPUSCULAR HGB CONC 33.2 % (32.0-36.0); MEAN PLATELET VOLUME 6.3 FL (7.0-11.0); PLATELET COUNT 405 TH/MM3 (150-450); RED BLOOD COUNT 3.06 MIL/MM3 (4.50-5.90); RED CELL DISTRIBUTION WIDTH 13.5 % (11.6-17.2); WHITE BLOOD COUNT 12.1 TH/MM3 (4.0-11.0)
[2017-08-15] MEDS: PSYLLIUM FIBER SF/GF 6 GM POWD PKT PO SCH (09:00)
[2017-08-15] MEDS: ERYTHROMYCIN 0.5% OPTH OINT 3.5 GM TUBO RIGHT EYE SCH ×2 (09:00→21:00)
--- NOTE | 2017-08-15 09:47 | HHI.PR ---
Subjective Remarks in no acute distress. pain seems to be controlled. no new complaints. Objective Vitals Vital Signs Date Time Temp Pulse Resp B/P (MAP) Pulse Ox O2 Delivery O2 Flow Rate FiO2 08/15/17 08:00 98.1 76 16 125/68 (87) 96 08/15/17 04:00 98.3 66 18 119/61 (80) 98 08/15/17 00:00 98.4 65 20 77/47 (57) 96 08/14/17 20:00 98.1 69 20 108/63 (78) 97 08/14/17 16:00 98.4 67 18 102/60 (74) 95 08/14/17 12:00 99.1 70 17 102/69 (80) 94 I/O 08/14/17 08/14/17 08/14/17 08/15/17 08/15/17 08/15/17 07:00 15:00 23:00 07:00 15:00 23:00 Intake Total 659 ml 1000 ml 460 ml 240 ml Output Total 800 ml 1350 ml 1200 ml Balance -141 ml 1000 ml -890 ml -960 ml Intake Oral 360 ml 240 ml IV Total 659 ml 1000 ml 100 ml Output Urine Total 800 ml 1350 ml 1200 ml # Bowel Movements 0 Result Diagram: 08/15/17 0606 08/13/17 1045 Imaging Last Impressions Chest X-Ray 08/12/17 0000 Signed Impressions: Service Date/Time: Saturday, August 12, 2017 16:45 - CONCLUSION: No acute cardiopulmonary disease demonstrated. Tortuous and mildly aneurysmal thoracic aorta, stable. Job Ramires MD Objective Remarks GENERAL: This is a well-nourished, well-developed patient, in no apparent distress. CARDIOVASCULAR: Regular rate and regular rhythm without murmurs, gallops, or rubs. RESPIRATORY: Clear to auscultation. Breath sounds equal bilaterally. No wheezes , rales, or rhonchi. GASTROINTESTINAL: Abdomen soft, non-tender, nondistended. Normal, active bowel sounds MUSCULOSKELETAL: s/p left AKA NEURO: Alert & Oriented x4 to person, place, time, situation. Moves all ext x4 Procedures left AKA Medications and IVs Inpatient Medications Ascorbic Acid (Vitamin C) 500 mg BID PO Last administered on 08/14/17at 22:22; Start 08/12/17 at 21:00 Aspirin (Ecotrin Ec) 81 mg DAILY PO Last administered on 08/14/17 10:07; Start 08/13/17 at 09:00 Carvedilol (Coreg) 25 mg BID PO Last administered on 08/14/17 22:21; Start 08/12 at 21:00 Cefazolin Sodium 1000 mg/Sodium Chloride 100 ml @ 200 mls/hr Q8H IV Last administered on 08/14/17at 14:41; Start 08/13/17 at 20:00; Stop 08/14/17 at 19:59; Status DC Cefazolin Sodium 2000 mg/Sodium Chloride 120 ml @ 240 mls/hr [employer] IV Last administered on 08/13/17 12:02; Start 08/12/17 at 17:00; Stop 08/15/17 at 16:59 Cholecalciferol (Vitamin D3) 1,000 units DAILY PO Last administered on 10:07; Start 08/13/17 at 09:00 Docusate Sodium (Colace) 100 mg BID PO Last administered on 08/14/17 22:22; Start 08/12/17 at 21:00 Enoxaparin Sodium (Lovenox Inj) 40 mg Q24H SQ Last administered on 08/14/17 19: 06; Start 08/12/17 at 18:00 Erythromycin (Ilotycin 0.5% Opth Oint) 1 applic BID RIGHT EYE ; Start 08/12/17 at 21:00 Famotidine (Pepcid) 20 mg DAILY PO Last administered on 08/14/17 10:07; Start 08/13/17 at 09:00 Ferrous Sulfate (Ferrous Sulfate) 324 mg DAILY PO Last administered on 10:07; Start 08/13/17 at 09:00 Gabapentin (Neurontin) 100 mg TID PO Last administered on 08/14/17 19:05; Start 08/12/17 at 18:00 Lactated Ringer's 1,000 ml @ 30 mls/hr Q24H PRN IV SEE LABEL COMMENTS; Start at 03:00; Stop 08/16/17 at 02:59 Lisinopril (Prinivil) 5 mg DAILY PO Last administered on 4/5/18at 10:08; Start 08/13/17 at 09:00 Miscellaneous Information ALL NURSING DEPARTME... UNSCH PRN .XX SEE LABEL COMMENTS; Start 08/13/17 at 13:15; Stop 08/14/17 at 13:14; Status DC Miscellaneous Information (Post-op Orders (for Pharmacy)) STAT ONCE XX ; Start 08/12/17 at 16:15; Stop 08/12/17 at 17:34; Status DC Morphine Sulfate (Morphine Inj) 4 mg Q3H PRN IV PUSH PAIN 6-10 Last administered on 08/14/17at 04:44; Start 08/13/17 at 14:30 Naloxone HCl (Narcan Inj) 0.4 mg UNSCH PRN IV PUSH SEE LABEL COMMENTS; Start at 16:15 Ondansetron HCl (Zofran Inj) 4 mg Q6H PRN IV PUSH NAUSEA OR VOMITING; Start 08/12/17 at 16:15 Oxycodone/ Acetaminophen (Percocet 5-325 Mg) 1 tab Q4H PRN PO PAIN 3-5; Start 08/13/17 at 14:30 Oxycodone/ Acetaminophen (Percocet 10-325 Mg) 1 tab Q6H PRN PO pain 6-10 Last administered on 08/13/17at 08:19; Start 08/12/17 at 16:15; Stop 08/13/17 at 14:30; Status DC Pantoprazole Sodium (Protonix) 40 mg Q24H PO Last administered on 08/12/17at 18: 25; Start 08/12/17 at 18:00; Stop 08/13/17 at 14:30; Status DC Pravastatin Sodium (Pravachol) 40 mg DAILY PO Last administered on 08/14/17at 10: 08; Start 08/13/17 at 09:00 Psyllium Hydrophilic Mucilloid (Metamucil Smooth Texture Sf/ Gf Pkt) 1 pkt DAILY PO Last administered on 08/14/17 09:00; Start 08/13/17 at 09:00 Sennosides (Senokot) 8.6 mg BID PRN PO CONSTIPATION Last administered on 04:44; Start 08/12/17 at 16:15 Sodium Chloride 500 ml @ 30 mls/hr [id number] PRN IV SEE LABEL COMMENTS; Start 08/13/17 at 03:00; Stop 08/16/17 at 02:59 Sodium Chloride (NS Flush) 2 ml BID IV FLUSH Last administered on 08/14/17at 22: 22; Start 08/12/17 at 21:00 A/P Assessment and Plan A/P - PAD- s/p left BKA last month- with gangrene of the stump- s/p left AKA- continue with pain control- management per vascular surgery. -cardiomyopathy; continue lisinopril and coreg with holding parameters -atrial fibrillation- HR controlled- continue coreg- resume eliquis when ok with vascular surgery. -sacral wound; consulted wound care -DVT prophylaxis; on subq Lovenox; will resume eliquis- when ok with vascular surgery. Discharge Planning dc planning per vascular surgery. Abilio Hudson MD Aug 15, 2017 09:47
[2017-08-15] MEDS: GABAPENTIN 100 MG CAP PO SCH ×3 (09:48→18:30)
[2017-08-15] MEDS: FERROUS SULFATE 325 MG (65 MG ELEMENTAL IRON) TAB PO SCH (09:48)
[2017-08-15] MEDS: DOCUSATE SODIUM 100 MG CAP PO SCH ×2 (09:48→21:28)
[2017-08-15] MEDS: CARVEDILOL 12.5 MG TAB PO SCH ×2 (09:48→21:28)
[2017-08-15] MEDS: ASCORBIC ACID 500 MG TAB PO SCH ×2 (09:48→21:28)
[2017-08-15] MEDS: ASPIRIN EC 81 MG TABEC PO SCH (09:48)
[2017-08-15] MEDS: LISINOPRIL 5 MG TAB PO SCH (09:48)
[2017-08-15] MEDS: CHOLECALCIFEROL (VIT D3) 1000 UNIT TAB PO SCH (09:48)
[2017-08-15] MEDS: FAMOTIDINE 20 MG TAB PO SCH (09:48)
[2017-08-15] MEDS: SENNOSIDES 8.6 MG TAB PO PRN (09:48)
[2017-08-15] MEDS: PRAVASTATIN SOD 40 MG TAB PO SCH (09:48)
[2017-08-15] MEDS: SODIUM CHLORIDE 0.9% FLUSH 10 ML FLUSH IV FLUSH SCH ×2 (09:50→21:28)
[2017-08-15] MEDS: ENOXAPARIN SODIUM 40 MG/0.4 ML SYRINGE SQ SCH (18:00)
--- NOTE | 2017-08-15 21:06 | PD.CAR.PN ---
CVT Progress Note Subjective/Hospital Course: 08/14/2017 Status post left above-knee amputation Dressing dry clean Will leave the dressing on until Friday at which point we will remove the dressing and patient can be discharged Case management to make arrangements for patient's discharge if he is going to nursing facility 08/15/2017 Incision clean and dry dressing intact Remove dressing and apply light dressing daily DC patient to long-term tomorrow Follow-up with me in about 2 weeks Objective: Vital Signs Date Time Temp Pulse Resp B/P (MAP) Pulse Ox O2 Delivery O2 Flow Rate FiO2 08/15/17 17:48 97 Nasal Cannula 2.00 08/15/17 16:00 98.3 65 16 120/69 (86) 97 08/15/17 12:00 98.1 67 19 99/56 (70) 92 08/15/17 08:00 98.1 76 16 125/68 (87) 96 08/15/17 04:00 98.3 66 18 119/61 (80) 98 08/15/17 00:00 98.4 65 20 77/47 (57) 96 Result Diagram: 08/15/17 0606 08/13/17 1045 Ej Ledbetter MD Aug 15, 2017 21:06
[2017-08-16] VITALS: BP 107/55; PULSE 62; RESP 20; TEMP 98.9; O2SAT 98
[2017-08-16 08:00] VITALS: BP 101/68; PULSE 75; RESP 18; TEMP 98.5; O2SAT 94
[2017-08-16] MEDS: ERYTHROMYCIN 0.5% OPTH OINT 3.5 GM TUBO RIGHT EYE SCH (09:00)
[2017-08-16] MEDS: PSYLLIUM FIBER SF/GF 6 GM POWD PKT PO SCH (09:00)
[2017-08-16] MEDS: SODIUM CHLORIDE 0.9% FLUSH 10 ML FLUSH IV FLUSH SCH (09:00)
--- NOTE | 2017-08-16 09:40 | HHI.PR ---
Subjective Remarks in no acute distress. complaining of pain to the left lower extremity. no other complaints. Objective Vitals Vital Signs Date Time Temp Pulse Resp B/P (MAP) Pulse Ox O2 Delivery O2 Flow Rate FiO2 08/16/17 08:00 98.5 75 18 101/68 (79) 94 08/16/17 00:00 98.9 62 20 107/55 (72) 98 08/15/17 20:00 97.9 57 19 121/63 (82) 96 08/15/17 17:48 97 Nasal Cannula 2.00 08/15/17 16:00 98.3 65 16 120/69 (86) 97 08/15/17 12:00 98.1 67 19 99/56 (70) 92 I/O 08/15/17 08/15/17 08/15/17 08/16/17 08/16/17 08/16/17 07:00 15:00 23:00 07:00 15:00 23:00 Intake Total 240 ml 480 ml 240 ml Output Total 1200 ml 600 ml 550 ml Balance -960 ml -120 ml -310 ml Intake Oral 240 ml 480 ml 240 ml Output Urine Total 1200 ml 600 ml 550 ml # Bowel Movements 0 Result Diagram: 08/15/17 0606 08/13/17 1045 Imaging Last Impressions Chest X-Ray 08/12/17 0000 Signed Impressions: Service Date/Time: Saturday, August 12, 2017 16:45 - CONCLUSION: No acute cardiopulmonary disease demonstrated. Tortuous and mildly aneurysmal thoracic aorta, stable. Job Ramires MD Objective Remarks GENERAL: This is a well-nourished, well-developed patient, in no apparent distress. CARDIOVASCULAR: Regular rate and regular rhythm without murmurs, gallops, or rubs. RESPIRATORY: Clear to auscultation. Breath sounds equal bilaterally. No wheezes , rales, or rhonchi. GASTROINTESTINAL: Abdomen soft, non-tender, nondistended. Normal, active bowel sounds MUSCULOSKELETAL: s/p left AKA NEURO: Alert & Oriented x4 to person, place, time, situation. Moves all ext x4 Procedures left AKA Medications and IVs Inpatient Medications Ascorbic Acid (Vitamin C) 500 mg BID PO Last administered on 08/15/17at 21:28; Start 08/12/17 at 21:00 Aspirin (Ecotrin Ec) 81 mg DAILY PO Last administered on 08/15/17 09:48; Start 08/13/17 at 09:00 Carvedilol (Coreg) 25 mg BID PO Last administered on 08/15/17 21:28; Start 08/12 at 21:00 Cefazolin Sodium 1000 mg/Sodium Chloride 100 ml @ 200 mls/hr Q8H IV Last administered on 08/14/17 14:41; Start 08/13/17 at 20:00; Stop 08/14/17 at 19:59; Status DC Cefazolin Sodium 2000 mg/Sodium Chloride 120 ml @ 240 mls/hr [employer] IV Last administered on 08/13/17 12:02; Start 08/12/17 at 17:00; Stop 08/15/17 at 16:59; Status DC Cholecalciferol (Vitamin D3) 1,000 units DAILY PO Last administered on 09:48; Start 08/13/17 at 09:00 Docusate Sodium (Colace) 100 mg BID PO Last administered on 08/15/17 21:28; Start 08/12/17 at 21:00 Enoxaparin Sodium (Lovenox Inj) 40 mg Q24H SQ Last administered on 08/14/17 19: 06; Start 08/12/17 at 18:00 Erythromycin (Ilotycin 0.5% Opth Oint) 1 applic BID RIGHT EYE ; Start 08/12/17 at 21:00 Famotidine (Pepcid) 20 mg DAILY PO Last administered on 08/15/17 09:48; Start 08/13/17 at 09:00 Ferrous Sulfate (Ferrous Sulfate) 324 mg DAILY PO Last administered on 09:48; Start 08/13/17 at 09:00 Gabapentin (Neurontin) 100 mg TID PO Last administered on 08/15/17 18:30; Start 08/12/17 at 18:00 Lactated Ringer's 1,000 ml @ 30 mls/hr Q24H PRN IV SEE LABEL COMMENTS; Start at 03:00; Stop 08/16/17 at 02:59; Status DC Lisinopril (Prinivil) 5 mg DAILY PO Last administered on 08/15/17 09:48; Start 08/13/17 at 09:00 Miscellaneous Information ALL NURSING DEPARTME... UNSCH PRN .XX SEE LABEL COMMENTS; Start 08/13/17 at 13:15; Stop 08/14/17 at 13:14; Status DC Miscellaneous Information (Post-op Orders (for Pharmacy)) STAT ONCE XX ; Start 08/12/17 at 16:15; Stop 08/12/17 at 17:34; Status DC Morphine Sulfate (Morphine Inj) 4 mg Q3H PRN IV PUSH PAIN 6-10 Last administered on 08/14/17at 04:44; Start 08/13/17 at 14:30 Naloxone HCl (Narcan Inj) 0.4 mg UNSCH PRN IV PUSH SEE LABEL COMMENTS; Start at 16:15 Ondansetron HCl (Zofran Inj) 4 mg Q6H PRN IV PUSH NAUSEA OR VOMITING; Start 08/12/17 at 16:15 Oxycodone/ Acetaminophen (Percocet 5-325 Mg) 1 tab Q4H PRN PO PAIN 3-5 Last administered on 08/15/17at 13:49; Start 08/13/17 at 14:30 Oxycodone/ Acetaminophen (Percocet 10-325 Mg) 1 tab Q6H PRN PO pain 6-10 Last administered on 08/13/17at 08:19; Start 08/12/17 at 16:15; Stop 08/13/17 at 14:30; Status DC Pantoprazole Sodium (Protonix) 40 mg Q24H PO Last administered on 08/12/17 18: 25; Start 08/12/17 at 18:00; Stop 08/13/17 at 14:30; Status DC Pravastatin Sodium (Pravachol) 40 mg DAILY PO Last administered on 08/15/17 09: 48; Start 08/13/17 at 09:00 Psyllium Hydrophilic Mucilloid (Metamucil Smooth Texture Sf/ Gf Pkt) 1 pkt DAILY PO Last administered on 08/15/17 09:00; Start 08/13/17 at 09:00 Sennosides (Senokot) 8.6 mg BID PRN PO CONSTIPATION Last administered on 09:48; Start 08/12/17 at 16:15 Sodium Chloride 500 ml @ 30 mls/hr [id number] PRN IV SEE LABEL COMMENTS; Start 08/13/17 at 03:00; Stop 08/16/17 at 02:59; Status DC Sodium Chloride (NS Flush) 2 ml BID IV FLUSH Last administered on 08/15/17at 21: 28; Start 08/12/17 at 21:00 A/P Assessment and Plan A/P - PAD- s/p left BKA last month- with gangrene of the stump- s/p left AKA- continue with pain control- management per vascular surgery. -cardiomyopathy; continue lisinopril and coreg with holding parameters -atrial fibrillation- HR controlled- continue coreg- resume eliquis when ok with vascular surgery. -sacral wound; consulted wound care -mild thoracic aorta aneurysm- previously has been d/w vascular surgery; f/u as outpatient. -DVT prophylaxis; on subq Lovenox; will resume eliquis- when ok with vascular surgery. Discharge Planning dc planning per vascular surgery. Abilio Hudson MD Aug 16, 2017 09:40
[2017-08-16] MEDS: DOCUSATE SODIUM 100 MG CAP PO SCH (11:39)
[2017-08-16] MEDS: ASPIRIN EC 81 MG TABEC PO SCH (11:39)
[2017-08-16] MEDS: ASCORBIC ACID 500 MG TAB PO SCH (11:40)
[2017-08-16] MEDS: CHOLECALCIFEROL (VIT D3) 1000 UNIT TAB PO SCH (11:40)
[2017-08-16] MEDS: CARVEDILOL 12.5 MG TAB PO SCH (11:40)
[2017-08-16] MEDS: FERROUS SULFATE 325 MG (65 MG ELEMENTAL IRON) TAB PO SCH (11:40)
[2017-08-16] MEDS: LISINOPRIL 5 MG TAB PO SCH (11:40)
[2017-08-16] MEDS: PRAVASTATIN SOD 40 MG TAB PO SCH (11:40)
[2017-08-16] MEDS: FAMOTIDINE 20 MG TAB PO SCH (11:40)
[2017-08-16] MEDS: GABAPENTIN 100 MG CAP PO SCH (11:40)
[2017-08-16 12:00] VITALS: BP 111/67; PULSE 71; RESP 19; TEMP 97.9; O2SAT 94
[2017-08-16 12:39] VITALS: O2SAT 91
--- NOTE | 2017-08-16 14:57 | PD.CAR.PN ---
CVT Progress Note Subjective/Hospital Course: 08/14/2017 Status post left above-knee amputation Dressing dry clean Will leave the dressing on until Friday at which point we will remove the dressing and patient can be discharged Case management to make arrangements for patient's discharge if he is going to nursing facility 08/15/2017 Incision clean and dry dressing intact Remove dressing and apply light dressing daily DC patient to [facility] tomorrow Follow-up with me in about 2 weeks 08/16/2018 Incision clean and dry Patient doing well Discharged today to shelter facility Nothing to add to care Objective: Vital Signs Date Time Temp Pulse Resp B/P (MAP) Pulse Ox O2 Delivery O2 Flow Rate FiO2 08/16/17 12:39 91 08/16/17 12:00 97.9 71 19 111/67 (82) 94 08/16/17 08:00 98.5 75 18 101/68 (79) 94 08/16/17 00:00 98.9 62 20 107/55 (72) 98 08/15/17 20:00 97.9 57 19 121/63 (82) 96 08/15/17 17:48 97 Nasal Cannula 2.00 08/15/17 16:00 98.3 65 16 120/69 (86) 97 Result Diagram: 08/15/17 0606 08/13/17 1045 Ej Ledbetter MD Aug 16, 2017 14:57
[2017-08-16 16:10] VITALS: BP 91/59; PULSE 66; RESP 17; TEMP 98.2; O2SAT 95
== END 2017-08-16 18:33 | DRG 475 ==
LOC: N07B 14:57
PROVIDERS: ADMIT Surgery; ATTEND Surgery
PROC: 0Y6D0Z3 Detachment at Left Upper Leg, Low, Open Approach (ICD-10-PCS; principal; 2017-08-13 11:40)
DX: T87.81 Dehiscence of amputation stump (principal); T87.89 Other complications of amputation stump; I96 Gangrene, not elsewhere classified; L89.159 Pressure ulcer of sacral region, unspecified stage; I11.0 Hypertensive heart disease with heart failure; I42.9 Cardiomyopathy, unspecified; I50.9 Heart failure, unspecified; I48.91 Unspecified atrial fibrillation; I73.9 Peripheral vascular disease, unspecified; Z91.81 History of falling; Z89.512 Acquired absence of left leg below knee; I25.10 Atherosclerotic heart disease of native coronary artery without angina pectoris; F17.210 Nicotine dependence, cigarettes, uncomplicated; Z86.73 Personal history of transient ischemic attack (TIA), and cerebral infarction without residual deficits
CPT/HCPCS: 71045; 80048; 85025; 85027; 85610; 86850; 86900; 86901; 86920; 88307; 88311; 93005; J0131; J0690; J1100; J1650; J2250; J2270; J2370; J2405; J2710; J7120